=== PATIENT | male | born 1940 | race Caucasian/White ===

== ENCOUNTER 2021-03-12 11:06 | Outpatient (CLI) | payer BC, SELFPAY ==
[2021-03-12 11:55] LABS: Basophils Absolute Auto 0.1 K/mm3 (0.0-0.1); Basophils Percent Auto 0.8 % (0.2-1.2); Eosinophils Absolute Auto 0.2 K/mm3 (0-0.3); Eosinophils Percent Auto 3.1 % (0-4.4); Hematocrit 50.4 % (42.0-52.0); Hemoglobin 16.7 g/dL (14.0-18.0); Immature Granulocyte Absolute 0.03 K/mm3 (0.00-0.031); Immature Granulocyte Percent A 0.4 % (0-0.5); Immature Platelet Fraction Pct 4.7 % (0.9-11.2); Lymphocytes Absolute Auto 1.19 K/mm3 (0.9-3.2); Lymphocytes Percent Auto 16.8 % (18.3-44.2); Mean Corpuscular HGB Conc 33.1 g/dl (32-36); Mean Corpuscular Hemoglobin 32.7 pg (26-34); Mean Corpuscular Volume 98.6 fl (80-100); Mean Platelet Volume 10.6 fl (7.4-10.4); Monocytes Absolute Auto 0.8 K/mm3 (0.1-0.6); Monocytes Percent Auto 10.7 % (2.6-8.5); Neutrophils Absolute Auto 4.8 K/mm3 (1.3-6.7); Neutrophils Percent Auto 68.2 % (45.5-73.1); Platelet Count Result 138 k/mm3 (150-375); Red Blood Count 5.11 M/mm3 (4.6-6.20); Red Cell Distribution Width 12.5 % (11.5-14.5); White Blood Count 7.1 K/mm3 (4.5-10.0)
[2021-03-12 12:05] LABS: Alanine Aminotransferase 15 U/L (4-50); Albumin Level 4.2 g/dL (3.5-5.1); Alkaline Phosphatase 67 U/L (38-126); Anion Gap 7 mmol/L (8-16); Aspartate Amino Transferase 24 U/L (17-59); Bilirubin,Total 0.9 mg/dL (0.2-1.3); Blood Urea Nitrogen 22 mg/dL (9-20); Calcium 9.5 mg/dL (8.4-10.2); Carbon Dioxide 31 mmol/L (22-30); Chloride 97 mmol/L (98-107); Cholesterol 155 mg/dL (0-200); Estimated Glomerular Filt Rate > 60; Glucose 111 mg/dL (65-110); HDL Direct 44 mg/dL; Potassium 4.3 mmol/L (3.4-5.0); Sodium 135 mmol/L (137-145); Triglycerides 261 mg/dL (<150)
[2021-03-12 12:16] LABS: LDL Cholesterol Direct 81 mg/dL
[2021-03-12 12:35] LABS: Prostate Specific Antigen 4.6 ng/mL (< OR = 4.0)
== END 2021-03-12 11:07 | disposition home or self-care (01) ==
PROVIDERS: PCP Internal Medicine; Visit Provider Nurse Practitioner
DX: Z90.49 Acquired absence of other specified parts of digestive tract (principal); R35.0 Frequency of micturition
CPT/HCPCS: 36415; 80053; 80061; 84153; 85025; 85055

== ENCOUNTER 2021-03-28 12:22 | Outpatient (RCR) | payer BC, SELFPAY ==
--- NOTE | 2021-03-28 14:26 | STOPEVAL ---
Thank you for referring Bud James to [facility].? The patient is scheduled to be seen for therapy? ____x/week for ___ weeks. Please review, sign, date and return this plan of care FABIÁN. I agree with and certify that the following plan of care is medically necessary. Referring Physician Date Admitting Provider: Attending Provider: Giovanni Harrington MD Referring Provider: Giovanni Harrington MD *ST Outpatient Evaluation Start: 03/28/21 12:10 Freq: Status: Active Protocol: Document 03/28/21 12:31 [facility] (Rec: 03/28/21 13:02 BAS [id number]) Therapy Assessment Status Assessment Status Assessment Status Evaluation Outpatient Past Medical History Past Medical History Source of Past Medical History Patient Evaluation Information Problem Diagnosis Hoarse voice Onset 09/2018 Cause Intubated during CABG/ extubated after surgery Additional Evaluation Detail EGD performed after extubation which facilitated improved swallowing skills according to the . Subjective Information Patient reports he can barely Query Text:As Reported By Patient/ talk at times. reports Family he had a triple bipass in September of 2018; reports that he had his throat stretched at that time. A previous doctor reported that when his breathing tubes were removed, it injured the vocal cords. He was given a Modified Barium Swallow test after the surgery and they found that his epiglottis was not closing as it should and he was instructed to take small bites and sips, use head flexion, and to clear throat and swallow again as a way to prevent penetration. Additionally, the speech pathologist reported he had a bone spur at the cervical level and they spoke with a surgeon about this who advised against surgery to remove it. reports that patient has always had difficulty since the surgery but in the past three weeks he has returned to
--- NOTE | 2021-03-28 14:26 | STOPEVAL ---
Thank you for referring Bud James to [facility].? The patient is scheduled to be seen for therapy? 2x/week for 4 weeks. Please review, sign, date and return this plan of care FABIÁN. I agree with and certify that the following plan of care is medically necessary. Referring Physician Date Attending Provider: Giovanni Harrington MD Referring Provider: Giovanni Harrington MD * Outpatient Past Medical History Past Medical History Source of Past Medical History Patient and spouse Evaluation Information Problem Diagnosis Hoarse voice Onset 09/2018 Cause Intubated during CABG/ extubated after surgery Additional Evaluation Detail EGD performed after extubation which facilitated improved swallowing skills according to the . Subjective Information Patient reports he can barely Query Text:As Reported By Patient/ talk at times. reports Family he had a triple bipass in September of 2018; reports that he had his throat stretched at that time. A previous doctor reported that when his breathing tubes were removed, it injured the vocal cords. He was given a Modified Barium Swallow test after the surgery and they found that his epiglottis was not closing as it should and he was instructed to take small bites and sips, use head flexion, and to clear throat and swallow again as a way to prevent penetration. Additionally, the speech pathologist reported he had a bone spur at the cervical level and they spoke with a surgeon about this who advised against surgery to remove it. reports that patient has always had difficulty since the surgery but in the past three weeks he has returned to eating large bites and adding liquids to the food in his mouth, drinking nutrition drinks that increases the mucous in his throat, and having increased vocal
== END 2021-06-26 23:59 | disposition home or self-care (01) ==
LOC: ANHST 12:22
PROVIDERS: PCP Internal Medicine; Referring Provider Otolaryngology; Visit Provider Otolaryngology
DX: J38.3 Other diseases of vocal cords (principal); J38.2 Nodules of vocal cords; R49.0 Dysphonia; R13.10 Dysphagia, unspecified
CPT/HCPCS: 92524

== ENCOUNTER 2021-04-10 11:22 | Outpatient (CLI) | payer BC, SELFPAY ==
[2021-04-10 12:26] LABS: CRP < 0.5 mg/dL (<1.0)
[2021-04-10 12:46] LABS: Erythrocyte Sedimentation Rate 1 mm/hr (0-20)
[2021-04-10 13:52] LABS: Toxigenic C. Diff NEGATIVE (NEGATIVE)
== END 2021-04-10 11:23 | disposition home or self-care (01) ==
LOC: ANHLAB 11:24
PROVIDERS: PCP Internal Medicine; Visit Provider Nurse Practitioner Family
DX: R19.7 Diarrhea, unspecified (principal)
CPT/HCPCS: 36415; 85652; 86140; 87045; 87177; 87209; 87324; 87427; 87493

== ENCOUNTER 2022-01-01 00:16 | Day surgery (SDC) | payer BC, SELFPAY ==
[2021-12-31 16:45] VITALS: BMI 25.8
[2022-01-01 09:06] VITALS: BP 165/85; PULSE 63; RESP 22; TEMP 36.9; O2SAT 96; BMI 25.9
--- NOTE | 2022-01-01 09:42 | PM.IMHP ---
H&P: HPI History of Present Illness Date/Time: 01/01/22 09:42 Chief Complaint: Loop Recorder at end of life, here for explant Narrative: Bud James is an 81-year-old male who is here for a of loop recorder explant. He is followed by Dr. Kong.. He has history of CABG x3 in 2019, and [place] loop recorder in 2019. He has paroxysmal atrial fibrillation on apixaban, last dose was 12/28/2021 PMD. He has history of some dementia. He is feeling well today with no chest pain or shortness of breath. He has been NPO. The patient has a history of hallucinations when given morphine. When given ?a little too much? Versed he became agitated and confused. He has a penicillin allergy as well. Review of Systems Review of Systems: No chest pain, shortness a breath, stomach problems. He has been NPO. Some cognitive impairment. No symptoms of infection. [facility] Past Medical History Medical History (Updated 01/01/22 @ 09:47 by Karine Pacheco MD) Arthritis CAD (coronary artery disease) Cognitive impairment Colon cancer (~11/01/10) Dementia Elevated PSA GERD (gastroesophageal reflux disease) Heart disease Hypertension Overweight (BMI 25.0-29.9) Paroxysmal atrial fibrillation Pulmonary emboli (~2008) Thrombocytopenia Surgical History Surgical History History of left knee replacement (~2000) Hx of cholecystectomy 2000 S/P CABG x 3 (~10/06/18) Family History Family History Father Heart disease Mother Diabetes mellitus Hypertension Alzheimer disease Sibling Cancer of kidney Carcinoma of colon Daughter Cancer of kidney Social History Social History Social History: Caffeine-None Smoking status: Never smoker Second hand tobacco smoke exposure: No Alcohol intake: never Substance use: never Substance use type: does not use Living arrangements: with family Additional living arrangements comments: lives with in a house Gender identity (if verbalized by the patient): Male Sexual Orientation (if Verbalized by the Patient): Straight or Heterosexual Spiritual care concerns: No Agree to blood products: Yes Meds Home Medications and Allergies Home Medications Medication Instructions Recorded Confirmed Type apixaban 5 mg tablet (Eliquis) 5 mg PO BID 01/01/21 12/31/21 History ascorbic acid (vitamin C) 250 mg 282 mg PO DAILY 01/01/21 12/31/21 History tablet aspirin 81 mg chewable tablet 81 mg PO DAILY 01/01/21 12/31/21 History calcium carbonate 650 mg calcium 650 mg PO DAILY 01/01/21 01/01/22 History (1,625 mg) tablet cyanocobalamin (vitamin B-12) 2,500 mcg PO DAILY 01/01/21 12/31/21 History 2,500 mcg tablet famotidine 20 mg tablet 20 mg PO BID #180 tabs 03/12/21 12/31/21 Rx memantine 10 mg tablet 10 mg PO BID #180 tabs 08/19/21 01/01/22 Rx galantamine 4 mg tablet 8 mg PO BID #120 tabs 11/28/21 12/31/21 Rx Prevagen 1 tablet PO DAILY 12/31/21 12/31/21 History coenzyme Q10 100 mg capsule (Co 100 mg PO DAILY 12/31/21 12/31/21 History Q-10) magnesium 100 mg tablet 100 mg PO DAILY 12/31/21 12/31/21 History melatonin 5 mg chewable tablet 10 mg PO HS 12/31/21 12/31/21 History metoprolol succinate 25 mg 25 mg PO DAILY 12/31/21 12/31/21 History tablet,extended release 24 hr cleluloc-pxh-tjjci acid 300 1 tablet PO DAILY 12/31/21 12/31/21 History mcg-lycopene 600 mcg-lutein 300 mcg tablet (Centrum Silver Men) knlqszrkwoyj-lau-nusaijd-FA 200 1 tablet PO DAILY 12/31/21 12/31/21 History mg-0.4 mg chewable tablet vit C,Q-Vi-bqflbm-lutein-zeaxan 60 1 cap PO BID 12/31/21 12/31/21 History mg-13.5 mg-15 mg-2 mg-6 mg capsule (Ocuvite Lutein and Zeaxanthin) Bacillus coagulans 1 billion cell 1 cell PO DAILY 01/01/22 01/01/22 History capsule Zinc Gluconium 11 mg PO DAILY 01/01/22 01/01/22 History
--- NOTE | 2022-01-01 09:49 | WPDMODSED ---
Moderate Sedation Note-Pt Data Patient Data Diagnosis: Loop recorder at end of life, here for explant Present Complaint: Bud James is an 81-year-old male who is here for a of loop recorder explant. He is followed by Dr. Kong.. He has history of CABG x3 in 2019, and [place] loop recorder in 2019. He has paroxysmal atrial fibrillation on apixaban, last dose was 12/28/2021 PMD. He has history of some dementia. He is feeling well today with no chest pain or shortness of breath. He has been NPO. The patient has a history of hallucinations when given morphine. When given ?a little too much? Versed he became agitated and confused. He has a penicillin allergy as well. Procedure to be performed/Plan: Loop recorder explant under local anesthesia Possible conscious sedation Allergies Allergy/AdvReac Type Severity Reaction Status Date / Time Penicillins Allergy Severe Swelling Verified 01/01/22 09:02 RICARDO Inhibitors AdvReac Mild Cough Verified 01/01/22 09:02 midazolam [From Versed] AdvReac Mild Agitated Verified 01/01/22 09:02 morphine AdvReac Mild Hallucinati Verified 01/01/22 09:02 ng Home Medications Medication Instructions Recorded Confirmed Type apixaban 5 mg tablet (Eliquis) 5 mg PO BID 01/01/21 12/31/21 History ascorbic acid (vitamin C) 250 mg 282 mg PO DAILY 01/01/21 12/31/21 History tablet aspirin 81 mg chewable tablet 81 mg PO DAILY 01/01/21 12/31/21 History calcium carbonate 650 mg calcium 650 mg PO DAILY 01/01/21 01/01/22 History (1,625 mg) tablet cyanocobalamin (vitamin B-12) 2,500 mcg PO DAILY 01/01/21 12/31/21 History 2,500 mcg tablet famotidine 20 mg tablet 20 mg PO BID #180 tabs 03/12/21 12/31/21 Rx memantine 10 mg tablet 10 mg PO BID #180 tabs 08/19/21 01/01/22 Rx galantamine 4 mg tablet 8 mg PO BID #120 tabs 11/28/21 12/31/21 Rx Prevagen 1 tablet PO DAILY 12/31/21 12/31/21 History coenzyme Q10 100 mg capsule (Co 100 mg PO DAILY 12/31/21 12/31/21 History Q-10) magnesium 100 mg tablet 100 mg PO DAILY 12/31/21 12/31/21 History melatonin 5 mg chewable tablet 10 mg PO HS 12/31/21 12/31/21 History metoprolol succinate 25 mg 25 mg PO DAILY 12/31/21 12/31/21 History tablet,extended release 24 hr ghfnwtuv-ghq-sfnhw acid 300 1 tablet PO DAILY 12/31/21 12/31/21 History mcg-lycopene 600 mcg-lutein 300 mcg tablet (Centrum Silver Men) xmontildbidd-stc-grkbbzn-FA 200 1 tablet PO DAILY 12/31/21 12/31/21 History mg-0.4 mg chewable tablet vit C,I-Bw-movete-lutein-zeaxan 60 1 cap PO BID 12/31/21 12/31/21 History mg-13.5 mg-15 mg-2 mg-6 mg capsule (Ocuvite Lutein and Zeaxanthin) Bacillus coagulans 1 billion cell 1 cell PO DAILY 01/01/22 01/01/22 History capsule Zinc Gluconium 11 mg PO DAILY 01/01/22 01/01/22 History Sedation/Anesthesia: No previous sedation/anesthesia problems (including family history). [facility] Past Medical History Medical History (Updated 01/01/22 @ 09:47 by Karine Pacheco MD) Arthritis CAD (coronary artery disease) Cognitive impairment Colon cancer (~11/01/10) Dementia Elevated PSA GERD (gastroesophageal reflux disease) Heart disease Hypertension Overweight (BMI 25.0-29.9) Paroxysmal atrial fibrillation Pulmonary emboli (~2008) Thrombocytopenia Surgical History Surgical History History of left knee replacement (~2000) Hx of cholecystectomy 1999 S/P CABG x 3 (~10/06/18) Family History Family History Father Heart disease Mother Diabetes mellitus Hypertension Alzheimer disease Sibling Cancer of kidney Carcinoma of colon Daughter Cancer of kidney Social History Social History Social History: Caffeine-None Smoking status: Never smoker Second hand tobacco smoke exposure: No Alcohol intake: never Substance use: never Substance use type: does n
--- NOTE | 2022-01-01 10:30 | PM.OP ---
Procedure Note - Brief Procedure Note - Brief Date of procedure: 01/01/22 Pre-op diagnosis: irineo loop recorder at end of life Post-op diagnosis: Other (Status post loop recorder explant) Procedure performed: explant of loop recorder under local anesthesia Description of procedure: uneventful explant Surgeon: Karine Pacheco MD
--- NOTE | 2022-01-01 10:31 | P.OP_ITS ---
Procedure Note - Detailed Date of Procedure 01/01/22 Pre-op Diagnosis irineo Post-op Diagnosis Other ( status post recorder) Procedure Performed loop recorder explant local anesthesia Surgeon Karine Pacheco MD Indications Bud James is an 81-year-old male who is here for a of loop recorder explant.? He is followed by Dr. Kong..? He has history of CABG x3 in 2019, and [place] loop recorder in 2019.? He has paroxysmal atrial fibrillation on apixaban, last dose was 12/28/2021 PMD.? He has history of some dementia.? He is feeling well today with no chest pain or shortness of breath.? He has been NPO.? Description of Procedure After informed consent the patient was taken into the labeling associate. The left parasternal area was prepped and draped. Anesthesia was obtained using 1% lidocaine. A skin incision was made and carried down to the loop recorder with blunt and sharp dissection. The capsule was incised. The device was grasped with forceps and delivered from the pocket. The pocket was irrigated with sterile saline and vancomycin solution. a subcutaneous suture with 2-0 Vicryl was placed. Hemostasis was obtained with local compression. A skin adhesive and sterile dressing were applied. The patient tolerated the procedure well. There were no complications. Blood loss was negligible. Despite the patient's cognitive impairment, he remained calm and cooperative throughout the procedure. Will discharge the patient with a prescription for an antibiotic and wound care instructions. Follow-up in 1 week for incision check. Resume Eliquis tomorrow night. Estimated Blood Loss 2 Complications No immediate complications Condition Stable Disposition Observation
[2022-01-01 10:41] VITALS: BP 159/85; PULSE 60; RESP 17; O2SAT 98
== END 2022-01-01 11:11 | disposition home or self-care (01) ==
PROVIDERS: PCP Internal Medicine; Visit Provider Internal Medicine Cardiovascular Disease
PROC: (CPT 33286; principal; 2022-01-01 10:00)
DX: Z45.09 Encounter for adjustment and management of other cardiac device (principal); I48.0 Paroxysmal atrial fibrillation; I25.10 Atherosclerotic heart disease of native coronary artery without angina pectoris; I11.9 Hypertensive heart disease without heart failure; F03.90 Unspecified dementia, unspecified severity, without behavioral disturbance, psychotic disturbance, mood disturbance, and anxiety; K21.9 Gastro-esophageal reflux disease without esophagitis; Z86.711 Personal history of pulmonary embolism; Z95.1 Presence of aortocoronary bypass graft; Z85.038 Personal history of other malignant neoplasm of large intestine; Z79.01 Long term (current) use of anticoagulants; Z79.82 Long term (current) use of aspirin
CPT/HCPCS: 33286; J3370; J7040

== ENCOUNTER 2022-01-09 14:23 | Outpatient (CLI) | payer BC, SELFPAY ==
[2022-01-09 15:45] LABS: Basophils Absolute Auto 0.1 K/mm3 (0.0-0.1); Basophils Percent Auto 0.9 % (0.2-1.2); Eosinophils Absolute Auto 0.3 K/mm3 (0-0.3); Eosinophils Percent Auto 4.4 % (0-4.4); Hematocrit 48.3 % (42.0-52.0); Immature Granulocyte Absolute 0.02 K/mm3 (0.00-0.031); Immature Granulocyte Percent A 0.3 % (0-0.5); Immature Platelet Fraction Pct 4.9 % (0.9-11.2); Lymphocytes Absolute Auto 1.24 K/mm3 (0.9-3.2); Lymphocytes Percent Auto 19.5 % (18.3-44.2); Mean Corpuscular HGB Conc 33.1 g/dl (32-36); Mean Corpuscular Hemoglobin 32.8 pg (26-34); Mean Platelet Volume 10.9 fl (7.4-10.4); Monocytes Absolute Auto 0.8 K/mm3 (0.1-0.6); Monocytes Percent Auto 12.3 % (2.6-8.5); Neutrophils Percent Auto 62.6 % (45.5-73.1); Platelet Count Result 129 k/mm3 (150-375); Red Blood Count 4.88 M/mm3 (4.6-6.20); Red Cell Distribution Width 12.2 % (11.5-14.5); White Blood Count 6.4 K/mm3 (4.5-10.0)
[2022-01-09 17:17] LABS: Alanine Aminotransferase 15 U/L (6-50); Albumin Level 4.3 g/dL (3.5-5.1); Alkaline Phosphatase 77 U/L (38-126); Anion Gap 8 mmol/L (8-16); Aspartate Amino Transferase 23 U/L (17-59); Bilirubin,Total 0.8 mg/dL (0.2-1.3); Blood Urea Nitrogen 13 mg/dL (9-20); Calcium 9.1 mg/dL (8.4-10.2); Carbon Dioxide 30 mmol/L (22-30); Chloride 100 mmol/L (98-107); Cholesterol 136 mg/dL (0-200); Estimated Glomerular Filt Rate > 60; Glucose 91 mg/dL (65-110); HDL Direct 40 mg/dL; Potassium 4.4 mmol/L (3.4-5.0); Sodium 138 mmol/L (137-145); Triglycerides 307 mg/dL (<150)
[2022-01-09 17:28] LABS: LDL Cholesterol Direct 58 mg/dL
[2022-01-09 17:59] LABS: Prostate Specific Antigen 7.1 ng/mL (< OR = 4.0)
== END 2022-01-09 14:24 | disposition home or self-care (01) ==
PROVIDERS: PCP Internal Medicine; Visit Provider Nurse Practitioner
DX: I25.10 Atherosclerotic heart disease of native coronary artery without angina pectoris (principal); E78.5 Hyperlipidemia, unspecified; I10 Essential (primary) hypertension; R97.20 Elevated prostate specific antigen [PSA]
CPT/HCPCS: 36415; 80053; 80061; 84153; 85025; 85055

== ENCOUNTER 2022-02-17 14:01 | Outpatient (CLI) | payer BC, SELFPAY ==
[2022-02-17 15:14] LABS: SARS-CoV-2 RNA PCR Negative
== END 2022-02-17 14:02 | disposition home or self-care (01) ==
LOC: ANHLAB 14:02
PROVIDERS: PCP Internal Medicine; Visit Provider Nurse Practitioner
DX: R50.9 Fever, unspecified (principal); Z20.822 Contact with and (suspected) exposure to COVID-19
CPT/HCPCS: U0003; U0005

== ENCOUNTER → 2022-02-18 11:54 | Outpatient (CLI) | payer BC, SELFPAY ==
--- NOTE | ~2022-02-18 | XR_ITS ---
Clinical Indication: Cough PA and lateral views of the chest: Comparison: 11/17/2003 Findings: The lungs are clear, without evidence of focal consolidation or pleural effusion. Cardiome diastinal silhouette is stable, status post interval presumed CABG. Similar probable eventration of t he left hemidiaphragm. Bones and soft tissues are unremarkable. Impression: No acute abnormality. Chronic findings, as above. Reviewed, dictated and finalized at location M. RAL AISLE CASHIER Impression: No acute abnormality. Chronic findings, as above.
== END ==
PROVIDERS: PCP Clinical Nurse Specialist; Visit Provider Clinical Nurse Specialist
DX: R05.9 Cough, unspecified (principal)
CPT/HCPCS: 71046

== ENCOUNTER → 2022-03-28 10:21 | Outpatient (CLI) | payer BC, SELFPAY ==
--- NOTE | ~2022-03-28 | XR_ITS ---
Right Knee Technique: AP, lateral, and oblique views were obtained. Clinical History: Pain Findings: No fracture or dislocation is seen. Osseous alignment is anatomic. Moderate tricompartmenta l osteoarthrosis is present.. Small joint effusion is seen. Impression: Moderate tricompartmental osteoarthritis. Small joint effusion. Reviewed, dictated and finalized at location . NOLOGY SPECIALIST Impression: Moderate tricompartmental osteoarthritis. Small joint effusion.
== END ==
PROVIDERS: PCP Internal Medicine; Visit Provider Clinical Nurse Specialist
DX: M25.461 Effusion, right knee (principal); M17.11 Unilateral primary osteoarthritis, right knee
CPT/HCPCS: 73562

== ENCOUNTER 2022-06-02 15:30 | Outpatient (CLI) | payer BC, SELFPAY ==
[2022-06-02 15:49] LABS: Basophils Percent Auto 0.7 % (0.2-1.2); Eosinophils Absolute Auto 0.2 K/mm3 (0-0.3); Eosinophils Percent Auto 2.6 % (0-4.4); Hematocrit 45.1 % (42.0-52.0); Hemoglobin 15.4 g/dL (14.0-18.0); Immature Granulocyte Absolute 0.01 K/mm3 (0.00-0.031); Immature Granulocyte Percent A 0.2 % (0-0.5); Immature Platelet Fraction Pct 3.8 % (0.9-11.2); Lymphocytes Absolute Auto 1.14 K/mm3 (0.9-3.2); Lymphocytes Percent Auto 18.7 % (18.3-44.2); Mean Corpuscular HGB Conc 34.1 g/dl (32-36); Mean Corpuscular Volume 96.6 fl (80-100); Mean Platelet Volume 9.9 fl (7.4-10.4); Monocytes Absolute Auto 0.8 K/mm3 (0.1-0.6); Monocytes Percent Auto 13.3 % (2.6-8.5); Neutrophils Percent Auto 64.5 % (45.5-73.1); Platelet Count Result 120 k/mm3 (150-375); Red Blood Count 4.67 M/mm3 (4.6-6.20); Red Cell Distribution Width 12.7 % (11.5-14.5); White Blood Count 6.1 K/mm3 (4.5-10.0)
[2022-06-02 17:38] LABS: Iron 54 ug/dL (49-181)
[2022-06-02 17:41] LABS: Alanine Aminotransferase 17 U/L (6-50); Albumin Level 3.9 g/dL (3.5-5.1); Alkaline Phosphatase 75 U/L (38-126); Anion Gap 5 mmol/L (8-16); Aspartate Amino Transferase 22 U/L (17-59); Bilirubin,Total 0.8 mg/dL (0.2-1.3); Blood Urea Nitrogen 17 mg/dL (9-20); Carbon Dioxide 33 mmol/L (22-30); Chloride 99 mmol/L (98-107); Estimated Glomerular Filt Rate > 60; Glucose 109 mg/dL (65-110); Potassium 4.2 mmol/L (3.4-5.0); Sodium 137 mmol/L (137-145)
[2022-06-02 17:48] LABS: Percent Iron Saturation 22 % (20-50)
[2022-06-02 18:49] LABS: Folic Acid > 20.0 ng/mL (2.76->20)
[2022-06-05 15:52] LABS: Platelet Antibody, Direct IgG NEGATIVE (NEGATIVE)
== END 2022-06-02 15:31 | disposition home or self-care (01) ==
LOC: ANHLAB 15:32
PROVIDERS: PCP Internal Medicine; Visit Provider Internal Medicine Hematology & Oncology
DX: D69.59 Other secondary thrombocytopenia (principal)
CPT/HCPCS: 36415; 80053; 82607; 82728; 82746; 83540; 83550; 85025; 85055; 86023

== ENCOUNTER 2022-06-16 08:12 | Outpatient (CLI) | payer BC, SELFPAY ==
--- NOTE | ~2022-06-16 | US_ITS ---
US abdomen complete DATE: 06/16/2022 09:20 INDICATION: Secondary thrombocytopenia TECHNIQUE: Real-time imaging and Doppler analysis of the abdomen COMPARISON: None FINDINGS: The spleen measures 9.5 cm length, within normal range. Normal hepatopedal portal venous flow direction. No hepatic or pancreatic space-occupying mass lesion is evident. The gallbladder is surgically absent. The common bile duct measures 6 mm, within normal range. The right kidney measures approximately 11 cm length, left kidney 8.5 cm Bilateral renal cortical thinning, left greater than right. No renal space occupying mass lesion is e vident. Normal caliber of the proximal abdominal aorta; the distal abdominal aorta is obscured. The inferior vena cava is unremarkable. IMPRESSION: Status post cholecystectomy Normal splenic size Bilateral renal atrophy, left greater than right Reviewed, dictated and finalized at Location A. Reviewed, dictated and finalized at location B.
== END 2022-06-16 08:13 | disposition home or self-care (01) ==
LOC: ANHIMG 08:15
PROVIDERS: PCP Internal Medicine; Visit Provider Internal Medicine Hematology & Oncology
DX: D69.59 Other secondary thrombocytopenia (principal); N26.1 Atrophy of kidney (terminal)
CPT/HCPCS: 76700

== ENCOUNTER 2022-06-28 09:57 | Emergency (ER) | payer BC, SELFPAY ==
--- NOTE | ~2022-06-28 | XR_ITS ---
EXAMINATION: XR toe 1st RT min 2V INDICATION: Right first toe pain and swelling TECHNIQUE: Four views of the right first toe are obtained. COMPARISON: None available FINDINGS: There is advanced osteoarthritis of the first metatarsophalangeal joint. There is mild to m oderate osteoarthritis of the visualized interphalangeal joints. No definite fracture is identified. There is mild soft tissue swelling of the first toe. Calcified atherosclerosis is noted. IMPRESSION: 1. Osteoarthritis without definite fracture identified. Reviewed, dictated and finalized at location A.
[2022-06-28 10:15] VITALS: BP 127/60; PULSE 67; RESP 18; TEMP 36.6; O2SAT 97
--- NOTE | 2022-06-28 10:48 | ED.GENADULT ---
HPI - General Adult General Chief complaint: Extremity Injury, Lower Stated complaint: . Time Seen by Provider: 06/28/22 10:48 Source: patient Mode of arrival: ambulatory Limitations: no limitations History of Present Illness HPI narrative: 81-year-old male patient presents to the [facility] with complaints of right great toe pain that started in the middle of the night. Patient states that he was working outside yesterday and they were working with some heavy cement blocks and he went into the garage to get a Jacob but does not specifically remember dropping or injuring his toe on anything that he can remember however he states he was wearing house slippers at this time. Patient patient denies any history of gout in the past. Patient states he woke up in the middle night and noticed that his toe was painful and this morning noticed that he had redness and swelling and and bruising to the bottom of the foot and when to come and get it checked out. Denies fevers, body aches or chills. Related Data Home Medications Medication Instructions Recorded Confirmed apixaban 5 mg tablet (Eliquis) 5 mg PO BID 01/01/21 06/28/22 ascorbic acid (vitamin C) 250 mg 282 mg PO DAILY 01/01/21 06/28/22 tablet aspirin 81 mg chewable tablet 81 mg PO DAILY 01/01/21 06/28/22 calcium carbonate 650 mg calcium 650 mg PO DAILY 01/01/21 06/28/22 (1,625 mg) tablet cyanocobalamin (vitamin B-12) 2,500 mcg PO DAILY 01/01/21 06/28/22 2,500 mcg tablet Prevagen 1 tablet PO DAILY 12/31/21 06/28/22 coenzyme Q10 100 mg capsule (Co 100 mg PO DAILY 12/31/21 06/28/22 Q-10) magnesium 100 mg tablet 100 mg PO DAILY 12/31/21 06/28/22 melatonin 5 mg chewable tablet 10 mg PO HS 12/31/21 06/28/22 metoprolol succinate 25 mg 25 mg PO DAILY 12/31/21 06/28/22 tablet,extended release 24 hr wcrjgtrt-yty-fjxzq acid 300 1 tablet PO DAILY 12/31/21 06/28/22 mcg-lycopene 600 mcg-lutein 300 mcg tablet (Centrum Silver Men) vit C,Y-Rz-xuuelp-lutein-zeaxan 60 1 cap PO BID 12/31/21 06/28/22 mg-13.5 mg-15 mg-2 mg-6 mg capsule (Ocuvite Lutein and Zeaxanthin) Bacillus coagulans 1 billion cell 1 cell PO DAILY 01/01/22 06/28/22 capsule Zinc Gluconium 11 mg PO DAILY 01/01/22 06/28/22 Allergies Allergy/AdvReac Type Severity Reaction Status Date / Time Penicillins Allergy Severe Swelling Verified 06/28/22 10:15 RICARDO Inhibitors AdvReac Mild Cough Verified 06/28/22 10:15 midazolam [From Versed] AdvReac Mild Agitated Verified 06/28/22 10:15 morphine AdvReac Mild Hallucinati Verified 06/28/22 10:15 ng Review of Systems Review of Systems: CONSTITUTIONAL: Denies fever, chills, or sweats. EYES: Denies visual changes, redness, or discharge. ENT: Denies rhinorrhea, congestion, sore throat, or otalgia. CARDIOVASCULAR: Denies chest pain, palpitations, or edema. RESPIRATORY: Denies cough or dyspnea. GASTROINTESTINAL: Denies abdominal pain, nausea, vomiting, or diarrhea. GENITOURINARY: Denies dysuria or hematuria. SKIN: Denies rash or itching. MUSCULOSKELETAL: Denies back pain, joint pain, or myalgia. Positive right great toe pain NEUROLOGIC: Denies headache, numbness, or weakness. PSYCHIATRIC: Denies anxiety or depression. [facility] Past Medical History Medical History (Updated 06/28/22 @ 11:34 by JANIS Rdz) Arthritis CAD (coronary artery disease) Cognitive impairment Colon cancer (~11/01/10) Dementia Elevated PSA GERD (gastroesophageal reflux disease) Heart disease Hyperlipidemia Hypertension Osteoarthritis of right knee Overweight (BMI 25.0-29.9) Paroxysmal atrial fibrillation Pulmonary emboli (~2008) Thrombocytopenia Surgical History Surgical History History of colon surgery History of left knee replacement (~2000) Hx of cholecystectomy 2000 S/P CABG x 3 (~10/06/18) Family History Family History Father Heart disease Hypertens
== END 2022-06-28 11:46 | disposition home or self-care (01) ==
PROVIDERS: Emergency Provider Nurse Practitioner Family; PCP Internal Medicine
DX: S90.111A Contusion of right great toe without damage to nail, initial encounter (principal); X58.XXXA Exposure to other specified factors, initial encounter; I25.10 Atherosclerotic heart disease of native coronary artery without angina pectoris; F03.90 Unspecified dementia, unspecified severity, without behavioral disturbance, psychotic disturbance, mood disturbance, and anxiety; K21.9 Gastro-esophageal reflux disease without esophagitis; E78.5 Hyperlipidemia, unspecified; I10 Essential (primary) hypertension; M17.11 Unilateral primary osteoarthritis, right knee; I48.0 Paroxysmal atrial fibrillation; Z86.711 Personal history of pulmonary embolism; Z95.1 Presence of aortocoronary bypass graft; Z96.652 Presence of left artificial knee joint; Z85.038 Personal history of other malignant neoplasm of large intestine
CPT/HCPCS: 73660; 99213; G0463

== ENCOUNTER 2022-08-19 13:58 | Emergency (ER) | payer BC, SELFPAY ==
[2022-08-19 14:11] VITALS: BP 149/72; PULSE 82; RESP 14; TEMP 36.6; O2SAT 97
--- NOTE | 2022-08-19 14:19 | ED.URI ---
HPI - URI/Sore Throat General Chief Complaint: Upper Respiratory Infection Stated Complaint: sorethroat Time Seen by Provider: 08/19/22 14:19 Source: patient, RN notes reviewed and old records reviewed Mode of arrival: ambulatory Limitations: no limitations History of Present Illness HPI Narrative: 82 year old male accompanied by with complaints of right ear feeling clogged since yesterday with some discomfort. states that they put sweet oil in his ear and used a Q-Tip in his ear but she thinks he pushed the wax in deeper in his ear. Patient also reports that he has decreased hearing in his right ear. Patient and deny patient having any fevers, sinus congestion or drainage or any cough. MD elicited complaint: other (ear pain and decreased hearing right ear) Onset (ago): day(s) (day 2 of symptoms) Pain scale (0-10): 2 Able to tolerate fluids by mouth: Yes Treatments prior to arrival: other (sweet oil to right ear and use Q-Tip) Related Data Home Medications Medication Instructions Recorded Confirmed apixaban 5 mg tablet (Eliquis) 5 mg PO BID 01/01/21 08/19/22 ascorbic acid (vitamin C) 250 mg 282 mg PO DAILY 01/01/21 08/19/22 tablet aspirin 81 mg chewable tablet 81 mg PO DAILY 01/01/21 08/19/22 calcium carbonate 650 mg calcium 650 mg PO DAILY 01/01/21 08/19/22 (1,625 mg) tablet cyanocobalamin (vitamin B-12) 2,500 mcg PO DAILY 01/01/21 08/19/22 2,500 mcg tablet coenzyme Q10 100 mg capsule (Co 100 mg PO DAILY 12/31/21 08/19/22 Q-10) magnesium 100 mg tablet 100 mg PO DAILY 12/31/21 08/19/22 melatonin 5 mg chewable tablet 10 mg PO HS 12/31/21 08/19/22 metoprolol succinate 25 mg 25 mg PO DAILY 12/31/21 08/19/22 tablet,extended release 24 hr gohkqose-fak-vwvbt acid 300 1 tablet PO DAILY 12/31/21 08/19/22 mcg-lycopene 600 mcg-lutein 300 mcg tablet (Centrum Silver Men) vit C,H-Ka-wwdcgy-lutein-zeaxan 60 1 cap PO BID 12/31/21 08/19/22 mg-13.5 mg-15 mg-2 mg-6 mg capsule (Ocuvite Lutein and Zeaxanthin) Bacillus coagulans 1 billion cell 1 cell PO DAILY 01/01/22 08/19/22 capsule Allergies Allergy/AdvReac Type Severity Reaction Status Date / Time Penicillins Allergy Severe Swelling Verified 08/19/22 14:07 morphine AdvReac Intermediate Hallucinati Verified 08/19/22 14:07 ng RICARDO Inhibitors AdvReac Mild Cough Verified 08/19/22 14:07 midazolam [From Versed] AdvReac Mild Agitated Verified 08/19/22 14:07 Review of Systems Review of Systems: CONSTITUTIONAL: Denies malaise, chills, sweats, or fever. EYES: Denies visual changes, redness, or discharge. ENT: Reports no rhinorrhea, congestion, sinus pain, some right ear otalgia denies sore throat. CARDIOVASCULAR: Denies chest pain, palpitations, or edema. RESPIRATORY: Reports no cough.? Denies dyspnea. GASTROINTESTINAL: Denies abdominal pain, nausea, vomiting, diarrhea SKIN: Denies rash or itching. MUSCULOSKELETAL: Denies myalgia. NEUROLOGIC: Denies headache. All systems reviewed & are unremarkable except as noted in HPI and below PMFSH Past Medical History Medical History Arthritis CAD (coronary artery disease) Cognitive impairment Colon cancer (~11/01/10) Dementia Elevated PSA GERD (gastroesophageal reflux disease) Heart disease Hyperlipidemia Hypertension Osteoarthritis of right knee Overweight (BMI 25.0-29.9) Paroxysmal atrial fibrillation Pulmonary emboli (~2008) Thrombocytopenia Surgical History Surgical History History of colon surgery History of left knee replacement (~2000) Hx of cholecystectomy 1999 S/P CABG x 3 (~10/06/18) Family History Family History Father Heart disease Hypertension Mother Diabetes mellitus Hypertension Alzheimer disease Sibling Cancer of kidney Carcinoma of colon Cancer Daughter Cancer of kidney Ca
== END 2022-08-19 14:45 | disposition home or self-care (01) ==
PROVIDERS: Emergency Provider Registered Nurse; PCP Internal Medicine
DX: H60.311 Diffuse otitis externa, right ear (principal); H61.21 Impacted cerumen, right ear; M17.11 Unilateral primary osteoarthritis, right knee; I25.10 Atherosclerotic heart disease of native coronary artery without angina pectoris; F03.90 Unspecified dementia, unspecified severity, without behavioral disturbance, psychotic disturbance, mood disturbance, and anxiety; E78.5 Hyperlipidemia, unspecified; I10 Essential (primary) hypertension; I48.0 Paroxysmal atrial fibrillation; Z95.1 Presence of aortocoronary bypass graft; Z96.652 Presence of left artificial knee joint; Z85.038 Personal history of other malignant neoplasm of large intestine
CPT/HCPCS: 69209; 99213; A9270; G0463

== ENCOUNTER 2022-08-20 11:47 | Outpatient (CLI) | payer BC, SELFPAY ==
[2022-08-20 17:51] LABS: Prostate Specific Antigen 8.4 ng/mL (< OR = 4.0)
== END 2022-08-20 11:48 | disposition home or self-care (01) ==
LOC: ANHLAB 11:48
PROVIDERS: PCP Internal Medicine; Visit Provider Nurse Practitioner
DX: R97.20 Elevated prostate specific antigen [PSA] (principal)
CPT/HCPCS: 36415; 84153

== ENCOUNTER → 2022-08-25 09:45 | Outpatient (CLI) | payer BC, SELFPAY ==
--- NOTE | ~2022-08-25 | XR_ITS ---
Lumbosacral Spine: AP and lateral views Clinical History: Pain Findings: The normal lordotic curve is maintained. There is advanced facet arthropathy throughout the lumbar spine. There is mild degenerative disc change at the lumbar spine. Extensive anterior flowing osteophytes are present. No fracture or subluxation evident. The sacroiliac joints are normally outl ined. Impression: Moderate to advanced degenerative spondylosis. Extensive DISH. Reviewed, dictated and finalized at location . Impression: Moderate to advanced degenerative spondylosis. Extensive DISH.
== END ==
PROVIDERS: PCP Internal Medicine; Visit Provider Nurse Practitioner
DX: M47.816 Spondylosis without myelopathy or radiculopathy, lumbar region (principal); M48.16 Ankylosing hyperostosis [Forestier], lumbar region
CPT/HCPCS: 72100

== ENCOUNTER → 2022-09-03 08:20 | Outpatient (CLI) | payer BC, SELFPAY ==
--- NOTE | ~2022-09-03 | MR_ITS ---
EXAMINATION: MR lumbar spine wo con DATE: 09/03/2022 09:11 INDICATION: Spondylosis without myelopathy or radiculopathy TECHNIQUE: Magnetic resonance imaging (MRI) of the lumbar spine was performed without intravenous con trast. Sequences included sagittal T2-weighted FSE, sagittal T2-weighted FS FSE, sagittal T1-weighted FSE, axial T2-weighted PROPELLER and axial T2-weighted FSE. COMPARISON: Lumbar spine radiographs dated 08/25/2022 FINDINGS: 7 degrees lumbar levocurvature. L5 spondylolysis with bilateral pars interarticularis defects and 6 m m anterolisthesis of L5 on S1. There are bridging osteophytes at multiple levels in the lumbar and lo wer thoracic spine consistent with diffuse idiopathic skeletal hyperostosis (DISH). Solid osseous fus ion with T1 hyperintense and saturating marrow fat signal involving at least portions of the T10-T11 through L2-L3 and L4-L5. Disc desiccation and mild disc height loss at L3-L4 and L5-S1. Annular fissu re at L5-S1. The conus medullaris terminates at L1. There is normal signal in the caudal spinal cord. There is partial ankylosis posteriorly at the bilateral sacroiliac joints. Paravertebral soft tissue s are unremarkable. The following disc levels are specifically discussed: T12-L1: The disc does not extend beyond the endplate margin. There is mild bilateral facet joint oste oarthritis. There is mild bilateral neural foraminal stenosis. There is no central canal stenosis. L1-L2: The disc does not extend beyond the endplate margin. There is mild bilateral facet joint osteo arthritis. There is mild bilateral neural foraminal stenosis. There is no central canal stenosis. L2-L3: The disc does not extend beyond the endplate margin. There is mild bilateral facet joint osteo arthritis. There is mild left and mild to moderate right neural foraminal stenosis. There is no centr al canal stenosis. L3-L4: The disc does not extend beyond the endplate margin. There is mild left and moderate right fac et joint osteoarthritis. There is mild bilateral neural foraminal stenosis. There is no central canal stenosis. L4-L5: Posterior disc osteophyte complex. There is moderate bilateral facet joint osteoarthritis. The re is moderate bilateral neural foraminal stenosis. Mild narrowing of the left and right lateral rece sses with no central canal stenosis. L5-S1: Disc is bulging. There is mild bilateral facet joint osteoarthritis. There is moderate bilater al neural foraminal stenosis. There is no central canal stenosis. IMPRESSION: 1. Mild lumbar spondylosis with solid osseous fusion anteriorly at both levels in the lumbar and lowe r thoracic spine likely secondary to diffuse idiopathic skeletal hyperostosis (DISH). 2. L5 spondylolysis with bilateral pars intra-articular is defects and 6 mm anterolisthesis L5 on S1. Reviewed, dictated and finalized at location B. IMPRESSION: 1. Mild lumbar spondylosis with solid osseous fusion anteriorly at both levels in the lumbar and lower thoracic spine likely secondary to diffuse idiopathic s keletal hyperostosis (DISH). 2. L5 spondylolysis with bilateral pars intra-articular is defects and 6 mm ant erolisthesis L5 on S1.
== END ==
PROVIDERS: PCP Internal Medicine; Visit Provider Nurse Practitioner
DX: M47.816 Spondylosis without myelopathy or radiculopathy, lumbar region (principal); Z98.1 Arthrodesis status
CPT/HCPCS: 72148

== ENCOUNTER 2022-10-16 10:00 | Outpatient (RCR) | payer BC, SELFPAY ==
--- NOTE | 2022-09-17 16:18 | OPREHPOC ---
Outpatient Therapy Plan of Care This is a Multidisciplinary Plan of Care that may contain components documented by all disciplines (PT, OT, and ST.) PT Problem 1 PT Problem #1 Knowledge Deficit PT Goal 1 Goal Pt to be IND with issued HEP Target Visit 8 PT Problem 2 PT Problem #2 Pain PT Goal 1 Goal Pt to report low back pain no greater than 3/10 in the last week Target Visit 8 PT Goal 2 Goal Pt to report 50% improvement in overall symptoms Target Visit 8 PT Problem 3 PT Problem #3 Impaired Range of Motion PT Goal 1 Goal Pt to demonstrate lumbar ROM 75% of normal and that is pain free Target Visit 8 PT Goal 2 Goal Pt to improve to 10 deg of hip extension tahmina Target Visit 8 PT Problem 4 PT Problem #4 Impaired Functional Mobil PT Goal 1 Goal Pt to demonstrate good body mechanics throughout treatment session Target Visit 8 PT Goal 2 Goal pt to report no functional limitations d/t his back pain Target Visit 8
--- NOTE | 2022-09-17 16:31 | PTOPEVAL1 ---
Assessment and note entered by Donna Witt, PT, DPT Evaluation Information Assessment Status Evaluation Diagnosis lumbar spondylosis Onset 2 month Subjective Information Pt reports about 2 months ago he was bending over and went to stand up and he instantly felt a sharp pain and has had a pain in his back every since. He wears a pelvic belt, he uses topical pain relive and meds for pain management. He states he pain fluctuates throughout the day. He reports difficulty walking, bending, and pulling. He states he enjoys taking care of his house and landscaping. Reported Pain Level Pain Score 3: Self Report Assessment PT Clinical Summary Bud presents to therapy today for his initial evaluation with a diagnosis of lumbar spondylosis. Today he demonstrates decreased active trunk motions in all directions limited by pain, deviations during gait included a flexed trunk, decreased soft tissue pliability, and significant tenderness to palpation. He is limited in how long he can stand d/t pain. Skilled physical therapy services are indicated to address the deficts noted above, to manage pain, and to return to [facility] . Plan of Care Interventions Electrical Stimulation,Gait Training,Hot Pack/Cold Pack,Manual Therapy,Neuro Re-education,Patient/ Caregiver Educati,Therapeutic Activities, Therapeutic Exercise,Ultrasound PT Services Indicated Yes Treatment Frequency and 2x/wk for 4 wks Duration These treatments will address the objective and functional deficits as defined above. The patient will be advanced safely and appropriately in order for the patient to progress towards his/her prior level of function. Additional exercises will be introduced and as well as a comprehensive home exercise program upon discharge, if needed, ?to ensure carryover of functional gains achieved in the clinic. This treatment plan has been reviewed and agreement upon by the patient.
--- NOTE | 2022-10-01 10:27 | PCPTNOTE ---
Appointment on September 30 was canceled due to provider out sick.
--- NOTE | 2022-10-14 09:30 | PCPTNOTE ---
Patient called & cancelled scheduled appointment this date due to doing well and wanting to decrease his frequency.
--- NOTE | 2022-10-14 16:27 | PCPTNOTE ---
Patient reports he felt like he wanted to go down to once a week instead of twice a week and therefore canceled this appointment.
--- NOTE | 2022-10-16 11:32 | PTOPDC ---
Assessment and note entered by Donna Witt, PT, DPT Evaluation Information Assessment Status discharge Diagnosis lumbar spondylosis Onset 2 month Subjective Information Pt states overall he is doing well, he states his biggest complaint is his R knee. He declines wearing a back brace, having any sharp pain, or disrupted sleep d/t back pain. He has been able to complete yard work. Reported Pain Level Pain Score 7,0: Self Report Assessment PT Clinical Summary Bud presents to therapy today for his initial evaluation with a diagnosis of lumbar spondylosis. Today he demonstrates improve trunk ROM in all directions that is still mildly limited by does not increase pain. He demonstrates improved tahmina hip ROM and strength that does not increase pain. He reports no functional limitations from his back at this time. He will be discharged with instructions to continue his HEP. Plan of Care PT Services Indicated No
== END 2022-10-16 15:48 | disposition home or self-care (01) ==
LOC: ANHGOSHPT 10:00
PROVIDERS: PCP Internal Medicine; Visit Provider Nurse Practitioner
DX: M47.816 Spondylosis without myelopathy or radiculopathy, lumbar region (principal)
CPT/HCPCS: 97014; 97110; 97112; 97140; 97162; 97530; G0283

== ENCOUNTER 2022-10-20 14:15 | Outpatient (CLI) | payer BC, SELFPAY ==
[2022-10-20 17:47] LABS: Basophils Percent Auto 0.6 % (0.2-1.2); Eosinophils Absolute Auto 0.2 K/mm3 (0-0.3); Eosinophils Percent Auto 2.7 % (0-4.4); Hematocrit 47.2 % (42.0-52.0); Hemoglobin 15.8 g/dL (14.0-18.0); Immature Granulocyte Absolute 0.02 K/mm3 (0.00-0.031); Immature Granulocyte Percent A 0.3 % (0-0.5); Immature Platelet Fraction Pct 5.5 % (0.9-11.2); Lymphocytes Absolute Auto 1.33 K/mm3 (0.9-3.2); Lymphocytes Percent Auto 18.6 % (18.3-44.2); Mean Corpuscular HGB Conc 33.5 g/dl (32-36); Mean Corpuscular Hemoglobin 33.4 pg (26-34); Mean Corpuscular Volume 99.8 fl (80-100); Mean Platelet Volume 11.5 fl (7.4-10.4); Monocytes Absolute Auto 0.8 K/mm3 (0.1-0.6); Monocytes Percent Auto 11.3 % (2.6-8.5); Neutrophils Absolute Auto 4.8 K/mm3 (1.3-6.7); Neutrophils Percent Auto 66.5 % (45.5-73.1); Platelet Count Result 116 k/mm3 (150-375); Red Blood Count 4.73 M/mm3 (4.6-6.20); Red Cell Distribution Width 12.2 % (11.5-14.5); White Blood Count 7.2 K/mm3 (4.5-10.0)
[2022-10-20 18:31] LABS: Alanine Aminotransferase 19 U/L (6-50); Albumin Level 3.9 g/dL (3.5-5.1); Alkaline Phosphatase 70 U/L (38-126); Anion Gap 3 mmol/L (8-16); Aspartate Amino Transferase 36 U/L (17-59); Bilirubin,Total 1.1 mg/dL (0.2-1.3); Blood Urea Nitrogen 15 mg/dL (9-20); Calcium 9.1 mg/dL (8.4-10.2); Carbon Dioxide 32 mmol/L (22-30); Chloride 101 mmol/L (98-107); Estimated Glomerular Filt Rate > 60; Glucose 102 mg/dL (65-110); Potassium 4.5 mmol/L (3.4-5.0); Sodium 136 mmol/L (137-145)
[2022-10-20 18:57] LABS: Thyroid Stimulating Hormone 0.656 uIU/mL (0.465-4.680)
[2022-10-20 19:37] LABS: Folic Acid > 20.0 ng/mL (2.76->20)
== END 2022-10-20 14:16 | disposition home or self-care (01) ==
LOC: ANHGOSHLAB 14:16
PROVIDERS: PCP Internal Medicine; Visit Provider Nurse Practitioner
DX: D69.6 Thrombocytopenia, unspecified (principal); R53.83 Other fatigue; R41.89 Other symptoms and signs involving cognitive functions and awareness
CPT/HCPCS: 36415; 80053; 82607; 82746; 84443; 85025; 85055

== ENCOUNTER 2022-10-23 00:12 | Day surgery (SDC) | payer BC, SELFPAY ==
[2022-10-10 14:03] VITALS: BMI 26.6
--- NOTE | 2022-10-10 14:11 | PC.NURSE ---
Report to the Outpatient Waiting Room, entrance under the green pavilion located off [facility], at time ____614___ on date ___10/23/22____. Planned Procedure Time: ____814____. Time changes happen often and if your time is changed the preop area will call you the afternoon before. - You and your visitor will be asked to self-screen and do not enter if you have any COVID symptoms. - A mask is optional within the hospital at this time. Patients may have clear liquids (water, carbonated beverages, clear teas, apple juice) until 3 hours prior to surgery (0515 AM) with a maximum of 20 ounces. - No food from midnight until time of surgery - Infants may have breast milk until 4 hours before surgery, formula 6 hours prior to surgery. - Children will be allowed to drink immediately following surgery. If applicable, please bring a bottle or sippy cup to assist with drinking. Juice, water, soda, and popsicles are readily available. For infants on formula, please bring formula the day of surgery. Pacifiers are allowed. Take the following medications with a SIP of water the morning of surgery: MEMANTINE DO NOT STOP ANY OF YOUR OTHER PRESCRIPTION MEDICATIONS PRIOR TO SURGERY ?EXCEPT THE FOLLOWING Medications to discontinue per PARRES - _ASPIRIN 7 DAYS PRIOR TO SURGERY, Date to take last dose 10/15/22, ELIQUIS 2 DAYS PRIOR TO SURGERY, Date to take last dose 10/20/22_ Medications to discontinue per ANESTHESIA - MULTIVITAMIN/SUPPLEMENTS 3 DAYS PRIOR TO SURGERY, Date to take last dose 10/19/22_ Please no make-up, nail czech, hairspray, perfume, deodorant, or body powder the day of surgery. No jewelry (including any body piercings) or valuables the day of surgery, leave them at home. Please take a shower or bath the night before, or the morning of, surgery with an antibacterial soap. Wear comfortable, loose fitting clothing. Children are encouraged to wear pajamas. - Jewelry must be removed prior to entering the operating room. Rings and piercings that are not removed may be cut off. - The hospital will not accept responsibility for valuables. - Please leave all valuables, including medications, at home the day of surgery. If you are going home after surgery, a licensed auto parts delivery driver must drive you home. - NO public transportation without another adult if you receive anesthesia. - We recommend that an adult stay with you for 24 hours following discharge. - We also recommend that you do not drive, make important decision, drink alcoholic beverages, or take any drugs that were not prescribed by your health care provider for at least 24 hours after your discharge time. For Pediatric surgeries, we recommend two adults accompany the child home. Follow any additional instructions given to you from your surgeon. If you or anyone in your household have experienced Covid symptoms in the past week, please notify your surgeon or the nurse liaison at the phone number below for possible testing. Telephone instructions given to _PT'S SPOUSE_and asked if any additional questions and then verbalized understanding. Patient advised to call surgeon office or pre surgery nurse liaison [phone] if any additional questions.
--- NOTE | 2022-10-22 06:57 | PM.HPGS ---
History of Present Illness History of Present Illness Consent: Risks, benefits, and alternatives have been discussed and questions answered. Patient agrees to proceed with procedure. Chief complaint: Elev PSA Narrative: Bud James is a 82 year old male recently found to have a PSA of 8.4. Prostate MRI demonstrates 1 PI-RADS 5 lesion, 2 cm in size, in the right peripheral zone at the mid gland extending into the apex. After discussion of options he is elected for a UroNav prostate biopsy. He is aware the risks including, but not limited to, urinary tract infection with possible sepsis, hematuria and rectal bleeding. Review of Systems Cardiovascular: Cardiovascular: Denies chest pain, Denies lightheadedness, Denies palpitations and Denies dyspnea Respiratory: Respiratory: Denies dyspnea Gastrointestinal: Gastrointestinal: Denies diarrhea, Denies nausea and Denies vomiting Genitourinary: Genitourinary: Denies hematuria and Denies dysuria Endocrine: Endocrine: Denies palpitations PMFSH Past Medical History Medical History Arthritis CAD (coronary artery disease) Cognitive impairment Colon cancer (~11/01/10) Dementia Elevated PSA GERD (gastroesophageal reflux disease) Heart disease Hyperlipidemia Hypertension Osteoarthritis of right knee Overweight (BMI 25.0-29.9) Paroxysmal atrial fibrillation Pulmonary emboli (~2008) Thrombocytopenia Surgical History Surgical History History of colon surgery History of left knee replacement (~2000) Hx of cholecystectomy 2000 S/P CABG x 3 (~10/06/18) Family History Family History Father Heart disease Hypertension Mother Diabetes mellitus Hypertension Alzheimer disease Sibling Cancer of kidney Carcinoma of colon Cancer Daughter Cancer of kidney Cancer Grandparent Heart disease Cerebrovascular accident Social History Social History Social History: Caffeine-None Smoking status: Never smoker Second hand tobacco smoke exposure: No Alcohol intake: never Substance use: never Substance use type: does not use Lack of Transportation: No Lack of Food: Never True Current Housing: I Have Housing Concerned About Future Housing: No Difficulty Paying Gas/Electric Bills: No Difficulty Paying for Meds: No Currently Unemployed: YES Education: High School Diploma/GED Difficulty w/ Childcare or Family Care: No Living arrangements: with family Additional living arrangements comments: lives with in a house Occupation/Education: retired Gender identity (if verbalized by the patient): Male Sexual Orientation (if Verbalized by the Patient): Straight or Heterosexual Spiritual care concerns: No Agree to blood products: Yes Meds Home Medications and Allergies Home Medications Medication Instructions Recorded Confirmed Type apixaban 5 mg tablet (Eliquis) 5 mg PO BID 01/01/21 10/10/22 History ascorbic acid (vitamin C) 250 mg 282 mg PO DAILY 01/01/21 10/10/22 History tablet aspirin 81 mg chewable tablet 81 mg PO DAILY 01/01/21 10/10/22 History calcium carbonate 650 mg calcium 650 mg PO DAILY 01/01/21 10/10/22 History (1,625 mg) tablet cyanocobalamin (vitamin B-12) 2,500 mcg PO DAILY 01/01/21 10/10/22 History 2,500 mcg tablet coenzyme Q10 100 mg capsule (Co 100 mg PO DAILY 12/31/21 10/10/22 History Q-10) magnesium 100 mg tablet 100 mg PO DAILY 12/31/21 10/10/22 History melatonin 5 mg chewable tablet 10 mg PO HS 12/31/21 10/10/22 History metoprolol succinate 25 mg 25 mg PO QNOON 12/31/21 10/13/22 History tablet,extended release 24 hr mqxtqsgc-pd-jvlxn 300 mcg-K 60 1 tablet PO DAILY 12/31/21 10/10/22 History mcg-lycop 600 mcg-lutein 300 mcg tablet (Centrum Silver Men
--- NOTE | 2022-10-23 06:16 | WPDHPUPDATE1 ---
History and Physical Update Update Date/Time: 10/23/22 06:16 History and Physical has been reviewed, including an updated exam of the patient. There are NO changes in the patient's condition. Risks, benefits, and alternatives have been discussed and questions answered. Patient agrees to proceed with procedure.
[2022-10-23 06:28] VITALS: BP 135/71; PULSE 70; RESP 20; TEMP 36.4; O2SAT 96
[2022-10-23] MEDS: LACTATED RINGERS 1,000 ML 30 ML IV CONT (07:00)
--- NOTE | 2022-10-23 07:18 | WPDANESEPPF ---
Anes - Initial Pre Proc Eval Procedure: Operation Date: 10/23/22 08:15 Proposed Procedures p Trans Rectal Ultrasound Fusion Guided Prostate Biopsy - Roberto Snyder MD Date/Time: 10/23/22 07:18 Surgeon: Roberto Snyder MD Pre Op Diagnosis: Elev PSA Patient Data Age: 82 Gender: M Height: 1.75 m Weight: 81.81 kg Allergies Allergy/AdvReac Type Severity Reaction Status Date / Time Penicillins Allergy Severe Swelling Verified 10/23/22 06:33 morphine AdvReac Intermediate Hallucinati Verified 10/23/22 06:33 ng RICARDO Inhibitors AdvReac Mild Cough Verified 10/23/22 06:33 midazolam [From Versed] AdvReac Mild Agitated Verified 10/23/22 06:33 Home Medications Medication Instructions Recorded Confirmed Type apixaban 5 mg tablet (Eliquis) 5 mg PO BID 01/01/21 10/23/22 History ascorbic acid (vitamin C) 250 mg 282 mg PO DAILY 01/01/21 10/22/22 History tablet aspirin 81 mg chewable tablet 81 mg PO DAILY 01/01/21 10/23/22 History calcium carbonate 650 mg calcium 650 mg PO DAILY 01/01/21 10/22/22 History (1,625 mg) tablet cyanocobalamin (vitamin B-12) 2,500 mcg PO DAILY 01/01/21 10/22/22 History 2,500 mcg tablet coenzyme Q10 100 mg capsule (Co 100 mg PO DAILY 12/31/21 10/22/22 History Q-10) magnesium 100 mg tablet 100 mg PO DAILY 12/31/21 10/22/22 History melatonin 5 mg chewable tablet 10 mg PO HS 12/31/21 10/22/22 History metoprolol succinate 25 mg 25 mg PO QNOON 12/31/21 10/23/22 History tablet,extended release 24 hr levjhvoh-uw-blsdj 300 mcg-K 60 1 tablet PO DAILY 12/31/21 10/22/22 History mcg-lycop 600 mcg-lutein 300 mcg tablet (Centrum Silver Men) vit C,G-Vq-lbswqx-lutein-zeaxan 60 1 cap PO BID 12/31/21 10/22/22 History mg-13.5 mg-15 mg-2 mg-6 mg capsule (Ocuvite Lutein and Zeaxanthin) pravastatin 20 mg tablet 20 mg PO QHS #90 tabs 01/08/22 10/22/22 Rx red beet root 250 mg-sour crouch 1 tablet PO DAILY 08/25/22 10/22/22 History extract 0.5 mg chewable tablet Prevagen 1 cap DAILY 10/10/22 10/22/22 History cholecalciferol (vitamin D3) 125 125 mcg PO DAILY 10/10/22 10/22/22 History mcg (5,000 unit) tablet folic acid 800 mcg tablet 0.8 mg PO DAILY 10/10/22 10/22/22 History zinc 15 mg tablet 15 mg PO DAILY 10/10/22 10/22/22 History galantamine 4 mg tablet 12 mg PO BID #240 tabs 10/22/22 10/23/22 Rx memantine 10 mg tablet 10 mg PO BID #180 tabs 10/22/22 10/23/22 Rx Patient hx anesthesia problems: none Family hx anesthesia problems: none Results Review: All pre-operative results and documents have been reviewed as part of the pre-operative evaluation. [facility] Past Medical History Medical History Arthritis CAD (coronary artery disease) Cognitive impairment Colon cancer (~11/01/10) Dementia Elevated PSA GERD (gastroesophageal reflux disease) Heart disease Hyperlipidemia Hypertension Osteoarthritis of right knee Overweight (BMI 25.0-29.9) Paroxysmal atrial fibrillation Pulmonary emboli (~2008) Thrombocytopenia Surgical History Surgical History History of colon surgery History of left knee replacement (~2000) Hx of cholecystectomy 1999 S/P CABG x 3 (~10/06/18) Family History Family History Father Heart disease Hypertension Mother Diabetes mellitus Hypertension Alzheimer disease Sibling Cancer of kidney Carcinoma of colon Cancer Daughter Cancer of kidney Cancer Grandparent Heart disease Cerebrovascular accident Social History Social History Social History: Caffeine-None Smoking status: Never smoker Second hand tobacco smoke exposure: No Alcohol intake: never Substance use: never Substance use type: does not use Lack of Transportation: No Lack of Food: Never True Current Housing: I Have [facility]
[2022-10-23] MEDS: levoFLOXacin 500 MG/D5W 100 ML 500 MG/100 ML BAG 100 MG IVPB (08:10)
--- NOTE | 2022-10-23 08:33 | P.OP_ITS ---
Procedure Note - Detailed Date of Procedure 10/23/22 Pre-op Diagnosis Elevated PSA Post-op Diagnosis Same Procedure Performed UroNav prostate biopsy Surgeon Roberto Snyder MD Anesthesia MAC Description of Procedure Patient is brought to the operative suite where he is positioned in the left lateral position. Systemic sedation is administered per the anesthesia department. Surgical time-out is undertaken and it's verified the patient has received preoperative antibiotics. Transrectal ultrasonography is undertaken with a standard transrectal probe. The SpeechTransv system is used to superimpose his previously obtained mpMRI prostate images on the real-time transrectal ultrasond images. On the previous mpMRI there is one regions of interest. Using the transrectal needle design for prostate biopsies 3 cores from each region of interest her obtain. We then proceeded with a standard 12 core prostate biopsy. Transrectal probe was removed and patient taken to recovery room having tolerated the procedure well. Blood loss was less than 10 cc. Pathology Yes Complications No immediate complications Condition Stable Disposition PACU
[2022-10-23 08:34] VITALS: BP 112/60; PULSE 63; RESP 12; O2SAT 99
[2022-10-23 09:00] VITALS: BP 121/65; PULSE 52; RESP 20
[2022-10-23 09:30] VITALS: BP 142/71; PULSE 58; RESP 20
== END 2022-10-23 09:36 | disposition home or self-care (01) ==
PROVIDERS: PCP Internal Medicine; Visit Provider Urology
PROC: (CPT 55700; principal; 2022-10-23 08:15)
DX: C61 Malignant neoplasm of prostate (principal); K21.9 Gastro-esophageal reflux disease without esophagitis; I25.10 Atherosclerotic heart disease of native coronary artery without angina pectoris; F03.90 Unspecified dementia, unspecified severity, without behavioral disturbance, psychotic disturbance, mood disturbance, and anxiety; E78.5 Hyperlipidemia, unspecified; I10 Essential (primary) hypertension; I48.0 Paroxysmal atrial fibrillation; Z85.038 Personal history of other malignant neoplasm of large intestine; Z79.01 Long term (current) use of anticoagulants; Z79.82 Long term (current) use of aspirin; Z95.1 Presence of aortocoronary bypass graft
CPT/HCPCS: 76872; 55700; G0416; J1956; J2704; J7120

== ENCOUNTER 2022-11-06 08:08 | Outpatient (CLI) | payer BC, SELFPAY ==
--- NOTE | ~2022-11-06 | CT_ITS ---
CT of the Abdomen and Pelvis: Indication: Prostate cancer Technique: 2.5 mm axial scans were obtained through the abdomen and pelvis following intravenous adm inistration of 100 cc of Omnipaque 350. Dose reduction technique was used on this scan by utilizing a utomated exposure control and iterative reconstruction technique. The dose-length product (DLP) was 5 42.03 mGy-cm. Findings: Scans through the lung bases-a large calcified lingular granuloma. Large fat-containing le ft-sided Bochdalek hernia present. The liver, spleen, pancreas, adrenals and kidneys are within normal limits. Cholecystectomy clips are present. There is atherosclerotic calcifications aorta, with associated infrarenal aneurysm measurin g 4.4 cm in maximum diameter. No lymphadenopathy. No bowel obstruction or bowel wall thickening. There is no evidence to suggest acute appendicitis. Sm all fat-containing ventral hernias are noted in the periumbilical region. Images through the pelvis were performed. Urinary bladder unremarkable. Prostate is enlarged and some what irregular with probable fiducial markers present. No ascites. Impression: Enlarged, irregular prostate gland which abuts the urinary bladder. Underlying prostate carcinoma can not be excluded based on this exam. Correlate with treatment/clinical history. No evidence for metastatic disease. 4.4 cm infrarenal abdominal aortic aneurysm. Small fat-containing ventral hernias. Large fat-containing left-sided Bochdalek hernia. Reviewed, dictated and finalized at [facility]. Impression: Enlarged, irregular prostate gland which abuts the urinary bladder. Underlying prostate carcinoma cannot be excluded based on this exam. Correlate with treatm ent/clinical history. No evidence for metastatic disease. 4.4 cm infrarenal abdominal aortic aneurysm. Small fat-containing ventral hernias. Large fat-containing left-sided Bochdalek hernia.
--- NOTE | ~2022-11-06 | NM_ITS ---
EXAMINATION: NM bone scan whole body DATE: 11/06/2022 12:38 INDICATION: Prostate cancer TECHNIQUE: 24.2 mCi Tc-99m HDP was administered intravenously. Delayed whole-body scintigrams were o btained. COMPARISON: CT dated 11/16/2022 FINDINGS: Mild likely degenerative joint centered uptake at the bilateral acromioclavicular joints, medial and lateral compartments of the right knee, the left ankle and at the radial aspect of the bilateral carp i. Photopenic defect corresponding to a left total knee arthroplasty. Small focus of mild likely dege nerative disc centered uptake at the lower cervical spine. Mild uptake at the right side of L5 relate d to either severe facet osteoarthritis or right-sided of the bilateral pars intra-articular is defec ts. No other more atypical foci of increased bone uptake to suggest metastatic disease. IMPRESSION: 1. No lesion suspicious for metastatic disease. Reviewed, dictated and finalized at location A.
== END 2022-11-06 08:09 | disposition home or self-care (01) ==
PROVIDERS: PCP Internal Medicine; Visit Provider Nurse Practitioner Adult Health
DX: C61 Malignant neoplasm of prostate (principal); N40.0 Benign prostatic hyperplasia without lower urinary tract symptoms; I71.43 Infrarenal abdominal aortic aneurysm, without rupture; K43.9 Ventral hernia without obstruction or gangrene
CPT/HCPCS: 74177; 78306; A9503; Q9967

== ENCOUNTER 2022-12-18 07:48 | Inpatient (IN) | payer MEDICARE, BC, SELFPAY ==
[2022-12-18] VITALS (10 sets, daily range): BP systolic 133–170; BP diastolic 66–96; PULSE 74–92; RESP 13–33; TEMP 36.4–37.4; O2SAT 90–99; BMI 26.4
--- NOTE | ~2022-12-18 | XR_ITS ---
EXAMINATION: XR surgery orthopedic DATE: 12/19/2022 10:34 INDICATION: Right hip pinning TECHNIQUE: 2 fluoroscopic images of the right hip were obtained during procedure performed by Dr. Zaki quesada. Radiologist was not present for the imaging or procedure. The amount of fluoroscopy time used duri ng this procedure was 0.6 minutes. COMPARISON: 12/18/2022 FINDINGS: Interval fixation of the previous noted impacted subcapital fracture of the proximal right femur with 3 cannulated lag screws. Alignment remains near-anatomic. No new fractures identified. Moderate oste oarthritis at the right hip. IMPRESSION: 1. Near-anatomic alignment post fracture fixation of an impacted subcapital fracture of the proximal right femur. Reviewed, dictated and finalized at location A. IMPRESSION: 1. Near-anatomic alignment post fracture fixation of an impacted subcapital fra cture of the proximal right femur.
--- NOTE | ~2022-12-18 | XR_ITS ---
XR knee RT 3V 12/20/2022 12:16 Indication: Right knee pain Procedure: 3 views right knee Comparison: 03/28/2022 Findings: There is severe tricompartment osteoarthritis of the right knee. Small knee effusion. There is extensive atherosclerosis. No acute fracture is identified. No foreign bodies. Impression: 1: Severe tricompartment osteoarthritis of the right knee. Reviewed, dictated and finalized at location A. Impression: 1: Severe tricompartment osteoarthritis of the right knee.
--- NOTE | ~2022-12-18 | CT_ITS ---
Noncontrast CT scan of the thoracolumbar spine CLINICAL HISTORY: Back pain, trauma TECHNIQUE: Axial noncontrast imaging of the thoracolumbar spine was performed. Sagittal and coronal r eformatted images were constructed. Dose reduction technique was used on this scan by utilizing autom ated exposure control and iterative reconstruction technique. The dose-length product (DLP) was 2450. 49 mGy-cm. FINDINGS: No acute fracture or subluxation seen in the thoracolumbar spine. There are chronic bilater al L5 pars interarticularis defects. There are extensive flowing anterior osteophytes throughout the thoracolumbar spine, compatible with extensive DISH. There are minimal degenerative disc changes thro ughout the thoracolumbar spine. There is facet arthropathy and probably mild to possibly moderate canal stenosis at T10-T11. No other definite canal stenosis seen in the thoracolumbar spine. There is severe bilateral neural foraminal narrowing at L4-L5 and L5-S1. There is moderate to severe bilateral neural foraminal narrowing at L2- L3 and L3-L4. There is moderate bilateral neural foraminal narrowing at L1-L2. There is probable mult ilevel moderate to severe neural foraminal narrowing in the thoracic spine from the level of T8 exten ding inferiorly. 4.4 cm infrarenal abdominal aortic aneurysm seen. No other soft tissue/paravertebral soft tissue real ity seen. Impression: No acute fracture or subluxation of the thoracal lumbar spine. 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 Probable mild to moderate canal stenosis at T10-T11. 4.4 cm infrarenal abdominal aortic aneurysm. Reviewed, dictated and finalized at [facility]. Impression: No acute fracture or subluxation of the thoracal lumbar spine. 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 Probable mi ld to moderate canal stenosis at T10-T11. 4.4 cm infrarenal abdominal aortic aneurysm.
--- NOTE | ~2022-12-18 | CT_ITS ---
Non-contrast CT scan of the Pelvis Clinical indication: Pelvic pain, trauma Technique: 2.5 mm axial scans were obtained through the pelvis without intravenous or oral contrast. Dose reduction technique was used on this scan by utilizing automated exposure control and iterative reconstruction technique. The dose-length product (DLP) was 592.06 mGy-cm. Findings: There is a minimally displaced subcapital fracture of the proximal right femur/right femora l neck. No other fracture identified. There is mild degenerative change of both hip joints. No joint effusion evident. Infrarenal abdominal aortic aneurysm measures up to 4.4 cm in maximum diameter. Prostate gland mildly enlarged. No other significant soft tissue abnormality seen. Extensive DISH of the lower lumbar spine noted. Impression: Minimally displaced subcapital fracture of the right femoral neck. 4.4 cm infrarenal abdominal aortic aneurysm. Reviewed, dictated and finalized at [facility]. Impression: Minimally displaced subcapital fracture of the right femoral neck. 4.4 cm infrarenal abdominal aortic aneurysm.
--- NOTE | ~2022-12-18 | XR_ITS ---
EXAMINATION: XR hip RT 2V w AP pelvis DATE: 12/18/2022 10:24 INDICATION: Hip fracture with right hip pain and limited range of motion TECHNIQUE: Anteroposterior view of the pelvis and anteroposterior and cross-table lateral views of th e right hip were obtained. COMPARISON: CT dated 12/18/2022 FINDINGS: Again seen is an impacted subcapital fracture of the proximal right femur. The fracture is mildly com minuted with a few small bone fragments along the lateral fracture margin. There is minimal cephalad anterior displacement and mild posterior and medial angulation. Moderate osteoarthritis at the bilate ral hips and sacroiliac joints. There are bridging osteophytes at the lower lumbar spine along with e nthesophytes along the bilateral anterior iliac spines, ischial tuberosities, greater trochanters and along the linear aspera of the right femoral diaphysis consistent with diffuse idiopathic skeletal h yperostosis (DISH). Surgical clips in the region of the prostate. IMPRESSION: 1. Minimal displacement and mild angulation of an impacted and mildly comminuted subcapital fracture of the proximal right femur. Reviewed, dictated and finalized at location A. IMPRESSION: 1. Minimal displacement and mild angulation of an impacted and mildly comminute d subcapital fracture of the proximal right femur.
--- NOTE | ~2022-12-18 | CT_ITS ---
CT head without contrast Indication: Head injury Technique: Serial scans were obtained through the brain without the administration of contrast. Dose reduction technique was used on this scan by utilizing automated exposure control and iterative recon struction technique. The dose-length product (DLP) was 681.00 mGy-cm. Findings: There is no evidence of intracranial hemorrhage, mass lesion, or acute infarct. The ventri cles and subarachnoid spaces are dilated, consistent with mild atrophy. Low attenuation regions are seen within the periventricular white matter bilaterally, likely representing changes from chronic mi crovascular ischemic disease. There is no evidence of edema, mass effect or midline shift. The visu alized paranasal sinuses and mastoid air cells are clear. Impression: No intracranial hemorrhage, mass, or acute infarct. Atrophy and chronic white matter changes, as above. Reviewed, dictated and finalized at location . Impression: No intracranial hemorrhage, mass, or acute infarct. Atrophy and chronic white matter changes, as above.
--- NOTE | ~2022-12-18 | CT_ITS ---
Noncontrast CT scan of the cervical spine Technique: Multiple contiguous axial [address] images of the cervical spine were obtained and rec onstructed in 2D sagittal and coronal planes on the acquisition scanner. Dose reduction technique was used on this scan by utilizing automated exposure control, adjustment of the mA and/or kV according to patient size. The dose-length product (DLP) was 462.49 mGy-cm. Clinical History: Pain Findings: No fractures or dislocations. There are extensive flowing anterior osteophytes throughout the cervical spine and visualized upper thoracic spine, compatible with extensive DISH. There is mild to moderate degenerative disc change in the cervical spine, worst at C4-C5. There is mild left neural foraminal narrowing at C2-C3 with left facet arthropathy. There is mild tahmina ateral facet arthropathy at C3-C4, probable mild bilateral neural foraminal narrowing. There is proba ble mild bilateral neural foraminal narrowing at C4-C5, with bilateral facet arthropathy. No prevertebral soft tissue swelling. Impression: No fracture or subluxation of the cervical spine. Extensive DISH. Additional degenerative changes, as noted above. Reviewed, dictated and finalized at location . Impression: No fracture or subluxation of the cervical spine. Extensive DISH. Additional degenerative changes, as noted above.
--- NOTE | ~2022-12-18 | XR_ITS ---
EXAMINATION: XR elbow RT 2V INDICATION: Right elbow pain TECHNIQUE: Two views of the right elbow were obtained. COMPARISON: None available FINDINGS: There is significant soft tissue swelling surrounding the elbow. No definite fracture is id entified. There is mild osteoarthritis of the elbow. Calcified atherosclerosis is noted. IMPRESSION: 1. Significant soft tissue swelling of the elbow without acute osseous abnormality identified. Reviewed, dictated and finalized at location F. IMPRESSION: 1. Significant soft tissue swelling of the elbow without acute osseous abnormal ity identified.
--- NOTE | 2022-12-18 08:48 | ED.FALL ---
HPI - Fall General Chief Complaint: Fall Stated Complaint: fall, right knee and back pain Time Seen by Provider: 12/18/22 08:30 History of Present Illness HPI Narrative: 82-year-old male history of dementia presented to the emergency department for evaluation after having a ground-level fall. Patient was walking in his home when his right knee gave out causing him to fall. Patient did strike his head during the fall but denies any loss of consciousness. Patient does complain of right elbow and right hip pain. Patient also complains of of neck back pain. Patient denies any associated numbness or weakness. Patient is unable to move his right leg secondary to right hip pain. Related Data Home Medications Medication Instructions Recorded Confirmed apixaban 5 mg tablet (Eliquis) 5 mg PO BID 01/01/21 12/18/22 ascorbic acid (vitamin C) 250 mg 282 mg PO DAILY 01/01/21 12/18/22 tablet aspirin 81 mg chewable tablet 81 mg PO DAILY 01/01/21 12/18/22 calcium carbonate 650 mg calcium 650 mg PO DAILY 01/01/21 12/18/22 (1,625 mg) tablet cyanocobalamin (vitamin B-12) 2,500 mcg PO DAILY 01/01/21 12/18/22 2,500 mcg tablet coenzyme Q10 100 mg capsule (Co 100 mg PO DAILY 12/31/21 12/18/22 Q-10) magnesium 100 mg tablet 100 mg PO DAILY 12/31/21 12/18/22 melatonin 5 mg chewable tablet 10 mg PO HS 12/31/21 12/18/22 cbvqtxof-ca-jtdwc 300 mcg-K 60 1 tablet PO DAILY 12/31/21 12/18/22 mcg-lycop 600 mcg-lutein 300 mcg tablet (Centrum Silver Men) vit C,T-Ss-fxcutm-lutein-zeaxan 60 1 cap PO BID 12/31/21 12/18/22 mg-13.5 mg-15 mg-2 mg-6 mg capsule (Ocuvite Lutein and Zeaxanthin) red beet root 250 mg-sour crouch 1 tablet PO DAILY 08/25/22 12/18/22 extract 0.5 mg chewable tablet cholecalciferol (vitamin D3) 125 125 mcg PO DAILY 10/10/22 12/18/22 mcg (5,000 unit) tablet folic acid 800 mcg tablet 400 mg PO DAILY 10/10/22 12/18/22 zinc 15 mg tablet 15 mg PO DAILY 10/10/22 12/18/22 diltiazem HCl 120 mg 120 mg PO DAILY 12/18/22 12/18/22 capsule,extended release 24 hr Allergies Allergy/AdvReac Type Severity Reaction Status Date / Time Penicillins Allergy Severe Swelling Verified 12/18/22 07:57 morphine AdvReac Intermediate Hallucinati Verified 12/18/22 07:57 ng RICARDO Inhibitors AdvReac Mild Cough Verified 12/18/22 07:57 midazolam [From Versed] AdvReac Mild Agitated Verified 12/18/22 07:57 Review of Systems Review of Systems: All systems reviewed & are unremarkable except as noted in HPI and below PMFSH Past Medical History Medical History Arthritis CAD (coronary artery disease) Cognitive impairment Colon cancer (~11/01/10) Dementia Elevated PSA GERD (gastroesophageal reflux disease) Heart disease Hyperlipidemia Hypertension Osteoarthritis of right knee Overweight (BMI 25.0-29.9) Paroxysmal atrial fibrillation Pulmonary emboli (~2008) Thrombocytopenia Surgical History Surgical History History of colon surgery History of left knee replacement (~2000) Hx of cholecystectomy 2000 S/P CABG x 3 (~10/06/18) Family History Family History Father Heart disease Hypertension Mother Diabetes mellitus Hypertension Alzheimer disease Sibling Cancer of kidney Carcinoma of colon Cancer Daughter Cancer of kidney Cancer Grandparent Heart disease Cerebrovascular accident Social History Social History Social History: Caffeine-None Smoking status: Never smoker Second hand tobacco smoke exposure: No Alcohol intake: never Substance use: never Substance use type: does not use Lack of Transportation: No Lack of Food: Never True Current Housing: I Have Housing Concerned About Future Housing: No Difficulty Paying Gas/Electric Bills: No Difficulty Paying for Med
[2022-12-18] MEDS: fentaNYL CITRATE INJ (*CRX) 100 MCG/2 ML VIAL 50 MCG IV PUSH ×6 (09:38→23:45)
[2022-12-18 10:43] LABS: Basophils Percent Auto 0.4 % (0.2-1.2); Eosinophils Absolute Auto 0.1 K/mm3 (0-0.3); Eosinophils Percent Auto 0.8 % (0-4.4); Hematocrit 49.7 % (42.0-52.0); Hemoglobin 16.5 g/dL (14.0-18.0); Immature Granulocyte Absolute 0.07 K/mm3 (0.00-0.031); Immature Granulocyte Percent A 0.7 % (0-0.5); Lymphocytes Percent Auto 6.2 % (18.3-44.2); Mean Corpuscular HGB Conc 33.2 g/dl (32-36); Mean Corpuscular Hemoglobin 32.7 pg (26-34); Mean Corpuscular Volume 98.6 fl (80-100); Mean Platelet Volume 11.5 fl (7.4-10.4); Monocytes Absolute Auto 0.6 K/mm3 (0.1-0.6); Neutrophils Absolute Auto 8.3 K/mm3 (1.3-6.7); Neutrophils Percent Auto 85.9 % (45.5-73.1); Platelet Count Result 118 k/mm3 (150-375); Red Blood Count 5.04 M/mm3 (4.6-6.20); Red Cell Distribution Width 12.2 % (11.5-14.5); White Blood Count 9.6 K/mm3 (4.5-10.0)
[2022-12-18 10:53] LABS: INR 1.2; Prothrombin Time 15.6 Seconds (11.1-14.7)
[2022-12-18 10:55] LABS: Alanine Aminotransferase 22 U/L (6-50); Albumin Level 4.2 g/dL (3.5-5.1); Alkaline Phosphatase 70 U/L (38-126); Anion Gap 6 mmol/L (8-16); Aspartate Amino Transferase 32 U/L (17-59); Bilirubin,Total 1.8 mg/dL (0.2-1.3); Blood Urea Nitrogen 16 mg/dL (9-20); Calcium 9.2 mg/dL (8.4-10.2); Carbon Dioxide 27 mmol/L (22-30); Chloride 103 mmol/L (98-107); Estimated CRCL calculation 56 ml/min; Estimated Glomerular Filt Rate > 60; Glucose 92 mg/dL (65-110); Potassium 3.6 mmol/L (3.4-5.0); Sodium 136 mmol/L (137-145)
[2022-12-18] MEDS: SODIUM CHLORIDE 0.9% IV 1,000 ML 75 ML IV CONT ×2 (11:03→23:45)
--- NOTE | 2022-12-18 13:35 | PM.CNOR ---
Assessment and Plan Assessment and plan (1) Fracture of hip, right, closed: Code(s): S72.001A - Fracture of unspecified part of neck of right femur, initial encounter for closed fracture Status: Acute Assessment and Plan: 82 year old male with a subcapital fracture of the right femur after ground level fall. He is tentatively scheduled for right hipping with Dr. Montes tomorrow at 10 AM. This was discussed with him and his family. Plan to hold eliquis. He will be NPO after midnight. I did discuss the likelihood of rehab after surgery but family is concerned about his dementia declining while he would be there. He may be a candidate for home health if he progresses with therapy after surgery. He will need to be toe touch weight bearing with a walker for a minimum of 8 weeks following surgery as well. History of Present Illness HPI Consult date: 12/18/22 Chief complaint: Right Hip Fracture Narrative: 82 year old male admitted for a right hip fracture after a fall this morning. Family reports a PMHx of dementia and they feel like he is at his baseline status. He complains primarily of right sided SI joint pain but also has right hip pain with mobility. CT and Xray of the pelvis/hip demonstrated a subcapital femoral neck fracture. He is chronically on eliquis for atrial fibrillation. Review of Systems Constitutional: Constitutional: Reports as per HPI Cardiovascular: Cardiovascular: Reports as per HPI Respiratory: Respiratory: Reports as per HPI Gastrointestinal: Gastrointestinal: Reports as per HPI Musculoskeletal: Musculoskeletal: Reports as per HPI and Reports back pain (Right SI joint) Neurologic: Reports system reviewed and no additional complaints, except as documented and Reports as per HPI Psychiatric: Psychiatric: Reports as per HPI Hematologic/Lymphatic: Hematologic/Lymphatic: Reports as per HPI Allergic/Immunologic: Allergic/Immunologic: Reports as per HPI PMFSH Past Medical History Medical History Arthritis CAD (coronary artery disease) Cognitive impairment Colon cancer (~11/01/10) Dementia Elevated PSA GERD (gastroesophageal reflux disease) Heart disease Hyperlipidemia Hypertension Osteoarthritis of right knee Overweight (BMI 25.0-29.9) Paroxysmal atrial fibrillation Pulmonary emboli (~2008) Thrombocytopenia Surgical History Surgical History History of colon surgery History of left knee replacement (~2000) Hx of cholecystectomy 1999 S/P CABG x 3 (~10/06/18) Family History Family History Father Heart disease Hypertension Mother Diabetes mellitus Hypertension Alzheimer disease Sibling Cancer of kidney Carcinoma of colon Cancer Daughter Cancer of kidney Cancer Grandparent Heart disease Cerebrovascular accident Social History Social History Social History: Caffeine-None Smoking status: Never smoker Second hand tobacco smoke exposure: No Alcohol intake: never Substance use: never Substance use type: does not use Lack of Transportation: No Lack of Food: Never True Current Housing: I Have Housing Concerned About Future Housing: No Difficulty Paying Gas/Electric Bills: No Difficulty Paying for Meds: No Currently Unemployed: YES Education: High School Diploma/GED Difficulty w/ Childcare or Family Care: No Living arrangements: with family Additional living arrangements comments: lives with in a house Occupation/Education: retired Gender identity (if verbalized by the patient): Male Sexual Orientation (if Verbalized by the Patient): Straight or Heterosexual Spiritual care concerns: No Agree to blood products: Yes Meds Home Medications and Allergies Home Medications Medication Instruct
--- NOTE | 2022-12-18 15:05 | PM.IMHP ---
H&P: HPI History of Present Illness Date/Time: 12/18/22 15:05 Chief Complaint: Ground Level Fall Narrative: 82-year-old male presents here after ground level fall with past medical history of dementia, CAD, colon cancer, GERD, HLD, HTN, OA, pAFib, PE, prostate cancer (awaiting tx). Patient had ground level fall this morning. Patient reports that his right knee gave out and he fell onto his right side. +Head strike without loss of consciousness. Immediate pain to right elbow, right hip, neck, and back. then proceeded to have difficulty moving right leg due to pain. Imaging revealed a subcapital fracture of the right femur. Ortho was consulted for possible surgery. patient denies any numbness to his right lower extremity. currently on anticoagulation - Eliquis. Last dose of Eliquis was yesterday evening (12/17). Review of Systems Review of Systems: All systems reviewed & are unremarkable except as noted in HPI and below PMFSH Past Medical History Medical History Arthritis CAD (coronary artery disease) Cognitive impairment Colon cancer (~11/01/10) Dementia Elevated PSA GERD (gastroesophageal reflux disease) Heart disease Hyperlipidemia Hypertension Osteoarthritis of right knee Overweight (BMI 25.0-29.9) Paroxysmal atrial fibrillation Pulmonary emboli (~2008) Thrombocytopenia Surgical History Surgical History History of colon surgery History of left knee replacement (~2000) Hx of cholecystectomy 2000 S/P CABG x 3 (~10/06/18) Family History Family History Father Heart disease Hypertension Mother Diabetes mellitus Hypertension Alzheimer disease Sibling Cancer of kidney Carcinoma of colon Cancer Daughter Cancer of kidney Cancer Grandparent Heart disease Cerebrovascular accident Social History Social History (Updated 12/19/22 @ 00:06 by Madina Barrera APRN) Social History: Currently lives at home with his . Surrogate decision maker: Erica Ruth, daughter. Full Code. Caffeine-None Smoking status: Never smoker Second hand tobacco smoke exposure: No Alcohol intake: never Substance use: never Substance use type: does not use Lack of Transportation: No Lack of Food: Never True Current Housing: I Have Housing Concerned About Future Housing: No Difficulty Paying Gas/Electric Bills: No Difficulty Paying for Meds: No Currently Unemployed: YES Education: High School Diploma/GED Difficulty w/ Childcare or Family Care: No Living arrangements: with family Additional living arrangements comments: lives with in a house Occupation/Education: retired Gender identity (if verbalized by the patient): Male Sexual Orientation (if Verbalized by the Patient): Straight or Heterosexual Spiritual care concerns: No Agree to blood products: Yes Meds Home Medications and Allergies Home Medications Medication Instructions Recorded Confirmed Type apixaban 5 mg tablet (Eliquis) 5 mg PO BID 01/01/21 12/18/22 History ascorbic acid (vitamin C) 250 mg 282 mg PO DAILY 01/01/21 12/18/22 History tablet aspirin 81 mg chewable tablet 81 mg PO DAILY 01/01/21 12/18/22 History calcium carbonate 650 mg calcium 650 mg PO DAILY 01/01/21 12/18/22 History (1,625 mg) tablet cyanocobalamin (vitamin B-12) 2,500 mcg PO DAILY 01/01/21 12/18/22 History 2,500 mcg tablet coenzyme Q10 100 mg capsule (Co 100 mg PO DAILY 12/31/21 12/18/22 History Q-10) magnesium 100 mg tablet 100 mg PO DAILY 12/31/21 12/18/22 History melatonin 5 mg chewable tablet 10 mg PO HS 12/31/21 12/18/22 History rvoojjdj-uf-ynjjy 300 mcg-K 60 1 tablet PO DAILY 12/31/21 12/18/22 History mcg-lycop 600 mcg-lutein 300 mcg tablet (Centrum Silver Men) vit C,Y-Co-txmglf-lutein-zeaxan 60 1 cap PO BID 12/31/21
[2022-12-18] MEDS: GALANTAMINE HYDROBROMIDE 4 MG TABLET 12 MG PO (17:48)
[2022-12-18] MEDS: MEMANTINE 10 MG TABLET PO (17:49)
[2022-12-18] MEDS: PRAVASTATIN SODIUM 20 MG TABLET PO (20:36)
[2022-12-18] MEDS: MELATONIN 5 MG TABLET 10 MG PO (20:36)
[2022-12-19] VITALS (13 sets, daily range): BP systolic 129–156; BP diastolic 79–93; PULSE 75–105; RESP 12–20; TEMP 36.6–37.4; O2SAT 91–99
[2022-12-19] MEDS: LACTATED RINGERS 1,000 ML 30 ML IV CONT ×2 (09:08→10:53)
--- NOTE | 2022-12-19 09:15 | WPDANESEPPF ---
Anes - Initial Pre Proc Eval Procedure: Operation Date: 12/19/22 10:00 Proposed Procedures p Right Hip Pinning - Fuad Montes MD Date/Time: 12/19/22 09:15 Surgeon: Ana M Fine DO Pre Op Diagnosis: Right Hip Fracture Patient Data Age: 82 Gender: M Height: 1.75 m Weight: 81 kg Last Vital Signs Temp 37.4 C 12/19/22 08:59 Pulse 91 12/19/22 08:59 Resp 14 12/19/22 08:59 BP 129/88 12/19/22 08:59 Pulse Ox 95 12/19/22 08:59 O2 Del Method Room Air 12/19/22 08:59 Allergies Allergy/AdvReac Type Severity Reaction Status Date / Time Penicillins Allergy Severe Swelling Verified 12/19/22 09:09 morphine AdvReac Intermediate Hallucinati Verified 12/19/22 09:09 ng RICARDO Inhibitors AdvReac Mild Cough Verified 12/19/22 09:09 midazolam [From Versed] AdvReac Mild Agitated Verified 12/19/22 09:09 Home Medications Medication Instructions Recorded Confirmed Type apixaban 5 mg tablet (Eliquis) 5 mg PO BID 01/01/21 12/19/22 History ascorbic acid (vitamin C) 250 mg 282 mg PO DAILY 01/01/21 12/18/22 History tablet aspirin 81 mg chewable tablet 81 mg PO DAILY 01/01/21 12/19/22 History calcium carbonate 650 mg calcium 650 mg PO DAILY 01/01/21 12/18/22 History (1,625 mg) tablet cyanocobalamin (vitamin B-12) 2,500 mcg PO DAILY 01/01/21 12/18/22 History 2,500 mcg tablet coenzyme Q10 100 mg capsule (Co 100 mg PO DAILY 12/31/21 12/18/22 History Q-10) magnesium 100 mg tablet 100 mg PO DAILY 12/31/21 12/18/22 History melatonin 5 mg chewable tablet 10 mg PO HS 12/31/21 12/18/22 History arvlemnz-cw-yctrq 300 mcg-K 60 1 tablet PO DAILY 12/31/21 12/18/22 History mcg-lycop 600 mcg-lutein 300 mcg tablet (Centrum Silver Men) vit C,U-Ex-hkfinz-lutein-zeaxan 60 1 cap PO BID 12/31/21 12/18/22 History mg-13.5 mg-15 mg-2 mg-6 mg capsule (Ocuvite Lutein and Zeaxanthin) pravastatin 20 mg tablet 20 mg PO QHS #90 tabs 01/08/22 12/18/22 Rx red beet root 250 mg-sour crouch 1 tablet PO DAILY 08/25/22 12/18/22 History extract 0.5 mg chewable tablet cholecalciferol (vitamin D3) 125 125 mcg PO DAILY 10/10/22 12/18/22 History mcg (5,000 unit) tablet folic acid 800 mcg tablet 400 mg PO DAILY 10/10/22 12/18/22 History zinc 15 mg tablet 15 mg PO DAILY 10/10/22 12/18/22 History memantine 10 mg tablet 10 mg PO BID #180 tabs 10/22/22 12/18/22 Rx galantamine 4 mg tablet See Rx Instructions .Route 12/01/22 12/18/22 Rx .COMPLEX #240 tabs diltiazem HCl 120 mg 120 mg PO DAILY 12/18/22 12/18/22 History capsule,extended release 24 hr Laboratory Tests 12/18/22 12/18/22 12/18/22 10:31 10:32 11:39 WBC 9.6 K/mm3 (4.5-10.0) RBC 5.04 M/mm3 (4.6-6.20) Hgb 16.5 g/dL (14.0-18.0) Hct 49.7 % (42.0-52.0) MCV 98.6 fl (80-100) MCH 32.7 pg (26-34) MCHC 33.2 g/dl (32-36) RDW 12.2 % (11.5-14.5) Plt Count 118 L k/mm3 (150-375) MPV 11.5 H fl (7.4-10.4) Immature Gran % (Auto) 0.7 H % (0-0.5) Neut % (Auto) 85.9 H % (45.5-73.1) Lymph % (Auto) 6.2 L % (18.3-44.2) [place] % (Auto) 6.0 % (2.6-8.5) Eos % (Auto) 0.8 % (0-4.4) Baso % (Auto) 0.4 % (0.2-1.2) Lymph # (Auto) 0.60 L K/mm3 (0.9-3.2) [place] # (Auto) 0.6 K/mm3 (0.1-0.6) Eos # (Auto) 0.1 K/mm3 (0-0.3) Baso # (Auto) 0.0 K/mm3 (0.0-0.1) Abs Immat Gran (auto) 0.07 H K/mm3 (0.00-0.031) Absolute Neuts (auto) 8.3 H K/mm3 (1.3-6.7) Absolute Nucleated RBC 0.0 K/mm3 (0.0-0.012) Nucleated RBC % 0.0 % (0.0-0.2) PT 15.6 H Seconds (11.1-14.7) INR 1.2 APTT 27.0 SECONDS (22.3-36.8) Sodium 136 L mmol/L (137-145) Potassium 3.6 mmol/L (3.4-5.0) Chloride 103 mmol/L (98-107) Carbon Dioxide 27 mmol/L (22-30) Anio
--- NOTE | 2022-12-19 09:31 | WPDHPUPDATE1 ---
History and Physical Update Update Date/Time: 12/19/22 09:31 History and Physical has been reviewed, including an updated exam of the patient. There are NO changes in the patient's condition. Risks, benefits, and alternatives have been discussed and questions answered. Patient agrees to proceed with procedure.
[2022-12-19] MEDS: ceFAZolin 2 GM/D5W 50 ML 2 GM/50 ML BAG IVPB ×2 (09:40→18:30)
[2022-12-19] MEDS: BUPIVACAINE/EPINEPHRINE 0.5% 10 ML VIAL 20 ML INFILTRATE (10:18)
--- NOTE | 2022-12-19 10:59 | P.OP_ITS ---
Procedure Note - Detailed Date of Procedure 12/19/22 Pre-op Diagnosis Impacted subcapital right femoral neck fracture Post-op Diagnosis Same Procedure Performed pinning in-situ right femoral neck fracture Surgeon Fuad Montes MD Tool Polishing Machine Operator Edw[facility] Anesthesia General Description of Procedure The patient was identified and proper site identified. He was taken to the operating room. After general anesthetic induction and intubation, he was position on the fracture table in the usual manner for fixation of a right hip fracture. Care was taken to properly pad and position is torso and extremities. The fracture was assessed fluoroscopically unchanged and impacted position. T he right hip and thigh was prepped and draped in the usual sterile fashion. Several cc of 0.5% Marcaine and epinephrine solution one is infiltrated into the subcutaneous tissue near the incision. Longitudinal incision was made over the lateral aspect of the proximal femur. Sharp dissection carried down through the subcutaneous tissue to the ID band which was divided in line with the incision. Using fluoroscopic visualization three pins for the 7.3 screws were placed into the femoral neck and head over which three cannulated 7.3 screws were placed and the pins removed. Overall position was assessed fluoroscopically in AP and lateral views and noted to be satisfactory. The wound was irrigated with sterile saline. Deep fascia was reapproximated with 0 Vicryl as was the deeper layers in the subQ. Skin reapproximated with 3-0 Monocryl, 3-0 V lock and doe. Sterile dressing was applied. He tolerated the procedure well. Estimated blood loss was negligible. He received perioperative antibiotics. At the completion of the procedure he was awakened, extubated, returned to the bed and taken to recovery area in stable condition. There were no known intraoperative complications. Estimated Blood Loss 20 Drains No Packing No Pathology None sent Complications No immediate complications Condition Stable Disposition PACU [facility] Billing Surgery - Charge Forward: Surgery Billing ([id number]; [id number])
--- NOTE | 2022-12-19 11:09 | PM.IMPN ---
Progress Note: A&P Assessment and Plan (1) Ground-level fall: Code(s): W18.30XA - Fall on same level, unspecified, initial encounter Status: Acute Assessment and Plan: CT cervical spine: No fracture or subluxation of the cervical spine. Extensive DISH. CT thoracic and lumbar spine: No acute fracture or subluxation of the thoracic and lumbar spine. Chronic bilateral L5 pars interarticularis defects. DISH w/probable mild to moderate canal stenosis at T10-T11. 4.4 cm infrarenal abdominal aortic aneurysm. CT pelvis: Minimally displaced subcapital fracture of the right femoral neck. 4.4 cm infrarenal abdominal aortic aneurysm. CT head: No intracranial hemorrhage, mass, or acute infarct. Atrophy and chronic white matter changes. x-ray right elbow: Significant soft tissue swelling of the elbow without acute osseous abnormality identified. initial labs unremarkable. (2) Fracture of hip, right, closed: Code(s): S72.001A - Fracture of unspecified part of neck of right femur, initial encounter for closed fracture Status: Acute Assessment and Plan: x-ray hip right 2 vw: Minimal displacement and mild angulation of an impacted and mildly comminuted subcapital fracture of the proximal right femur. ortho consulted - [place] 12/19 hold ASA and Eliquis, last dose 12/17 vitals Q8H Plan Chronic Conditions - continue diltiazem, vitamin-C, calcium supplement, vitamin D3, coenzyme, vitamin B12 - continue to monitor HR Diet: low sodium, NPO at midnight GI Prophylaxis: Not currently DVT Prophylaxis: SCDs, hold pharmacological for possible OR Lines: pIV Code Status: Full Code Subjective Date/time seen: 12/19/22 11:09 Interval history: 82-year-old male with history of dementia, heart disease, colon cancer, GERD among other comorbidities is presenting after he had a ground level fall and currently being treated for a subcapital fracture of the right femur, OR 12/19. No overnight events noted. No chest pain or shortness of breath. No nausea, vomiting or diarrhea. No fevers or chills. OR went well, feeling great after surgery back in his room. Seen with family at bedside. Review of Systems Review of Systems: 12 point review of systems was assessed and was negative except as noted in the HPI Exam Narrative: General: No acute distress, alert and oriented per baseline HEENT: Atraumatic, normocephalic, mucous membranes moist CV: Regular rate and rhythm, S1, S2 Lungs: Clear to auscultation bilaterally, no rales or crackles noted, no wheezes, good air entry Abdomen: Soft, nontender, nondistended Extremities: Normal to inspection Skin: No rashes noted, no lesions or wounds seen Psych: Euthymic, normal affect Objective Data Vital Signs Vital Signs: Vital Signs - 24 hr 12/18/22 11:40 12/18/22 14:00 12/18/22 15:41 Temperature 97.8 F 98.0 F Pulse Rate 82 92 Respiratory Rate 16 16 Blood Pressure 136/84 149/87 H Pulse Oximetry 90 93 Oxygen Delivery Room Air Oxygen Flow Rate 12/18/22 21:21 12/19/22 05:13 12/19/22 08:59 Temperature 99.4 F 99.2 F 99.3 F Pulse Rate 91 90 91 Respiratory Rate 13 12 14 Blood Pressure 165/96 H 156/83 H 129/88 Pulse Oximetry 93 93 95 Oxygen Delivery Room Air Oxygen Flow Rate 12/19/22 10:53 12/19/22 11:00 Temperature 98.2 F Pulse Rate 75 75 Respiratory Rate 18 16 Blood Pressure 145/80 H 146/84 H Pulse Oximetry 98 99 Oxygen Delivery Simple Face Mask Simple Face Mask Oxygen Flow Rate 10 10 Intake/Output Intake/Output: Intake & Output 12/16/22 12/17/22 12/18/22 12/19/22 23:59 23:59 23:59 23:59 Intake Total 1240 290 Output Total 300 900 Balance 940 -610 Meds/Results Medications: Active Medications Generic Name Dose Route Start Last Admin Trade Name Freq PRN Reason Stop Dose Admin Acetaminophen 650 mg 12/18/22 15:14 Acetaminophen 325 Mg Tablet PO Q4H PRN Mild Pain (1-3)
--- NOTE | 2022-12-19 11:27 | SUR.PHASEI ---
1125: Simple mask removed.
[2022-12-19] MEDS: MEMANTINE 10 MG TABLET PO ×2 (12:19→18:01)
[2022-12-19] MEDS: CALCIUM CARBONATE (OSCAL) 500 MG TABLET PO (12:20)
[2022-12-19] MEDS: CYANOCOBALAMIN 1,000 MCG TABLET 2000 MCG PO (12:20)
[2022-12-19] MEDS: dilTIAZem HCL CD 120 MG CAP.24HR PO (12:20)
[2022-12-19] MEDS: CHOLECALCIFEROL 1,000 UNITS TABLET 5000 UNITS PO (12:20)
[2022-12-19] MEDS: CYANOCOBALAMIN 500 MCG TABLET PO (12:20)
[2022-12-19] MEDS: OPTI-GEN TAB 1 TABLET PO (12:21)
[2022-12-19] MEDS: MAGNESIUM OXIDE 200 MG TABLET PO (12:21)
[2022-12-19] MEDS: ASCORBIC ACID 250 MG TABLET PO (12:22)
[2022-12-19] MEDS: FOLIC ACID 0.4 MG TABLET PO (12:22)
[2022-12-19] MEDS: GALANTAMINE HYDROBROMIDE 4 MG TABLET 12 MG PO ×2 (12:22→18:00)
[2022-12-19] MEDS: SODIUM CHLORIDE 0.9% IV 1,000 ML 125 ML IV CONT ×2 (12:30→18:02)
--- NOTE | 2022-12-19 12:55 | PC.NURSE ---
report from Carina GARCÍA in recovery. Patient arrived onto floor at 1210
[2022-12-19] MEDS: SENNA/DOCUSATE SODIUM TABLET 2 TAB PO (18:00)
[2022-12-19] MEDS: PRAVASTATIN SODIUM 20 MG TABLET PO (20:55)
[2022-12-19] MEDS: MELATONIN 5 MG TABLET 10 MG PO (21:12)
[2022-12-20] MEDS: ceFAZolin 2 GM/D5W 50 ML 2 GM/50 ML BAG IVPB ×2 (02:23→10:42)
[2022-12-20] MEDS: SODIUM CHLORIDE 0.9% IV 1,000 ML 125 ML IV CONT ×3 (02:26→20:37)
[2022-12-20 06:00] VITALS: BP 152/83; PULSE 71; RESP 20; TEMP 36.4; O2SAT 96
[2022-12-20 07:25] LABS: Basophils Percent Auto 0.2 % (0.2-1.2); Eosinophils Percent Auto 0.1 % (0-4.4); Hematocrit 43.6 % (42.0-52.0); Hemoglobin 14.7 g/dL (14.0-18.0); Immature Granulocyte Absolute 0.05 K/mm3 (0.00-0.031); Immature Granulocyte Percent A 0.4 % (0-0.5); Immature Platelet Fraction Pct 5.4 % (0.9-11.2); Lymphocytes Absolute Auto 0.51 K/mm3 (0.9-3.2); Lymphocytes Percent Auto 4.5 % (18.3-44.2); Mean Corpuscular HGB Conc 33.7 g/dl (32-36); Mean Corpuscular Hemoglobin 33.1 pg (26-34); Mean Corpuscular Volume 98.2 fl (80-100); Mean Platelet Volume 10.3 fl (7.4-10.4); Monocytes Absolute Auto 0.8 K/mm3 (0.1-0.6); Monocytes Percent Auto 7.1 % (2.6-8.5); Neutrophils Percent Auto 87.7 % (45.5-73.1); Platelet Count Result 84 k/mm3 (150-375); Red Blood Count 4.44 M/mm3 (4.6-6.20); White Blood Count 11.4 K/mm3 (4.5-10.0)
[2022-12-20 07:38] LABS: Alanine Aminotransferase 21 U/L (6-50); Albumin Level 3.4 g/dL (3.5-5.1); Alkaline Phosphatase 59 U/L (38-126); Anion Gap 5 mmol/L (8-16); Aspartate Amino Transferase 31 U/L (17-59); Bilirubin,Total 1.6 mg/dL (0.2-1.3); Blood Urea Nitrogen 13 mg/dL (9-20); Calcium 8.5 mg/dL (8.4-10.2); Carbon Dioxide 24 mmol/L (22-30); Chloride 104 mmol/L (98-107); Estimated CRCL calculation 62 ml/min; Estimated Glomerular Filt Rate > 60; Glucose 118 mg/dL (65-110); Potassium 3.9 mmol/L (3.4-5.0); Sodium 133 mmol/L (137-145)
--- NOTE | 2022-12-20 09:29 | PM.IMPN ---
Progress Note: A&P Assessment and Plan (1) Fracture of hip, right, closed: Code(s): S72.001A - Fracture of unspecified part of neck of right femur, initial encounter for closed fracture Status: Acute Assessment and Plan: x-ray hip right 2 vw: Minimal displacement and mild angulation of an impacted and mildly comminuted subcapital fracture of the proximal right femur. ortho consulted - [place] 12/19 Eliquis restarted per Ortho 12/20 (2) Ground-level fall: Code(s): W18.30XA - Fall on same level, unspecified, initial encounter Status: Acute Assessment and Plan: Imaging reviewed, femur fracture noted on right, see above Plan Chronic Conditions - continue diltiazem, vitamin-C, calcium supplement, vitamin D3, coenzyme, vitamin B12 - continue to monitor HR GI Prophylaxis: Not currently DVT Prophylaxis: Eliquis Code Status: Full Code Subjective Date/time seen: 12/20/22 09:29 Interval history: 82-year-old male with history of dementia, heart disease, colon cancer, GERD among other comorbidities is presenting after he had a ground level fall and currently being treated for a subcapital fracture of the right femur, OR 12/19. No overnight events noted. No chest pain or shortness of breath. No nausea, vomiting or diarrhea. No fevers or chills. Patient states he feels much better today than yesterday. He has already had 2 BMs since the OR. Review of Systems Review of Systems: 12 point review of systems was assessed and was negative except as noted in the HPI Exam Narrative: General: No acute distress, alert and oriented per baseline HEENT: Atraumatic, normocephalic, mucous membranes moist CV: Regular rate and rhythm, S1, S2 Lungs: Clear to auscultation bilaterally, no rales or crackles noted, no wheezes, good air entry Abdomen: Soft, nontender, nondistended Extremities: Normal to inspection Skin: No rashes noted, no lesions or wounds seen Psych: Euthymic, normal affect Objective Data Vital Signs Vital Signs: Vital Signs - 24 hr 12/19/22 10:53 12/19/22 11:00 12/19/22 11:15 Temperature 98.2 F Pulse Rate 75 75 91 Respiratory Rate 18 16 14 Blood Pressure 145/80 H 146/84 H 150/83 H Pulse Oximetry 98 99 97 Oxygen Delivery Simple Face Mask Simple Face Mask Simple Face Mask Oxygen Flow Rate 10 10 10 12/19/22 11:30 12/19/22 11:45 12/19/22 12:15 Temperature 97.9 F Pulse Rate 105 H 94 95 Respiratory Rate 20 18 16 Blood Pressure 140/79 129/83 153/90 H Pulse Oximetry 93 93 93 Oxygen Delivery Room Air Room Air Oxygen Flow Rate 12/19/22 12:30 12/19/22 13:00 12/19/22 14:00 Temperature 97.8 F 98.3 F 97.9 F Pulse Rate 100 105 H 99 Respiratory Rate 14 16 14 Blood Pressure 129/93 H 150/88 H 150/86 H Pulse Oximetry 91 91 93 Oxygen Delivery Oxygen Flow Rate 12/19/22 18:00 12/19/22 21:38 12/20/22 06:00 Temperature 99.3 F 98.1 F 97.6 F Pulse Rate 96 92 71 Respiratory Rate 16 20 20 Blood Pressure 129/88 141/81 H 152/83 H Pulse Oximetry 96 94 96 Oxygen Delivery Oxygen Flow Rate Intake/Output Intake/Output: Intake & Output 12/17/22 12/18/22 12/19/22 12/20/22 23:59 23:59 23:59 23:59 Intake Total 1240 2080 1450 Output Total 300 2400 900 Balance 940 -320 550 Meds/Results Medications: Active Medications Generic Name Dose Route Start Last Admin Trade Name Freq PRN Reason Stop Dose Admin Acetaminophen 650 mg 12/19/22 11:59 Acetaminophen 325 Mg Tablet PO Q6H PRN Mild Pain (1-3) or Fever Hydrocodone Bitart/Acetaminophen 1 tab 12/19/22 11:59 Hydrocodone/Acetaminophen (*Crx) 5-325 Mg Tablet PO Q3H PRN Pain Rated 4-6 Al Hydrox/Mg Hydrox/Simethicone 30 ml 12/19/22 11:59 Mag Hydrox/Al Hydrox/Simeth 30 Ml Udc PO Q6H PRN Indigestion Apixaban 5 mg 12/20/22 09:00 Apixaban 5 Mg Tablet PO BID ARABELLA Ascorbic Acid 250 mg 12/19/22 09:00 12/19/22 12:22
[2022-12-20] MEDS: polyethylene glycoL 3350 17 GM POWD.PACK PO (09:31)
[2022-12-20] MEDS: OPTI-GEN TAB 1 TABLET PO ×3 (09:32→17:20)
[2022-12-20] MEDS: APIXABAN 5 MG TABLET PO ×2 (09:32→17:18)
[2022-12-20] MEDS: CYANOCOBALAMIN 500 MCG TABLET PO (09:32)
[2022-12-20] MEDS: MEMANTINE 10 MG TABLET PO ×2 (09:32→17:19)
[2022-12-20] MEDS: ASPIRIN 81 MG CHEWABLE TABLET PO (09:33)
[2022-12-20] MEDS: CHOLECALCIFEROL 1,000 UNITS TABLET 5000 UNITS PO (09:33)
[2022-12-20] MEDS: ASCORBIC ACID 250 MG TABLET PO (09:33)
[2022-12-20] MEDS: GALANTAMINE HYDROBROMIDE 4 MG TABLET 12 MG PO ×2 (09:33→17:18)
[2022-12-20] MEDS: FOLIC ACID 0.4 MG TABLET PO (09:34)
[2022-12-20] MEDS: CALCIUM CARBONATE (OSCAL) 500 MG TABLET PO (09:34)
[2022-12-20] MEDS: dilTIAZem HCL CD 120 MG CAP.24HR PO (09:34)
[2022-12-20] MEDS: CYANOCOBALAMIN 1,000 MCG TABLET 2000 MCG PO (09:34)
--- NOTE | 2022-12-20 10:48 | PM.PNORT ---
Progress Note: A&P Assessment and Plan (1) Fracture of hip, right, closed: Qualifiers: Encounter type: subsequent encounter Fracture healing: with routine healing Qualified Code(s): S72.001D - Fracture of unspecified part of neck of right femur, subsequent encounter for closed fracture with routine healing Code(s): S72.001A - Fracture of unspecified part of neck of right femur, initial encounter for closed fracture Status: Acute Plan 82-year-old male postop day one pinning right hip. Therapy has been initiated will check x-ray of the right knee. Did just have an injection two months ago so not really eligible for another one right now. Awaiting placement. Following. Surgery discussed. No change in weight-bearing status for a minimum of eight weeks. Subjective Subjective Date/Time Seen: 12/20/22 10:48 Post Op day: 1 Principal diagnosis: Right hip pinning for femoral neck fracture Interval history: 82-year-old male postop day one pinning right hip for femoral neck fracture. Sitting in the chair. Does have some soreness in the right lower extremity which is expected. Is complaining of pain in his right knee which is known to be arthritic. Had injection about two months ago. Review of Systems Review of Systems: 12 point review of systems was assessed and was negative except as noted in the HPI Exam Const: General: cooperative and no acute distress Resp: Effort & Inspection: normal respiratory effort GI: Inspection: non-distended Extrem: Other: Right hip exam shows dry incision. Minimal swelling and bruising right lower extremity. Crepitus in right knee with some swelling noted. Calves negative. Objective Data Vital Signs Vital Signs: Vital Signs - 24 hr 12/19/22 10:53 12/19/22 11:00 12/19/22 11:15 Temperature 98.2 F Pulse Rate 75 75 91 Respiratory Rate 18 16 14 Blood Pressure 145/80 H 146/84 H 150/83 H Pulse Oximetry 98 99 97 Oxygen Delivery Simple Face Mask Simple Face Mask Simple Face Mask Oxygen Flow Rate 10 10 10 12/19/22 11:30 12/19/22 11:45 12/19/22 12:15 Temperature 97.9 F Pulse Rate 105 H 94 95 Respiratory Rate 20 18 16 Blood Pressure 140/79 129/83 153/90 H Pulse Oximetry 93 93 93 Oxygen Delivery Room Air Room Air Oxygen Flow Rate 12/19/22 12:30 12/19/22 13:00 12/19/22 14:00 Temperature 97.8 F 98.3 F 97.9 F Pulse Rate 100 105 H 99 Respiratory Rate 14 16 14 Blood Pressure 129/93 H 150/88 H 150/86 H Pulse Oximetry 91 91 93 Oxygen Delivery Oxygen Flow Rate 12/19/22 18:00 12/19/22 21:38 12/20/22 06:00 Temperature 99.3 F 98.1 F 97.6 F Pulse Rate 96 92 71 Respiratory Rate 16 20 20 Blood Pressure 129/88 141/81 H 152/83 H Pulse Oximetry 96 94 96 Oxygen Delivery Oxygen Flow Rate 12/20/22 08:32 Temperature Pulse Rate Respiratory Rate Blood Pressure Pulse Oximetry Oxygen Delivery Room Air Oxygen Flow Rate Intake/Output Intake/Output: Intake & Output 12/17/22 12/18/22 12/19/22 12/20/22 23:59 23:59 23:59 23:59 Intake Total 1240 / 1240 2080 / 2080 2500 / 2500 Output Total 300 / 300 2400 / 2400 900 / 900 Balance 940 / 940 -320 / -320 1600 / 1600 Meds/Results Medications: Active Medications Generic Name Dose Route Start Last Admin Trade Name Freq PRN Reason Stop Dose Admin Acetaminophen 650 mg 12/19/22 11:59 Acetaminophen 325 Mg Tablet PO Q6H PRN Mild Pain (1-3) or Fever Hydrocodone Bitart/Acetaminophen 1 tab 12/19/22 11:59 Hydrocodone/Acetaminophen (*Crx) 5-325 Mg Tablet PO Q3H PRN Pain Rated 4-6 Al Hydrox/Mg Hydrox/Simethicone 30 ml 12/19/22 11:59 Mag Hydrox/Al Hydrox/Simeth 30 Ml Udc PO Q6H PRN Indigestion Apixaban 5 mg 12/20/22 09:00 12/20/22 09:32 Apixaban 5 Mg Tablet PO 5 mg BID ARABELLA Administration Ascorbic Acid 250 mg 12/19/22 09:00 12/20/22 09:33 Ascorbic Acid 250 Mg Tablet PO 250 mg DAILY ARABELLA Adm
[2022-12-20] MEDS: LIDOCAINE 5% PATCH 1 PATCH TRANSDERM (12:46)
[2022-12-20 14:00] VITALS: BP 161/84; PULSE 78; RESP 16; TEMP 36.6; O2SAT 97
[2022-12-20] MEDS: PRAVASTATIN SODIUM 20 MG TABLET PO (20:35)
[2022-12-20] MEDS: MELATONIN 5 MG TABLET 10 MG PO (20:36)
[2022-12-20 21:14] VITALS: BP 139/74; PULSE 91; RESP 20; TEMP 37.3; O2SAT 97
[2022-12-21] MEDS: SODIUM CHLORIDE 0.9% IV 1,000 ML 125 ML IV CONT (05:31)
[2022-12-21 06:00] VITALS: BP 148/72; PULSE 79; RESP 20; TEMP 37; O2SAT 96
[2022-12-21 06:31] LABS: Basophils Percent Auto 0.3 % (0.2-1.2); Eosinophils Absolute Auto 0.2 K/mm3 (0-0.3); Eosinophils Percent Auto 2.1 % (0-4.4); Hematocrit 40.5 % (42.0-52.0); Hemoglobin 13.8 g/dL (14.0-18.0); Immature Granulocyte Absolute 0.04 K/mm3 (0.00-0.031); Immature Granulocyte Percent A 0.4 % (0-0.5); Immature Platelet Fraction Pct 5.9 % (0.9-11.2); Lymphocytes Absolute Auto 0.84 K/mm3 (0.9-3.2); Lymphocytes Percent Auto 9.3 % (18.3-44.2); Mean Corpuscular HGB Conc 34.1 g/dl (32-36); Mean Corpuscular Hemoglobin 33.3 pg (26-34); Mean Corpuscular Volume 97.8 fl (80-100); Mean Platelet Volume 11.3 fl (7.4-10.4); Monocytes Absolute Auto 0.9 K/mm3 (0.1-0.6); Monocytes Percent Auto 9.5 % (2.6-8.5); Neutrophils Absolute Auto 7.1 K/mm3 (1.3-6.7); Neutrophils Percent Auto 78.4 % (45.5-73.1); Platelet Count Result 89 k/mm3 (150-375); Red Blood Count 4.14 M/mm3 (4.6-6.20)
[2022-12-21 06:45] LABS: Alanine Aminotransferase 17 U/L (6-50); Albumin Level 3.1 g/dL (3.5-5.1); Alkaline Phosphatase 55 U/L (38-126); Anion Gap 4 mmol/L (8-16); Aspartate Amino Transferase 30 U/L (17-59); Bilirubin,Total 1.2 mg/dL (0.2-1.3); Blood Urea Nitrogen 12 mg/dL (9-20); Calcium 8.3 mg/dL (8.4-10.2); Carbon Dioxide 27 mmol/L (22-30); Chloride 106 mmol/L (98-107); Estimated CRCL calculation 62 ml/min; Estimated Glomerular Filt Rate > 60; Glucose 97 mg/dL (65-110); Potassium 3.8 mmol/L (3.4-5.0); Sodium 137 mmol/L (137-145)
[2022-12-21] MEDS: ACETAMINOPHEN 325 MG TABLET 650 MG PO ×2 (08:36→15:38)
[2022-12-21] MEDS: APIXABAN 5 MG TABLET PO ×2 (09:19→16:39)
[2022-12-21] MEDS: GALANTAMINE HYDROBROMIDE 4 MG TABLET 12 MG PO ×2 (09:19→16:39)
[2022-12-21] MEDS: MEMANTINE 10 MG TABLET PO ×2 (09:20→16:39)
[2022-12-21] MEDS: polyethylene glycoL 3350 17 GM POWD.PACK PO (09:21)
--- NOTE | 2022-12-21 12:19 | PM.DS ---
DS: Admitting Diagnosis Discharge Date 12/21/22 Admitting Diagnosis femur fracture DS: Discharge Diagnosis Discharge Diagnosis (1) Fracture of hip, right, closed: Qualifiers: Encounter type: subsequent encounter Fracture healing: with routine healing Qualified Code(s): S72.001D - Fracture of unspecified part of neck of right femur, subsequent encounter for closed fracture with routine healing Code(s): S72.001A - Fracture of unspecified part of neck of right femur, initial encounter for closed fracture Status: Acute Assessment and Plan: x-ray hip right 2 vw: Minimal displacement and mild angulation of an impacted and mildly comminuted subcapital fracture of the proximal right femur. ortho consulted - [place] 12/19 Eliquis restarted per Ortho 12/20 (2) Ground-level fall: Code(s): W18.30XA - Fall on same level, unspecified, initial encounter Status: Acute Assessment and Plan: Imaging reviewed, femur fracture noted on right, see above Plan Chronic Conditions - continue diltiazem, vitamin-C, calcium supplement, vitamin D3, coenzyme, vitamin B12 - continue to monitor HR GI Prophylaxis: Not currently DVT Prophylaxis: Eliquis Code Status: Full Code DS: Summary Hospital Course Hospital Course: 82-year-old male with history of dementia, heart disease, colon cancer, GERD among other comorbidities is presenting after he had a ground level fall and currently being treated for a subcapital fracture of the right femur, OR 12/19. x-ray hip right 2 vw: Minimal displacement and mild angulation of an impacted and mildly comminuted subcapital fracture of the proximal right femur. ortho consulted - [place] 12/19 Eliquis restarted per Ortho 12/20 Please see above and med rec for details. Patient's symptoms improved significantly, pain was controlled and he was discharged to rehab facility in stable condition. Time Spent with Patient Time attestation: Total time spent providing and/or coordinating discharge services: Exam Narrative: General: No acute distress, alert and oriented per baseline HEENT: Atraumatic, normocephalic, mucous membranes moist CV: Regular rate and rhythm, S1, S2 Lungs: Clear to auscultation bilaterally, no rales or crackles noted, no wheezes, good air entry Abdomen: Soft, nontender, nondistended Extremities: Normal to inspection Skin: No rashes noted, no lesions or wounds seen Psych: Euthymic, normal affect DS: Data Data Completed and Pending Labs on day of discharge: Labs from last 24 hours 12/21/22 06:06 WBC 9.0 RBC 4.14 L Hgb 13.8 L Hct 40.5 L MCV 97.8 MCH 33.3 MCHC 34.1 RDW 12.0 Plt Count 89 L MPV 11.3 H Immature Gran % (Auto) 0.4 Neut % (Auto) 78.4 H Lymph % (Auto) 9.3 L [place] % (Auto) 9.5 H Eos % (Auto) 2.1 Baso % (Auto) 0.3 Lymph # (Auto) 0.84 L [place] # (Auto) 0.9 H Eos # (Auto) 0.2 Baso # (Auto) 0.0 Abs Immat Gran (auto) 0.04 H Absolute Neuts (auto) 7.1 H Absolute Nucleated RBC 0.0 Nucleated RBC % 0.0 % Immature Plt Fraction 5.9 Sodium 137 Potassium 3.8 Chloride 106 Carbon Dioxide 27 Anion Gap 4 L BUN 12 Creatinine 0.80 Estim Creat Clear Calc 62 Estimated GFR > 60 Glucose 97 Calcium 8.3 L Total Bilirubin 1.2 AST 30 ALT 17 Alkaline Phosphatase 55 Total Protein 5.0 L Albumin 3.1 L Discharge Plan Discharge Attending physician on discharge: Ana M Fine Consulting providers: Fuad Montes Discharging Clinician: Ana M Fine Patient Disposition: Inpatient Rehab Facility Activity: no shower, no driving, follow weight bearing status and other - see discharge instructions Diet: as tolerated Wound Care Instructions: follow printed instructions and keep dressing dry Discharge Instructions: For Dr. Montes: Please call [facility] at as soon as possible to Arrange for follow-up appointment to be seen in
[2022-12-21] MEDS: CHOLECALCIFEROL 1,000 UNITS TABLET 5000 UNITS PO (12:41)
[2022-12-21] MEDS: ASPIRIN 81 MG CHEWABLE TABLET PO (12:42)
[2022-12-21] MEDS: FOLIC ACID 0.4 MG TABLET PO (12:43)
[2022-12-21] MEDS: CYANOCOBALAMIN 1,000 MCG TABLET 2000 MCG PO (12:43)
[2022-12-21] MEDS: dilTIAZem HCL CD 120 MG CAP.24HR PO (12:43)
[2022-12-21] MEDS: CYANOCOBALAMIN 500 MCG TABLET PO (12:43)
[2022-12-21] MEDS: OPTI-GEN TAB 1 TABLET PO (12:44)
[2022-12-21 14:00] VITALS: BP 131/86; PULSE 81; RESP 18; TEMP 36.5; O2SAT 98
[2022-12-21] MEDS: ASCORBIC ACID 250 MG TABLET PO (16:39)
[2022-12-21] MEDS: CALCIUM CARBONATE (OSCAL) 500 MG TABLET PO (16:39)
[2022-12-21] MEDS: MAGNESIUM OXIDE 200 MG TABLET PO (16:41)
== END 2022-12-21 17:30 | DRG 482 ==
LOC: ANHED 10:12 → ANH3MEDSUR 11:08
PROVIDERS: Orthopaedic Surgery; Admitting Provider Student in an Organized Health Care Education/Training Program; Emergency Provider Emergency Medicine; PCP Internal Medicine; Visit Provider Student in an Organized Health Care Education/Training Program
PROC: 0QH604Z Insertion of Internal Fixation Device into Right Upper Femur, Open Approach (ICD-10-PCS; principal; 2022-12-19 10:00)
DX: S72.011A Unspecified intracapsular fracture of right femur, initial encounter for closed fracture (principal); I25.10 Atherosclerotic heart disease of native coronary artery without angina pectoris; I48.0 Paroxysmal atrial fibrillation; K21.9 Gastro-esophageal reflux disease without esophagitis; E78.5 Hyperlipidemia, unspecified; I10 Essential (primary) hypertension; M17.11 Unilateral primary osteoarthritis, right knee; F03.90 Unspecified dementia, unspecified severity, without behavioral disturbance, psychotic disturbance, mood disturbance, and anxiety; W19.XXXA Unspecified fall, initial encounter; Z96.652 Presence of left artificial knee joint; Z79.82 Long term (current) use of aspirin; Z79.01 Long term (current) use of anticoagulants; Z85.038 Personal history of other malignant neoplasm of large intestine; Z86.711 Personal history of pulmonary embolism; Z95.1 Presence of aortocoronary bypass graft
CPT/HCPCS: 36415; 70450; 72125; 72128; 72131; 72192; 73070; 73502; 73562; 80053; 85025; 85055; 85610; 85730; 86850; 86900; 86901; 96374; 96376; 97110; 97161; 97165; 97530; 97535; 99199; 99285; A9270; C1713; C1769; G0378; J0690; J1100; J2371; J2405; J2704; J3010; J7030; J7120

== ENCOUNTER 2023-01-08 12:16 | Outpatient (NON) | payer BC, SELFPAY ==
[2023-01-08 13:13] LABS: Albumin Level 3.6 g/dL (3.5-5.1); Anion Gap 5 mmol/L (8-16); Blood Urea Nitrogen 15 mg/dL (9-20); Calcium 9.3 mg/dL (8.4-10.2); Carbon Dioxide 29 mmol/L (22-30); Chloride 99 mmol/L (98-107); Estimated Glomerular Filt Rate > 60; Glucose 151 mg/dL (65-110); Phosphorus 2.6 mg/dL (2.5-4.5); Potassium 3.7 mmol/L (3.4-5.0); Sodium 133 mmol/L (137-145)
== END 2023-01-08 12:17 | disposition home or self-care (01) ==
LOC: HOME HLTH 12:19
PROVIDERS: PCP Internal Medicine; Visit Provider Nurse Practitioner Family
DX: E87.1 Hypo-osmolality and hyponatremia (principal); I10 Essential (primary) hypertension
CPT/HCPCS: 80069

== ENCOUNTER 2023-04-03 09:33 | Outpatient (CLI) | payer BC, SELFPAY ==
[2023-04-03 09:50] LABS: Basophils Percent Auto 0.6 % (0.2-1.2); Eosinophils Absolute Auto 0.1 K/mm3 (0-0.3); Hematocrit 46.4 % (42.0-52.0); Hemoglobin 15.8 g/dL (14.0-18.0); Immature Granulocyte Absolute 0.02 K/mm3 (0.00-0.031); Immature Granulocyte Percent A 0.3 % (0-0.5); Lymphocytes Absolute Auto 0.93 K/mm3 (0.9-3.2); Lymphocytes Percent Auto 14.6 % (18.3-44.2); Mean Corpuscular HGB Conc 34.1 g/dl (32-36); Mean Corpuscular Hemoglobin 32.9 pg (26-34); Mean Corpuscular Volume 96.7 fl (80-100); Mean Platelet Volume 9.8 fl (7.4-10.4); Monocytes Absolute Auto 0.6 K/mm3 (0.1-0.6); Monocytes Percent Auto 8.6 % (2.6-8.5); Neutrophils Absolute Auto 4.7 K/mm3 (1.3-6.7); Neutrophils Percent Auto 73.9 % (45.5-73.1); Platelet Count Result 131 k/mm3 (150-375); Red Cell Distribution Width 12.3 % (11.5-14.5); White Blood Count 6.4 K/mm3 (4.5-10.0)
[2023-04-03 09:52] LABS: Blood Urea Nitrogen 15 mg/dL (8-26); Carbon Dioxide 31 mmol/L (22-30); Chloride 97 mmol/L (98-109); Estimated Glomerular Filt Rate > 60; Glucose 159 mg/dL (70-105); Ionized Calcium (POC) 1.28 mmol/L (1.11-1.31); Potassium 4.2 mmol/L (3.5-4.9); Sodium 139 mmol/L (138-146)
[2023-04-03 10:55] LABS: Alanine Aminotransferase 14 U/L (6-50); Albumin Level 3.7 g/dL (3.5-5.1); Alkaline Phosphatase 85 U/L (38-126); Anion Gap 5 mmol/L (8-16); Aspartate Amino Transferase 21 U/L (17-59); Bilirubin,Total 1.2 mg/dL (0.2-1.3); Blood Urea Nitrogen 16 mg/dL (9-20); Calcium 9.6 mg/dL (8.4-10.2); Carbon Dioxide 29 mmol/L (22-30); Chloride 101 mmol/L (98-107); Estimated Glomerular Filt Rate > 60; Glucose 156 mg/dL (65-110); Potassium 4.3 mmol/L (3.4-5.0); Sodium 135 mmol/L (137-145)
[2023-04-03 11:22] LABS: Prostate Specific Antigen 10.8 ng/mL (< OR = 4.0)
== END 2023-04-03 09:34 | disposition home or self-care (01) ==
LOC: ANHLAB 09:35
PROVIDERS: PCP Internal Medicine; Visit Provider Internal Medicine Hematology & Oncology
DX: C61 Malignant neoplasm of prostate (principal)
CPT/HCPCS: 36415; 80047; 80053; 84153; 85025; 85055

== ENCOUNTER 2023-04-14 13:22 | Outpatient (CLI) | payer BC, SELFPAY ==
--- NOTE | ~2023-04-14 | PE_ITS ---
EXAMINATION: PET_PETPSMAST_PT DATE: 04/14/2023 15:42 INDICATION: Prostate cancer TECHNIQUE: 10.073 mCi of pipflufolastat F-18 (18-F-DCFPyL) was administered i.v. Low dose computed t omography (CT) images were acquired from the base of the brain to the base of the brain to the proxim al thighs for attenuation correction and anatomic localization. Positron emission tomography (PET) im ages were acquired in the same distribution beginning 97 minutes after injection. Images including fu sed PET/CT images were reconstructed in axial, coronal, and sagittal planes. Automated exposure contr ol technique was employed. The dose-length product was 647.81mGy-cm. COMPARISON: Pelvis CT dated 12/18/2022 FINDINGS: Head/neck: Typical pattern of symmetric physiologic increased activity in the lacrimal, parotid and submandibula r glands as well as along the mucosa of the nasal and oral cavities, the lakesha-, naso- and hypopharynx, the glottis and esophagus. There is also a typical pattern of symmetric tiny foci of mild likely phy siologic neural ganglia uptake at a few bilateral cervical neural foramina. No pathologically enlarge d cervical lymphadenopathy or suspicious foci of increased uptake in the visualized head or neck. Chest: Normal variant azygos lobe and fissure. Bilateral fat-containing Bochdalek hernias at the posterior l vahe bases. Calcified nodule at the lingula. No suspicious pulmonary nodules, pneumonia, pulmonary artie ma or pleural effusion. Heart size is normal. Atherosclerotic coronary artery calcification unchanged prior median sternotomy and coronary artery bypass grafting. Thoracic aorta is normal in caliber. No pathologically enlarged or PSMA avid thoracic lymphadenopathy. Small sliding-type hiatal hernia. Abdomen/pelvis/proximal thighs: Physiologic renal accumulation and excretion of activity in the kidneys, bladder and along portions o f ureters. There is an approximately 4 x 4 by 2 mm lesion with irregular margins at the posterior asp ect of the enlarged prostate which demonstrates prominent increased PSMA activity with maximal SUV of 75.3 consistent with primary prostate cancer. There are a few surgical clips at the inferior prostat e. Small focus of likely skin contamination at the glans of the penis. Cholecystectomy clips the gall bladder fossa. Normal degree and slightly heterogenous pattern of increased uptake throughout the stephanie er and spleen without radiologic correlate or dominant PSMA avid lesion. There are few small pancreat ic parenchymal calcifications consistent with sequela of chronic pancreatitis. The bilateral adrenal glands are normal. Moderate uptake scattered throughout the bowels with typical duodenal and proximal jejunal predominance and without radiologic correlate, also likely physiologic. Postoperative change of prior partial colectomy with anastomotic suture line along the transverse colon. There are scatte red colonic diverticula without adjacent from trace stranding to suggest diverticulitis. Fusiform inf rarenal abdominal aortic aneurysm measuring 4.1 x 3.8 cm in maximal diameter. No other abnormal foci of increased uptake or pathologically enlarged lymphadenopathy in the abdomen, pelvis or proximal thi ghs. Musculoskeletal: There are extensive bridging osteophytes throughout much of the spine consistent with diffuse idiopat hic skeletal hyperostosis (DISH). Chronic bilateral L5 pars interarticularis defects. There is sack lifter ior angulation of a subcapital fracture of the proximal right femur which is fixed with 3 cannulated lag screws. No suspicious lytic, blastic or PSMA avid bone lesions to suggest metastatic disease. IMPRESSION: 1. Large region of prominent increased uptake in the mid to posterior prostate consistent with primar y prostate cancer. No other PSMA avid lesions suspicious for metastatic disease. 2. 4.1 cm fusiform infrarenal abdominal aortic aneurysm.
== END 2023-04-14 13:23 | disposition home or self-care (01) ==
LOC: ANHIMG 13:23
PROVIDERS: PCP Internal Medicine; Visit Provider Radiology Radiation Oncology
DX: C61 Malignant neoplasm of prostate (principal); I71.43 Infrarenal abdominal aortic aneurysm, without rupture
CPT/HCPCS: 78815; A9595

== ENCOUNTER 2023-04-21 13:30 | Outpatient (RCR) | payer BC, SELFPAY ==
--- NOTE | 2023-03-20 16:26 | OPREHPOC ---
Outpatient Therapy Plan of Care This is a Multidisciplinary Plan of Care that may contain components documented by all disciplines (PT, OT, and ST.) PT Problem 1 PT Problem #1 Knowledge Deficit PT Goal 1 Goal 1* indep with HEP 2* perform sit to stand transfer with correct, safe technique PT Problem 2 PT Problem #2 Pain PT Goal 1 Goal 1* pt report pain in R LE/hip & knee of 7/10 at worst PT Problem 3 PT Problem #3 Impaired Strength PT Goal 1 Goal increase strength of R LE, to improve gait and mobility skills 1* pt perform R standing LE exercises x 20 reps 2* sit to supine without use of UE PT Problem 4 PT Problem #4 Impaired Functional Mobil PT Goal 1 Goal 1* TUG with wheeled walker 22 seconds 2* 2 minute walking test distance of 275'
--- NOTE | 2023-03-20 16:26 | PTOPEVAL1 ---
Assessment and note entered by Paige Henning, PT Evaluation Information Assessment Status Evaluation Diagnosis s/p fall with R hip ORIF Onset 12-19-22 Subjective Information had in pt rehab and C- complteted 03-13-23; recent x ray with good healing per Dr Montes progress note 50% WB for 8 weeks- dated 02-12-23 in home, using wheeled walker 50% WB R LE or wheelchair- using legs to propel it; doing exercises sitting: ankle pumps, marching, sit/stand, knee extension; supine SLR, hip abduciton, heel slides, SAQ, QS, hamstring stretch ; standing PF, SLR, gastroc stretch, hip ext, side steps, hip abduction; is performing 20 reps each; 2 entry steps into home with grab bar and in/out truck, tub bench transfer, with home health- comfortable with the transfers; Activity: prior to surgery, did not use assistive device; Reported Pain Level Pain Score Self Report Additional Pain Score Comments pain in R hip and R knee-- range in past week 3-12/09 knee more pain than hip; Assessment PT Clinical Summary Bud is s/p fall with R ORIF hip. He has completed in pt and [facility] therapy services. He is 50% WB on R LE until next dr ovalle for follow up xray. Elizabeth was present during eval and very supportive to pt. He came to dept in w/c. His medical history includes LBP, R knee OA with pain and had to postpone prostate cancer treatment due to hip surgery. With the evaluation, he has weakness of R LE, requires assist of UE for sit to supine transfer; TUG time of 32 seconds; 2 minute walking test distance of 150' with wheeled walker; unsafe with sit/stand transfer with turning with pivot on L foot and not backing up completely to chair. Skilled PT services are indicated for therapeutic exercises and activities to increase R LE strength gait, transfer and balance skills. Modalities for hip pain. With education for safety and progression of HEP. Plan of Care Interventions Margaret Pa
--- NOTE | 2023-04-21 14:30 | PTOPDC ---
Assessment and note entered by Paige Henning, PT Discharge Information Assessment Status Discharge Diagnosis s/p fall with R hip ORIF Onset 12-19-22 Subjective Information am better, less pain in back and R knee; saw and had knee injection R last week; said could put full weight on R leg; have been driving; going more, went to spiritism; have been doing the exercises at home; still use the w/c for sitting at the kitchen table, is more comfortable to sit, instead of chair there; have not had any falls; to start radiation for prostate in April; agree to d/c PT services. Discussed with pt and eliminating the w/c, using walker all time for mobility; also use of cane in home and wheeled walker in community, for distances and when having more pain; Reported Pain Level Pain Score Self Report Additional Pain Score Comments pointed to R sacrum; pain worst in past few days, 8/10 R hip, knee and back Assessment PT Clinical Summary Bud has received 9 PT sessions. His weight bearing on R LE has been increased to WBAT at last appt. Compared to the initial evaluation: pain rating at the worst from 10 to 8/10; continues to have back, R hip and R knee pain; TUG from 32 to 26 seconds; 2 minute walking test distance from 150' to 310'; safety improved with correct sit/stand transfer; increase strength of R LE; is able to ambulate with cane, but R knee and back pain increases. Education completed for HEP and gait training. The goals were partially met. Discharge PT services. He is to continue with the HEP. Plan of Care PT Services Indicated No
== END 2023-04-21 16:37 | disposition home or self-care (01) ==
LOC: ANHPT 13:30
PROVIDERS: PCP Internal Medicine; Visit Provider Nurse Practitioner
DX: S72.001D Fracture of unspecified part of neck of right femur, subsequent encounter for closed fracture with routine healing (principal); R26.9 Unspecified abnormalities of gait and mobility
CPT/HCPCS: 97110; 97116; 97140; 97161; 97530

== ENCOUNTER 2023-05-29 13:26 | Outpatient (CLI) | payer BC, SELFPAY ==
--- NOTE | ~2023-05-29 | DEXA_ITS ---
Bone Density Report Name: YA LUJAN Age: 82 Sex: Male Ethnicity: White Date of : 1940 Indication: screening for osteoporosis; history of glucocorticoids; cancer; Referring Provider: OCTAVIA PAGE Study: Bone densitometry was performed. Exam Date: May 29, 2023 Accession number: [id number] Bone Density: Region BMD T-score Z-score Classification AP Spine(L1-L4) 1.389 2.7 4.0 Normal Femoral Neck (Left) 0.720 -1.5 0.1 Osteopenia Total Hip (Left) 0.856 -1.2 0.0 Osteopenia World Health Organization criteria for BMD impression classify patients as: Normal (T-score at or above -1.0), Osteopenia (T-score between -1.0 and -2.5), or Osteoporosis (T-score at or below -2.5). 10-year Fracture Risk(1): Major Osteoporotic Fracture 11% Hip Fracture 4.5% Reported Risk Factors: [place] (), Neck BMD=0.720, BMI=28.4, glucocorticoids (1) FRAX(R) Version 3.08. Fracture probability calculated for an untreated patient. Fracture probability may be lower if the patient has received treatment. Clinical Information Provided by Patient: Has taken Glucocorticoids Has used the following medications: Vitamin D, Calcium, MULTI Has the following medical conditions: Cancer Patient maximum height was 68 No regular weight bearing exercise Impression: The patient has low bone mass, based on the Left Femoral Neck T-score. The patient has an estimated ten-year risk of hip fracture of 4.5% and an estimated ten-year risk of major fracture of 11%, based on the WHO FRAX algorithm. The patient has risk factors, including: history of glucocorticoid therapy. Discussion: BONE DENSITY IS LOW AT ONE OR MORE SKELETAL SITES. THE PATIENT'S BMD AND CLINICAL RISK FACTORS CONTRIBUTE TO THIS PATIENT'S INCREASED RISK OF FRACTURE. This patient's lowest T-score is low at one or more skeletal sites. It meets the World Health Organization's (WHO) criteria for ?low bone mass? (T-score between -1.0 and -2.5). The patient's 10-year risk of hip fracture as calculated by FRAX exceeds the threshold where pharmacological therapy is recommended by the National Osteoporosis Foundation (NOF). However, all treatment decisions require clinical judgment and consideration of individual patient factors, including patient preferences, comorbidities, previous drug use, risk factors not captured in the FRAX model (e.g., frailty, falls, vitamin D deficiency, increased bone turnover, interval significant decline in bone density) and possible under or overestimation of fracture risk by FRAX. The patient should follow a healthful lifestyle (good nutrition with adequate calcium and vitamin D, and appropriate weight-bearing exercise). Follow-Up: Consider repeating this study in 2 years to reassess this patient's status, or sooner if there is some new clinical indication. Report
== END 2023-05-29 13:27 | disposition home or self-care (01) ==
PROVIDERS: PCP Radiology Radiation Oncology
DX: M85.89 Other specified disorders of bone density and structure, multiple sites (principal); M81.0 Age-related osteoporosis without current pathological fracture; C61 Malignant neoplasm of prostate
CPT/HCPCS: 77080

== ENCOUNTER 2023-08-18 09:47 | Outpatient (CLI) | payer BC, SELFPAY ==
--- NOTE | ~2023-08-18 | DEXA_ITS ---
Bone Density Report Name: YA LUJAN Age: 83 Sex: Male Ethnicity: White Date of : 1940 Indication: osteopenia; parental hip fracture; height loss; history of glucocorticoids; prior fracture; cancer; Referring Provider: OCTAVIA PAGE Study: Bone densitometry was performed. Exam Date: August 18, 2023 Accession number: [id number] Bone Density: Region BMD T-score Z-score Classification AP Spine(L1-L4) 1.353 2.4 3.6 Normal Femoral Neck (Left) 0.670 -1.9 -0.3 Osteopenia Total Hip (Left) 0.911 -0.8 0.4 Normal World Health Organization criteria for BMD impression classify patients as: Normal (T-score at or above -1.0), Osteopenia (T-score between -1.0 and -2.5), or Osteoporosis (T-score at or below -2.5). 10-year Fracture Risk: FRAX not reported because: Prior hip or vertebral fracture Previous Exams: Region Exam Age BMD T-score BMD Change BMD Change Date g/cm2 vs Baseline vs Previous AP Spine (L1-L4) 08/18/2023 83 1.353 2.4 -0.036 (-2.6%) -0.036 (-2.6%) 05/29/2023 82 1.389 2.7 Total Hip(Left) 08/18/2023 83 0.911 -0.8 0.055 (6.4%)* 0.055 (6.4%)* 05/29/2023 82 0.856 -1.2 *Denotes significance at 95% confidence level, LSC for AP Spine = 0.022 g/cm2, LSC for Total Hip = 0.027 g/cm2 Clinical Information Provided by Patient: Have had a previous hip or vertebral fracture Has had a low trauma fracture Parent has had a hip fracture Has taken Glucocorticoids Has used the following medications: Vitamin D, Calcium, MULTI Has the following medical conditions: Cancer Patient maximum height was 70 No regular weight bearing exercise Drinks caffeinated beverages Impression: The patient has low bone mass, based on the Left Femoral Neck T-score. The patient has risk factors, including: parental hip fracture, previous fracture, history of glucocorticoid therapy. The BMD for the AP Spine (L1-L4) decreased, changing by -2.6% since the last DXA exam. Discussion: INCREASED RISK OF FRACTURE DUE TO HISTORY OF LOW TRAUMA FRACTURE. The patient's previous fracture puts the patient at high risk of a future fracture. In untreated patients, the risk of osteoporotic fracture increases approximately two-fold for each 1.0 SD decrease in T-score. Low bone density is not the only risk factor for fracture; also consider factors such as patient's age, frailty or poor health, risk of falling, risk of injury, previous osteoporotic fracture, family history of osteoporosis, cigarette smoking, low body weight, etc. Not everyone with a low trauma fracture has osteoporosis; osteomalacia and other metabolic bone disorders should also be
== END 2023-08-18 09:48 | disposition home or self-care (01) ==
LOC: ANHIMG 09:49
PROVIDERS: PCP Radiology Radiation Oncology
DX: C61 Malignant neoplasm of prostate (principal); M85.89 Other specified disorders of bone density and structure, multiple sites
CPT/HCPCS: 77080

== ENCOUNTER 2023-09-07 09:39 | Emergency (ER) | payer BC, SELFPAY ==
[2023-09-07] VITALS (7 sets, daily range): BP systolic 112–152; BP diastolic 68–82; PULSE 69–87; RESP 15–23; TEMP 37; O2SAT 97–99
--- NOTE | ~2023-09-07 | CT_ITS ---
CTA chest abdomen pelvis Ordering provider: Solange Whiteside PA-C History: . known AAA, R sided chest/shoulder pain, dizziness . Comparison: None. Technique: CT angiogram chest, abdomen and pelvis was performed following timed intravenous injection of contrast. Thin slice axial images and reformatted coronal images were obtained. Three dimensional reformatted images of the chest were also obtained using a [employer] workstation. The dose-length product was 992.98 mGy-cm. 100 mL Omnipaque 350 was given IV. FINDINGS: CHEST: --THORACIC AORTA: Mild atheromatous disease. No aneurysm, dissection or mediastinal hematoma. --GREAT VESSELS: Normal as visualized. --PULMONARY ARTERIES: No pulmonary embolus. --VISUALIZED THORACIC INLET: Normal. --MEDIASTINUM: Coronary arteries: Mild atheromatous disease. Heart/other: The heart is not enlarged. Lymph nodes: No mediastinal or hilar adenopathy. --LUNGS: 3 mm nodules in the right middle lobe. No pulmonary masses. No infiltrates or effusions. No pneumotho rax. Dependent atelectatic changes. --MUSCULOSKELETAL: Superficial soft tissues: The superficial soft tissues are normal. Bones: Age appropriate degenerative changes of the spine. ABDOMEN/PELVIS: --MUSCULOSKELETAL: Bones: Age appropriate degenerative changes of the spine. Bilateral sacroiliacs. Fixation of the righ t femoral neck. Postoperative changes in the sternum. Superficial soft tissues: Bilateral fat containing inguinal hernias. Multiple anterior abdominal wall defects with small nodule in the left side. Otherwise, The superficial soft tissues are normal. --UPPER ABDOMINAL ORGANS: Liver: Normal. Gallbladder: Status post cholecystectomy. Spleen: Normal. Stomach/duodenum: Small sliding hiatus hernia. Pancreas: Slightly dilated pancreatic duct. Calcified lesions seen in the area between the 2 lobes of the liver which may be postoperative residual stone in the area. Adrenals: Normal. Kidneys: Normal. --PELVIC ORGANS: The bladder is normal. No bladder stones. Brachytherapy is seen in the prostate. --BOWEL AND MESENTERY: Colon: No evidence of diverticulitis. Postoperative changes seen in the transverse colon. Normal appe ndix. Small Bowel: Normal. No obstruction. Peritoneum/mesentery: No free air or free fluid. No mesenteric lymphadenopathy. --RETROPERITONEUM: No retroperitoneal lymphadenopathy. --ARTERIES: ABDOMINAL AORTA: Moderate atheromatous disease. Aneurysmal dilatation is seen measuring 3.6 x 4.4 c m. No dissection.. RENAL ARTERIES: Atherosclerotic changes. CELIAC AXIS: Atherosclerotic changes. SMA: Atherosclerotic changes. FAVIOLA: Originating from the inferior part of the aneurysm. ILIAC AND VISUALIZED FEMORAL ARTERIES: Atherosclerotic changes. MESENTERIC ARTERIES: Normal. IMPRESSION: CHEST: 1. No pulmonary embolism or dissection. 2. Tiny nodules in the middle lobe. Follow-up in one year is advised. 3. No acute lung lesion seen. ABDOMEN/PELVIS: 1. Abdominal aortic aneurysm in the lower aorta measuring 4.4 x 3.6 cm.. 2. No evidence of appendicitis, diverticulitis or intestinal obstruction. 3. Small sliding hiatus hernia. Reviewed, dictated and finalized at location A.
--- NOTE | ~2023-09-07 | XR_ITS ---
XR shoulder RT min 2V Ordering provider: Solange Whiteside PA-C History: . pain, hx remote injury . Comparison: None. FINDINGS: BONES: No acute fracture or dislocation. JOINT SPACES: The acromioclavicular joint is normal. The glenohumeral joint shows osteoarthritic gary ges with osteophytes seen in the humeral head. SOFT TISSUES: Ossification at the insertion of the supraspinatus suggestive of ossific tendinitis. IMPRESSION: No acute osseous abnormality right shoulder. Osteoarthritic changes of the glenohumeral joint. Ossific tendinitis. Reviewed, dictated and finalized at location A.
--- NOTE | 2023-09-07 09:47 | ECG_ITS ---
Test Date: 2023-09-07 09:53:33 Measurements Intervals [place] Rate: 71 P: 0 CO: 0 QRS: -26 QRSD: 102 T: 11 QT: 394 QTc: 431 Interpretive Statements SINUS RHYTHM WITH MARKED FIRST DEGREE AV BLOCK BORDERLINE R WAVE PROGRESSION, ANTERIOR LEADS BASELINE ARTIFACT- I, II, III, AVR, AVL, AVF, V4-V6 BORDERLINE ECG No previous ECG available for comparison Electronically Signed On 09-07-2023 10:12:47 CDT by Reynaldo Brandt D.O.
--- NOTE | 2023-09-07 09:52 | ED.UPPEXIN ---
HPI - Extremity Injury (Upper) General Chief Complaint: Extremity Injury, Upper Stated Complaint: R shoulder pain Time Seen by Provider: 09/07/23 09:44 Source: patient Mode of arrival: ambulatory Limitations: no limitations History of Present Illness HPI narrative: patient is an 83-year-old male, with PMH of AAA, cholecystectomy, AFIB on Eliquis, who presents the ED with report of right shoulder pain. Patient reports a remote injury to his right shoulder after falling off a horse. Over the last several years, he has had intermittent pain throughout his right shoulder. He describes them as lightening strikes with sharp brief episodes of stabbing/burning pain. this morning well eating breakfast, patient had an episode of pain. States this was the most severe episode he has ever had. Pain radiated into his R upper chest. He also felt dizzy and shaky at that time. He denies having the sharp pain currently, but does complain of mild persistent pain throughout his right shoulder, right upper chest. Denies SOB. Denies abdominal pain. Denies numbness. Related Data Home Medications Medication Instructions Recorded Confirmed apixaban 5 mg tablet (Eliquis) 5 mg PO BID 01/01/21 07/15/23 ascorbic acid (vitamin C) 250 mg 282 mg PO 1700 01/01/21 07/15/23 tablet aspirin 81 mg chewable tablet 81 mg PO 1200 01/01/21 07/15/23 calcium carbonate 650 mg PO 1700 01/01/21 07/15/23 cyanocobalamin (vitamin B-12) 2,500 mcg PO 1200 01/01/21 07/15/23 2,500 mcg tablet coenzyme Q10 100 mg capsule (Co 100 mg PO DAILY 12/31/21 07/15/23 Q-10) magnesium 100 mg tablet 100 mg PO 1700 12/31/21 07/15/23 melatonin 5 mg chewable tablet 10 mg PO HS 12/31/21 07/15/23 [id number] 300 mcg-K 60 1 tablet PO DAILY 12/31/21 07/15/23 mcg-lycop 600 mcg-lutein 300 mcg tablet (Centrum Silver Men) red beet root 250 mg-sour crouch 1 tablet PO DAILY 08/25/22 07/15/23 extract 0.5 mg chewable tablet cholecalciferol (vitamin D3) 125 125 mcg PO 1200 10/10/22 07/15/23 mcg (5,000 unit) tablet folic acid 800 mcg tablet 400 mg PO 1200 10/10/22 07/15/23 zinc 15 mg tablet 15 mg PO DAILY 10/10/22 07/15/23 diltiazem HCl 120 mg 120 mg PO 1200 12/18/22 07/15/23 capsule,extended release 24 hr acetaminophen 500 mg tablet 500 mg PO Q6H PRN 01/06/23 07/15/23 (Tylenol Extra Strength) fluticasone propionate 50 1 spray intranasal BID 01/06/23 07/15/23 mcg/actuation nasal spray,suspension prevagen BYMOUTH 01/06/23 07/15/23 vit C 250 mg-vit E 90 mg-zinc 40 1 tablet PO ONCE 01/06/23 07/15/23 mg-copper 1 [id number] capsule (PreserVision AREDS-2) turmeric 400 mg capsule mg PO 04/09/23 07/15/23 tamsulosin 0.4 mg capsule (Flomax) 0.4 mg PO DAILY 07/15/23 07/15/23 Allergies Allergy/AdvReac Type Severity Reaction Status Date / Time Penicillins Allergy Severe Swelling Verified 07/15/23 14:58 morphine AdvReac Intermediate Hallucinati Verified 07/15/23 14:58 ng RICARDO Inhibitors AdvReac Mild Cough Verified 07/15/23 14:58 midazolam [From Versed] AdvReac Mild Agitated Verified 07/15/23 14:58 Review of Systems Review of Systems: CONSTITUTIONAL: Denies fever, chills, or sweats. CARDIOVASCULAR: See HPI. RESPIRATORY: Denies cough or dyspnea. GASTROINTESTINAL: Denies abdominal pain, nausea, vomiting MUSCULOSKELETAL: See HPI. NEUROLOGIC: See HPI. All systems reviewed & are unremarkable except as noted in HPI and below [facility] Past Medical History Medical History Arthritis CAD (coronary artery disease) Cognitive impairment Colon cancer (~11/01/10) Dementia Elevated PSA GERD (gastroesophageal reflux disease) Heart disease Hyperlipidemia Hypertension Osteoarthritis of right knee Overweight (BMI 25.0-29.9) Paroxysmal atrial fibrillation Pulmonary emboli (~2008) Thrombocytopenia Surgical History Surgical History Fracture
[2023-09-07 10:27] LABS: Basophils Percent Auto 0.4 % (0.2-1.2); Eosinophils Absolute Auto 0.1 K/mm3 (0-0.3); Eosinophils Percent Auto 1.9 % (0-4.4); Immature Granulocyte Absolute 0.02 K/mm3 (0.00-0.031); Immature Granulocyte Percent A 0.4 % (0-0.5); Lymphocytes Absolute Auto 0.31 K/mm3 (0.9-3.2); Mean Corpuscular Hemoglobin 34.7 pg (26-34); Mean Platelet Volume 9.9 fl (7.4-10.4); Monocytes Absolute Auto 0.4 K/mm3 (0.1-0.6); Monocytes Percent Auto 7.5 % (2.6-8.5); Neutrophils Absolute Auto 4.4 K/mm3 (1.3-6.7); Neutrophils Percent Auto 83.8 % (45.5-73.1); Platelet Count Result 104 k/mm3 (150-375); Red Blood Count 4.04 M/mm3 (4.6-6.20); Red Cell Distribution Width 11.8 % (11.5-14.5); White Blood Count 5.2 K/mm3 (4.5-10.0)
[2023-09-07 10:33] LABS: INR 1.1; Prothrombin Time 14.8 Seconds (11.1-14.7)
[2023-09-07 10:34] LABS: Partial Thromboplastin Time 27.9 Seconds (22.3-36.8)
[2023-09-07 10:35] LABS: Alanine Aminotransferase 15 U/L (6-50); Albumin Level 3.8 g/dL (3.5-5.1); Alkaline Phosphatase 72 U/L (38-126); Anion Gap 12 mmol/L (4-12); Aspartate Amino Transferase 23 U/L (17-59); Bilirubin,Total 1.1 mg/dL (0.2-1.3); Blood Urea Nitrogen 19 mg/dL (9-20); Calcium 9.2 mg/dL (8.4-10.2); Carbon Dioxide 24 mmol/L (22-30); Chloride 100 mmol/L (98-107); Estimated CRCL calculation 56 ml/min; Estimated Glomerular Filt Rate > 60; Glucose 170 mg/dL (65-110); Potassium 3.8 mmol/L (3.4-5.0); Sodium 136 mmol/L (137-145)
[2023-09-07 10:47] LABS: NT Pro B Type Natriuretic Pept 670 pg/mL (19.9-100); Troponin I < 0.012 ng/mL (0.000-0.034)
[2023-09-07 14:09] LABS: Troponin I < 0.012 ng/mL (0.000-0.034)
== END 2023-09-07 14:44 | disposition home or self-care (01) ==
PROVIDERS: Emergency Provider Physician Assistant; PCP Internal Medicine
DX: M75.31 Calcific tendinitis of right shoulder (principal); F03.90 Unspecified dementia, unspecified severity, without behavioral disturbance, psychotic disturbance, mood disturbance, and anxiety; I48.0 Paroxysmal atrial fibrillation; I25.10 Atherosclerotic heart disease of native coronary artery without angina pectoris; I11.9 Hypertensive heart disease without heart failure; E78.5 Hyperlipidemia, unspecified; E66.3 Overweight; Z68.26 Body mass index [BMI] 26.0-26.9, adult; K21.9 Gastro-esophageal reflux disease without esophagitis; M17.11 Unilateral primary osteoarthritis, right knee; Z95.1 Presence of aortocoronary bypass graft; Z96.652 Presence of left artificial knee joint; Z85.038 Personal history of other malignant neoplasm of large intestine; Z86.711 Personal history of pulmonary embolism; Z90.49 Acquired absence of other specified parts of digestive tract; Z79.01 Long term (current) use of anticoagulants; R94.31 Abnormal electrocardiogram [ECG] [EKG]
CPT/HCPCS: 36415; 71275; 73030; 74174; 80053; 83880; 84484; 85025; 85610; 85730; 93005; 99284; Q9967

== ENCOUNTER 2023-10-05 10:55 | Outpatient (CLI) | payer BC, SELFPAY ==
[2023-10-05 11:10] LABS: Basophils Percent Auto 0.5 % (0.2-1.2); Eosinophils Percent Auto 0.6 % (0-4.4); Hematocrit 40.6 % (42.0-52.0); Hemoglobin 13.9 g/dL (14.0-18.0); Immature Granulocyte Absolute 0.02 K/mm3 (0.00-0.031); Immature Granulocyte Percent A 0.3 % (0-0.5); Lymphocytes Absolute Auto 0.58 K/mm3 (0.9-3.2); Lymphocytes Percent Auto 9.1 % (18.3-44.2); Mean Corpuscular HGB Conc 34.2 g/dl (32-36); Mean Corpuscular Hemoglobin 34.1 pg (26-34); Mean Corpuscular Volume 99.5 fl (80-100); Mean Platelet Volume 9.5 fl (7.4-10.4); Monocytes Absolute Auto 0.7 K/mm3 (0.1-0.6); Monocytes Percent Auto 10.2 % (2.6-8.5); Neutrophils Absolute Auto 5.1 K/mm3 (1.3-6.7); Neutrophils Percent Auto 79.3 % (45.5-73.1); Platelet Count Result 115 k/mm3 (150-375); Red Blood Count 4.08 M/mm3 (4.6-6.20); Red Cell Distribution Width 12.2 % (11.5-14.5); White Blood Count 6.4 K/mm3 (4.5-10.0)
[2023-10-05 11:14] LABS: Blood Urea Nitrogen 21 mg/dL (8-26); Carbon Dioxide 28 mmol/L (22-30); Chloride 100 mmol/L (98-109); Estimated Glomerular Filt Rate > 60; Glucose 133 mg/dL (70-105); Ionized Calcium (POC) 1.24 mmol/L (1.11-1.31); Potassium 3.9 mmol/L (3.5-4.9); Sodium 138 mmol/L (138-146)
[2023-10-05 12:52] LABS: Alanine Aminotransferase 14 U/L (6-50); Alkaline Phosphatase 76 U/L (38-126); Anion Gap 8 mmol/L (4-12); Aspartate Amino Transferase 22 U/L (17-59); Bilirubin,Total 0.9 mg/dL (0.2-1.3); Blood Urea Nitrogen 22 mg/dL (9-20); Calcium 9.4 mg/dL (8.4-10.2); Carbon Dioxide 27 mmol/L (22-30); Chloride 100 mmol/L (98-107); Estimated Glomerular Filt Rate > 60; Glucose 129 mg/dL (65-110); Potassium 3.9 mmol/L (3.4-5.0); Sodium 135 mmol/L (137-145)
== END 2023-10-05 10:56 | disposition home or self-care (01) ==
LOC: ANHLAB 10:58
PROVIDERS: PCP Internal Medicine; Visit Provider Internal Medicine Hematology & Oncology
DX: C61 Malignant neoplasm of prostate (principal)
CPT/HCPCS: 36415; 80047; 80053; 85025

== ENCOUNTER 2023-12-07 13:26 | Outpatient (CLI) | payer BC, SELFPAY ==
--- NOTE | ~2023-12-07 | MR_ITS ---
EXAMINATION: MR brain/brain stem wo/w con DATE: 12/07/2023 14:19 INDICATION: Dementia. TECHNIQUE: Magnetic resonance imaging (MRI) of the brain and brainstem was performed without and with 18 mL MultiHance intravenous contrast. COMPARISON: None. FINDINGS: There are scattered areas of nonspecific increased T2-weighted signal intensity in the cere bral white matter. There is no intracranial hemorrhage, acute infarction, or abnormal intracranial ma ss lesion. The ventricles are normal in size. The paranasal sinuses are clear. There are likely ho es of ocular lens replacement surgeries. There is a small left mastoid effusion. IMPRESSION: 1. Moderate nonspecific cerebral white matter disease, which likely represents chronic small vessel i schemic disease. Reviewed, dictated and finalized at location A. IMPRESSION: 1. Moderate nonspecific cerebral white matter disease, which likely represents chronic small vessel ischemic disease.
== END 2023-12-07 13:27 | disposition home or self-care (01) ==
PROVIDERS: PCP Internal Medicine; Visit Provider Psychiatry & Neurology Neurology
DX: R90.82 White matter disease, unspecified (principal); F03.90 Unspecified dementia, unspecified severity, without behavioral disturbance, psychotic disturbance, mood disturbance, and anxiety; R41.89 Other symptoms and signs involving cognitive functions and awareness
CPT/HCPCS: 70553; A9577

== ENCOUNTER 2024-05-23 09:56 | Outpatient (CLI) | payer BC, SELFPAY ==
--- OUTSIDE RECORDS SUMMARY | 2024-05-23 11:16 | XMS_ITS | Referral Summary ---
Author Organization [facility] Address [address] [place] [address] Care Team Providers Care Yard Assistant Name Role Phone Dave Ayala DO Primary Care Provider [phone] Allergies Active Allergy Reactions Criticality Noted Date Comments Shaun Inhibitors Cough Low 12/14/2020 Morphine Hallucinations Medium 12/14/2020 Penicillins Hives,Swelling Medium 12/14/2020 Midazolam Agitation Low 12/14/2020 Medications aspirin 81 mg enteric coated tablet 1 tablet (81 mg total) 09/12/2019 Active cholecalciferol (VITAMIN D-3) 2000 unit capsule 2000 IU, By mouth, Daily, to stop 07/05/11, Refill(s) 0 08/31/2019 Active cyanocobalamin (Vitamin B-12) 250 mcg tablet 10 tablets (2,500 mcg total) 12/04/2015 Active famotidine (PEPCID) 20 mg tablet 1 tablet (20 mg total) 08/03/2020 Active galantamine (RAZADYNE) 4 mg tablet Take 2 tablets (8 mg total) by mouth 2 (two) times a day 02/18/2021 Active pravastatin (PRAVACHOL) 20 mg tablet Take 1 tablet (20 mg total) by mouth daily Active memantine (NAMENDA) 10 mg tablet 1 tablet (10 mg total) 08/03/2020 Active magnesium oxide (MAG-OX) 250 mg (150.8 mg elemental) tablet 1 tablet (250 mg total) 09/30/2019 Active multivitamin-mi nerals-lutein (Multivitamin 50 Plus) tablet 2 gummies, By mouth, Daily, to stop 07/04/20, Refill(s) 0 06/11/2015 Active potassium chloride ER (KLOR-CON) 10 mEq CR tablet Take 10 mEq by mouth daily Active tamsulosin (FLOMAX) 0.4 mg extended release capsule Take 1 capsule (0.4 mg total) by mouth nightly Active coenzyme Q10 (Co Q-10) 10 mg capsule 20 capsules (200 mg total) 12/04/2015 Active zinc-colostrum- [id number] 15 mg-50 mg- 1 mg-1 mg capsule Take by mouth Active acetaminophen (TYLENOL) 500 mg tablet Take 1 tablet (500 mg total) by mouth every 6 (six) hours as needed for pain Active vit C/E/cuperic/zin c/lutein (PRESERVISION LUTEIN ORAL) Take by mouth Act candido TURMERIC ORAL Take by mouth Ac tive apixaban (Eliquis) 5 mg tablet Take 1 tablet by mouth twice daily 180 tablet 3 12/08/2023 Active diltiazem (TIAZAC) 120 mg 24 hr capsule Take 1 capsule (120 mg total) by mouth daily 30 capsule 2 03/08/2024 Active Active Problems Problem Noted Date Diagnosed Date Visit for wound check 01/09/2022 Status post placement of implantable loop record er 03/14/2021 Overview (03/14/2021): [facility] Confirm Loop Recorder. Dx; PAF/Aflutter. [facility] Social History Tobacco Use Types Packs/Day Years Used Date Smoking Tobacco: Never Tobacco Cessation:Counseling Given: Not Answered Personal Safety Answer Date Recorded Getting School Help Needed Not on file 02/11 Sex and Gender Information Value Date Recorded Sex Assigned at Not on file Legal Sex Male 12:29 PM CDT Gender Identity Not on file Sexual Orientation Not on file Last Filed Vital Signs Vital Sign Reading Time Taken Comments Blood Pressure 124/76 11/25/2023 12:53 PM CDT Pulse 99 11/25/2023 12:53 PM CDT Temperature 36.8 C (98.3 F) 12/14/2020 1:19 PM CDT Respiratory Rate 20 12/14/2020 5:37 PM CDT Oxygen Saturation 98% 11/25/2023 12:53 PM CDT Inhaled Oxygen Concentration - - Weight 87.2 kg (192 lb 3.2 oz) 11/25/2023 12:53 PM CDT Height 175.3 cm (5' 9 ) 11/25/2023 12:53 PM CDT Body Mass Index 28.38 11/25/2023 12:53 PM CDT Plan of Treatment Not on file Insurance FEDERAL MEDICARE [facility] FEDERAL Care Teams Yard Assistant Relationship Specialty Start Date End Date Dave Ayala DO PCP - General Internal Medicine 03/06/21
--- OUTSIDE RECORDS SUMMARY | 2024-05-23 11:16 | XMS_ITS | Clinical Summary ---
Author Organization [facility] Address [address] [facility] Attn: Epic Prelude ADT [place] [address] Care Team Providers Care Appliance Servicer Name Role Phone Dave Ayala DO Primary Care Provider Allergies Active Allergy Reactions Criticality Noted Date Comments Shaun Inhibitors Cough Low 05/29/2008 Midazolam Other (See Comments) Low 06/02/2022 says he was combative when coming out of it. Morphine Hallucination Low 06/02/2022 Penicillins Shortness of Breath/Wheezing,Swelling High 11/10/2007 Medications apixaban (ELIQUIS) 5 mg tablet = 1 tab, By mouth, BID, # 60 tab, Refill(s) 11, Pharmacy: [facility], [id number], 1 tab By mouth BID, 82.91, 11/28/20 14:57:00 CDT, kg, Weight 11/28/2020 Active aspirin (ECOTRIN EC) 81 mg Tablet, Delayed Release (E.C.) 81 mg. 09/12/2019 Active Cholecalciferol , Vitamin D3, 50 mcg (2,000 unit) Capsule 50 mcg. 09/05/2020 Activ e memantine (NAMENDA) 10 mg Tablet = 1 tab, By mouth, BID, # 180 tab, Refill(s) 1, Pharmacy: [facility], [id number], 1 tab By mouth BID, 69, 08/03/20 14:43:00 CDT, in, 88.09, 08/03/20 14:43:00 CDT, kg, Weight 08/03/2020 Active magnesium oxide (MAG-OX) 200 mg Tablet 250 mg. 09/30/2019 Active galantamine (RAZADYNE) 4 mg tablet Take 4 mg by mouth 2 times daily. Active coenzyme Q10 Capsule Take 10 mg by mouth daily. Active multivitamins-m inerals-lutein (CENTRUM SILVER) Tablet Take 1 Tablet by mouth daily. Active melatonin 1 mg Tablet Take by mouth nightly as needed. Active wukbzwj-vywv-tq ntr-xcpt-jfdhlp 100 mg-150 mg- 50 mg-150 mg Capsule Take by mouth. 500 mg gummy Active tamsulosin (FLOMAX) 0.4 mg capsule Take 0.4 mg by mouth daily. 07/15/2023 Active alendronate sodium (ALENDRONATE ORAL) Take by mouth every 7 days. 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 GERD (gastroesophageal reflux disease) Hyperlipidemia Erectile dysfunction Diverticulosis HTN (hypertension) Encounters Date Type Department Care Team Description 05/04/2024 External Device Data STL ABSTRACTION Provider, Abstract 04/20/2024 External Device Data STL ABSTRACTION Provider, Abstract 04/20/2024 External Device Data ST[facility] ABSTRACTION Provider, Abstract 03/30/2024 External Device Data ST[facility] ABSTRACTION Provider, Abstract 03/24/2024 External Device Data ST[facility] ABSTRACTION Provider, Abstract from Last 3 Months Immunizations Immunization Administration Dates Next Due (PNEUMOVAX 23)(50 YRS UP) PN EUMOCOCCAL POLYSACCHARIDE (PPV23) 0.5 ML, IM 01/29/2011,12/08/2005 Influenza Seasonal Unspecifi ed Formulation IM 01/14/2006 Influenza Vaccine Split 3+ Yrs IM 11/16/2009,01/2009,02/16/2008 Family History Medical History Relation Name Comments Cancer Brother Heart Disease Brother Kidney Cancer Daughter Heart Disease Father No Known Problems Mother Cancer Sister No Known Problems Son Relation Name Status Comments Brother Alive Daughter Alive Father Mother Sister Son Alive Social History Tobacco Use Types Packs/Day Years Used Date Smoking Tobacco: Never Smokeless Tobacco: Never Tobacco Cessation:Counseling Given: Not Answered Alcohol Use Standard Drinks/Week Comments No 0 (1 standard drink = 0.6 oz pur e alcohol) Sex and Gender Information Value Date Recorded Sex Assigned at Not on file Legal Sex Male 1:39 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 Gender Identity Not on file Sexual Orientation Not on file Last Filed Vital Signs Vital Sign Reading Time Taken Comments Blood Pressure 139/71 10/05/2023 11:19 AM CDT Pulse 96 10/05/2023 11:15 AM CDT Temperature 36.7 C (98 F) 10/05/2023 11:15 AM CDT Respiratory Rate 16 10/05/2023 11:15 AM CDT Oxygen Saturation 97% 10/05/2023 11:15 AM CDT Inhaled Oxygen Concentration - - Weight 87.5 kg (193 lb) 10/05/2023 11:15 AM CDT Height 177.8 cm (5' 10 ) 06/02/2022 2:39 PM CDT Body Mass Index 27.69 06/02/2022 2:39 PM CDT Plan of Treatment Upcoming Encounters Date Type Department Care Team (Late st Contact Info) Description 07/04/2024 11:30 AM CDT Office Visit [facility] Oncology and Hematology - [place] [address] [facility] [address] [place] [address] Carlos Castelan MD [address] [facility] [address] [place] [address] Health Maintenance Due Date Last Done Comments COLORECTAL SCREENING 1958 ZOSTER VACCINE (2 of 3) 10/06/2012 08/11/2012 RSV VACCINE (60+ or ) (1 - 1-dose 75+ series) 07/31/2015 DTAP/TDAP/TD VACCINES (1 - Tdap) 09/06/2016 09/06/19 17, 07/27/2007 INFLUENZA VACCINE (#1) 2023 9, 12/17/2017, 12/19/2016, Additional history exists COVID-19 Vaccine (3 - 2024-2 5 season) 2023 05/22/2020, 04/23/2020 PNEUMOCOCCAL VACCINE 50+ YEARS Completed 0 04/17/2015, 08/11/2012, 01/29/2011, Additional history exists Insurance FEDERAL FEDERAL Care Teams Appliance Servicer Relationship Specialty Start Date End Date Dave Ayala DO [address] [address] PCP - General Internal Medicine 06/02/22
--- OUTSIDE RECORDS SUMMARY | 2024-05-23 11:16 | XMS_ITS | Clinical Summary ---
Author Organization [facility] Address [address] [place] [address] Care Team Providers Care Assistant Property Manager Name Role Phone Dave Ayala DO Primary Care Provider +1- [phone] Allergies Active Allergy Reactions Criticality Noted Date [...] capsules (200 mg total) 12/04/2015 Active zinc-colostrum- cce-wkz178-gxqj 15 mg-50 mg- 1 mg-1 mg capsule [...] Nash Confirm Loop Recorder. Dx; PAF/Aflutter. [facility]. Surgical History Surgery Date Site/Laterality Comments CORONARY ARTERY BYPASS GRAFT LAPAROSCOPIC COLON RESECTION Medical History Medical History Date Comments Arthritis Enlarged prostate Family History Medical History Relation Name Comments Stroke Father Alzheimer's disease Mother Heart disease Sister Relation Name Status Comments Father Mother Sister Social History Tobacco Use Types Packs/Day Years Used Date Smoking Tobacco: Never Tobacco Cessation:Counseling Given: Not Answered Personal Safety Answer Date Recorded Getting School Help Needed Not on file 02/11 Sex and Gender Information Value Date Recorded Sex Assigned at Not on file Legal Sex Male 12:29 PM CDT Gender Identity Not on file Sexual Orientation Not on file Obstetrics History Last Filed Vital Signs Vital Sign Reading [...] 11/25/2023 12:53 PM CDT Plan of Treatment Health Maintenance Due Date Last Done Comments Depression Screening 1940 Fall Risk Assessment 1940 Hepatitis B Screening 1958 Well Visit 65+ 2005 Zoster Vaccine (2 of 3) 10/06/2012 08/11/2012 DTaP/Tdap/Td Vaccine (1 - Tdap) 09/06/2016 7, 07/27/2007 Covid-19 Vaccine (4 - 2023-2 5 season) 2023 01/22/2021, 05/22/2020, 04/23/2020 Influenza Vaccine (#1) 2023 , 12/27/2019, 12/29/2018, Additional history exists Pneumococcal vaccine 65+ Completed 016, 08/11/2012, 01/29/2011, Additional history exists Insurance FEDERAL MEDICARE [facility] FEDERAL Care Teams Assistant Property Manager Relationship Specialty Start Date End Date Dave Ayala DO PCP - General Internal Medicine 03/06/21
[2024-05-23 16:04] LABS: Thyroid Stimulating Hormone 0.758 uIU/mL (0.465-4.680)
[2024-05-24 17:28] LABS: Red Blood Cell Folate 767 ng/mL RBC (>280)
== END 2024-05-23 09:57 | disposition home or self-care (01) ==
LOC: ANHGOSHLAB 09:58
PROVIDERS: PCP Internal Medicine; Visit Provider Psychiatry & Neurology Neurology
DX: G30.9 Alzheimer's disease, unspecified (principal); F02.80 Dementia in other diseases classified elsewhere, unspecified severity, without behavioral disturbance, psychotic disturbance, mood disturbance, and anxiety; E55.9 Vitamin D deficiency, unspecified
CPT/HCPCS: 36415; 82607; 82652; 82747; 83921; 84443

== ENCOUNTER 2024-07-04 11:15 | Outpatient (CLI) | payer BC, SELFPAY ==
[2024-07-04 11:30] LABS: Basophils Percent Auto 0.5 % (0.2-1.2); Eosinophils Absolute Auto 0.1 K/mm3 (0-0.3); Eosinophils Percent Auto 1.6 % (0-4.4); Hematocrit 40.8 % (42.0-52.0); Hemoglobin 13.8 g/dL (14.0-18.0); Immature Granulocyte Absolute 0.02 K/mm3 (0.00-0.031); Immature Granulocyte Percent A 0.4 % (0-0.5); Lymphocytes Absolute Auto 0.83 K/mm3 (0.9-3.2); Lymphocytes Percent Auto 14.6 % (18.3-44.2); Mean Corpuscular HGB Conc 33.8 g/dl (32-36); Mean Corpuscular Hemoglobin 33.7 pg (26-34); Mean Corpuscular Volume 99.5 fl (80-100); Mean Platelet Volume 9.8 fl (7.4-10.4); Monocytes Absolute Auto 0.7 K/mm3 (0.1-0.6); Monocytes Percent Auto 12.8 % (2.6-8.5); Neutrophils Percent Auto 70.1 % (45.5-73.1); Platelet Count Result 115 k/mm3 (150-375); Red Cell Distribution Width 12.4 % (11.5-14.5); White Blood Count 5.7 K/mm3 (4.5-10.0)
[2024-07-04 11:37] LABS: Blood Urea Nitrogen 14 mg/dL (8-26); Carbon Dioxide 28 mmol/L (22-30); Chloride 98 mmol/L (98-109); Estimated Glomerular Filt Rate > 60; Glucose 95 mg/dL (70-105); Ionized Calcium (POC) 1.22 mmol/L (1.11-1.31); Potassium 3.8 mmol/L (3.5-4.9); Sodium 135 mmol/L (138-146)
--- OUTSIDE RECORDS SUMMARY | 2024-07-04 12:06 | XMS_ITS | Clinical Summary ---
Author Organization [facility] Address [address] [place] [address] Care Team Providers Care Fibre Optic Cable Splicer Name Role Phone Dave Ayala DO Primary Care Provider +1- [phone] Allergies Active Allergy Reactions Criticality Noted Date [...] capsules (200 mg total) 12/04/2015 Active zinc-colostrum- ytu-eob726-ykqj 15 mg-50 mg- 1 mg-1 mg capsule [...] Confirm Loop Recorder. Dx; PAF/Aflutter. [facility]. Surgical History Surgery Date Site/Laterality Comments CORONARY [...] 01/29/2011, Additional history exists Insurance FEDERAL MEDICARE [facility] FEDERAL Care Teams Fibre Optic Cable Splicer Relationship Specialty Start Date End Date Dave Ayala DO PCP - General Internal Medicine 03/06/21
--- OUTSIDE RECORDS SUMMARY | 2024-07-04 12:06 | XMS_ITS | Encounter Summary ---
Author Organization [email or web address] Address [address] [place] [address] Care Team Providers Care Director Of Reimbursement Name Role Phone Dave Ayala DO Primary Care Provider Encounter Details Date Type Department Care Team (Late st Contact Info) Description 07/04/2024 11:30 AM CDT Office Visit [facility] Oncology and Hematology - [place] [address] [facility] [address] [place] [address] Carlos Castelan MD [address] 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 Gender Identity Not on file Sexual Orientation Not on file documented as of this encounter Last Filed Vital Signs Vital Sign Reading Time Taken Comments Blood Pressure 150/77 07/04/2024 11:39 AM CDT Pulse 64 07/04/2024 11:34 AM CDT Temperature 36.5 C (97.7 F) 07/04/2024 11:34 AM CDT Respiratory Rate 15 07/04/2024 11:34 AM CDT Oxygen Saturation 97% 07/04/2024 11:34 AM CDT Inhaled Oxygen Concentration - - Weight 86.9 kg (191 lb 9.6 oz) 07/04/2024 11:34 AM CDT Height - - Body Mass Index 27.49 06/02/2022 2:39 PM CDT documented in this encounter Plan of Treatment Upcoming Encounters Date Type Department Care Team (Late st Contact Info) Description 07/05/2025 10:15 AM CDT Office Visit [facility] Oncology and Hematology - [place] [address] [facility] [address] [place] [address] Carlos Castelan MD [address] [facility] [address] [place] [address] Scheduled Orders Name Type Priority Associated Diagnoses Orde r Schedule CBC WITH DIFFERENTIAL Lab Stat Other secondary thrombocytopenia Expected: 07/04/2025, Expires: 07/04/2025 COMPREHENSIVE METABOLIC PANEL Lab Stat Other secondary thrombocytopenia Expected: 07/04/2025, Expires: 07/04/2025 documented as of this encounter Visit Diagnoses Diagnosis Other secondary thrombocytopenia- Primary documented in this encounter Care Teams Director Of Reimbursement Relationship Specialty Start Date End Date Dave Ayala DO [address] [facility] [address] [place] [address] PCP - General Internal Medicine 06/02/22 documented as of this encounter
--- OUTSIDE RECORDS SUMMARY | 2024-07-04 12:06 | XMS_ITS | Referral Summary ---
Author Organization [facility] Address [address] [place] [address] Care Team Providers Care Satellite Dish Installer Name Role Phone Dave Ayala DO Primary Care Provider +1- [phone] Allergies Active Allergy Reactions Criticality Noted Date [...] capsules (200 mg total) 12/04/2015 Active zinc-colostrum- uha-ysi427-sjgm 15 mg-50 mg- 1 mg-1 mg capsule [...] Nash Confirm Loop Recorder. Dx; PAF/Aflutter. DOI [facility]23/[facility]. Social History Tobacco Use Types Packs/Day Years [...] Treatment Not on file Insurance FEDERAL MEDICARE [facility] FEDERAL Care Teams Satellite Dish Installer Relationship Specialty Start Date End Date Dave Ayala DO PCP - General Internal Medicine 03/06/21
--- OUTSIDE RECORDS SUMMARY | 2024-07-04 12:06 | XMS_ITS | Clinical Summary ---
Author Organization [facility] Address [address] [facility] Attn: Epic Prelude ADT [place] [address] Care Team Providers Care Driver Manager Name Role Phone Dave Ayala DO [...] BID, # 60 tab, Refill(s) 11, Pharmacy: [facility], [id number], 1 tab By mouth BID, 82.91, 11/28/20 14:57:00 CDT, kg, Weight 11/28/2020 Active aspirin (ECOTRIN EC) 81 mg Tablet, Delayed Release (E.C.) 81 mg. 09/12/2019 Active Cholecalciferol , Vitamin D3, 50 mcg (2,000 unit) Capsule 50 mcg. 09/05/2020 Activ e memantine (NAMENDA) 10 mg Tablet = 1 tab, By mouth, BID, # 180 tab, Refill(s) 1, Pharmacy: [facility], [id number], 1 tab By mouth BID, 69, 08/03/20 [...] Take by mouth nightly as needed. Active kytretk-juof-uc trs-ryhe-hyafix 100 mg-150 mg- 50 mg-150 mg Capsule Take by mouth. 500 mg gummy Active tamsulosin (FLOMAX) 0.4 mg capsule Take 0.4 mg by mouth daily. 07/15/2023 Active alendronate sodium (ALENDRONATE ORAL) Take by mouth every 7 days. Active omega-3/dha/epa /algal oil (JIZUO-5B-HAX-E PA-ALGAL OIL ORAL) Take 250 mg by mouth daily. Active collagen/biotin /ascorbic acid (COLLAGEN 1500 PLUS C ORAL) Take by mouth daily. 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 GERD (gastroesophageal reflux disease) Hyperlipidemia Erectile dysfunction Diverticulosis HTN (hypertension) Encounters Date Type Department Care Team Description 07/04/2024 11:30 AM CDT Office Visit [facility] Oncology and Hematology - [place] [address] [place] [address] Carlos Castelan MD Other secondary thrombocytopenia (Primary Dx) 05/04/2024 External Device Data STL ABSTRACTION Provider, [...] on file Legal Sex Male 1:39 AM PUMP HOUSE 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 Gender Identity Not on file Sexual Orientation [...] 9.6 oz) 07/04/2024 11:34 AM CDT Height 177.8 cm (5' 10 ) 06/02/2022 2:39 PM CDT Body Mass Index 27.49 06/02/2022 2:39 PM CDT Plan of Treatment Upcoming Encounters Date Type Department Care Team (Late st Contact Info) Description 07/05/2025 10:15 AM CDT Office Visit [facility] Oncology and Hematology - [place] [address] [facility] [address] [place] [address] Carlos Castelan MD [address] [facility] [address] [place] [address] Health Maintenance Due Date Last Done Comments COLORECTAL SCREENING 1958 ZOSTER VACCINE (2 of 3) 10/06/2012 08/11/2012 RSV VACCINE (60+ or ) (1 - 1-dose 75+ series) 07/31/2015 DTAP/TDAP/TD VACCINES (1 - Tdap) 09/06/2016 09/06/19 17, 07/27/2007 INFLUENZA VACCINE (#1) 2023 0, 12/29/2018, 12/17/2017, Additional history exists COVID-19 Vaccine (3 - 2023-2 5 season) 2023 05/22/2020, 04/23/2020 Preventative Visit- Commercial 03/02/2024 PNEUMOCOCCAL VACCINE 50+ YEARS Completed 0 04/17/2015, 08/11/2012, 01/29/2011, Additional history exists Insurance FEDERAL FEDERAL Care Teams Driver Manager Relationship Specialty Start Date End Date Dave Ayala DO [address] [address] PCP - General Internal Medicine 06/02/22
== END 2024-07-04 11:16 | disposition home or self-care (01) ==
LOC: ANHLAB 11:16
PROVIDERS: PCP Internal Medicine; Visit Provider Internal Medicine Hematology & Oncology
DX: D69.59 Other secondary thrombocytopenia (principal)
CPT/HCPCS: 36415; 80047; 85025

== ENCOUNTER 2024-08-07 08:30 | Emergency (ER) | payer BC, SELFPAY ==
--- NOTE | ~2024-08-07 | XR_ITS ---
Right elbow Technique: AP, oblique, and lateral views were obtained. Clinical History: Pain Findings: The there is displacement of the fat pads, compatible elbow joint effusion. No definite fra cture seen on this exam. There is minimal degenerative change.. Impression: Joint effusion could reflect occult radial head fracture. Reactive joint effusion due to minimal dege nerative change is a potential alternative consideration. Correlate clinically. Consider follow-up ex am or more advanced imaging as indicated. Reviewed, dictated and finalized at location M. Impression: Joint effusion could reflect occult radial head fracture. Reactive joint effusi on due to minimal degenerative change is a potential alternative consideration. Correlate clinically. Consider follow-up exam or more advanced imaging as linden cated.
--- OUTSIDE RECORDS SUMMARY | 2024-08-07 08:32 | XMS_ITS | Clinical Summary ---
Author Organization [facility] Address [address] [place] [address] Care Team Providers Care Armature Winder Repair Helper Name Role Phone Dave Ayala DO Primary Care Provider +1- [phone] Allergies Active Allergy Reactions Criticality Noted Date [...] capsules (200 mg total) 12/04/2015 Active zinc-colostrum- ogw-gmi540-wwws 15 mg-50 mg- 1 mg-1 mg capsule [...] Nash Confirm Loop Recorder. Dx; PAF/Aflutter. [facility]. Surgical History Surgery Date Site/Laterality Comments CORONARY [...] 12:53 PM CDT Height 175.3 cm (5' 9) 11/25/2023 12:53 PM CDT Body Mass Index [...] season) 2023 01/22/2021, 05/22/2020, 04/23/2020 Influenza Vaccine (Season Ended) 2024 01/01/2021, 12/27/2019, 12/29/2018, Additional history exists Pneumococcal vaccine 65+ Completed 016, 08/11/2012, 01/29/2011, Additional history exists Insurance FEDERAL MEDICARE [facility] FEDERAL Care Teams Armature Winder Repair Helper Relationship Specialty Start Date End Date Dave Ayala DO PCP - General Internal Medicine 03/06/21
--- OUTSIDE RECORDS SUMMARY | 2024-08-07 08:32 | XMS_ITS | Clinical Summary ---
Author Organization [facility] Address [address] [facility] Attn: Epic Prelude ADT [place] [address] Care Team Providers Care Gaming Director Name Role Phone Dave Ayala DO Primary [...] BID, # 60 tab, Refill(s) 11, Pharmacy: [facility], [id number], 1 tab By mouth BID, 82.91, 11/28/20 14:57:00 CDT, kg, Weight 11/28/2020 Active aspirin (ECOTRIN EC) 81 mg Tablet, Delayed Release (E.C.) 81 mg. 09/12/2019 Active Cholecalciferol , Vitamin D3, 50 mcg (2,000 unit) Capsule 50 mcg. 09/05/2020 Activ e memantine (NAMENDA) 10 mg Tablet = 1 tab, By mouth, BID, # 180 tab, Refill(s) 1, Pharmacy: [facility], [id number], 1 tab By mouth BID, 69, 08/03/20 [...] Take by mouth nightly as needed. Active qiwzhfz-oqfw-xs khc-hhsg-zxhaug 100 mg-150 mg- 50 mg-150 mg Capsule Take by mouth. 500 mg gummy Active tamsulosin (FLOMAX) 0.4 mg capsule Take 0.4 mg by mouth daily. 07/15/2023 Active alendronate sodium (ALENDRONATE ORAL) Take by mouth every 7 days. Active omega-3/dha/epa /algal oil (YSBTC-9M-IIC-E PA-ALGAL OIL ORAL) Take 250 mg by [...] Encounters Date Type Department Care Team Description 07/21/2024 External Device Data STL ABSTRACTION Provider, Abstract 07/20/2024 External Device Data STL ABSTRACTION Provider, Abstract 07/19/2024 External Device Data STL ABSTRACTION Provider, Abstract 07/12/2024 Orders Only [facility] Oncology and Hematology - [place] [address] [place] [address] Carlos Castelan MD 07/11/2024 Orders Only [facility] Oncology and Hematology - [place] [address] [place] [address] Carlos Castelan MD 07/04/2024 11:30 AM CDT Office Visit [facility] Oncology and Hematology - [place] [address] [place] [address] Carlos Castelan MD Other secondary thrombocytopenia (Primary Dx) from Last 3 Months Immunizations Immunization Administration [...] on file Legal Sex Male 1:39 AM MONOTYPE CASTER Gender Identity Not on file Sexual Orientation [...] 11:34 AM CDT Height 177.8 cm (5' 10) 06/02/2022 2:39 PM CDT Body Mass Index 27.49 06/02/2022 2:39 PM CDT Plan of Treatment Upcoming Encounters Date Type Department Care Team (Late st Contact Info) Description 07/05/2025 10:15 AM CDT Office Visit [facility] Oncology and Hematology - [place] [address] [place] [address] Carlos Castelan MD [address] [facility] [address] [place] [address] Health Maintenance Due Date Last Done Comments COLORECTAL SCREENING 1958 ZOSTER VACCINE (2 of 3) 10/06/2012 08/11/2012 RSV VACCINE (60+ or ) (1 - 1-dose 75+ series) 07/31/2015 DTAP/TDAP/TD VACCINES (1 - Tdap) 09/06/2016 09/06/19 17, 07/27/2007 INFLUENZA VACCINE (#1) 2023 0, 12/29/2018, 12/17/2017, Additional history exists COVID-19 Vaccine (3 - 2023-2 5 season) 2023 05/22/2020, 04/23/2020 PNEUMOCOCCAL VACCINE 50+ YEARS Completed 0 04/17/2015, 08/11/2012, 01/29/2011, Additional history exists Procedures Procedure Name Priority Date/Time Associated Diagnosis Comments BASIC METABOLIC PANEL Routine 07/04/2024 4:11 PM CDT CBC WITH AUTODIFFERENTIAL Routine 2024 2:55 PM CDT from Last 3 Months Results * BASIC METABOLIC PANEL (07/04/2024 4:11 PM CDT) Blood Carlos Castelan MD CHEMISTRY ORDERABLES Final Resu lt * CBC WITH AUTODIFFERENTIAL (07/04/2024 2:55 PM CDT) Blood Carlos Castelan MD HEMATOLOGY ORDERABLES Final Res ult from Last 3 Months Insurance [facility] FEDERAL [facility] FEDERAL Care Teams Gaming Director Relationship Specialty Start Date End Date Dave Ayala DO [address] [address] PCP - General Internal Medicine 06/02/22
--- OUTSIDE RECORDS SUMMARY | 2024-08-07 08:33 | XMS_ITS | Referral Summary ---
Author Organization [facility] Address [address] [place] [address] Care Team Providers Care Chief Revenue Officer Name Role Phone Dave Ayala DO Primary Care Provider +1- [phone] Allergies Active Allergy Reactions Criticality Noted Date [...] capsules (200 mg total) 12/04/2015 Active zinc-colostrum- loj-dct833-umcf 15 mg-50 mg- 1 mg-1 mg capsule [...] Nash Confirm Loop Recorder. Dx; PAF/Aflutter. DOI [facility]. Social History Tobacco Use Types Packs/Day Years [...] Treatment Not on file Insurance FEDERAL MEDICARE [facility] FEDERAL Care Teams Chief Revenue Officer Relationship Specialty Start Date End Date Dave Ayala DO PCP - General Internal Medicine 03/06/21
[2024-08-07 08:40] VITALS: BP 136/75; PULSE 96; RESP 18; TEMP 36.6; O2SAT 96
[2024-08-07] MEDS: HYDROcodone/acetaminophen (*CRX) 5-325 MG TABLET 1 TAB PO (08:51)
--- NOTE | 2024-08-07 09:38 | ED.EXTPRO ---
HPI - Extremity Problem General Chief complaint: Extremity Problem,Nontraumatic Stated complaint: R. elbow pain Time Seen by Provider: 08/07/24 08:32 History of Present Illness HPI Narrative: Patient is an 84-year-old male who presents ER with right elbow pain. He was sitting in the car yesterday also was driving and developed sudden onset pain. Is located on medial and lateral aspect of his elbow. It is worse with bending and extending. Swelling noted. No erythema. No abscess. Neurovascular intact distal to the area of pain Related Data Home Medications ?Medication ?Instructions ?Recorded ?Confirmed ?Last Taken ?Type apixaban 5 mg tablet (Eliquis) 5 mg PO BID 01/01/21 08/07/24 12/21/22 17:00 History ascorbic acid (vitamin C) 250 mg 282 mg PO 1700 01/01/21 08/07/24 12/21/22 17:00 History tablet aspirin 81 mg chewable tablet 81 mg PO 1200 01/01/21 08/07/24 12/17/22 History calcium carbonate 650 mg PO 1700 01/01/21 08/07/24 12/21/22 17:00 History cyanocobalamin (vitamin B-12) 2,500 mcg PO 1200 01/01/21 08/07/24 Unknown History 2,500 mcg tablet coenzyme Q10 100 mg capsule (Co 100 mg PO DAILY 12/31/21 08/07/24 Unknown History Q-10) melatonin 5 mg chewable tablet 10 mg PO HS 12/31/21 08/07/24 Unknown History zefipiim-lg-entiy 300 mcg-K 60 1 tablet PO DAILY 12/31/21 08/07/24 Unknown History mcg-lycop 600 mcg-lutein 300 mcg tablet (Centrum Silver Men) red beet 250 mg-sour crouch 1 tablet PO DAILY 08/25/22 08/07/24 Unknown History extract 0.5 mg chewable tablet cholecalciferol (vitamin D3) 125 125 mcg PO 1200 10/10/22 08/07/24 Unknown History mcg (5,000 unit) tablet folic acid 800 mcg tablet 400 mg PO 1200 10/10/22 08/07/24 Unknown History zinc 15 mg tablet 15 mg PO DAILY 10/10/22 08/07/24 Unknown History diltiazem HCl 120 mg 120 mg PO 1200 12/18/22 08/07/24 12/21/22 12:00 History capsule,extended release 24 hr acetaminophen 500 mg tablet 500 mg PO Q6H PRN pain 01/06/23 08/07/24 Unknown History (Tylenol Extra Strength) fluticasone propionate 50 1 spray intranasal BID 01/06/23 08/07/24 Unknown History mcg/actuation nasal spray,suspension prevagen See Rx Instructions BYMOUTH 01/06/23 08/07/24 08/06/24 History .COMPLEX vit C 250 mg-vit E 90 mg-zinc 40 1 tablet PO ONCE 01/06/23 08/07/24 Unknown History mg-copper 1 tz-vpqmjh-qosygv capsule (PreserVision AREDS-2) turmeric 400 mg capsule 400 mg PO DAILY 04/09/23 08/07/24 08/06/24 History diltiazem HCl 120 mg capsule,24 120 mg PO Q24H 08/07/24 08/07/24 Unknown History hr,extended release Allergies Allergy/AdvReac Type Severity Reaction Status Date / Time Penicillins Allergy Severe Swelling Verified 08/07/24 08:50 morphine AdvReac Intermediate Hallucinati Verified 08/07/24 08:50 ng RICARDO Inhibitors AdvReac Mild Cough Verified 08/07/24 08:50 midazolam (From Versed) AdvReac Mild Agitated Verified 08/07/24 08:50 Review of Systems Review of Systems: ROS unobtainable: Yes unobtainable due to mental status (Mild dementia, providing history) Constitutional: Constitutional: Reports no additional constitutional complaints Musculoskeletal: Musculoskeletal: Reports no additional musculoskeletal complaints Integumentary/Breasts: Skin/Breast: Reports system reviewed and no additional complaints, except [facility] Past Medical History Medical History Dementia of the Alzheimer's type Osteoarthritis of right knee Hyperlipidemia CAD (coronary artery disease) Cognitive impairment Paroxysmal atrial fibrillation Overweight (BMI 25.0-29.9) Elevated PSA Thrombocytopenia Dementia Pulmonary emboli (~2008) Colon cancer (~11/01/10) Heart disease Hypertension GERD (gastroesophageal reflux disease) Arthritis Surgical History Surgical History Fracture of hip, right, closed Right hip pinning December 19, 2022 History of colon surgery Hx of cholecystectomy 1999 S/P CABG x 3 (~10/06/18) History of left knee replacement (~2000) Family History Family History Father Heart disease Hypertension Mother Diabetes mellitus Hypertension Alzheimer disease Sibling Cancer of kidney Carcinoma of colon Cancer Daughter Cancer of kidney Cancer Grandparent Heart disease Cerebrovascular accident Social History Social History Social History: Currently lives at home with his . Surrogate decision maker: Erica Ruth, daughter. Full Code. Caffeine-None Smoking status: Never smoker Second hand tobacco smoke exposure: No Alcohol intake: never Substance use: never Substance use type: does not use Do You Feel Safe in your Home?: Yes Lack of Transportation: No Lack of Food: Never True Current Housing: I Have Housing Concerned About Future Housing: No Difficulty Paying Gas/Electric Bills: No Difficulty Paying for Meds: No Currently Unemployed: YES Education: Bachelor's Degree Difficulty w/ Childcare or Family Care: No Living arrangements: with family Additional living arrangements comments: lives with in a house Occupation/Education: retired Gender identity (if verbalized by the patient): Male Sexual Orientation (if Verbalized by the Patient): Straight or Heterosexual Spiritual care concerns: No Agree to blood products: Yes Exam Narrative: GENERAL: Well-appearing, well-nourished, and in no acute distress. HEAD: Normocephalic, atraumatic. ENT: Mucous membranes moist. HEART: Regular rate and rhythm. Normal peripheral pulses. EXTREMITIES: Swelling of the right elbow with tenderness over the radial head and the medial for musculature. Cannot reach full extension. Has pain with extension and flexion. SKIN: Warm, dry, no rash. NEURO: Awake alert, at neurologic baseline. PSYCH: Normal mood and affect. Course Course Emergency Course: Joint effusion on imaging. May have a nondisplaced radial head fracture. May have arthritic effusion due to overuse yesterday as he was at a family member's birthday was using a walker walking up and down stairs as well as bronchi train. Will give a sling and recommend follow-up with ortho. Vital Signs Vital signs: Vital Signs Temperature 97.9 F 08/07/24 08:40 Pulse Rate 96 08/07/24 08:40 Respiratory Rate 18 08/07/24 08:40 Blood Pressure 136/75 08/07/24 08:40 Pulse Oximetry 96 08/07/24 08:40 Oxygen Delivery Room Air 08/07/24 08:40 Temperature 97.9 F 08/07/24 08:40 Pulse Rate 96 08/07/24 08:40 Respiratory Rate 18 08/07/24 08:40 Blood Pressure 136/75 08/07/24 08:40 Pulse Oximetry 96 08/07/24 08:40 Oxygen Delivery Room Air 08/07/24 08:40 MDM - Extremity (Nontraumatic) Imaging Data Radiologist's impression: ITS Impressions Elbow X-Ray 08/07/24 09:14 Impression: Joint effusion could reflect occult radial head fracture. Reactive joint effusion due to minimal degenerative change is a potential alternative consideration. Correlate clinically. Consider follow-up exam or more advanced imaging as indicated. Discharge Plan Discharge Clinical Impression: Effusion of elbow Patient Disposition: Home Condition: Stable Instructions: Antibiotic Form, Osteoarthritis (ED), P.R.I.C.E. Treatment (ED) Additional Instructions: You have swelling in right elbow. It may be from arthritis and overuse, it may also be from a nondisplaced radial head fracture. Rest the area, take pain medication. And follow-up with your primary care doctor or orthopedic surgery. Patient Language: Paraguayan Prescriptions: New hydrocodone-acetaminophen 5-325 mg tablet 1 tablet PO Q6H PRN (Reason: pain) Qty: 12 0RF No Action red beet-sour crouch extract 250-0.5 mg tablet,chewable 1 tablet PO DAILY galantamine 4 mg tablet See Rx Instructions .ROUTE .COMPLEX Qty: 240 6RF Dose Instruction: TAKE 3 TABLETS BY MOUTH TWICE DAILY Rx Instructions: TAKE 3 TABLETS BY MOUTH TWICE DAILY memantine 10 mg tablet 10 mg PO BID Qty: 180 6RF Eliquis 5 mg tablet 5 mg PO BID aspirin 81 mg tablet,chewable 81 mg PO 1200 calcium carbonate 650 mg calcium (1,625 mg) tablet 650 mg PO 1700 Patient Comments: as viactive gummy ascorbic acid (vitamin C) 250 mg tablet 282 mg PO 1700 cyanocobalamin (vitamin B-12) 2,500 mcg tablet 2,500 mcg PO 1200 turmeric 400 mg capsule 400 mg PO DAILY coenzyme Q10 [Co Q-10] 100 mg Capsule 100 mg PO DAILY Centrum Silver Men 300-600-300 mcg Tablet 1 tablet PO DAILY melatonin 5 mg Tablet,Chewable 10 mg PO HS Rx Instructions: takes 2 gummies nightly for a total of 10 mg. zinc 15 mg Tablet 15 mg PO DAILY folic acid 800 mcg Tablet 400 mg PO 1200 cholecalciferol (vitamin D3) 125 mcg (5,000 unit) Tablet 125 mcg PO 1200 diltiazem HCl 120 mg capsule,extended release 24hr 120 mg PO 1200 diltiazem HCl 120 mg capsule,extended release 24hr 120 mg PO Q24H PreserVision AREDS-2 250-90-40-1 mg capsule 1 tablet PO ONCE prevagen See Rx Instructions BYMOUTH .COMPLEX Rx Instructions: 1 orally; fluticasone propionate 50 mcg/actuation spray,suspension 1 spray intranasal BID Rx Instructions: administer into each nostril acetaminophen [Tylenol Extra Strength] 500 mg tablet 500 mg PO Q6H PRN (Reason: pain) pravastatin 20 mg tablet 20 mg PO QHS Qty: 90 3RF lidocaine [Lidocaine Pain Relief] 4 % Adhesive Patch,Medicated 1 patch transdermal DAILY Qty: 15 0RF Follow-up/Referrals: Omari Lloyd MD [Physician] - 1 Week Dave Ayala DO [Primary Care Provider] - 1 Week
== END 2024-08-07 10:04 | disposition home or self-care (01) ==
PROVIDERS: Emergency Provider Emergency Medicine; PCP Internal Medicine
DX: M25.421 Effusion, right elbow (principal); G30.9 Alzheimer's disease, unspecified; F02.80 Dementia in other diseases classified elsewhere, unspecified severity, without behavioral disturbance, psychotic disturbance, mood disturbance, and anxiety; I48.0 Paroxysmal atrial fibrillation; I25.10 Atherosclerotic heart disease of native coronary artery without angina pectoris; E78.5 Hyperlipidemia, unspecified; Z86.711 Personal history of pulmonary embolism; Z85.038 Personal history of other malignant neoplasm of large intestine; I10 Essential (primary) hypertension; K21.9 Gastro-esophageal reflux disease without esophagitis
CPT/HCPCS: 73080; 99283; A4565; A9270

== ENCOUNTER 2024-08-11 15:47 | Outpatient (CLI) | payer BC, SELFPAY ==
--- NOTE | ~2024-08-11 | CT_ITS ---
Noncontrast CT scan of the right elbow Clinical history elbow joint effusion TECHNIQUE: Axial noncontrast imaging of the right elbow was performed. Sagittal and coronal reformatt ed images were constructed. Dose reduction technique was used on this scan by utilizing automated exp osure control and iterative reconstruction technique. The dose-length product (DLP) was 490.73 mGy-cm . Findings: No acute fracture or dislocation seen. Osseous alignment is essentially anatomic. There is moderate degenerative change about the elbow joint, with mild joint space narrowing and minimal osteo phyte formation. Probable small joint effusion, presumably reactive. Visualized musculature is grossly unremarkable for noncontrast CT scan. There is probable subacute so ft tissue edema and/or bursitis over the olecranon. No soft tissue mass evident otherwise. IMPRESSION: No acute fracture or dislocation. Small elbow joint is probably reactive due to underlying moderate elbow joint degenerative change. Mild olecranon bursitis or other subcutaneous soft tissue edema at the left. Reviewed, dictated and finalized at [facility]. IMPRESSION: No acute fracture or dislocation. Small elbow joint is probably reactive due to underlying moderate elbow joint d egenerative change. Mild olecranon bursitis or other subcutaneous soft tissue edema at the left.
--- OUTSIDE RECORDS SUMMARY | 2024-08-11 16:06 | XMS_ITS | Clinical Summary ---
Author Organization [facility] Address [address] [place] [address] Care Team Providers Care Scarf Gluer Name Role Phone Dave Ayala DO Primary Care Provider +1- [phone] Allergies Active Allergy Reactions Criticality Noted Date [...] capsules (200 mg total) 12/04/2015 Active zinc-colostrum- [id number] 15 mg-50 mg- 1 mg-1 mg capsule [...] Nash Confirm Loop Recorder. Dx; PAF/Aflutter. [facility]. Surgical History Surgery Date Site/Laterality Comments CORONARY [...] 01/29/2011, Additional history exists Insurance FEDERAL MEDICARE [facility] FEDERAL Care Teams Scarf Gluer Relationship Specialty Start Date End Date Dave Ayala DO PCP - General Internal Medicine 03/06/21
--- OUTSIDE RECORDS SUMMARY | 2024-08-11 16:06 | XMS_ITS | Referral Summary ---
Author Organization [facility] Address [address] [place] [address] Care Team Providers Care Color Repairer Name Role Phone Dave Ayala DO Primary Care Provider +1- [phone] Allergies Active Allergy Reactions Criticality Noted Date [...] capsules (200 mg total) 12/04/2015 Active zinc-colostrum- [id number] 15 mg-50 mg- 1 mg-1 mg capsule [...] Nash Confirm Loop Recorder. Dx; PAF/Aflutter. DOI [facility]. Social History Tobacco Use Types Packs/Day Years [...] Treatment Not on file Insurance FEDERAL MEDICARE [facility] FEDERAL Care Teams Color Repairer Relationship Specialty Start Date End Date Dave Ayala DO PCP - General Internal Medicine 03/06/21
--- OUTSIDE RECORDS SUMMARY | 2024-08-11 16:06 | XMS_ITS | Clinical Summary ---
Author Organization [facility] Address [address] [facility] Attn: Epic Prelude ADT [place] [address] Care Team Providers Care Block Breaker Operator Name Role Phone Dave Ayala DO Primary Care Provider Allergies Active Allergy Reactions Criticality Noted Date Comments Hsaun Inhibitors Cough Low 05/29/2008 Midazolam Other (See Comments) Low 06/02/2022 says he was combative when coming out of it. Morphine Hallucination Low 06/02/2022 Penicillins Shortness of Breath/Wheezing,Swelling High 11/10/2007 Medications apixaban (ELIQUIS) 5 mg tablet = 1 tab, By mouth, BID, # 60 tab, Refill(s) 11, Pharmacy: [facility], [id number], 1 tab By mouth BID, 82.91, 11/28/20 14:57:00 CDT, kg, Weight 11/28/2020 Active aspirin (ECOTRIN EC) 81 mg Tablet, Delayed Release (E.C.) 81 mg. 09/12/2019 Active Cholecalciferol , Vitamin D3, 50 mcg (2,000 unit) Capsule 50 mcg. 09/05/2020 Activ e memantine (NAMENDA) 10 mg Tablet = 1 tab, By mouth, BID, # 180 tab, Refill(s) 1, Pharmacy: [facility], [id number], 1 tab By mouth BID, 69, 08/03/20 [...] Take by mouth nightly as needed. Active damifmg-zvzd-vo uji-oiaz-nxkcgf 100 mg-150 mg- 50 mg-150 mg Capsule Take by mouth. 500 mg gummy Active tamsulosin (FLOMAX) 0.4 mg capsule Take 0.4 mg by mouth daily. 07/15/2023 Active alendronate sodium (ALENDRONATE ORAL) Take by mouth every 7 days. Active omega-3/dha/epa /algal oil (KKPQS-5W-[id number]-E PA-ALGAL OIL ORAL) Take 250 mg by [...] STL ABSTRACTION Provider, Abstract 07/12/2024 Orders Only [facility] Oncology and Hematology - [address] [place] [address] Carlos Castelan MD 07/11/2024 Orders Only [facility] Oncology and Hematology - [address] [place] [address] Carlos Castelan MD 07/04/2024 11:30 AM CDT Office Visit [facility] Oncology and Hematology - [address] [place] [address] Carlos Castelan MD Other secondary [...] on file 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 Gender Identity Not on file Sexual Orientation [...] Description 07/05/2025 10:15 AM CDT Office Visit [facility] Oncology and Hematology - [address] [place] [address] Carlos Castelan MD [address] [facility] [address] [place] [address] Health Maintenance Due Date Last [...] Res ult from Last 3 Months Insurance [facility] FEDERAL [facility] FEDERAL Care Teams Block Breaker Operator Relationship Specialty Start Date End Date Dave Ayala DO [address] [address] PCP - General Internal Medicine 06/02/22
== END 2024-08-11 15:48 | disposition home or self-care (01) ==
PROVIDERS: PCP Internal Medicine; Visit Provider Orthopaedic Surgery
DX: M25.421 Effusion, right elbow (principal); S52.121A Displaced fracture of head of right radius, initial encounter for closed fracture; M70.21 Olecranon bursitis, right elbow
CPT/HCPCS: 73200

== ENCOUNTER 2024-09-04 09:46 | Inpatient (IN) | payer MEDICARE, BC, SELFPAY ==
[2024-09-04] VITALS (42 sets, daily range): BP systolic 135–174; BP diastolic 62–95; PULSE 55–94; RESP 12–44; TEMP 36.6; O2SAT 91–100; BMI 27.2
--- NOTE | ~2024-09-04 | XR_ITS ---
CHEST RADIOGRAPH, PA AND LATERAL CLINICAL HISTORY: chest pain . COMPARISON: None available TECHNIQUE: PA and lateral views of the chest. FINDINGS Sternal wires and mediastinal clips are identified, the wires are midline and intact. The remainder of the cardiomediastinal silhouette is otherwise unremarkable. Moderate left-sided pleural effusion with adjacent compressive atelectasis. Small right-sided pleural effusion. The remainder of the lungs are clear. IMPRESSION: Bilateral pleural effusions, moderate on the left and small on the right. Reviewed, dictated and finalized at location A.
--- NOTE | ~2024-09-04 | XR_ITS ---
MODIFIED ESOPHAGRAM HISTORY: Coughing up food and liquids TECHNIQUE: Modified barium esophagram was performed on 09/06/2024. I administered fluoroscopy and perfo rmed the exam with speech pathologist. Patient was seated for lateral fluoroscopic imaging for inges tion of thin liquids, pudding, solids and quantified amounts, followed by thin liquids in uncontrolle d amounts. This was recorded on tape. A single fluoroscopic spot image was also recorded. The DAP for this procedure was 2.194 Gycm2. The amount of fluoroscopy time used during this procedure was 3.4 mi nutes. FINDINGS: Oral stage: Adequate function. Pharyngeal stage: Reduced laryngeal elevation and adduction. Reduced tongue base retraction and phary ngeal squeeze. There is vallecular, piriform sinus and pharyngeal wall residue. Laryngeal penetration and aspiration. There are bridging osteophytes at C3-C7 consistent with diffuse idiopathic skeletal hyperostosis (DISH). Cervical/esophageal stage: Adequate function. IMPRESSION: Pharyngeal dysphagia with laryngeal penetration and aspiration. Please correlate with sp eech pathologist findings and specific feeding recommendations. Reviewed, dictated and finalized at location A. IMPRESSION: Pharyngeal dysphagia with laryngeal penetration and aspiration. Pl ease correlate with speech pathologist findings and specific feeding recommenda tions.
--- NOTE | ~2024-09-04 | XR_ITS ---
EXAMINATION: XR fl Dobhoff insert/rad w img DATE: 09/07/2024 17:37 INDICATION: Coughing with food and liquids. Feeding tube insertion requested. TECHNIQUE: Initial attempt was made at placement of a nasogastric tube which was unsuccessful due to difficulty traversing the nasal cavity. Subsequently a Dobbhoff type feeding tube was advanced into the duodenum utilizing intermittent fluoroscopy. Final image demonstrates the feeding tube in position with the w eighted tip at the expected location of the ligament of Treitz. The tube was flushed with 10 mL steri le saline and fixed to the nares with adhesive tape. 2 fluoroscopic images were recorded. The amount of fluoroscopy time used during this procedure was 2.5 minutes. Total DAP was 22.436 Gycm^2. There w ere no immediate complications. FINDINGS/IMPRESSION: Successful fluoroscopy-guided Dobbhoff feeding tube placement with distal tip in the fourth portion o f the duodenum. Reviewed, dictated and finalized at location A.
--- NOTE | 2024-09-04 09:47 | ECG_ITS ---
Test Date: 2024-09-04 09:53:46 Measurements Intervals [place] Rate: 66 P: 0 FL: 0 QRS: -25 QRSD: 97 T: 26 QT: 404 QTc: 424 Interpretive Statements ATRIAL FIBRILLATION BORDERLINE LEFT AXIS DEVIATION [QRS AXIS < -20] MODERATE ST DEPRESSION [0.05+ mV ST DEPRESSION] Compared to ECG 09/07/2023 09:53:33 atrial fibrillation has replaced sinus rhythm Electronically Signed On 09-04-2024 13:51:24 CDT by Gaston Ragland M.D.
--- OUTSIDE RECORDS SUMMARY | 2024-09-04 09:48 | XMS_ITS | Referral Summary ---
Author Organization [facility] Address [address] [place] [address] Care Team Providers Care Bolt Header Name Role Phone Dave Ayala DO Primary Care Provider +1- [phone] Allergies Active Allergy Reactions Criticality Noted Date [...] capsules (200 mg total) 12/04/2015 Active zinc-colostrum- [id number] 15 mg-50 mg- 1 mg-1 mg capsule [...] Nash Confirm Loop Recorder. Dx; PAF/Aflutter. [facility]. Social History Tobacco Use Types Packs/Day Years [...] Treatment Not on file Insurance FEDERAL MEDICARE [facility] FEDERAL Care Teams Bolt Header Relationship Specialty Start Date End Date Dave Ayala DO PCP - General Internal Medicine 03/06/21
--- OUTSIDE RECORDS SUMMARY | 2024-09-04 09:48 | XMS_ITS | Clinical Summary ---
Author Organization [facility] Address [address] [facility] Attn: Epic Prelude ADT [place] [address] Care Team Providers Care Sports Marketing Internship Name Role Phone Dave Ayala DO Primary [...] BID, # 60 tab, Refill(s) 11, Pharmacy: [facility], [id number], 1 tab By mouth BID, 82.91, 11/28/20 14:57:00 CDT, kg, Weight 11/28/2020 Active aspirin (ECOTRIN EC) 81 mg Tablet, Delayed Release (E.C.) 81 mg. 09/12/2019 Active Cholecalciferol , Vitamin D3, 50 mcg (2,000 unit) Capsule 50 mcg. 09/05/2020 Activ e memantine (NAMENDA) 10 mg Tablet = 1 tab, By mouth, BID, # 180 tab, Refill(s) 1, Pharmacy: [facility], [id number], 1 tab By mouth BID, 69, 08/03/20 [...] Take by mouth nightly as needed. Active vgsffxy-dinf-pt nmb-kfcu-kleino 100 mg-150 mg- 50 mg-150 mg Capsule Take by mouth. 500 mg gummy Active tamsulosin (FLOMAX) 0.4 mg capsule Take 0.4 mg by mouth daily. 07/15/2023 Active alendronate sodium (ALENDRONATE ORAL) Take by mouth every 7 days. Active omega-3/dha/epa /algal oil (EFPBT-1V-GPC-E PA-ALGAL OIL ORAL) Take 250 mg by [...] STL ABSTRACTION Provider, Abstract 07/12/2024 Orders Only [facility] Oncology and Hematology - [address] [place] [address] Carlos Castelan MD 07/11/2024 Orders Only [facility] Oncology and Hematology - [address] [place] [address] Carlos Castelan MD 07/04/2024 11:30 AM CDT Office Visit [facility] Oncology and Hematology - [address] [place] [address] Carlos Castelan MD Other secondary [...] on file 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 Gender Identity Not on file Sexual Orientation [...] Description 07/05/2025 10:15 AM CDT Office Visit [facility] Oncology and Hematology - [address] [place] [address] Carlos Castelan MD [address] [facility] [address] [place] [address] Health Maintenance Due Date Last Done Comments COLORECTAL SCREENING 1958 ZOSTER VACCINE (2 of 3) 10/06/2012 08/11/2012 RSV VACCINE (60+ or ) (1 - 1-dose 75+ series) 07/31/2015 DTAP/TDAP/TD VACCINES (1 - Tdap) 09/06/2016 09/06/19 17, 07/27/2007 COVID-19 Vaccine (3 - 2023-2 5 season) 2023 05/22/2020, 04/23/2020 INFLUENZA VACCINE (#1) 2024 0, 12/29/2018, 12/17/2017, Additional history exists PNEUMOCOCCAL VACCINE 50+ YEARS Completed 0 04/17/2015, [...] Res ult from Last 3 Months Insurance [facility] FEDERAL [facility] FEDERAL Care Teams Sports Marketing Internship Relationship Specialty Start Date End Date Dave Ayala DO [address] [address] PCP - General Internal Medicine 06/02/22
--- OUTSIDE RECORDS SUMMARY | 2024-09-04 09:48 | XMS_ITS | Clinical Summary ---
Author Organization [facility] Address [address] [place] [address] Care Team Providers Care Pool Servicer Name Role Phone Dave Ayala DO Primary Care Provider +1- [phone] Allergies Active Allergy Reactions Criticality Noted Date [...] capsules (200 mg total) 12/04/2015 Active zinc-colostrum- [id number] 15 mg-50 mg- 1 mg-1 mg capsule [...] Confirm Loop Recorder. Dx; PAF/Aflutter. [facility]. Surgical History Surgery Date Site/Laterality Comments [...] 01/29/2011, Additional history exists Insurance FEDERAL MEDICARE [facility] FEDERAL Care Teams Pool Servicer Relationship Specialty Start Date End Date Dave Ayala DO PCP - General Internal Medicine 03/06/21
[2024-09-04 10:04] LABS: Hematocrit 44.5 % (42.0-52.0); Hemoglobin 15.0 g/dL (14.0-18.0); Immature Granulocyte Percent A 0.2 % (0-0.5); Immature Platelet Fraction Pct 4.1 % (0.9-11.2); Lymphocytes Absolute Auto 0.85 K/mm3 (0.9-3.2); Mean Corpuscular HGB Conc 33.7 g/dl (32-36); Mean Corpuscular Hemoglobin 32.9 pg (26-34); Mean Corpuscular Volume 97.6 fl (80-100); Nucleated Red Blood Cells Absolute Auto 0.000 K/mm3 (0.0-0.012); Nucleated Red Blood Cells Perc 0.0 % (0.0-0.2); Platelet Count Result 114 k/mm3 (150-375); Red Blood Count 4.56 M/mm3 (4.6-6.20); White Blood Count 6.1 K/mm3 (4.5-10.0)
[2024-09-04 10:14] LABS: Alanine Aminotransferase 19 U/L (6-50); Albumin Level 4.0 g/dL (3.5-5.1); Alkaline Phosphatase 71 U/L (38-126); Anion Gap 10 mmol/L (4-12); Aspartate Amino Transferase 28 U/L (17-59); Bilirubin,Total 1.3 mg/dL (0.2-1.3); Blood Urea Nitrogen 13 mg/dL (9-20); Calcium 9.6 mg/dL (8.4-10.2); Carbon Dioxide 23 mmol/L (22-30); Chloride 103 mmol/L (98-107); Estimated CRCL calculation 62 ml/min; Estimated Glomerular Filt Rate > 60; Glucose 157 mg/dL (65-110); Lipase 176 U/L (23-300); Potassium 3.9 mmol/L (3.4-5.0); Sodium 136 mmol/L (137-145); Total Protein 6.8 g/dL (6.3-8.2)
[2024-09-04 10:15] LABS: INR 1.2; Prothrombin Time 14.9 Seconds (11.1-14.7)
[2024-09-04] MEDS: ASPIRIN 81 MG CHEWABLE TABLET 324 MG PO (10:15)
[2024-09-04 10:17] LABS: Partial Thromboplastin Time 28.9 Seconds (22.3-36.8)
[2024-09-04 10:26] LABS: Troponin I < 0.012 ng/mL (0.000-0.034)
--- OUTSIDE RECORDS SUMMARY | 2024-09-04 10:31 | XMS_ITS | Referral Summary ---
Author Organization [facility] Address [address] [place] [address] Care Team Providers Care Dye Padder Operator Name Role Phone Dave Ayala DO Primary Care Provider +1- [phone] Allergies Active Allergy Reactions Criticality Noted Date [...] capsules (200 mg total) 12/04/2015 Active zinc-colostrum- [id number]-[id number] 15 mg-50 mg- 1 mg-1 mg capsule [...] Nash Confirm Loop Recorder. Dx; PAF/Aflutter. DOI [facility]23/2019[facility]. Social History Tobacco Use Types Packs/Day Years [...] Treatment Not on file Insurance FEDERAL MEDICARE [facility] FEDERAL Care Teams Dye Padder Operator Relationship Specialty Start Date End Date Dave Ayala DO PCP - General Internal Medicine 03/06/21
--- OUTSIDE RECORDS SUMMARY | 2024-09-04 10:31 | XMS_ITS | Clinical Summary ---
Author Organization [facility] Address [address] [place] [address] Care Team Providers Care Capacity Planning Engineer Name Role Phone Dave Ayala DO Primary Care Provider +1- [phone] Allergies Active Allergy Reactions Criticality Noted Date [...] capsules (200 mg total) 12/04/2015 Active zinc-colostrum- [id number] 15 mg-50 mg- 1 mg-1 mg capsule [...] Confirm Loop Recorder. Dx; PAF/Aflutter. DOI [facility]. Surgical History Surgery Date Site/Laterality Comments [...] 2023 01/22/2021, 05/22/2020, 04/23/2020 Influenza Vaccine (#1) 2024 , 12/27/2019, 12/29/2018, Additional history exists Pneumococcal vaccine 65+ Completed 016, 08/11/2012, 01/29/2011, Additional history exists Insurance [facility] Address: [facility] [id number] [place] [address] MEDICARE [facility] FED[facility]AL [facility] Address: [address] [place] [address] Care Teams Capacity Planning Engineer Relationship Specialty Start Date End Date Dave Ayala DO PCP - General Internal Medicine 03/06/21
--- OUTSIDE RECORDS SUMMARY | 2024-09-04 10:31 | XMS_ITS | Clinical Summary ---
Author Organization [facility] Address [address] [facility] [address] Attn: Epic Prelude ADT CAM[place] WOOTEN [address] Care Team Providers Care Enterprise Integration Developer Name Role Phone Dave Ayala DO Primary [...] BID, # 60 tab, Refill(s) 11, Pharmacy: [facility], [id number], 1 tab By mouth BID, 82.91, 11/28/20 14:57:00 CDT, kg, Weight 11/28/2020 Active aspirin (ECOTRIN EC) 81 mg Tablet, Delayed Release (E.C.) 81 mg. 09/12/2019 Active Cholecalciferol , Vitamin D3, 50 mcg (2,000 unit) Capsule 50 mcg. 09/05/2020 Activ e memantine (NAMENDA) 10 mg Tablet = 1 tab, By mouth, BID, # 180 tab, Refill(s) 1, Pharmacy: [facility], [id number], 1 tab By mouth BID, 69, 08/03/20 [...] Take by mouth nightly as needed. Active eacrdrx-kbnn-oo gyk-esik-gjvqny 100 mg-150 mg- 50 mg-150 mg Capsule Take by mouth. 500 mg gummy Active tamsulosin (FLOMAX) 0.4 mg capsule Take 0.4 mg by mouth daily. 07/15/2023 Active alendronate sodium (ALENDRONATE ORAL) Take by mouth every 7 days. Active omega-3/dha/epa /algal oil ([id number]-[id number] PA-ALGAL OIL ORAL) Take 250 mg by [...] STL ABSTRACTION Provider, Abstract 07/12/2024 Orders Only [facility]ology - [address] [place] [id number] Carlos Castelan MD 07/11/2024 Orders Only [facility] On[facility] and [facility]ematology - Ang [address] [place] [id number] Carlos Castelan MD 07/04/2024 11:30 AM CDT Office Visit [facility]ology - Ang [address] [place] [address] Calros Castelan MD Other secondary thrombocytopenia (Primary Dx) [...] on file 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 Gender Identity Not on file Sexual Orientation [...] Description 07/05/2025 10:15 AM CDT Office Visit [facility] On[facility] and Hematology - Ang [address] [place] [address] Carlos Castelan MD [address] [facility] [address] [place] [address] Health Maintenance Due Date Last [...] Res ult from Last 3 Months Insurance [facility] [employer] Care Teams Enterprise Integration Developer Relationship Specialty Start Date End Date Dave Ayala DO [address] [address] PCP - General Internal Medicine 06/02/22
[2024-09-04 11:04] LABS: NT Pro B Type Natriuretic Pept 2700 pg/mL (19.9-100)
[2024-09-04 11:23] LABS: Influenza A QL RT-PCR Negative (Negative); Influenza B QL RT-PCR Negative (Negative); RSV RNA, RT-PCR Negative (Negative); SARS-CoV-2 RNA PCR Negative (Negative)
--- NOTE | 2024-09-04 12:51 | ECG_ITS ---
Test Date: 2024-09-04 12:37:07 Measurements Intervals [place] Rate: 63 P: 0 FL: 0 QRS: -26 QRSD: 98 T: 9 QT: 414 QTc: 427 Interpretive Statements ATRIAL FIBRILLATION BORDERLINE LEFT AXIS DEVIATION [QRS AXIS < -20] ABNORMAL RHYTHM ECG Compared to ECG 09/04/2024 09:53:46 ST (T wave) deviation no longer present Electronically Signed On 09-04-2024 13:53:39 CDT by Gaston Ragland M.D.
[2024-09-04 13:07] LABS: Troponin I < 0.012 ng/mL (0.000-0.034)
--- NOTE | 2024-09-04 13:09 | ED_ITS ---
HPI - General Adult General Chief complaint: Chest Pain Stated complaint: Chest tightness HX bypass Time Seen by Provider: 09/04/24 10:06 History of Present Illness HPI narrative: Patient 84 old gentleman presents emergency department chief complaint of shortness of breath patient reports the last 3-4 days had slow but tightness in his chest has history of a triple bypass in 2019 also has history dementia patient has had increasing shortness of breath and reports that had some tightness in his chest as well Related Data Home Medications ?Medication ?Instructions ?Recorded ?Confirmed ?Last Taken ?Type apixaban 5 mg tablet (Eliquis) 5 mg PO BID 01/01/21 08/13/24 12/21/22 17:00 History ascorbic acid (vitamin C) 250 mg 282 mg PO 1700 01/01/21 08/13/24 12/21/22 17:00 History tablet aspirin 81 mg chewable tablet 81 mg PO 1200 01/01/21 08/13/24 12/17/22 History calcium carbonate 650 mg PO 1700 01/01/21 08/13/24 12/21/22 17:00 History cyanocobalamin (vitamin B-12) 2,500 mcg PO 1200 01/01/21 08/13/24 Unknown History 2,500 mcg tablet coenzyme Q10 100 mg capsule (Co 100 mg PO DAILY 12/31/21 08/13/24 Unknown History Q-10) melatonin 5 mg chewable tablet 10 mg PO HS 12/31/21 08/13/24 Unknown History pponshpc-px-dmsjd 300 mcg-K 60 1 tablet PO DAILY 12/31/21 08/13/24 Unknown History mcg-lycop 600 mcg-lutein 300 mcg tablet (Centrum Silver Men) red beet 250 mg-sour crouch 1 tablet PO DAILY 08/25/22 08/13/24 Unknown History extract 0.5 mg chewable tablet cholecalciferol (vitamin D3) 125 125 mcg PO 1200 10/10/22 08/13/24 Unknown History mcg (5,000 unit) tablet folic acid 800 mcg tablet 400 mg PO 1200 10/10/22 08/13/24 Unknown History zinc 15 mg tablet 15 mg PO DAILY 10/10/22 08/13/24 Unknown History diltiazem HCl 120 mg 120 mg PO 1200 12/18/22 08/13/24 12/21/22 12:00 History capsule,extended release 24 hr acetaminophen 500 mg tablet 500 mg PO Q6H PRN pain 01/06/23 08/13/24 Unknown History (Tylenol Extra Strength) fluticasone propionate 50 1 spray intranasal BID 01/06/23 08/13/24 Unknown History mcg/actuation nasal spray,suspension prevagen See Rx Instructions BYMOUTH 01/06/23 08/13/24 08/06/24 History .COMPLEX vit C 250 mg-vit E 90 mg-zinc 40 1 tablet PO ONCE 01/06/23 08/13/24 Unknown History mg-copper 1 yw-atlcmx-jpslrr capsule (PreserVision AREDS-2) turmeric 400 mg capsule 400 mg PO DAILY 04/09/23 08/13/24 08/06/24 History diltiazem HCl 120 mg capsule,24 120 mg PO Q24H 08/07/24 08/13/24 Unknown History hr,extended release Allergies Allergy/AdvReac Type Severity Reaction Status Date / Time Penicillins Allergy Severe Swelling Verified 08/12/24 14:03 morphine AdvReac Intermediate Hallucinati Verified 08/12/24 14:03 ng RICARDO Inhibitors AdvReac Mild Cough Verified 08/12/24 14:03 midazolam (From Versed) AdvReac Mild Agitated Verified 08/12/24 14:03 Review of Systems 2 Review of Systems: A 10 system review of systems was completed on the patient and is negative except for what is stated in the HPI. Nursing and ancillary documentation was reviewed. [facility] Past Medical History Medical History Prostate cancer Colon cancer (~11/01/10) BPH (benign prostatic hyperplasia) CAD (coronary artery disease) GERD (gastroesophageal reflux disease) Osteoarthritis of right knee Arthritis Dementia of the Alzheimer's type Hyperlipidemia Cognitive impairment Paroxysmal atrial fibrillation Overweight (BMI 25.0-29.9) Elevated PSA Thrombocytopenia Pulmonary emboli (~2008) Hypertension Surgical History Surgical History History of cataract extraction Fracture of hip, right, closed Right hip pinning December 19, 2022 History of colon surgery Hx of cholecystectomy 1999 S/P CABG x 3 (~10/06/18) History of left knee replacement (~2000) Family History Family History Father Heart disease Hypertension Mother Diabetes mellitus Hypertension Alzheimer disease Sibling Cancer of kidney Carcinoma of colon Cancer Daughter Cancer of kidney Cancer Grandparent Heart disease Cerebrovascular accident Social History Social History Social History: Currently lives at home with his . Surrogate decision maker: Erica Ruth, daughter. Full Code. Caffeine-None Smoking status: Never smoker Second hand tobacco smoke exposure: No Alcohol intake: never Substance use: never Substance use type: does not use Do You Feel Safe in your Home?: Yes Lack of Transportation: No Lack of Food: Never True Current Housing: I Have Housing Concerned About Future Housing: No Difficulty Paying Gas/Electric Bills: No Difficulty Paying for Meds: No Currently Unemployed: YES Education: Bachelor's Degree Difficulty w/ Childcare or Family Care: No Living arrangements: with family Additional living arrangements comments: lives with in a house Occupation/Education: retired Gender identity (if verbalized by the patient): Male Sexual Orientation (if Verbalized by the Patient): Straight or Heterosexual Spiritual care concerns: No Agree to blood products: Yes Exam 2 Narrative: GENERAL: Well-appearing, well-nourished, and in no acute distress. HEAD: Normocephalic, atraumatic. EYES: PERRLA and EOMI. ENT: Nares clear, no rhinorrhea or epistaxis. Mucous membranes moist. NECK: Supple. CHEST: Clear to auscultation. No respiratory distress. HEART: Regular rate and rhythm. No murmur heard. Normal peripheral pulses. ABDOMEN: Soft, nontender, nondistended, normal active bowel sounds. EXTREMITIES: Normal range of motion. No edema. SKIN: Warm, dry, no rash. NEURO: No focal deficits. Alert and oriented x3. PSYCH: Normal mood and affect. Course Vital Signs Vital signs: Vital Signs Temperature 36.6 C 09/04/24 09:49 Pulse Rate 71 09/04/24 09:49 Respiratory Rate 24 H 09/04/24 09:49 Blood Pressure 146/70 H 09/04/24 09:49 Pulse Oximetry 97 09/04/24 09:49 Oxygen Delivery Room Air 09/04/24 09:49 Temperature 36.6 C 09/04/24 09:49 Pulse Rate 69 09/04/24 11:47 Respiratory Rate 21 H 09/04/24 11:47 Blood Pressure 142/80 H 09/04/24 11:47 Pulse Oximetry 99 09/04/24 11:47 Oxygen Delivery Room Air 09/04/24 10:05 Medical Decision Making MDM Narrative Medical decision making narrative: Differential diagnosis includes pneumonia, CHF, ACS EKG showed rate controlled atrial fibrillation Initial troponin was-3 hour troponin was negative Chest x-ray showed small to moderate pleural effusion BNP was 2700 BNP 1 year ago was 670 Vital Signs Vital Signs: Vital Signs Temperature 36.6 C 09/04/24 09:49 Pulse Rate 71 09/04/24 09:49 Respiratory Rate 24 H 09/04/24 09:49 Blood Pressure 146/70 H 09/04/24 09:49 Pulse Oximetry 97 09/04/24 09:49 Oxygen Delivery Room Air 09/04/24 09:49 Temperature 36.6 C 09/04/24 09:49 Pulse Rate 69 09/04/24 11:47 Respiratory Rate 21 H 09/04/24 11:47 Blood Pressure 142/80 H 09/04/24 11:47 Pulse Oximetry 99 09/04/24 11:47 Oxygen Delivery Room Air 09/04/24 10:05 Lab Data 09/04/24 09:56 09/04/24 09:56 Labs: Lab Results 09/04/24 09/04/24 09/04/24 Range/Units 09:56 10:42 12:38 WBC 6.1 (4.5-10.0) K/mm3 RBC 4.56 L (4.6-6.20) M/mm3 Hgb 15.0 (14.0-18.0) g/dL Hct 44.5 (42.0-52.0) % MCV 97.6 (80-100) fl MCH 32.9 (26-34) pg MCHC 33.7 (32-36) g/dl RDW 12.6 (11.5-14.5) % Plt Count 114 L (150-375) k/mm3 MPV 10.2 (7.4-10.4) fl Immature Gran % (Auto) 0.2 (0-0.5) % Neut % (Auto) 73.9 H (45.5-73.1) % Lymph % (Auto) 14.0 L (18.3-44.2) % [place] % (Auto) 9.6 H (2.6-8.5) % Eos % (Auto) 1.8 (0-4.4) % Baso % (Auto) 0.5 (0.2-1.2) % Lymph # (Auto) 0.85 L (0.9-3.2) K/mm3 [place] # (Auto) 0.6 (0.1-0.6) K/mm3 Eos # (Auto) 0.1 (0-0.3) K/mm3 Baso # (Auto) 0.0 (0.0-0.1) K/mm3 Abs Immat Gran (auto) 0.01 (0.00-0.031) K/mm3 Absolute Neuts (auto) 4.5 (1.3-6.7) K/mm3 Absolute Nucleated RBC 0.000 (0.0-0.012) K/mm3 Nucleated RBC % 0.0 (0.0-0.2) % % Immature Plt Fraction 4.1 (0.9-11.2) % PT 14.9 H (11.1-14.7) Seconds INR 1.2 APTT 28.9 (22.3-36.8) Seconds Sodium 136 L (137-145) mmol/L Potassium 3.9 (3.4-5.0) mmol/L Chloride 103 (98-107) mmol/L Carbon Dioxide 23 (22-30) mmol/L Anion Gap 10 (4-12) mmol/L BUN 13 D (9-20) mg/dL Creatinine 0.85 (0.7-1.3) mg/dL Estim Creat Clear Calc 62 ml/min Estimated GFR > 60 (59 - ) Glucose 157 H (65-110) mg/dL Calcium 9.6 (8.4-10.2) mg/dL Total Bilirubin 1.3 (0.2-1.3) mg/dL AST 28 (17-59) U/L ALT 19 (6-50) U/L Alkaline Phosphatase 71 (38-126) U/L Troponin I < 0.012 < 0.012 (0.000-0.034) ng/mL NT-Pro-B Natriuret Pep 2700 H (19.9-100) pg/mL Total Protein 6.8 (6.3-8.2) g/dL Albumin 4.0 (3.5-5.1) g/dL Lipase 176 (23-300) U/L Influenza A (RT-PCR) Negative (Negative) Influenza B (RT-PCR) Negative (Negative) RSV (RT-PCR) Negative (Negative) SARS-CoV-2 RNA (RT-PCR) Negative (Negative) Discharge Plan Discharge Clinical Impression: CHF (congestive heart failure), Dyspnea Patient Disposition: Still a Patient Condition: Stable Patient Language: Slovak Prescriptions: No Action red beet-sour crouch extract 250-0.5 mg tablet,chewable 1 tablet PO DAILY galantamine 4 mg tablet See Rx Instructions .ROUTE .COMPLEX Qty: 240 6RF Dose Instruction: TAKE 3 TABLETS BY MOUTH TWICE DAILY Rx Instructions: TAKE 3 TABLETS BY MOUTH TWICE DAILY memantine 10 mg tablet 10 mg PO BID Qty: 180 6RF Eliquis 5 mg tablet 5 mg PO BID aspirin 81 mg tablet,chewable 81 mg PO 1200 calcium carbonate 650 mg calcium (1,625 mg) tablet 650 mg PO 1700 Patient Comments: as viactive gummy ascorbic acid (vitamin C) 250 mg tablet 282 mg PO 1700 cyanocobalamin (vitamin B-12) 2,500 mcg tablet 2,500 mcg PO 1200 turmeric 400 mg capsule 400 mg PO DAILY coenzyme Q10 [Co Q-10] 100 mg Capsule 100 mg PO DAILY Centrum Silver Men 300-600-300 mcg Tablet 1 tablet PO DAILY melatonin 5 mg Tablet,Chewable 10 mg PO HS Rx Instructions: takes 2 gummies nightly for a total of 10 mg. zinc 15 mg Tablet 15 mg PO DAILY folic acid 800 mcg Tablet 400 mg PO 1200 cholecalciferol (vitamin D3) 125 mcg (5,000 unit) Tablet 125 mcg PO 1200 diltiazem HCl 120 mg capsule,extended release 24hr 120 mg PO 1200 diltiazem HCl 120 mg capsule,extended release 24hr 120 mg PO Q24H hydrocodone-acetaminophen 5-325 mg tablet 1 tablet PO Q6H PRN (Reason: pain) Qty: 12 0RF PreserVision AREDS-2 250-90-40-1 mg capsule 1 tablet PO ONCE prevagen See Rx Instructions BYMOUTH .COMPLEX Rx Instructions: 1 orally; fluticasone propionate 50 mcg/actuation spray,suspension 1 spray intranasal BID Rx Instructions: administer into each nostril acetaminophen [Tylenol Extra Strength] 500 mg tablet 500 mg PO Q6H PRN (Reason: pain) pravastatin 20 mg tablet 20 mg PO QHS Qty: 90 3RF lidocaine [Lidocaine Pain Relief] 4 % Adhesive Patch,Medicated 1 patch transdermal DAILY Qty: 15 0RF Follow-up/Referrals: Dave Ayala DO [Primary Care Provider] - Time of Disposition: 13:57
--- NOTE | 2024-09-04 13:30 | PM.IMHP ---
H&P: HPI History of Present Illness Date/Time: 09/04/24 13:30 Chief Complaint: Shortness of Breath, Chest Tightness Narrative: 84 y/o M with PMH of dementia, CAD s/p CABG x3 (2018), paroxysmal AFib, PE (2008), prostate cancer s/p radiation, hypertension and GERD presents here with shortness of breath and chest tightness. The patient presents here from home on 09/04 for further evaluation of shortness of breath and chest tightness. presents majority of history as the patient has a history of dementia and has difficulty describing symptoms. She reports he has been complaining of chest tightness and neck tightness as well as shortness of breath for the past 3-4 days. Shortness of breath/chest tightness are accompanied by intermittent poor appetite, tachypnea, and fatigue. He denies lower extremity swelling, weight gain, abdominal distention. He has a cardiac history significant for CAD s/p CABG, paroxysmal AFib, and hypertension. (and patient) denies any previously known history of CHF. Initial VS at presentation: 97.9? F, HR 71, RR 24, 146/70, and 97% on RA. ED workup showed: No leukocytosis, no anemia, INR 1.2, no significant electrolyte derangements, creatinine 0.85 and GFR >60, glucose 157, initial troponin negative x2, and BNP 2700, viral PCR negative. CXR showed bilateral pleural effusions, moderate on the left and small the right. EKG showed AFib, rate 66, borderline left axis deviation, moderate ST depression. Review of Systems Review of Systems: All systems reviewed & are unremarkable except as noted in HPI and below [facility] Past Medical History Medical History Prostate cancer Colon cancer (~11/01/10) BPH (benign prostatic hyperplasia) CAD (coronary artery disease) GERD (gastroesophageal reflux disease) Osteoarthritis of right knee Arthritis Dementia of the Alzheimer's type Hyperlipidemia Cognitive impairment Paroxysmal atrial fibrillation Overweight (BMI 25.0-29.9) Elevated PSA Thrombocytopenia Pulmonary emboli (~2008) Hypertension Surgical History Surgical History History of cataract extraction Fracture of hip, right, closed Right hip pinning December 19, 2022 History of colon surgery Hx of cholecystectomy 1999 S/P CABG x 3 (~10/06/18) History of left knee replacement (~2000) Family History Family History Father Heart disease Hypertension Mother Diabetes mellitus Hypertension Alzheimer disease Sibling Cancer of kidney Carcinoma of colon Cancer Daughter Cancer of kidney Cancer Grandparent Heart disease Cerebrovascular accident Social History Social History Social History: Currently lives at home with his . Surrogate decision maker: Erica Ruth, daughter. Full Code. Caffeine-None Smoking status: Never smoker Second hand tobacco smoke exposure: No Alcohol intake: never Substance use: never Substance use type: does not use Do You Feel Safe in your Home?: Yes Lack of Transportation: No Lack of Food: Never True Current Housing: I Have Housing Concerned About Future Housing: No Difficulty Paying Gas/Electric Bills: No Difficulty Paying for Meds: No Currently Unemployed: YES Education: Bachelor's Degree Difficulty w/ Childcare or Family Care: No Living arrangements: with family Additional living arrangements comments: lives with in a house Occupation/Education: retired Gender identity (if verbalized by the patient): Male Sexual Orientation (if Verbalized by the Patient): Straight or Heterosexual Spiritual care concerns: No Agree to blood products: Yes Meds Home Medications and Allergies Home Medications ?Medication ?Instructions ?Recorded ?Confirmed ?Type apixaban 5 mg tablet (Eliquis) 5 mg PO BID 01/01/21 09/04/24 History ascorbic acid (vitamin C) 250 mg 282 mg PO 1700 01/01/21 09/04/24 History tablet aspirin 81 mg chewable tablet 81 mg PO 1200 01/01/21 09/04/24 History calcium carbonate 650 mg PO 1700 01/01/21 09/04/24 History cyanocobalamin (vitamin B-12) 2,500 mcg PO 1200 01/01/21 09/04/24 History 2,500 mcg tablet coenzyme Q10 100 mg capsule (Co 100 mg PO DAILY 12/31/21 09/04/24 History Q-10) melatonin 5 mg chewable tablet 10 mg PO HS 12/31/21 09/04/24 History [id number] 300 mcg-K 60 1 tablet PO DAILY 12/31/21 09/04/24 History mcg-lycop 600 mcg-lutein 300 mcg tablet (Centrum Silver Men) red beet 250 mg-sour crouch 1 tablet PO DAILY 08/25/22 09/04/24 History extract 0.5 mg chewable tablet cholecalciferol (vitamin D3) 125 125 mcg PO 1200 10/10/22 09/04/24 History mcg (5,000 unit) tablet folic acid 800 mcg tablet 400 mg PO 1200 10/10/22 09/04/24 History zinc 15 mg tablet 15 mg PO DAILY 10/10/22 09/04/24 History diltiazem HCl 120 mg 120 mg PO 1200 12/18/22 09/04/24 History capsule,extended release 24 hr lidocaine 4 % topical patch 1 patch transdermal DAILY #15 ea 01/01/23 09/04/24 Rx (Lidocaine Pain Relief) acetaminophen 500 mg tablet 500 mg PO Q6H PRN pain 01/06/23 09/04/24 History (Tylenol Extra Strength) fluticasone propionate 50 1 spray intranasal BID 01/06/23 09/04/24 History mcg/actuation nasal spray,suspension prevagen See Rx Instructions BYMOUTH 01/06/23 09/04/24 History .COMPLEX vit C 250 mg-vit E 90 mg-zinc 40 1 tablet PO ONCE 01/06/23 09/04/24 History mg-copper 1 [id number] capsule (PreserVision AREDS-2) turmeric 400 mg capsule 400 mg PO DAILY 04/09/23 09/04/24 History pravastatin 20 mg tablet 20 mg PO QHS #90 tabs 12/29/23 09/04/24 Rx galantamine 4 mg tablet See Rx Instructions .Route 05/31/24 09/04/24 Rx .COMPLEX #240 tabs memantine 10 mg tablet 10 mg PO BID #180 tabs 05/31/24 09/04/24 Rx diltiazem HCl 120 mg capsule,24 120 mg PO Q24H 08/07/24 09/04/24 History hr,extended release clindamycin HCl 300 mg capsule 300 mg PO Q6H Dental infection 09/04/24 09/04/24 History Allergies Allergy/AdvReac Type Severity Reaction Status Date / Time Penicillins Allergy Severe Swelling Verified 08/12/24 14:03 morphine AdvReac Intermediate Hallucinati Verified 08/12/24 14:03 ng RICARDO Inhibitors AdvReac Mild Cough Verified 08/12/24 14:03 midazolam (From Versed) AdvReac Mild Agitated Verified 08/12/24 14:03 Vital Signs Vital Signs - 24 hr 09/04/24 09:49 09/04/24 09:51 09/04/24 09:55 Temperature 97.9 F Pulse Rate 71 76 69 Respiratory Rate 24 H 34 H 27 H Blood Pressure 146/70 H 146/70 H Pulse Oximetry 97 95 Oxygen Delivery Room Air 09/04/24 10:00 09/04/24 10:05 09/04/24 10:15 Temperature Pulse Rate 70 67 Respiratory Rate 39 H 15 Blood Pressure Pulse Oximetry 98 95 97 Oxygen Delivery Room Air 09/04/24 10:17 09/04/24 10:30 09/04/24 10:32 Temperature Pulse Rate 73 70 65 Respiratory Rate 18 44 H 24 H Blood Pressure 157/63 H 145/72 H Pulse Oximetry 97 97 Oxygen Delivery 09/04/24 10:33 09/04/24 10:45 09/04/24 10:47 Temperature Pulse Rate 73 72 65 Respiratory Rate 44 H 23 H 30 H Blood Pressure 135/67 Pulse Oximetry 96 96 97 Oxygen Delivery 09/04/24 11:00 09/04/24 11:02 09/04/24 11:15 Temperature Pulse Rate 61 64 Respiratory Rate 28 H 19 32 H Blood Pressure 140/62 Pulse Oximetry Oxygen Delivery 09/04/24 11:17 09/04/24 11:30 09/04/24 11:32 Temperature Pulse Rate 55 L 68 66 Respiratory Rate 20 27 H 23 H Blood Pressure 140/68 160/76 H Pulse Oximetry 98 98 Oxygen Delivery 09/04/24 11:45 09/04/24 11:47 Temperature Pulse Rate 63 69 Respiratory Rate 27 H 21 H Blood Pressure 142/80 H Pulse Oximetry 99 99 Oxygen Delivery Exam Const: General: comfortable and no acute distress HENMT: Face/Nose/Sinus: Normal nares present Mouth: Yes moist mucous membranes Eyes: General: appearance normal, both eyes and all related structures Sclera: sclerae normal Pupils: Equal, round and reactive pupils present EOM: EOMs intact bilaterally Resp: Effort & Inspection: normal respiratory effort Other: absent breath sounds in the lower lung figueroa, L worse than R. no wheezing or crackles appreciated. Cardio: Rate: regular rate Rhythm: regular rhythm Other: S1-S2 present without murmur, rub, ectopy GI: Other: Abdomen soft, nondistended, nontender. Normoactive bowel sounds in all quadrants. Skin: General skin exam: normal color and no rashes or lesions noted Wounds: no wounds Neuro: Speech: normal speech Motor exam (neuro): 5/5 motor strength present throughout Sensory Exam: normal sensation Other: A&O x3 Extrem: General: normal to inspection Psych: Mental Status: mental status grossly normal Affect: normal affect Other: fair to poor insight and judgment, very pleasant H&P: Results Labs Labs: Short CBC 09/04/24 Range/Units 09:56 WBC 6.1 (4.5-10.0) K/mm3 Hgb 15.0 (14.0-18.0) g/dL Hct 44.5 (42.0-52.0) % Plt Count 114 L (150-375) k/mm3 BMP 09/04/24 09:56 Sodium 136 L Potassium 3.9 Chloride 103 Carbon Dioxide 23 BUN 13 D Creatinine 0.85 Glucose 157 H Calcium 9.6 Cardiac Enzymes 09/04/24 09/04/24 Range/Units 09:56 12:38 Troponin I < 0.012 < 0.012 (0.000-0.034) ng/mL Liver Function 09/04/24 Range/Units 09:56 Total Bilirubin 1.3 (0.2-1.3) mg/dL AST 28 (17-59) U/L ALT 19 (6-50) U/L Alkaline Phosphatase 71 (38-126) U/L Albumin 4.0 (3.5-5.1) g/dL Assessment and Plan Assessment and plan (1) CHF (congestive heart failure): Qualifiers: Heart failure chronicity: acute Heart failure type: unspecified Qualified Code(s): I50.9 - Heart failure, unspecified Code(s): I50.9 - Heart failure, unspecified Status: Acute Assessment and Plan: - BNP 2700 - check echo, none on file - start Lasix 40 mg IV daily, monitor response and BP - monitor I&Os and daily weights - trend renal function Suspect shortness of breath and chest tightness secondary to new effusions. BNP elevated. Coupled with effusions, suspect CHF. Troponin thus far negative x2 (awaiting 6 hr), reducing suspicion for ACS as source of chest tightness. Will start diuresis, check echo, and monitor patient's response. (2) Paroxysmal atrial fibrillation: Code(s): I48.0 - Paroxysmal atrial fibrillation Status: Acute Assessment and Plan: - initial EKG showed rate controlled AFib - continue home medication(s): Eliquis, diltiazem (3) Hypertension: Qualifiers: Hypertension type: primary hypertension Qualified Code(s): I10 - Essential (primary) hypertension Code(s): I10 - Essential (primary) hypertension Status: Chronic Assessment and Plan: - chronic, currently 142/80 - continue home medications: diltiazem - monitor Plan Diet: heart healthy GI Prophylaxis: not currently indicated DVT Prophylaxis: Eliquis IV fluids: none, concern for volume overload as evidence by pleural effusions Lines/Tubes: peripheral IV Code Status: full code Quality VTE Prophylaxis VTE prophylaxis: pharmacologic ordered Hospitalist MIPS Advance Care Plan I have confirmed that the patient's Advanced Care Plan is present, code status is documented, or surrogate decision maker is listed in patient medical record.: Yes Medication Reconciliation I have utilized all available resources to obtain, update and review the patients current medications (includes all prescriptions, OTC, herbals, cannabis, and nutritional supplements).: Yes
[2024-09-04] MEDS: FUROSEMIDE INJ 40 MG/4 ML VIAL IV PUSH ×2 (13:56→20:37)
--- NOTE | 2024-09-04 18:04 | ADMGEN ---
This patient, Bud James, was admitted to Medical Room 254-01. Patient/family oriented to hospital policies and general routines including ID bracelet, bed and alarms, visiting hours, pain management, procedures, bathroom and other care routines, personal items, smoking policy, room service/diet, and visiting hours. Information on how to activate the Rapid Response Team has been discussed. Patient/Family are encouraged to report perceived risks to care and to ask questions if they do not understand what they are told or what they should do.
[2024-09-04] MEDS: ASCORBIC ACID 250 MG TABLET PO (18:30)
[2024-09-04] MEDS: CALCIUM CARBONATE (OSCAL) 500 MG TABLET PO (18:30)
[2024-09-04] MEDS: GALANTAMINE HYDROBROMIDE 4 MG TABLET 12 MG PO (18:30)
[2024-09-04] MEDS: MEMANTINE 10 MG TABLET PO (18:30)
[2024-09-04] MEDS: CLINDAMYCIN HCL 150 MG CAP 300 MG PO ×2 (18:44→23:56)
[2024-09-04 20:21] LABS: Troponin I < 0.012 ng/mL (0.000-0.034)
[2024-09-04] MEDS: APIXABAN 5 MG TABLET PO (20:36)
[2024-09-04] MEDS: PRAVASTATIN SODIUM 20 MG TABLET PO (20:36)
[2024-09-04] MEDS: MELATONIN 5 MG TABLET 10 MG PO (20:38)
[2024-09-05] VITALS (9 sets, daily range): BP systolic 118–138; BP diastolic 68–82; PULSE 66–113; RESP 16–26; TEMP 36.7–36.8; O2SAT 94–97
--- NOTE | 2024-09-05 | ECHO_ITS ---
Patient Info Name: Bud James Age: 84 years : 1940 Gender: Male Ht: 72 in Wt: 186 lbs BSA: 2.08 m2 HR: 100 bpm BP: 138 / 82 mmHg Technical Quality: Fair Exam Date: 09/05/2024 11:24 AM Patient Status: I Admit Date: 09/04/2024 Exam Type: CA echo dop color flow w con Complete two-dimensional, color flow and Doppler transthoracic echocardiogram is performed with contrast to opacify the left ventricle and to improve the deliniation of the left ventricle endocardial borders. Staff Referring Physician: Miquel Su Welfare Administrator: Olivia Rolle Attending Provider: Alexander Denny MD Contrast/Agitated Saline Contrast/Ag. Saline: Definity Amount: 2.00 ml Administered By: Olivia Rolle Existing IV Access: Yes IV Access Condition: patent with no signs of infiltration Summary 1. Left ventricular systolic function is mildly reduced, estimated at 40-45. 2. The left ventricular diastolic function is abnormal. 3. Left atrial chamber dimension is mildly enlarged. 4. There is mild aortic valve stenosis. BHAVNA 1.6cm2, mean gradient 5mmHg. 5. There is mild aortic valve calcification. 6. There is mild tricuspid valve regurgitation. 7. No pulmonary hypertension, estimated pulmonary arterial systolic pressure is 22 mmHg. Left Ventricle Left ventricular chamber dimension is normal. Left ventricular systolic function is mildly reduced, estimated at 40-45. There is mildly increased left ventricular wall thickness. Left ventricular septal wall motion is normal. The left ventricular diastolic function is abnormal. Right Ventricle Right ventricular chamber dimension is normal. Right ventricular systolic function is normal. Left Atria Left atrial chamber dimension is mildly enlarged. Right Atria Right atrial chamber dimension is normal. Aortic Valve The aortic valve is trileaflet. There is no aortic valve sclerosis. There is mild aortic valve stenosis. BHAVNA 1.6cm2, mean gradient 5mmHg. There is no aortic valve regurgitation. There is mild aortic valve calcification. Pulmonic Valve The pulmonic valve is normal. There is no pulmonic valve stenosis. There is no pulmonic regurgitation. Mitral Valve The mitral valve has normal leaflets. There is no mitral valve stenosis. There is no mitral valve regurgitation. There is mild mitral valve calcification. Tricuspid Valve The tricuspid valve leaflets are normal. There is no significant tricuspid valve stenosis. There is mild tricuspid valve regurgitation. No pulmonary hypertension, estimated pulmonary arterial systolic pressure is 22 mmHg. Pericardium/Pleural The pericardium appears normal. There is no pericardial effusion. Inferior Vena Cava Normal inferior vena cava with >50% collapse upon inspiration consistent with normal right atrial pressure, 5 mmHg. Aorta The aortic root size at the sinus of Valsalva is normal. The prox ascending aorta size is normal. Left Ventricular Outflow Tract Name Value Normal LVOT 2D LVOT Diameter 2.0 cm LVOT Doppler LVOT Peak Velocity 75 cm/s LVOT Peak Gradient 2 mmHg LVOT Mean Gradient 1 mmHg LVOT VTI 12 cm LVOT VTI/AV VTI Ratio 0.5 LVOT Stroke Volume 36 ml LVOT CO 2.8 l/min LVOT CI 1.3 l/min/m2 Pulmonic Valve Name Value Normal RVOT Doppler RVOT Peak Velocity 69 cm/s RVOT Peak Gradient 2 mmHg PV Doppler PV Peak Velocity 125 cm/s PV Peak Gradient 6 mmHg Mitral Valve Name Value Normal MV Diastolic Function MV E Peak Velocity 79 cm/s MV A Peak Velocity 0 cm/s MV E/A 283.8 MV Decel Time (PW) 194 ms MV Annular TDI MV E/e' (Septal) 14.0 MV E/e' (Lateral) 6.2 MV E/e' (Average) 10.1 Tricuspid Valve Name Value Normal TV Regurgitation Doppler TR Peak Velocity 205 cm/s TR Peak Gradient 17 mmHg Estimated PAP/RSVP RA Pressure 5 mmHg <=5 PA Systolic Pressure 22 mmHg <36 RV Systolic Pressure 22 mmHg <36 TV Annular TDI TV Lateral Leyda s' Velocity 4.9 cm/s >=9.5 Aortic Valve Name Value Normal AV Doppler AV Peak Velocity 142 cm/s AV Peak Gradient 8 mmHg AV Mean Gradient 5 mmHg AV VTI 22 cm AV Area (Cont Eq VTI) 1.7 cm2 >=3.0 AV Area (Cont Eq Toby) 1.6 cm2 AV DI (Toby) 0.53 AV Regurgitation 2D LVOT Area 3.1 cm2 Ventricles Name Value Normal LV Dimensions 2D/MM IVS Diastolic Thickness (2D) 1.1 cm 0.6-1.0 LVID Diastole (2D) 4.5 cm 4.2-5.8 LVIW Diastolic Thickness (2D) 0.9 cm 0.6-1.0 LVID Systole (2D) 2.7 cm 2.5-4.0 LVOT Diameter 2.0 cm LV Mass (2D Cubed) 153.16 g 88.00-224.00 LV Mass Index (2D Cubed) 74 g/m2 49-115 Relative Wall Thickness (2D) 0.41 <=0.42 LV Fractional Shortening/Ejection Fraction 2D/MM LV Fractional Shortening (2D) 40 % 25-43 LV EF (2D Teichholz) 70 % LV Diastolic Volume (4C MOD) 53 ml LV EF (4C MOD) 52 % LV Diastolic Volume (2C MOD) 45 ml LV EF (2C MOD) 64 % LV Diastolic Volume (BP MOD) 49 ml 62-150 LV Diastolic Volume Index (BP MOD) 23 ml/m2 34-74 LV Systolic Volume (BP MOD) 22 ml 21-61 LV Systolic Volume Index (BP MOD) 10 ml/m2 11-31 LV EF (BP MOD) 55 % 52-72 LV Diastolic Length (4C) 7.6 cm LV Systolic Length (4C) 6.5 cm LV Stroke Volume (4C MOD) 27 ml Atria Name Value Normal LA Dimensions LA Volume (4C A-L) 77 ml LA Volume (BP A-L) 65 ml RA Dimensions RA Area (4C) 16.8 cm2 <=18.0 Report Signatures Amended by Elina Mariee MD on 09/05/2024 06:41 PM
[2024-09-05 04:55] LABS: Hematocrit 42.4 % (42.0-52.0); Hemoglobin 14.4 g/dL (14.0-18.0); Immature Granulocyte Percent A 0.3 % (0-0.5); Immature Platelet Fraction Pct 4.9 % (0.9-11.2); Lymphocytes Absolute Auto 0.78 K/mm3 (0.9-3.2); Mean Corpuscular HGB Conc 34.0 g/dl (32-36); Mean Corpuscular Hemoglobin 33.2 pg (26-34); Mean Corpuscular Volume 97.7 fl (80-100); Nucleated Red Blood Cells Absolute Auto 0.000 K/mm3 (0.0-0.012); Nucleated Red Blood Cells Perc 0.0 % (0.0-0.2); Platelet Count Result 108 k/mm3 (150-375); Red Blood Count 4.34 M/mm3 (4.6-6.20); White Blood Count 6.5 K/mm3 (4.5-10.0)
[2024-09-05 05:05] LABS: Anion Gap 5 mmol/L (4-12); Blood Urea Nitrogen 13 mg/dL (9-20); Calcium 9.8 mg/dL (8.4-10.2); Carbon Dioxide 31 mmol/L (22-30); Chloride 99 mmol/L (98-107); Estimated CRCL calculation 51 ml/min; Estimated Glomerular Filt Rate > 60; Glucose 110 mg/dL (65-110); Potassium 4.2 mmol/L (3.4-5.0); Sodium 135 mmol/L (137-145)
[2024-09-05] MEDS: CLINDAMYCIN HCL 150 MG CAP 300 MG PO ×3 (05:53→17:32)
--- NOTE | 2024-09-05 09:05 | P.PNIM_ITS ---
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 Kong * IV Lasix b.i.d. * monitor renal function during diuresis * echocardiogram pending * daily weights (2) Pleural effusion: Code(s): J90 - Pleural effusion, not elsewhere classified Status: Acute Assessment and Plan: SEE ABOVE * continue with IV Lasix * add incentive spirometer * oxygen as needed currently on room air (3) Paroxysmal atrial fibrillation: Code(s): I48.0 - Paroxysmal atrial fibrillation Status: Acute Assessment and Plan: patient with history proximal atrial fibrillation had previous cardiac monitoring device which has been removed * continued patient's diltiazem for rate control and Eliquis * patient on continuous cardiac monitoring (4) Hyperlipidemia: Qualifiers: Hyperlipidemia type: mixed hyperlipidemia Qualified Code(s): E78.2 - Mixed hyperlipidemia Code(s): E78.5 - Hyperlipidemia, unspecified Status: Acute Assessment and Plan: * Continue statin Plan Code status: Full code per patient DVT prophylaxis: eliquis Stress ulcer prophylaxis: NA PT/OT notes: NA Disposition: patient admitted to the medical unit for further evaluation and treatment of new onset shortness a breath with bilateral pleural effusions and evaluation for new onset congestive heart failure echocardiogram pending and Cardiology consulted. Time Spent With Patient Time with patient: 15 - 25 minutes Subjective Date/time seen: 09/05/24 09:05 Interval history: Patient is an 84-year-old male who was admitted for further evaluation and treatment of shortness of breaths likely secondary to bilateral pleural effusions and CHF exacerbation. 09/05/2024 Patient with mild SOB, reports post nasal drip and having difficulty clearing his secretions. denied any chest pain CXR showing bilateral pleural effusions Review of Systems Review of Systems: All systems reviewed & are unremarkable except as noted in HPI and below Exam Const: General: comfortable and no acute distress Other: On RA HENMT: Mouth: Yes moist mucous membranes Eyes: General: appearance normal, both eyes and all related structures Neck: Neck: supple and no JVD Resp: Effort & Inspection: normal respiratory effort Other: absent breath sounds in the lower lung figueroa, L worse than R. no wheezing or crackles appreciated. Cardio: Other: regular, irregular AFIB on monitor and EKG GI: Other: Abdomen soft, nondistended, nontender. Normoactive bowel sounds in all quadrants. Skin: General skin exam: normal color and no rashes or lesions noted Wounds: no wounds Neuro: Speech: normal speech Motor exam (neuro): 5/5 motor strength present throughout Sensory Exam: normal sensation Other: A&O x3 Extrem: General: normal to inspection Psych: Mental Status: mental status grossly normal Affect: normal affect Other: very pleasant Objective Data Vital Signs Vital Signs: Vital Signs - 24 hr 09/04/24 09:49 09/04/24 09:51 09/04/24 09:55 Temperature 97.9 F Pulse Rate 71 76 69 Respiratory Rate 24 H 34 H 27 H Blood Pressure 146/70 H 146/70 H Pulse Oximetry 97 95 Oxygen Delivery Room Air Fraction of Inspired Oxygen 09/04/24 10:00 09/04/24 10:05 09/04/24 10:15 Temperature Pulse Rate 70 67 Respiratory Rate 39 H 15 Blood Pressure Pulse Oximetry 98 95 97 Oxygen Delivery Room Air Fraction of Inspired Oxygen 09/04/24 10:17 09/04/24 10:30 09/04/24 10:32 Temperature Pulse Rate 73 70 65 Respiratory Rate 18 44 H 24 H Blood Pressure 157/63 H 145/72 H Pulse Oximetry 97 97 Oxygen Delivery Fraction of Inspired Oxygen 09/04/24 10:33 09/04/24 10:45 09/04/24 10:47 Temperature Pulse Rate 73 72 65 Respiratory Rate 44 H 23 H 30 H Blood Pressure 135/67 Pulse Oximetry 96 96 97 Oxygen Delivery Fraction of Inspired Oxygen 09/04/24 11:00 09/04/24 11:02 09/04/24 11:15 Temperature Pulse Rate 61 64 Respiratory Rate 28 H 19 32 H Blood Pressure 140/62 Pulse Oximetry Oxygen Delivery Fraction of Inspired Oxygen 09/04/24 11:17 09/04/24 11:30 09/04/24 11:32 Temperature Pulse Rate 55 L 68 66 Respiratory Rate 20 27 H 23 H Blood Pressure 140/68 160/76 H Pulse Oximetry 98 98 Oxygen Delivery Fraction of Inspired Oxygen 09/04/24 11:45 09/04/24 11:47 09/04/24 11:48 Temperature Pulse Rate 63 69 67 Respiratory Rate 27 H 21 H 27 H Blood Pressure 142/80 H Pulse Oximetry 99 99 96 Oxygen Delivery Fraction of Inspired Oxygen 09/04/24 12:08 09/04/24 12:09 09/04/24 12:15 Temperature Pulse Rate 72 59 L 55 L Respiratory Rate 19 17 25 H Blood Pressure 167/94 H Pulse Oximetry 97 98 98 Oxygen Delivery Fraction of Inspired Oxygen 09/04/24 12:33 09/04/24 12:45 09/04/24 12:47 Temperature Pulse Rate 75 64 76 Respiratory Rate 20 21 H 20 Blood Pressure 155/94 H Pulse Oximetry Oxygen Delivery Fraction of Inspired Oxygen 09/04/24 13:04 09/04/24 13:06 09/04/24 13:15 Temperature Pulse Rate 76 79 64 Respiratory Rate 20 23 H 12 Blood Pressure 174/91 H Pulse Oximetry 98 98 96 Oxygen Delivery Fraction of Inspired Oxygen 09/04/24 13:17 09/04/24 13:30 09/04/24 13:32 Temperature Pulse Rate 73 70 72 Respiratory Rate 36 H 18 23 H Blood Pressure 147/95 H 142/83 H Pulse Oximetry 99 100 100 Oxygen Delivery Fraction of Inspired Oxygen 09/04/24 13:45 09/04/24 13:47 09/04/24 14:00 Temperature Pulse Rate 73 81 94 Respiratory Rate 17 21 H 29 H Blood Pressure 136/71 Pulse Oximetry 98 97 98 Oxygen Delivery Fraction of Inspired Oxygen 09/04/24 14:02 09/04/24 14:04 09/04/24 16:55 Temperature Pulse Rate 73 83 74 Respiratory Rate 25 H 16 Blood Pressure 142/92 H Pulse Oximetry 91 100 Oxygen Delivery Fraction of Inspired Oxygen 09/04/24 20:00 09/04/24 20:00 09/04/24 20:47 Temperature 97.8 F Pulse Rate 78 72 Respiratory Rate 16 Blood Pressure 162/74 H Pulse Oximetry 98 Oxygen Delivery Room Air Fraction of Inspired Oxygen 09/04/24 21:37 09/05/24 00:00 09/05/24 04:00 Temperature Pulse Rate 71 66 Respiratory Rate Blood Pressure Pulse Oximetry 96 Oxygen Delivery Room Air Fraction of Inspired Oxygen 09/05/24 05:53 Temperature 98.0 F Pulse Rate 100 Respiratory Rate 16 Blood Pressure 138/82 Pulse Oximetry 94 Oxygen Delivery Fraction of Inspired Oxygen Intake/Output Intake/Output: Intake & Output 09/02/24 09/03/24 09/04/24 09/05/24 23:59 23:59 23:59 23:59 Intake Total 120 740 Output Total 1665 400 Balance -1545 340 Meds/Results Medications: Active Medications Generic Name Dose Route Start Last Admin Trade Name Freq PRN Reason Stop Dose Admin Acetaminophen 650 mg 09/04/24 13:46 Acetaminophen 325 Mg Tablet PO Q6H PRN Mild Pain (1-3) or Fever Apixaban 5 mg 09/04/24 21:00 09/04/24 20:36 Apixaban 5 Mg Tablet PO 5 mg Q12HR ARABELLA Administration Ascorbic Acid 250 mg 09/04/24 17:00 09/04/24 18:30 Ascorbic Acid 250 Mg Tablet PO 250 mg 1700 ARABELLA Administration Aspirin 81 mg 09/05/24 12:00 Aspirin 81 Mg Chewable Tablet PO 1200 [facility] Benzocaine 1 lozenge 09/04/24 16:44 Benzocaine/Menthol (*Bkc) 18 Ea Lozenge PO PRN PRN Sore Throat Calcium Carbonate 200 mg 09/04/24 13:47 Calcium Carbonate (Tums) 500 Mg (200 Mg Elemental) PO Q6H PRN Indigestion Calcium Carbonate 500 mg 09/04/24 17:00 09/04/24 18:30 Calcium Carbonate (Oscal) 500 Mg Tablet PO 500 mg 1700 [facility] Administration Clindamycin HCl 300 mg 09/04/24 18:00 09/05/24 05:53 Clindamycin Hcl 150 Mg Cap PO 300 mg Q6H ARABELLA Administration Cyanocobalamin 2,000 mcg 09/05/24 12:00 Cyanocobalamin 1,000 Mcg Tablet PO 1200 [facility] Cyanocobalamin 500 mcg 09/05/24 12:00 Cyanocobalamin 500 Mcg Tablet PO 1200 [facility] Diltiazem HCl 120 mg 09/05/24 09:00 Diltiazem Hcl Cd 120 Mg Cap.24hr PO DAILY [facility] Docusate Sodium 100 mg 09/04/24 13:47 Docusate Sodium 100 Mg Capsule PO Q12H PRN Constipation Fluticasone Propionate 1 spray 09/05/24 09:00 Fluticasone Propionate 0.05% Na Spr 16 Gm Btl (*Bkc) NASAL BID ARABELLA Folic Acid 400 mg 09/05/24 12:00 Folic Acid 0.4 Mg Tablet PO 1200 [facility] Furosemide 40 mg 09/05/24 09:00 Furosemide Inj 40 Mg/4 Ml Vial IV PUSH BID ARABELLA Galantamine Hydrobromide 12 mg 09/04/24 17:55 09/04/24 18:30 Galantamine Hydrobromide 4 Mg Tablet PO 12 mg BID ARABELLA Administration Melatonin 10 mg 09/04/24 21:00 09/04/24 20:38 Melatonin 5 Mg Tablet PO 10 mg HS ARABELLA Administration Memantine 10 mg 09/04/24 17:55 09/04/24 18:30 Memantine 10 Mg Tablet PO 10 mg BID ARABELLA Administration Multivitamins/Minerals 1 tablet 09/05/24 09:00 Opti-Gen Tab PO DAILY ARABELLA Ondansetron HCl 4 mg 09/04/24 13:47 Ondansetron Inj 4 Mg/2 Ml Vial IV PUSH Q6H PRN Nausea And Vomiting Perflutren Lipid Microsphere 0 ml 09/04/24 13:44 Perflutren Lipid Microspheres 1.5 Ml Vial Diluted To 10 Ml Total Volume IV PUSH 09/07/24 13:44 ONCE PRN adequate visualization Protocol Pravastatin Sodium 20 mg 09/04/24 21:00 09/04/24 20:36 Pravastatin Sodium 20 Mg Tablet PO 20 mg QHS ARABELLA Administration Vitamin D 125 mcg 09/05/24 12:00 Cholecalciferol (Vitamin D3) 125 Mcg (5,000 Units) Tablet PO 1200 ARABELLA Radiology Results: ITS Impressions Chest X-Ray 09/04/24 10:42 IMPRESSION: Bilateral pleural effusions, moderate on the left and small on the right. Labs Labs: Laboratory Results - last 24 hr 09/04/24 09/04/24 09/04/24 09:56 10:42 12:38 WBC 6.1 RBC 4.56 L Hgb 15.0 Hct 44.5 MCV 97.6 MCH 32.9 MCHC 33.7 RDW 12.6 Plt Count 114 L MPV 10.2 Immature Gran % (Auto) 0.2 Neut % (Auto) 73.9 H Lymph % (Auto) 14.0 L Trigg % (Auto) 9.6 H Eos % (Auto) 1.8 Baso % (Auto) 0.5 Lymph # (Auto) 0.85 L [place] # (Auto) 0.6 Eos # (Auto) 0.1 Baso # (Auto) 0.0 Abs Immat Gran (auto) 0.01 Absolute Neuts (auto) 4.5 Absolute Nucleated RBC 0.000 Nucleated RBC % 0.0 % Immature Plt Fraction 4.1 PT 14.9 H INR 1.2 APTT 28.9 Sodium 136 L Potassium 3.9 Chloride 103 Carbon Dioxide 23 Anion Gap 10 BUN 13 D Creatinine 0.85 Estim Creat Clear Calc 62 Estimated GFR > 60 Glucose 157 H Calcium 9.6 Total Bilirubin 1.3 AST 28 ALT 19 Alkaline Phosphatase 71 Troponin I < 0.012 < 0.012 NT-Pro-B Natriuret Pep 2700 H Total Protein 6.8 Albumin 4.0 Lipase 176 Influenza A (RT-PCR) Negative Influenza B (RT-PCR) Negative RSV (RT-PCR) Negative SARS-CoV-2 RNA (RT-PCR) Negative 09/04/24 09/05/24 19:46 04:36 WBC 6.5 RBC 4.34 L Hgb 14.4 Hct 42.4 MCV 97.7 MCH 33.2 MCHC 34.0 RDW 12.7 Plt Count 108 L MPV 10.4 Immature Gran % (Auto) 0.3 Neut % (Auto) 72.1 Lymph % (Auto) 12.0 L [place] % (Auto) 13.1 H Eos % (Auto) 2.0 Baso % (Auto) 0.5 Lymph # (Auto) 0.78 L [place] # (Auto) 0.9 H Eos # (Auto) 0.1 Baso # (Auto) 0.0 Abs Immat Gran (auto) 0.02 Absolute Neuts (auto) 4.7 Absolute Nucleated RBC 0.000 Nucleated RBC % 0.0 % Immature Plt Fraction 4.9 PT INR APTT Sodium 135 L Potassium 4.2 Chloride 99 Carbon Dioxide 31 H Anion Gap 5 BUN 13 Creatinine 0.92 Estim Creat Clear Calc 51 Estimated GFR > 60 Glucose 110 Calcium 9.8 Total Bilirubin AST ALT Alkaline Phosphatase Troponin I < 0.012 NT-Pro-B Natriuret Pep Total Protein Albumin Lipase Influenza A (RT-PCR) Influenza B (RT-PCR) RSV (RT-PCR) SARS-CoV-2 RNA (RT-PCR) Quality VTE Prophylaxis VTE prophylaxis: pharmacologic ordered -Patient's previous records reviewed on admission -ER notes reviewed in detail on admission -discussed all findings and current treatment plan with patient/Family/POA -Consultations reviewed for recommendations -Patient's disposition for safe discharge discussed with watch case polisher Dictation performed by [employer] direct speech recognition software, therefore x ray consultant variants and typographical errors may occur. Hospitalist MIPS Advance Care Plan I have confirmed that the patient's Advanced Care Plan is present, code status is documented, or surrogate decision maker is listed in patient medical record.: Yes Medication Reconciliation I have utilized all available resources to obtain, update and review the patients current medications (includes all prescriptions, OTC, herbals, cannabis, and nutritional supplements).: Yes The patient is not eligible for med reconciliation; the patient is in a emergent medical situation where delaying treatment would jeopardize the patients health.: No
[2024-09-05] MEDS: GALANTAMINE HYDROBROMIDE 4 MG TABLET 12 MG PO ×2 (09:38→17:32)
[2024-09-05] MEDS: dilTIAZem HCL CD 120 MG CAP.24HR PO (09:38)
[2024-09-05] MEDS: OPTI-GEN TAB 1 TABLET PO (09:38)
[2024-09-05] MEDS: MEMANTINE 10 MG TABLET PO ×2 (09:38→17:32)
[2024-09-05] MEDS: APIXABAN 5 MG TABLET PO ×2 (09:39→21:51)
[2024-09-05] MEDS: FLUTICASONE PROPIONATE 0.05% NA SPR 16 GM BTL (*BKC) 1 SPRAY NASAL ×2 (09:39→17:32)
[2024-09-05] MEDS: FUROSEMIDE INJ 40 MG/4 ML VIAL IV PUSH ×2 (09:39→17:37)
[2024-09-05 09:42] LABS: Magnesium 1.9 mg/dL (1.6-2.3)
[2024-09-05] MEDS: PERFLUTREN LIPID MICROSPHERES 1.5 ML VIAL DILUTED TO 10 ML TOTAL VOLUME IV PUSH (11:54)
[2024-09-05] MEDS: CYANOCOBALAMIN 1,000 MCG TABLET 2000 MCG PO (12:14)
[2024-09-05] MEDS: CYANOCOBALAMIN 500 MCG TABLET PO (12:15)
[2024-09-05] MEDS: CHOLECALCIFEROL (VITAMIN D3) 125 MCG (5,000 UNITS) TABLET PO (12:15)
[2024-09-05] MEDS: ASPIRIN 81 MG CHEWABLE TABLET PO (12:15)
--- NOTE | 2024-09-05 13:28 | IVDEFINITY ---
Prior to administration of IV Definity the patient was educated on the risks and benefits of the imaging enhancing agent including potential adverse side effects. The patient verbalized understanding. Allergies were verified. No exclusion criteria were identified and at least one of the following inclusion criteria were met: 1) physician request, 2) patient technically difficult to image (per the [place] [employer] guidelines of two or more segments not discernable within the apical view), or 3) questionable left ventricular function. ?
--- NOTE | 2024-09-05 15:01 | P.CONCA_ITS ---
Assessment and Plan Assessment and plan (1) Paroxysmal atrial fibrillation: Code(s): I48.0 - Paroxysmal atrial fibrillation Status: Acute (2) Hyperlipidemia: Qualifiers: Hyperlipidemia type: mixed hyperlipidemia Qualified Code(s): E78.2 - Mixed hyperlipidemia Code(s): E78.5 - Hyperlipidemia, unspecified Status: Acute (3) Hypertension: Qualifiers: Hypertension type: primary hypertension Qualified Code(s): I10 - Essential (primary) hypertension Code(s): I10 - Essential (primary) hypertension Status: Chronic (4) CHF (congestive heart failure): Qualifiers: Heart failure chronicity: acute Heart failure type: unspecified Q ualified Code(s): I50.9 - Heart failure, unspecified Code(s): I50.9 - Heart failure, unspecified Status: Acute (5) AAA (abdominal aortic aneurysm): Code(s): I71.40 - Abdominal aortic aneurysm, without rupture, unspecified Status: Acute Plan -Cough with clear stringy mucus, shortness of breath, chest tightness with cough-suspect viral respiratory infection, he also has moderate right and small left pleural effusions. Heart failure less likely given he is euvolemic on exam, ACS less likely as troponin x2 negative, EKG AFib with rates of 66, nonspecific ST change -Bilateral pleural effusion-moderate on the right and small on left -Paroxysmal AFib-rate controlled in the 70s -CAD status post CABG X 3 in 2019-chest pain appears noncardiac as it occurs when patient has coughing bout -Chronic diastolic heart failure-euvolemic on exam -Hypertension Plan: Continue diltiazem 120 mg q.day. He is in AFib with rates in the 70s Continue anticoagulation with Eliquis Continue aspirin Continue pravastatin EKG p.r.n. for chest pain And empagliflozin 10 mg daily TTE today Management of pleural effusion and other medical problems per primary team History of Present Illness History of Present Illness Consult date/time: 09/05/24 15:01 Reason For Visit: Shortness of Breath/CHF Narrative: 84-year-old male with history of CAD status post CABG X 3 in 2019, hyperlipidemia, hypertension, pulmonary emboli in 2009 on Eliquis, obesity, thrombocytopenia, Alzheimer's dementia, arthritis, GERD, BPH, colon cancer, prostate cancer status post radiation presents with chief complaints of shortness of breath, cough, and chest tightness. Due to dementia patient is not able to provide much history. Patient's provides most of the history. She reports that patient has been complaining of shortness of breath, cough, neck and chest tightness for about 4 days. He complains of chest tightness whenever he coughs. He has thick stringy mucus which is cleared. No recent sick contacts. He has intermittent poor appetite and fatigue for the past few weeks. No dizziness, lightheadedness, presyncope, syncope, palpitations, recent weight gain, lower extremity swelling, PND, orthopnea, abdominal distention, fever, chills, headache. Workup: Troponin: Negative x2 BNP: 2700 EKG: AFib, rate of 66, borderline left axis deviation, nonspecific ST depression Chest x-ray: Bilateral pleural effusions, moderate on the left and small the right Review of Systems 2 Review of Systems: A complete review of systems was performed and negative other than those mentioned HPI [facility] Past Medical History Medical History Prostate cancer Colon cancer (~11/01/10) BPH (benign prostatic hyperplasia) CAD (coronary artery disease) GERD (gastroesophageal reflux disease) Osteoarthritis of right knee Arthritis Dementia of the Alzheimer's type Hyperlipidemia Cognitive impairment Paroxysmal atrial fibrillation Overweight (BMI 25.0-29.9) Elevated PSA Thrombocytopenia Pulmonary emboli (~2008) Hypertension Surgical History Surgical History History of cataract extraction Fracture of hip, right, closed Right hip pinning December 19, 2022 History of colon surgery Hx of cholecystectomy 1999 S/P CABG x 3 (~10/06/18) History of left knee replacement (~2000) Family History Family History Father Heart disease Hypertension Mother Diabetes mellitus Hypertension Alzheimer disease Sibling Cancer of kidney Carcinoma of colon Cancer Daughter Cancer of kidney Cancer Grandparent Heart disease Cerebrovascular accident Social History Social History Social History: Currently lives at home with his . Surrogate decision maker: Erica Valenteew, daughter. Full Code. Caffeine-None Smoking status: Never smoker Second hand tobacco smoke exposure: No Alcohol intake: never Substance use: never Substance use type: does not use Do You Feel Safe in your Home?: Yes Lack of Transportation: No Lack of Food: Never True Current Housing: I Have Housing Concerned About Future Housing: No Difficulty Paying Gas/Electric Bills: No Difficulty Paying for Meds: No Currently Unemployed: YES Education: Bachelor's Degree Difficulty w/ Childcare or Family Care: No Living arrangements: with family Additional living arrangements comments: lives with in a house Occupation/Education: retired Gender identity (if verbalized by the patient): Male Sexual Orientation (if Verbalized by the Patient): Straight or Heterosexual Spiritual care concerns: No Agree to blood products: Yes Meds Home Medications and Allergies Home Medications ?Medication ?Instructions ?Recorded ?Confirmed ?Type apixaban 5 mg tablet (Eliquis) 5 mg PO BID 01/01/21 09/04/24 History ascorbic acid (vitamin C) 250 mg 282 mg PO 1700 01/01/21 09/04/24 History tablet aspirin 81 mg chewable tablet 81 mg PO 1200 01/01/21 09/04/24 History calcium carbonate 650 mg PO 1700 01/01/21 09/04/24 History cyanocobalamin (vitamin B-12) 2,500 mcg PO 1200 01/01/21 09/04/24 History 2,500 mcg tablet coenzyme Q10 100 mg capsule (Co 100 mg PO DAILY 12/31/21 09/04/24 History Q-10) melatonin 5 mg chewable tablet 10 mg PO HS 12/31/21 09/04/24 History [id number]-ot-[id number] 300 mcg-K 60 1 tablet PO DAILY 12/31/21 09/04/24 History mcg-lycop 600 mcg-lutein 300 mcg tablet (Centrum Silver Men) red beet 250 mg-sour crouch 1 tablet PO DAILY 08/25/22 09/04/24 History extract 0.5 mg chewable tablet cholecalciferol (vitamin D3) 125 125 mcg PO 1200 10/10/22 09/04/24 History mcg (5,000 unit) tablet folic acid 800 mcg tablet 400 mg PO 1200 10/10/22 09/04/24 History zinc 15 mg tablet 15 mg PO DAILY 10/10/22 09/04/24 History diltiazem HCl 120 mg 120 mg PO 1200 12/18/22 09/04/24 History capsule,extended release 24 hr lidocaine 4 % topical patch 1 patch transdermal DAILY #15 ea 01/01/23 09/04/24 Rx (Lidocaine Pain Relief) acetaminophen 500 mg tablet 500 mg PO Q6H PRN pain 01/06/23 09/04/24 History (Tylenol Extra Strength) fluticasone propionate 50 1 spray intranasal BID 01/06/23 09/04/24 History mcg/actuation nasal spray,suspension prevagen See Rx Instructions BYMOUTH 01/06/23 09/04/24 History .COMPLEX vit C 250 mg-vit E 90 mg-zinc 40 1 tablet PO ONCE 01/06/23 09/04/24 History mg-copper 1 [id number]-cukpod capsule (PreserVision AREDS-2) turmeric 400 mg capsule 400 mg PO DAILY 04/09/23 09/04/24 History pravastatin 20 mg tablet 20 mg PO QHS #90 tabs 12/29/23 09/04/24 Rx galantamine 4 mg tablet See Rx Instructions .Route 05/31/24 09/04/24 Rx .COMPLEX #240 tabs memantine 10 mg tablet 10 mg PO BID #180 tabs 05/31/24 09/04/24 Rx diltiazem HCl 120 mg capsule,24 120 mg PO Q24H 08/07/24 09/04/24 History hr,extended release clindamycin HCl 300 mg capsule 300 mg PO Q6H Dental infection 09/04/24 09/04/24 History Allergies Allergy/AdvReac Type Severity Reaction Status Date / Time Penicillins Allergy Severe Swelling Verified 08/12/24 14:03 morphine AdvReac Intermediate Hallucinati Verified 08/12/24 14:03 ng RICARDO Inhibitors AdvReac Mild Cough Verified 08/12/24 14:03 midazolam (From Versed) AdvReac Mild Agitated Verified 08/12/24 14:03 Vital Signs Vital Signs - 24 hr 09/04/24 16:55 09/04/24 20:00 09/04/24 20:00 Temperature Pulse Rate 74 78 Respiratory Rate Blood Pressure Pulse Oximetry Oxygen Delivery Room Air Fraction of Inspired Oxygen 21 09/04/24 20:47 09/04/24 21:37 09/05/24 00:00 Temperature 36.6 C Pulse Rate 72 71 Respiratory Rate 16 Blood Pressure 162/74 H Pulse Oximetry 98 96 Oxygen Delivery Room Air Fraction of Inspired Oxygen 21 09/05/24 04:00 09/05/24 05:53 09/05/24 08:00 Temperature 36.7 C Pulse Rate 66 100 113 H Respiratory Rate 16 Blood Pressure 138/82 Pulse Oximetry 94 Oxygen Delivery Fraction of Inspired Oxygen 09/05/24 09:40 09/05/24 12:00 09/05/24 14:00 Temperature 36.8 C Pulse Rate 69 81 Respiratory Rate 18 Blood Pressure 118/73 Pulse Oximetry 97 Oxygen Delivery Room Air Fraction of Inspired Oxygen 21 Exam 2 Narrative: General: Alert oriented x3, no acute distress Neck: Supple, no JVD Chest: Decreased breath sounds at both bases right more than left, no rales or rhonchi Cardiac: S1, S2 +, regular rate, regular rhythm, no murmurs or rubs Extremities: No pedal edema, no skin rash Neurologic: Alert and oriented x3, no focal neurological deficits Results Labs and Meds 09/05/24 04:36 09/05/24 04:36 Lab results: Cardiac Enzymes 09/04/24 Range/Units 19:46 Troponin I < 0.012 (0.000-0.034) ng/mL CBC 09/05/24 Range/Units 04:36 WBC 6.5 (4.5-10.0) K/mm3 RBC 4.34 L (4.6-6.20) M/mm3 Hgb 14.4 (14.0-18.0) g/dL Hct 42.4 (42.0-52.0) % Plt Count 108 L (150-375) k/mm3 Lymph # (Auto) 0.78 L (0.9-3.2) K/mm3 [place] # (Auto) 0.9 H (0.1-0.6) K/mm3 Eos # (Auto) 0.1 (0-0.3) K/mm3 Baso # (Auto) 0.0 (0.0-0.1) K/mm3 Comprehensive Metabolic Panel 09/05/24 Range/Units 04:36 Sodium 135 L (137-145) mmol/L Potassium 4.2 (3.4-5.0) mmol/L Chloride 99 (98-107) mmol/L Carbon Dioxide 31 H (22-30) mmol/L BUN 13 (9-20) mg/dL Creatinine 0.92 (0.7-1.3) mg/dL Glucose 110 (65-110) mg/dL Calcium 9.8 (8.4-10.2) mg/dL Intake and Output 09/04/24 09/05/24 09/05/24 23:59 07:59 15:59 Intake Total 120 500 480 Output Total 1665 400 Balance -1545 100 480 Intake: Oral 120 500 480 Output: Urine 765 Catheter Urine 900 400 External/Condom 900 400 Other: # Unmeasured Voids 1 1 Number of Bowel Movements Today 1 Patient Weight 09/05/24 23:59 Weight 82.4 kg
[2024-09-05] MEDS: ASCORBIC ACID 250 MG TABLET PO (17:37)
[2024-09-05] MEDS: CALCIUM CARBONATE (OSCAL) 500 MG TABLET PO (17:37)
[2024-09-05] MEDS: LORATADINE 10 MG TABLET PO (21:51)
[2024-09-05] MEDS: guaiFENesin 12 HR 600 MG TABCR PO (21:51)
[2024-09-05] MEDS: MELATONIN 5 MG TABLET 10 MG PO (21:51)
[2024-09-05] MEDS: PRAVASTATIN SODIUM 20 MG TABLET PO (21:51)
[2024-09-06] VITALS (11 sets, daily range): BP systolic 112–142; BP diastolic 68–82; PULSE 60–93; RESP 18–24; TEMP 36.4–36.7; O2SAT 95–97
[2024-09-06] MEDS: CLINDAMYCIN HCL 150 MG CAP 300 MG PO ×3 (00:47→12:26)
[2024-09-06 05:27] LABS: Hematocrit 41.7 % (42.0-52.0); Hemoglobin 14.1 g/dL (14.0-18.0); Mean Corpuscular HGB Conc 33.8 g/dl (32-36); Mean Corpuscular Hemoglobin 32.9 pg (26-34); Mean Corpuscular Volume 97.4 fl (80-100); Platelet Count Result 106 k/mm3 (150-375); Red Blood Count 4.28 M/mm3 (4.6-6.20); White Blood Count 7.7 K/mm3 (4.5-10.0)
[2024-09-06 05:44] LABS: Alanine Aminotransferase 13 U/L (6-50); Albumin Level 3.8 g/dL (3.5-5.1); Alkaline Phosphatase 72 U/L (38-126); Anion Gap 7 mmol/L (4-12); Aspartate Amino Transferase 21 U/L (17-59); Bilirubin,Total 1.6 mg/dL (0.2-1.3); Blood Urea Nitrogen 15 mg/dL (9-20); Calcium 9.5 mg/dL (8.4-10.2); Carbon Dioxide 29 mmol/L (22-30); Chloride 97 mmol/L (98-107); Estimated CRCL calculation 50 ml/min; Estimated Glomerular Filt Rate > 60; Glucose 114 mg/dL (65-110); Magnesium 1.8 mg/dL (1.6-2.3); Potassium 3.4 mmol/L (3.4-5.0); Sodium 133 mmol/L (137-145); Total Protein 6.6 g/dL (6.3-8.2)
--- NOTE | 2024-09-06 08:33 | PCSTNOTE ---
Please refer to the Bedside Swallow Evaluation in the EMR. Please note, silent aspiration cannot be ruled out at bedside. The patient is a 84 year old male admitted with SOB for several days and chest pain. Orders received for a bedside swallow evaluation. Per patient's spouse the patient has a history of dysphagia concerns. Vocal cord paresis present following surgery in 2019. A prior MBS was completed per her reports that showed limited epiglottic inversion. She reports he has been having increased throat clearing over the past few weeks and an increased 'wet vocal quality requiring him to expectorate phlegm. The patient was seated upright in a chair and presented tsp/5cc trials thin liquid and 1/2 tsp /3cc trials of applesauce. Oral Stage; Delayed oral transit noted across consistencies with tongue pumping and some difficulty forming the bolus. Pharyngeal Stage: Delayed swallow initiation noted for all consistencies, multiple swallows completed to clear the bolus, and a wet' vocal quality noted after swallows as well as intermittent throat clearing. Recommend NPO till MBS can be completed and MBS be done to better evaluate swallow function.
[2024-09-06] MEDS: dilTIAZem HCL CD 120 MG CAP.24HR PO (08:53)
[2024-09-06] MEDS: FLUTICASONE PROPIONATE 0.05% NA SPR 16 GM BTL (*BKC) 1 SPRAY NASAL ×2 (08:54→16:47)
[2024-09-06] MEDS: APIXABAN 5 MG TABLET PO (08:54)
[2024-09-06] MEDS: guaiFENesin 12 HR 600 MG TABCR PO (08:54)
[2024-09-06] MEDS: FUROSEMIDE INJ 40 MG/4 ML VIAL IV PUSH ×2 (08:54→16:47)
[2024-09-06] MEDS: GALANTAMINE HYDROBROMIDE 4 MG TABLET 12 MG PO (08:55)
[2024-09-06] MEDS: MEMANTINE 10 MG TABLET PO (08:55)
--- NOTE | 2024-09-06 11:54 | P.PNIM_ITS ---
Progress Note: A&P Assessment and Plan (1) CHF (congestive heart failure): Qualifiers: Heart failure chronicity: acute Heart failure type: unspecified Qualified Code(s): I50.9 - Heart failure, unspecified Code(s): I50.9 - Heart failure, unspecified Status: Acute Assessment and Plan: patient admitted with new bilateral pleural effusions no previous history of congestive heart failure last echo 03/2023 showed normal diastolic function with an LVEF of 60 65%, patient does have history of CABG and atrial fibrillation, elevated BNP, Patient on RA * IV Lasix b.i.d. * monitor renal function during diuresis * echocardiogram showed 40-45% * on jardiance, Cardizem 120mg daily * daily weights Cardiology following (2) Pleural effusion: Code(s): J90 - Pleural effusion, not elsewhere classified Status: Acute Assessment and Plan: SEE ABOVE * continue with IV Lasix * add incentive spirometer * oxygen as needed currently on room air (3) Paroxysmal atrial fibrillation: Code(s): I48.0 - Paroxysmal atrial fibrillation Status: Acute Assessment and Plan: patient with history proximal atrial fibrillation had previous cardiac monitoring device which has been removed * on Cardizem and Eliquis contin telemetry cardiology following (4) Hyperlipidemia: Qualifiers: Hyperlipidemia type: mixed hyperlipidemia Qualified Code(s): E78.2 - Mixed hyperlipidemia Code(s): E78.5 - Hyperlipidemia, unspecified Status: Acute Assessment and Plan: * Continue statin Plan Difficulty swallowing From nerve damage from intubation from CABG in 2019 MBS today monitor Code status: Full code per patient DVT prophylaxis: eliquis Subjective Date/time seen: 09/06/24 11:54 Interval history: Patient comfortable at bedside Will undergo MBS today cardiology recommening one more day of diuresis Review of Systems Review of Systems: All systems reviewed & are unremarkable except as noted in HPI and below Exam Narrative: absent breath sounds in the lower lung figueroa, L worse than R Const: General: comfortable and no acute distress Other: On RA HENMT: Face/Nose/Sinus: Normal nares present Mouth: Yes moist mucous membranes Eyes: General: appearance normal, both eyes and all related structures Sclera: sclerae normal Pupils: Equal, round and reactive pupils present EOM: EOMs intact bilaterally Neck: Neck: supple and no JVD Resp: Effort & Inspection: normal respiratory effort Other: absent breath sounds in the lower lung figueroa, L worse than R. no wheezing or crackles appreciated. Cardio: Rate: regular rate Rhythm: regular rhythm Other: regular, irregular AFIB on monitor and EKG GI: Other: Abdomen soft, nondistended, nontender. Normoactive bowel sounds in all quadrants. Skin: General skin exam: normal color and no rashes or lesions noted Wounds: no wounds Neuro: Cranial nerves: Yes Equal, round and reactive pupils present Speech: normal speech Motor exam (neuro): 5/5 motor strength present throughout Sensory Exam: normal sensation Other: A&O x3 Extrem: General: normal to inspection Psych: Mental Status: mental status grossly normal Affect: normal affect Other: very pleasant Objective Data Vital Signs Vital Signs: Vital Signs - 24 hr 09/05/24 12:00 09/05/24 14:00 09/05/24 16:00 Temperature 98.3 F Pulse Rate 69 81 89 Respiratory Rate 18 Blood Pressure 118/73 Pulse Oximetry 97 Oxygen Delivery Fraction of Inspired Oxygen 09/05/24 20:00 09/05/24 20:00 09/05/24 20:24 Temperature 98.2 F Pulse Rate 73 72 Respiratory Rate 26 H Blood Pressure 133/68 Pulse Oximetry 96 Oxygen Delivery Room Air Fraction of Inspired Oxygen 09/06/24 00:00 09/06/24 04:00 09/06/24 04:35 Temperature 97.5 F L Pulse Rate 69 63 80 Respiratory Rate 24 H Blood Pressure 142/82 H Pulse Oximetry 97 Oxygen Delivery Fraction of Inspired Oxygen 09/06/24 08:02 09/06/24 08:55 Temperature Pulse Rate 93 Respiratory Rate 20 Blood Pressure Pulse Oximetry 97 Oxygen Delivery Room Air Fraction of Inspired Oxygen Intake/Output Intake/Output: Intake & Output 09/03/24 09/04/24 09/05/24 09/06/24 23:59 23:59 23:59 23:59 Intake Total 120 1460 550 Output Total 1665 1000 300 Balance -1545 460 250 Meds/Results Medications: Active Medications Generic Name Dose Route Start Last Admin Trade Name Freq PRN Reason Stop Dose Admin Acetaminophen 650 mg 09/04/24 13:46 Acetaminophen 325 Mg Tablet PO Q6H PRN Mild Pain (1-3) or Fever Apixaban 5 mg 09/04/24 21:00 09/06/24 08:54 Apixaban 5 Mg Tablet PO 5 mg Q12HR ARABELLA Administration Ascorbic Acid 250 mg 09/04/24 17:00 09/05/24 17:37 Ascorbic Acid 250 Mg Tablet PO 250 mg 1700 ARABELLA Administration Aspirin 81 mg 09/05/24 12:00 09/05/24 12:15 Aspirin 81 Mg Chewable Tablet PO 81 mg 1200 ARABELLA Administration Benzocaine 1 lozenge 09/04/24 16:44 Benzocaine/Menthol (*Bkc) 18 Ea Lozenge PO PRN PRN Sore Throat Calcium Carbonate 200 mg 09/04/24 13:47 Calcium Carbonate (Tums) 500 Mg (200 Mg Elemental) PO Q6H PRN Indigestion Calcium Carbonate 500 mg 09/04/24 17:00 09/05/24 17:37 Calcium Carbonate (Oscal) 500 Mg Tablet PO 500 mg 1700 ARABELLA Administration Clindamycin HCl 300 mg 09/04/24 18:00 09/06/24 06:30 Clindamycin Hcl 150 Mg Cap PO 300 mg Q6H ARABELLA Administration Cyanocobalamin 2,000 mcg 09/05/24 12:00 09/05/24 12:14 Cyanocobalamin 1,000 Mcg Tablet PO 2,000 mcg 1200 ARABELLA Administration Cyanocobalamin 500 mcg 09/05/24 12:00 09/05/24 12:15 Cyanocobalamin 500 Mcg Tablet PO 500 mcg 1200 ARABELLA Administration Diltiazem HCl 120 mg 09/05/24 09:00 09/06/24 08:53 Diltiazem Hcl Cd 120 Mg Cap.24hr PO 120 mg DAILY ARABELLA Administration Docusate Sodium 100 mg 09/04/24 13:47 Docusate Sodium 100 Mg Capsule PO Q12H PRN Constipation Fluticasone Propionate 1 spray 09/05/24 09:00 09/06/24 08:54 Fluticasone Propionate 0.05% Na Spr 16 Gm Btl (*Bkc) NASAL 1 spray BID ARABELLA Administration Folic Acid 400 mg 09/05/24 12:00 09/05/24 17:19 Folic Acid 0.4 Mg Tablet PO Not Given 1200 ARABELLA Furosemide 40 mg 09/05/24 09:00 09/06/24 08:54 Furosemide Inj 40 Mg/4 Ml Vial IV PUSH 40 mg BID ARABELLA Administration Galantamine Hydrobromide 12 mg 09/04/24 17:55 09/06/24 08:55 Galantamine Hydrobromide 4 Mg Tablet PO 12 mg BID ARABELLA Administration Guaifenesin 600 mg 09/05/24 21:00 09/06/24 08:54 Guaifenesin 12 Hr 600 Mg Tabcr PO 600 mg Q12HR ARABELLA Administration Loratadine 10 mg 09/05/24 21:00 09/05/24 21:51 Loratadine 10 Mg Tablet PO 10 mg QHS ARABELLA Administration Melatonin 10 mg 09/04/24 21:00 09/05/24 21:51 Melatonin 5 Mg Tablet PO 10 mg HS ARABELLA Administration Memantine 10 mg 09/04/24 17:55 09/06/24 08:55 Memantine 10 Mg Tablet PO 10 mg BID ARABELLA Administration Multivitamins/Minerals 1 tablet 09/05/24 09:00 09/06/24 08:55 Opti-Gen Tab PO Not Given DAILY [facility] Ondansetron HCl 4 mg 09/04/24 13:47 Ondansetron Inj 4 Mg/2 Ml Vial IV PUSH Q6H PRN Nausea And Vomiting Pravastatin Sodium 20 mg 09/04/24 21:00 09/05/24 21:51 Pravastatin Sodium 20 Mg Tablet PO 20 mg QHS [facility] Administration Vitamin D 125 mcg 09/05/24 12:00 09/05/24 12:15 Cholecalciferol (Vitamin D3) 125 Mcg (5,000 Units) Tablet PO 125 mcg 1200 ARABELLA Administration Radiology Results: ITS Impressions Chest X-Ray 09/04/24 10:42 IMPRESSION: Bilateral pleural effusions, moderate on the left and small on the right. Labs Labs: Laboratory Results - last 24 hr 09/06/24 04:56 WBC 7.7 RBC 4.28 L Hgb 14.1 Hct 41.7 L MCV 97.4 MCH 32.9 MCHC 33.8 RDW 12.9 Plt Count 106 L MPV 10.3 Sodium 133 L Potassium 3.4 Chloride 97 L Carbon Dioxide 29 Anion Gap 7 BUN 15 Creatinine 0.93 Estim Creat Clear Calc 50 Estimated GFR > 60 Glucose 114 H Calcium 9.5 Magnesium 1.8 Total Bilirubin 1.6 H AST 21 ALT 13 Alkaline Phosphatase 72 Total Protein 6.6 Albumin 3.8 Quality VTE Prophylaxis VTE prophylaxis: pharmacologic ordered
[2024-09-06] MEDS: ASPIRIN 81 MG CHEWABLE TABLET PO (12:28)
[2024-09-06] MEDS: CYANOCOBALAMIN 500 MCG TABLET PO (12:29)
--- NOTE | 2024-09-06 13:11 | PM.PNCARD ---
Progress Note: A&P Assessment and Plan (1) Systolic heart failure: Code(s): I50.20 - Unspecified systolic (congestive) heart failure Status: Acute (2) Paroxysmal atrial fibrillation: Code(s): I48.0 - Paroxysmal atrial fibrillation Status: Acute (3) Hypertension: Qualifiers: Hypertension type: primary hypertension Qualified Code(s): I10 - Essential (primary) hypertension Code(s): I10 - Essential (primary) hypertension Status: Chronic (4) Hyperlipidemia: Qualifiers: Hyperlipidemia type: mixed hyperlipidemia Qualified Code(s): E78.2 - Mixed hyperlipidemia Code(s): E78.5 - Hyperlipidemia, unspecified Status: Acute Plan -Bilateral pleural effusion-moderate on the right and small on left -Paroxysmal AFib-rate controlled in the 70s -CAD status post CABG X 3 in 2019-chest pain appears noncardiac as it occurs when patient has coughing bout -Chronic diastolic heart failure and new systolic heart failure-LVEF is decreased to 40-45% from 66% in 03/2024 -Hypertension Plan: Etiology for new drop in LVEF could be paroxysmal AFib. Ischemia is a possibility though patient does not have any chest pain. Discussed risks and benefits of cardiac catheterization to further evaluate versus continued medical management and outpatient stress test. Patient's would like to continue with medical management and get an outpatient stress test Given depressed LVEF recommend stopping Cardizem. Start metoprolol succinate 50 mg daily and up titrate as blood pressure tolerates Guideline directed medical therapy for cardiomyopathy. Start beta-mani as above. Add empagliflozin 10 mg daily. Add RICARDO-inhibitor/Arb/ARNI if blood pressure tolerates Diuresis with IV Lasix 40 mg BID. Check daily weights, ins and outs, and renal function Check and replace electrolytes to keep potassium greater than 4 and magnesium greater than 2 Continue anticoagulation with Eliquis for AFib Continue aspirin Continue pravastatin Management of pleural effusion and other medical problems per primary team Subjective Date/time seen: 09/06/24 13:11 Interval history: Reason for encounter: Acute on chronic heart failure Interval history: No chest pain. Shortness of breath is improving with IV diuresis. Review of Systems Cardiovascular: Comments: As per HPI Respiratory: Comments: As per HPI Exam Narrative: General: Alert oriented x3, no acute distress Neck: Supple, no JVD Chest: Decreased breath sounds at both bases right more than left, no rales or rhonchi Cardiac: S1, S2 +, regular rate, regular rhythm, no murmurs or rubs Extremities: No pedal edema, no skin rash Neurologic: Alert and oriented x3, no focal neurological deficits Objective Data Vital Signs Vital Signs: Vital Signs - 24 hr 09/05/24 14:00 09/05/24 16:00 09/05/24 20:00 Temperature 36.8 C Pulse Rate 81 89 Respiratory Rate 18 Blood Pressure 118/73 Pulse Oximetry 97 Oxygen Delivery Room Air Fraction of Inspired Oxygen 21 09/05/24 20:00 09/05/24 20:24 09/06/24 00:00 Temperature 36.8 C Pulse Rate 73 72 69 Respiratory Rate 26 H Blood Pressure 133/68 Pulse Oximetry 96 Oxygen Delivery Fraction of Inspired Oxygen 09/06/24 04:00 09/06/24 04:35 09/06/24 08:02 Temperature 36.4 C L Pulse Rate 63 80 93 Respiratory Rate 24 H Blood Pressure 142/82 H Pulse Oximetry 97 Oxygen Delivery Fraction of Inspired Oxygen 09/06/24 08:55 Temperature Pulse Rate Respiratory Rate 20 Blood Pressure Pulse Oximetry 97 Oxygen Delivery Room Air Fraction of Inspired Oxygen Intake/Output Intake/Output: Intake & Output 09/03/24 09/04/24 09/05/24 09/06/24 23:59 23:59 23:59 23:59 Intake Total 120 1460 550 Output Total 1665 1000 300 Balance -1545 460 250 Meds/Results Medications: Active Medications Generic Name Dose Route Start Last Admin Trade Name Freq PRN Reason Stop Dose Admin Acetaminophen 650 mg 09/04/24 13:46 Acetaminophen 325 Mg Tablet PO Q6H PRN Mild Pain (1-3) or Fever Apixaban 5 mg 09/04/24 21:00 09/06/24 08:54 Apixaban 5 Mg Tablet PO 5 mg Q12HR ARABELLA Administration Ascorbic Acid 250 mg 09/04/24 17:00 09/05/24 17:37 Ascorbic Acid 250 Mg Tablet PO 250 mg 1700 ARABELLA Administration Aspirin 81 mg 09/05/24 12:00 09/06/24 12:28 Aspirin 81 Mg Chewable Tablet PO 81 mg 1200 ARABELLA Administration Benzocaine 1 lozenge 09/04/24 16:44 Benzocaine/Menthol (*Bkc) 18 Ea Lozenge PO PRN PRN Sore Throat Calcium Carbonate 200 mg 09/04/24 13:47 Calcium Carbonate (Tums) 500 Mg (200 Mg Elemental) PO Q6H PRN Indigestion Calcium Carbonate 500 mg 09/04/24 17:00 09/05/24 17:37 Calcium Carbonate (Oscal) 500 Mg Tablet PO 500 mg 1700 ARABELLA Administration Clindamycin HCl 300 mg 09/04/24 18:00 09/06/24 12:26 Clindamycin Hcl 150 Mg Cap PO 300 mg Q6H ARABELLA Administration Cyanocobalamin 2,000 mcg 09/05/24 12:00 09/06/24 12:27 Cyanocobalamin 1,000 Mcg Tablet PO Not Given 1200 ARABELLA Cyanocobalamin 500 mcg 09/05/24 12:00 09/06/24 12:29 Cyanocobalamin 500 Mcg Tablet PO 500 mcg 1200 ARABELLA Administration Diltiazem HCl 120 mg 09/05/24 09:00 09/06/24 08:53 Diltiazem Hcl Cd 120 Mg Cap.24hr PO 120 mg DAILY ARABELLA Administration Docusate Sodium 100 mg 09/04/24 13:47 Docusate Sodium 100 Mg Capsule PO Q12H PRN Constipation Fluticasone Propionate 1 spray 09/05/24 09:00 09/06/24 08:54 Fluticasone Propionate 0.05% Na Spr 16 Gm Btl (*Bkc) NASAL 1 spray BID ARABELLA Administration Folic Acid 400 mg 09/05/24 12:00 09/06/24 12:30 Folic Acid 0.4 Mg Tablet PO Not Given 1200 [facility] Furosemide 40 mg 09/05/24 09:00 09/06/24 08:54 Furosemide Inj 40 Mg/4 Ml Vial IV PUSH 40 mg BID ARABELLA Administration Galantamine Hydrobromide 12 mg 09/04/24 17:55 09/06/24 08:55 Galantamine Hydrobromide 4 Mg Tablet PO 12 mg BID ARABELLA Administration Guaifenesin 600 mg 09/05/24 21:00 09/06/24 08:54 Guaifenesin 12 Hr 600 Mg Tabcr PO 600 mg Q12HR ARABELLA Administration Loratadine 10 mg 09/05/24 21:00 09/05/24 21:51 Loratadine 10 Mg Tablet PO 10 mg QHS ARABELLA Administration Melatonin 10 mg 09/04/24 21:00 09/05/24 21:51 Melatonin 5 Mg Tablet PO 10 mg HS ARABELLA Administration Memantine 10 mg 09/04/24 17:55 09/06/24 08:55 Memantine 10 Mg Tablet PO 10 mg BID ARABELLA Administration Multivitamins/Minerals 1 tablet 09/05/24 09:00 09/06/24 08:55 Opti-Gen Tab PO Not Given DAILY ARABELLA Ondansetron HCl 4 mg 09/04/24 13:47 Ondansetron Inj 4 Mg/2 Ml Vial IV PUSH Q6H PRN Nausea And Vomiting Pravastatin Sodium 20 mg 09/04/24 21:00 09/05/24 21:51 Pravastatin Sodium 20 Mg Tablet PO 20 mg QHS [facility] Administration Vitamin D 125 mcg 09/05/24 12:00 09/06/24 12:27 Cholecalciferol (Vitamin D3) 125 Mcg (5,000 Units) Tablet PO Not Given 1200 ARABELLA Radiology Results: ITS Impressions Chest X-Ray 09/04/24 10:42 IMPRESSION: Bilateral pleural effusions, moderate on the left and small on the right. Labs Labs: Laboratory Results - last 24 hr 09/06/24 04:56 WBC 7.7 RBC 4.28 L Hgb 14.1 Hct 41.7 L MCV 97.4 MCH 32.9 MCHC 33.8 RDW 12.9 Plt Count 106 L MPV 10.3 Sodium 133 L Potassium 3.4 Chloride 97 L Carbon Dioxide 29 Anion Gap 7 BUN 15 Creatinine 0.93 Estim Creat Clear Calc 50 Estimated GFR > 60 Glucose 114 H Calcium 9.5 Magnesium 1.8 Total Bilirubin 1.6 H AST 21 ALT 13 Alkaline Phosphatase 72 Total Protein 6.6 Albumin 3.8
--- NOTE | 2024-09-06 15:33 | PCSTNOTE ---
Please refer to the Modified Barium Swallow Evaluation in the EMR. PER BEDSIDE SWALLOW EVALUATION: The patient is a 84 year old male admitted with SOB for several days and chest pain. Per patient's spouse the patient has a history of dysphagia concerns. Vocal cord paresis present following surgery in 2019. A prior MBS was completed per her reports that showed limited epiglottic inversion. She reports he has been having increased throat clearing over the past few weeks and an increased 'wet vocal quality requiring him to expectorate phlegm. Overt s/s were exhibited and an MBS was recommended. MBS results: Pt was alert but confused. Pt was presented with 5 ml trials of thin liquid via a spoon and 1/2 tsp and 3/4 tsp amounts of pudding consistency barium via a spoon. 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 Due to the size and location of the osteophytes, it appeared that full epiglottic inversion and cricopharyngeal relaxation are limited as evidenced by vallecular residue and pyriform sinus residue, respectively. Also noted was reduced laryngeal elevation as evidenced by laryngeal penetration during the swallow. Pt appeared to sense the laryngeal penetration as he would throat clear but it would only temporarily clear then spill back into the laryngeal vestibule and was eventually aspirated after the swallow (both thin liquids and pudding consistencies). Impression/recommendations: severe pharyngeal stage dysphagia as described above related to large bulging and fused osteophytes; NPO recommended; alternative means of nutrition should be considered; A trial of ST for dysphagia treatment can be initiated but due to anatomical issues, returning to oral intake without aspiration may be doubtful. In review of ST records from 2021, pt/family were aware of osteophytes and the limited epiglottic inversion. Pt had throat stretched as well. They apparently were advised by a Dr at that time to not seek surgical intervention for the osteophytes which could have been due to a recent CABG.
[2024-09-07] VITALS (12 sets, daily range): BP systolic 118–126; BP diastolic 71–81; PULSE 65–111; RESP 18–20; TEMP 36.5–36.8; O2SAT 94–96; BMI 26.6
[2024-09-07 05:17] LABS: Hematocrit 42.6 % (42.0-52.0); Hemoglobin 14.3 g/dL (14.0-18.0); Immature Granulocyte Percent A 0.5 % (0-0.5); Immature Platelet Fraction Pct 5.3 % (0.9-11.2); Lymphocytes Absolute Auto 0.52 K/mm3 (0.9-3.2); Mean Corpuscular HGB Conc 33.6 g/dl (32-36); Mean Corpuscular Hemoglobin 32.8 pg (26-34); Mean Corpuscular Volume 97.7 fl (80-100); Nucleated Red Blood Cells Absolute Auto 0.000 K/mm3 (0.0-0.012); Nucleated Red Blood Cells Perc 0.0 % (0.0-0.2); Platelet Count Result 117 k/mm3 (150-375); Red Blood Count 4.36 M/mm3 (4.6-6.20); White Blood Count 5.7 K/mm3 (4.5-10.0)
[2024-09-07 05:35] LABS: Alanine Aminotransferase 14 U/L (6-50); Albumin Level 3.8 g/dL (3.5-5.1); Alkaline Phosphatase 69 U/L (38-126); Anion Gap 6 mmol/L (4-12); Aspartate Amino Transferase 22 U/L (17-59); Bilirubin,Total 1.2 mg/dL (0.2-1.3); Blood Urea Nitrogen 17 mg/dL (9-20); Calcium 9.3 mg/dL (8.4-10.2); Carbon Dioxide 29 mmol/L (22-30); Chloride 97 mmol/L (98-107); Estimated CRCL calculation 52 ml/min; Estimated Glomerular Filt Rate > 60; Glucose 120 mg/dL (65-110); Magnesium 1.8 mg/dL (1.6-2.3); Potassium 3.6 mmol/L (3.4-5.0); Sodium 132 mmol/L (137-145); Total Protein 6.5 g/dL (6.3-8.2)
--- NOTE | 2024-09-07 08:27 | P.CDI_ITS ---
CDI Query Clarification Request Please clarify type and acuity of heart failure if known. * Acute * Chronic * Acute on Chronic * Unknown * Systolic * Diastolic * Combined Systolic and Diastolic * Unknown The medical chart reflects the following: Patient 84 old gentleman presents emergency department chief complaint of shortness of breath patient reports the last 3-4 days had slow but tightness in his chest has history of a triple bypass in 2019 also has history dementia patient has had increasing shortness of breath and reports that had some tightness in his chest as well Hospitalist 09/04: (1) CHF (congestive heart failure): Qualifiers: Heart failure chronicity: acute Heart failure type: unspecified Qualified Code(s): I50.9 - Heart failure, unspecified Code(s): I50.9 - Heart failure, unspecified Status: Acute Assessment and Plan: - BNP 2700 - check echo, none on file - start Lasix 40 mg IV daily, monitor response and BP - monitor I&Os and daily weights - trend renal function Suspect shortness of breath and chest tightness secondary to new effusions. BNP elevated. Coupled with effusions, suspect CHF. Troponin thus far negative x2 (awaiting 6 hr), reducing suspicion for ACS as source of chest tightness. Will start diuresis, check echo, and monitor patient's response Cardiology 09/05: Plan -Cough with clear stringy mucus, shortness of breath, chest tightness with cough-suspect viral respiratory infection, he also has moderate right and small left pleural effusions. Heart failure less likely given he is euvolemic on exam, ACS less likely as troponin x2 negative, EKG AFib with rates of 66, nonspecific ST change -Bilateral pleural effusion-moderate on the right and small on left -Paroxysmal AFib-rate controlled in the 70s -CAD status post CABG X 3 in 2019-chest pain appears noncardiac as it occurs when patient has coughing bout -Chronic diastolic heart failure-euvolemic on exam -Hypertension Hospitalist 09/06: (1) CHF (congestive heart failure): Qualifiers: Heart failure chronicity: acute Heart failure type: unspecified Qualified Code(s): I50.9 - Heart failure, unspecified Code(s): I50.9 - Heart failure, unspecified Status: Acute Assessment and Plan: patient admitted with new bilateral pleural effusions no previous history of congestive heart failure last echo 03/2023 showed normal diastolic function with an LVEF of 60 65%, patient does have history of CABG and atrial fibrillation, elevated BNP, Patient on RA * IV Lasix b.i.d. * monitor renal function dur Cardiology 09/06: Plan -Bilateral pleural effusion-moderate on the right and small on left -Paroxysmal AFib-rate controlled in the 70s -CAD status post CABG X 3 in 2019-chest pain appears noncardiac as it occurs when patient has coughing bout -Chronic diastolic heart failure and new systolic heart failure-LVEF is decreased to 40-45% from 66% in 03/2024 -Hypertension ECHO: Summary 1. Left ventricular systolic function is mildly reduced, estimated at 40-45. 2. The left ventricular diastolic function is abnormal. 3. Left atrial chamber dimension is mildly enlarged. 4. There is mild aortic valve stenosis. BHAVNA 1.6cm2, mean gradient 5mmHg. 5. There is mild aortic valve calcification. 6. There is mild tricuspid valve regurgitation. 7. No pulmonary hypertension, estimated pulmonary arterial systolic pressure is 22 mmHg. BNP 09/04: 2700 09/06: 670 Lasix 40 mg IV BID <Alessandra Pacheco RN - Last Filed: 09/07/24 08:38> Clarified Diagnosis Clarified Diagnosis: Acute systolic and diastolic congestive heart failure <Naima Nino MD - Last Filed: 09/07/24 09:21>
[2024-09-07] MEDS: FUROSEMIDE INJ 40 MG/4 ML VIAL IV PUSH ×2 (08:52→18:33)
[2024-09-07] MEDS: FLUTICASONE PROPIONATE 0.05% NA SPR 16 GM BTL (*BKC) 1 SPRAY NASAL ×2 (08:52→18:31)
[2024-09-07] MEDS: CLINDAMYCIN 600 MG/D5W 50 ML 600 MG/50 ML PIGGYBACK 100 MG IVPB ×2 (09:39→18:32)
--- NOTE | 2024-09-07 10:40 | PM.PNCARD ---
Progress Note: A&P Assessment and Plan (1) Systolic heart failure: Code(s): I50.20 - Unspecified systolic (congestive) heart failure Status: Acute (2) Paroxysmal atrial fibrillation: Code(s): I48.0 - Paroxysmal atrial fibrillation Status: Acute (3) Hypertension: Qualifiers: Hypertension type: primary hypertension Qualified Code(s): I10 - Essential (primary) hypertension Code(s): I10 - Essential (primary) hypertension Status: Chronic (4) Hyperlipidemia: Qualifiers: Hyperlipidemia type: mixed hyperlipidemia Qualified Code(s): E78.2 - Mixed hyperlipidemia Code(s): E78.5 - Hyperlipidemia, unspecified Status: Acute Plan -Bilateral pleural effusion-moderate on the right and small on left -Paroxysmal AFib-rate controlled in the 70s -CAD status post CABG X 3 in 2019-chest pain appears noncardiac as it occurs when patient has coughing bout; troponin x3 negative -Chronic diastolic heart failure and new systolic heart failure-LVEF is decreased to 40-45% from 66% in 03/2024 -Hypertension Plan: Continue medical management CAD 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 No invasive catheterization for now given patient is chest pain free and troponin x 3 negative Stopped Cardizem given depressed LVEF Start metoprolol succinate 50 mg daily and up titrate as blood pressure tolerates Guideline directed medical therapy for cardiomyopathy. Continue metoprolol and empagliflozin. Add RICARDO-inhibitor/Arb/ARNI if blood pressure tolerates Diuresis with IV Lasix 40 mg BID. Check daily weights, ins and outs, and renal function Check and replace electrolytes to keep potassium greater than 4 and magnesium greater than 2 Continue anticoagulation with Eliquis for AFib Continue aspirin Continue pravastatin Management of pleural effusion and other medical problems per primary team Subjective Date/time seen: 09/07/24 10:40 Interval history: Reason for encounter: Acute on chronic heart failure Interval history: No chest pain. Shortness of breath is improving with IV diuresis. He is sleeping a lot as per . Review of Systems Cardiovascular: Comments: As per HPI Respiratory: Comments: As per HPI Exam Narrative: General: Dementia history Neck: Supple, no JVD Chest: Decreased breath sounds at both bases right more than left, no rales or rhonchi Cardiac: S1, S2 +, regular rate, regular rhythm, no murmurs or rubs Extremities: No pedal edema, no skin rash Neurologic: Patient has dementia, no focal neurological deficits Objective Data Vital Signs Vital Signs: Vital Signs - 24 hr 09/06/24 12:01 09/06/24 14:00 09/06/24 16:03 Temperature 36.6 C Pulse Rate 75 75 75 Respiratory Rate 18 Blood Pressure 135/68 Pulse Oximetry 97 Oxygen Delivery Fraction of Inspired Oxygen 09/06/24 20:00 09/06/24 20:00 09/06/24 20:31 Temperature 36.7 C Pulse Rate 89 75 Respiratory Rate 20 Blood Pressure 112/82 Pulse Oximetry 95 Oxygen Delivery Room Air Fraction of Inspired Oxygen 21 09/06/24 20:37 09/07/24 00:00 09/07/24 04:00 Temperature Pulse Rate 60 76 75 Respiratory Rate 20 Blood Pressure Pulse Oximetry 95 Oxygen Delivery Room Air Fraction of Inspired Oxygen 21 09/07/24 05:31 09/07/24 09:32 Temperature 36.5 C Pulse Rate 79 Respiratory Rate 20 Blood Pressure 126/74 Pulse Oximetry 96 95 Oxygen Delivery Room Air Fraction of Inspired Oxygen 21 Intake/Output Intake/Output: Intake & Output 09/04/24 09/05/24 09/06/24 09/07/24 23:59 23:59 23:59 23:59 Intake Total 120 1460 790 50 Output Total 1665 1000 550 400 Balance -1545 460 240 -350 Meds/Results Medications: Active Medications Generic Name Dose Route Start Last Admin Trade Name Freq PRN Reason Stop Dose Admin Acetaminophen 650 mg 09/04/24 13:46 Acetaminophen 325 Mg Tablet PO Q6H PRN Mild Pain (1-3) or Fever Apixaban 5 mg 09/04/24 21:00 09/07/24 08:53 Apixaban 5 Mg Tablet PO Not Given Q12HR [facility] Ascorbic Acid 250 mg 09/04/24 17:00 09/06/24 16:47 Ascorbic Acid 250 Mg Tablet PO Not Given 1700 [facility] Aspirin 81 mg 09/05/24 12:00 09/06/24 12:28 Aspirin 81 Mg Chewable Tablet PO 81 mg 1200 [facility] Administration Benzocaine 1 lozenge 09/04/24 16:44 Benzocaine/Menthol (*Bkc) 18 Ea Lozenge PO PRN PRN Sore Throat Calcium Carbonate 200 mg 09/04/24 13:47 Calcium Carbonate (Tums) 500 Mg (200 Mg Elemental) PO Q6H PRN Indigestion Calcium Carbonate 500 mg 09/04/24 17:00 09/06/24 16:47 Calcium Carbonate (Oscal) 500 Mg Tablet PO Not Given 1700 [facility] Cyanocobalamin 2,000 mcg 09/05/24 12:00 09/06/24 12:27 Cyanocobalamin 1,000 Mcg Tablet PO Not Given 1200 [facility] Cyanocobalamin 500 mcg 09/05/24 12:00 09/06/24 12:29 Cyanocobalamin 500 Mcg Tablet PO 500 mcg 1200 [facility] Administration Diltiazem HCl 120 mg 09/05/24 09:00 09/07/24 08:53 Diltiazem Hcl Cd 120 Mg Cap.24hr PO Not Given DAILY [facility] Docusate Sodium 100 mg 09/04/24 13:47 Docusate Sodium 100 Mg Capsule PO Q12H PRN Constipation Empagliflozin 10 mg 09/07/24 09:00 09/07/24 08:53 Empagliflozin 10 Mg Tablet PO Not Given DAILY [facility] Fluticasone Propionate 1 spray 09/05/24 09:00 09/07/24 08:52 Fluticasone Propionate 0.05% Na Spr 16 Gm Btl (*Bk) NASAL 1 spray BID [facility]A Administration Folic Acid 400 mg 09/05/24 12:00 09/06/24 12:30 Folic Acid 0.4 Mg Tablet PO Not Given 1200 [facility] Furosemide 40 mg 09/05/24 09:00 09/07/24 08:52 Furosemide Inj 40 Mg/4 Ml Vial IV PUSH 40 mg BID [facility] Administration Galantamine Hydrobromide 12 mg 09/04/24 17:55 09/07/24 08:53 Galantamine Hydrobromide 4 Mg Tablet PO Not Given BID [facility] Guaifenesin 600 mg 09/05/24 21:00 09/07/24 08:53 Guaifenesin 12 Hr 600 Mg Tabcr PO Not Given Q12HR [facility] Clindamycin Phosphate 600 mg in 50 mls @ 100 mls/hr 09/07/24 09:00 09/07/24 10:10 Clindamycin 600 Mg/D5w 50 Ml IVPB Infused Q8H [facility] Infusion Loratadine 10 mg 09/05/24 21:00 09/06/24 23:16 Loratadine 10 Mg Tablet PO Not Given QHS [facility] Melatonin 10 mg 09/04/24 21:00 09/06/24 23:16 Melatonin 5 Mg Tablet PO Not Given HS [facility] Memantine 10 mg 09/04/24 17:55 09/07/24 08:53 Memantine 10 Mg Tablet PO Not Given BID [facility] Multivitamins/Minerals 1 tablet 09/05/24 09:00 09/07/24 08:53 Opti-Gen Tab PO Not Given DAILY [facility] Ondansetron HCl 4 mg 09/04/24 13:47 Ondansetron Inj 4 Mg/2 Ml Vial IV PUSH Q6H PRN Nausea And Vomiting Pravastatin Sodium 20 mg 09/04/24 21:00 09/06/24 23:16 Pravastatin Sodium 20 Mg Tablet PO Not Given QHS [facility] Vitamin D 125 mcg 09/05/24 12:00 09/06/24 12:27 Cholecalciferol (Vitamin D3) 125 Mcg (5,000 Units) Tablet PO Not Given 1200 [facility] Radiology Results: ITS Impressions Chest X-Ray 09/04/24 10:42 IMPRESSION: Bilateral pleural effusions, moderate on the left and small on the right. Modified Barium Swallow 09/06/24 14:26 IMPRESSION: Pharyngeal dysphagia with laryngeal penetration and aspiration. Please correlate with speech pathologist findings and specific feeding recommendations. Labs Labs: Laboratory Results - last 24 hr 09/07/24 05:02 WBC 5.7 RBC 4.36 L Hgb 14.3 Hct 42.6 MCV 97.7 MCH 32.8 MCHC 33.6 RDW 12.6 Plt Count 117 L MPV 10.2 Immature Gran % (Auto) 0.5 Neut % (Auto) 79.2 H Lymph % (Auto) 9.1 L [place] % (Auto) 9.5 H Eos % (Auto) 1.2 Baso % (Auto) 0.5 Lymph # (Auto) 0.52 L [place] # (Auto) 0.5 Eos # (Auto) 0.1 Baso # (Auto) 0.0 Abs Immat Gran (auto) 0.03 Absolute Neuts (auto) 4.5 Absolute Nucleated RBC 0.000 Nucleated RBC % 0.0 % Immature Plt Fraction 5.3 Sodium 132 L Potassium 3.6 Chloride 97 L Carbon Dioxide 29 Anion Gap 6 BUN 17 Creatinine 0.90 Estim Creat Clear Calc 52 Estimated GFR > 60 Glucose 120 H Calcium 9.3 Magnesium 1.8 Total Bilirubin 1.2 AST 22 ALT 14 Alkaline Phosphatase 69 Total Protein 6.5 Albumin 3.8
--- NOTE | 2024-09-07 12:59 | P.PNIM_ITS ---
Progress Note: A&P Assessment and Plan (1) CHF (congestive heart failure): Qualifiers: Heart failure chronicity: acute Heart failure type: unspecified Qualified Code(s): I50.9 - Heart failure, unspecified Code(s): I50.9 - Heart failure, unspecified Status: Acute Assessment and Plan: patient admitted with new bilateral pleural effusions no previous history of congestive heart failure last echo 03/2023 showed normal diastolic function with an LVEF of 60 65%, patient does have history of CABG and atrial fibrillation, elevated BNP, Patient on RA * IV Lasix b.i.d. * monitor renal function during diuresis * echocardiogram showed 40-45% * on jardiance, Metoprolol 50mg, Cardizem discontinued due to Depressed ejection fraction * daily weights Cardiology following (2) Pleural effusion: Code(s): J90 - Pleural effusion, not elsewhere classified Status: Acute Assessment and Plan: SEE ABOVE * continue with IV Lasix * add incentive spirometer * oxygen as needed currently on room air (3) Paroxysmal atrial fibrillation: Code(s): I48.0 - Paroxysmal atrial fibrillation Status: Acute Assessment and Plan: patient with history proximal atrial fibrillation had previous cardiac monitoring device which has been removed * on Metoprolol and Eliquis continue telemetry cardiology following (4) Hyperlipidemia: Qualifiers: Hyperlipidemia type: mixed hyperlipidemia Qualified Code(s): E78.2 - Mixed hyperlipidemia Code(s): E78.5 - Hyperlipidemia, unspecified Status: Acute Assessment and Plan: * Continue statin Plan Difficulty swallowing MBS showed pharyngeal dysphagia with laryngeal penetration and aspiration Also showed Bridging osteophytes at C3-C7 consistent with diffuse idiopathic skeletal hyperostosis GI consulted for G tube placement ENT consulted to evaluate for the bridging osteophytes at C3-7, if amenable to intervention in the meantime NG tube for feeding and dietitian consulted monitor Code status: Full code per patient DVT prophylaxis: Eliquis on hold until 11th after procedure Subjective Date/time seen: 09/07/24 12:59 Interval history: Comfortable at bedside Failed MBS eval yesterday Review of Systems Review of Systems: All systems reviewed & are unremarkable except as noted in HPI and below Exam Narrative: absent breath sounds in the lower lung figueroa, L worse than R Const: General: comfortable and no acute distress Other: On RA HENMT: Face/Nose/Sinus: Normal nares present Mouth: Yes moist mucous membranes Eyes: General: appearance normal, both eyes and all related structures Sclera: sclerae normal Pupils: Equal, round and reactive pupils present EOM: EOMs intact bilaterally Neck: Neck: supple and no JVD Resp: Effort & Inspection: normal respiratory effort Other: absent breath sounds in the lower lung figueroa, L worse than R. no wheezing or crackles appreciated. Cardio: Rate: regular rate Rhythm: regular rhythm Other: regular, irregular AFIB on monitor and EKG GI: Other: Abdomen soft, nondistended, nontender. Normoactive bowel sounds in all quadrants. Skin: General skin exam: normal color and no rashes or lesions noted Wounds: no wounds Neuro: Cranial nerves: Yes Equal, round and reactive pupils present Speech: normal speech Motor exam (neuro): 5/5 motor strength present throughout Sensory Exam: normal sensation Other: A&O x3 Extrem: General: normal to inspection Psych: Mental Status: mental status grossly normal Affect: normal affect Other: very pleasant Objective Data Vital Signs Vital Signs: Vital Signs - 24 hr 09/06/24 14:00 09/06/24 16:03 09/06/24 20:00 Temperature 97.8 F Pulse Rate 75 75 Respiratory Rate 18 Blood Pressure 135/68 Pulse Oximetry 97 Oxygen Delivery Room Air Fraction of Inspired Oxygen 09/06/24 20:00 09/06/24 20:31 09/06/24 20:37 Temperature 98.0 F Pulse Rate 89 75 60 Respiratory Rate 20 20 Blood Pressure 112/82 Pulse Oximetry 95 95 Oxygen Delivery Room Air Fraction of Inspired Oxygen 09/07/24 00:00 09/07/24 04:00 09/07/24 05:31 Temperature 97.7 F Pulse Rate 76 75 79 Respiratory Rate 20 Blood Pressure 126/74 Pulse Oximetry 96 Oxygen Delivery Fraction of Inspired Oxygen 09/07/24 08:03 09/07/24 08:52 09/07/24 09:32 Temperature Pulse Rate 65 Respiratory Rate 20 Blood Pressure Pulse Oximetry 95 95 Oxygen Delivery Room Air Room Air Fraction of Inspired Oxygen 21 Intake/Output Intake/Output: Intake & Output 09/04/24 09/05/24 09/06/24 09/07/24 23:59 23:59 23:59 23:59 Intake Total 120 1460 790 50 Output Total 1665 1000 550 400 Balance -1545 460 240 -350 Meds/Results Medications: Active Medications Generic Name Dose Route Start Last Admin Trade Name Freq PRN Reason Stop Dose Admin Acetaminophen 650 mg 09/04/24 13:46 Acetaminophen 325 Mg Tablet PO Q6H PRN Mild Pain (1-3) or Fever Apixaban 5 mg 09/04/24 21:00 09/07/24 08:53 Apixaban 5 Mg Tablet PO Not Given Q12HR [facility] Ascorbic Acid 250 mg 09/04/24 17:00 09/06/24 16:47 Ascorbic Acid 250 Mg Tablet PO Not Given 1700 [facility] Aspirin 81 mg 09/05/24 12:00 09/06/24 12:28 Aspirin 81 Mg Chewable Tablet PO 81 mg 1200 [facility] Administration Benzocaine 1 lozenge 09/04/24 16:44 Benzocaine/Menthol (*Bkc) 18 Ea Lozenge PO PRN PRN Sore Throat Calcium Carbonate 200 mg 09/04/24 13:47 Calcium Carbonate (Tums) 500 Mg (200 Mg Elemental) PO Q6H PRN Indigestion Calcium Carbonate 500 mg 09/04/24 17:00 09/06/24 16:47 Calcium Carbonate (Oscal) 500 Mg Tablet PO Not Given 1700 [facility] Cyanocobalamin 2,000 mcg 09/05/24 12:00 09/07/24 12:05 Cyanocobalamin 1,000 Mcg Tablet PO Not Given 1200 [facility] Cyanocobalamin 500 mcg 09/05/24 12:00 09/07/24 12:06 Cyanocobalamin 500 Mcg Tablet PO Not Given 1200 [facility] Docusate Sodium 100 mg 09/04/24 13:47 Docusate Sodium 100 Mg Capsule PO Q12H PRN Constipation Empagliflozin 10 mg 09/07/24 09:00 09/07/24 08:53 Empagliflozin 10 Mg Tablet PO Not Given DAILY [facility] Fluticasone Propionate 1 spray 09/05/24 09:00 09/07/24 08:52 Fluticasone Propionate 0.05% Na Spr 16 Gm Btl (*Bkc) NASAL 1 spray BID [facility] Administration Folic Acid 400 mg 09/05/24 12:00 09/07/24 12:06 Folic Acid 0.4 Mg Tablet PO Not Given 1200 [facility] Furosemide 40 mg 09/05/24 09:00 09/07/24 08:52 Furosemide Inj 40 Mg/4 Ml Vial IV PUSH 40 mg BID [facility] Administration Galantamine Hydrobromide 12 mg 09/04/24 17:55 09/07/24 08:53 Galantamine Hydrobromide 4 Mg Tablet PO Not Given BID [facility] Guaifenesin 600 mg 09/05/24 21:00 09/07/24 08:53 Guaifenesin 12 Hr 600 Mg Tabcr PO Not Given Q12HR [facility] Clindamycin Phosphate 600 mg in 50 mls @ 100 mls/hr 09/07/24 09:00 09/07/24 10:10 Clindamycin 600 Mg/D5w 50 Ml IVPB Infused Q8H [facility] Infusion Loratadine 10 mg 09/05/24 21:00 09/06/24 23:16 Loratadine 10 Mg Tablet PO Not Given QHS [facility] Melatonin 10 mg 09/04/24 21:00 09/06/24 23:16 Melatonin 5 Mg Tablet PO Not Given HS [facility] Memantine 10 mg 09/04/24 17:55 09/07/24 08:53 Memantine 10 Mg Tablet PO Not Given BID [facility] Metoprolol Succinate 50 mg 09/08/24 09:00 Metoprolol Succinate Ext Rel 50 Mg Tabcr PO QAM [facility] Multivitamins/Minerals 1 tablet 09/05/24 09:00 09/07/24 08:53 Opti-Gen Tab PO Not Given DAILY [facility] Ondansetron HCl 4 mg 09/04/24 13:47 Ondansetron Inj 4 Mg/2 Ml Vial IV PUSH Q6H PRN Nausea And Vomiting Pravastatin Sodium 20 mg 09/04/24 21:00 09/06/24 23:16 Pravastatin Sodium 20 Mg Tablet PO Not Given QHS [facility] Vitamin D 125 mcg 09/05/24 12:00 09/07/24 12:05 Cholecalciferol (Vitamin D3) 125 Mcg (5,000 Units) Tablet PO Not Given 1200 [facility] Radiology Results: ITS Impressions Chest X-Ray 09/04/24 10:42 IMPRESSION: Bilateral pleural effusions, moderate on the left and small on the right. Modified Barium Swallow 09/06/24 14:26 IMPRESSION: Pharyngeal dysphagia with laryngeal penetration and aspiration. Please correlate with speech pathologist findings and specific feeding recommendations. Labs Labs: Laboratory Results - last 24 hr 09/07/24 05:02 WBC 5.7 RBC 4.36 L Hgb 14.3 Hct 42.6 MCV 97.7 MCH 32.8 MCHC 33.6 RDW 12.6 Plt Count 117 L MPV 10.2 Immature Gran % (Auto) 0.5 Neut % (Auto) 79.2 H Lymph % (Auto) 9.1 L [place] % (Auto) 9.5 H Eos % (Auto) 1.2 Baso % (Auto) 0.5 Lymph # (Auto) 0.52 L [place] # (Auto) 0.5 Eos # (Auto) 0.1 Baso # (Auto) 0.0 Abs Immat Gran (auto) 0.03 Absolute Neuts (auto) 4.5 Absolute Nucleated RBC 0.000 Nucleated RBC % 0.0 % Immature Plt Fraction 5.3 Sodium 132 L Potassium 3.6 Chloride 97 L Carbon Dioxide 29 Anion Gap 6 BUN 17 Creatinine 0.90 Estim Creat Clear Calc 52 Estimated GFR > 60 Glucose 120 H Calcium 9.3 Magnesium 1.8 Total Bilirubin 1.2 AST 22 ALT 14 Alkaline Phosphatase 69 Total Protein 6.5 Albumin 3.8 Quality VTE Prophylaxis VTE prophylaxis: pharmacologic ordered
[2024-09-07] MEDS: SODIUM CHLORIDE 0.9% IV 1,000 ML 75 ML IV CONT (13:41)
--- NOTE | 2024-09-07 15:01 | P.CONGI_ITS ---
Assessment and Plan Assessment and plan (1) Dysphagia: Code(s): R13.10 - Dysphagia, unspecified Status: Acute Assessment and Plan: The patient has a clear indication for PEG placement. However, since the last dose of Eliquis taken was yesterday, will wait until this coming Thursday to perform the procedure, putting Eliquis on hold. GI Consult Note Consult date/time: 09/07/24 15:01 Reason for consult: PEG placement HPI: 84-year-old Bud James , admitted on September 04, 2024, for chest pain and shortness of breath. He has a history of CABG (2018), dementia, and atrial fibrillation (on Eliquis). Of note, his systolic function has significantly declined, from 66% to 40-45% on recent evaluation. He also has abnormal findings from a modified barium swallow for dysphagia. The reason for this consultation is to explore the possibility of PEG placement. Review of Systems 2 Review of Systems: All systems reviewed & are unremarkable except as noted in HPI and below PMFSH Past Medical History Medical History Prostate cancer Colon cancer (~11/01/10) BPH (benign prostatic hyperplasia) CAD (coronary artery disease) GERD (gastroesophageal reflux disease) Osteoarthritis of right knee Arthritis Dementia of the Alzheimer's type Hyperlipidemia Cognitive impairment Paroxysmal atrial fibrillation Overweight (BMI 25.0-29.9) Elevated PSA Thrombocytopenia Pulmonary emboli (~2008) Hypertension Surgical History Surgical History History of cataract extraction Fracture of hip, right, closed Right hip pinning December 19, 2022 History of colon surgery Hx of cholecystectomy 1999 S/P CABG x 3 (~10/06/18) History of left knee replacement (~2000) Family History Family History Father Heart disease Hypertension Mother Diabetes mellitus Hypertension Alzheimer disease Sibling Cancer of kidney Carcinoma of colon Cancer Daughter Cancer of kidney Cancer Grandparent Heart disease Cerebrovascular accident Social History Social History Social History: Currently lives at home with his . Surrogate decision maker: Erica Askew, daughter. Full Code. Caffeine-None Smoking status: Never smoker Second hand tobacco smoke exposure: No Alcohol intake: never Substance use: never Substance use type: does not use Do You Feel Safe in your Home?: Yes Lack of Transportation: No Lack of Food: Never True Current Housing: I Have Housing Concerned About Future Housing: No Difficulty Paying Gas/Electric Bills: No Difficulty Paying for Meds: No Currently Unemployed: YES Education: Bachelor's Degree Difficulty w/ Childcare or Family Care: No Living arrangements: with family Additional living arrangements comments: lives with in a house Occupation/Education: retired Gender identity (if verbalized by the patient): Male Sexual Orientation (if Verbalized by the Patient): Straight or Heterosexual Spiritual care concerns: No Agree to blood products: Yes Meds Home Medications and Allergies Home Medications ?Medication ?Instructions ?Recorded ?Confirmed ?Type apixaban 5 mg tablet (Eliquis) 5 mg PO BID 01/01/21 09/04/24 History ascorbic acid (vitamin C) 250 mg 282 mg PO 1700 01/01/21 09/04/24 History tablet aspirin 81 mg chewable tablet 81 mg PO 1200 01/01/21 09/04/24 History calcium carbonate 650 mg PO 1700 01/01/21 09/04/24 History cyanocobalamin (vitamin B-12) 2,500 mcg PO 1200 01/01/21 09/04/24 History 2,500 mcg tablet coenzyme Q10 100 mg capsule (Co 100 mg PO DAILY 12/31/21 09/04/24 History Q-10) melatonin 5 mg chewable tablet 10 mg PO HS 12/31/21 09/04/24 History [id number]-[id number]-vkvpi 300 mcg-K 60 1 tablet PO DAILY 12/31/21 09/04/24 History mcg-lycop 600 mcg-lutein 300 mcg tablet (Centrum Silver Men) red beet 250 mg-sour crouch 1 tablet PO DAILY 08/25/22 09/04/24 History extract 0.5 mg chewable tablet cholecalciferol (vitamin D3) 125 125 mcg PO 1200 10/10/22 09/04/24 History mcg (5,000 unit) tablet folic acid 800 mcg tablet 400 mg PO 1200 10/10/22 09/04/24 History zinc 15 mg tablet 15 mg PO DAILY 10/10/22 09/04/24 History diltiazem HCl 120 mg 120 mg PO 1200 12/18/22 09/04/24 History capsule,extended release 24 hr lidocaine 4 % topical patch 1 patch transdermal DAILY #15 ea 01/01/23 09/04/24 Rx (Lidocaine Pain Relief) acetaminophen 500 mg tablet 500 mg PO Q6H PRN pain 01/06/23 09/04/24 History (Tylenol Extra Strength) fluticasone propionate 50 1 spray intranasal BID 01/06/23 09/04/24 History mcg/actuation nasal spray,suspension prevagen See Rx Instructions BYMOUTH 01/06/23 09/04/24 History .COMPLEX vit C 250 mg-vit E 90 mg-zinc 40 1 tablet PO ONCE 01/06/23 09/04/24 History mg-copper 1 [id number] capsule (PreserVision AREDS-2) turmeric 400 mg capsule 400 mg PO DAILY 04/09/23 09/04/24 History pravastatin 20 mg tablet 20 mg PO QHS #90 tabs 12/29/23 09/04/24 Rx galantamine 4 mg tablet See Rx Instructions .Route 05/31/24 09/04/24 Rx .COMPLEX #240 tabs memantine 10 mg tablet 10 mg PO BID #180 tabs 05/31/24 09/04/24 Rx diltiazem HCl 120 mg capsule,24 120 mg PO Q24H 08/07/24 09/04/24 History hr,extended release clindamycin HCl 300 mg capsule 300 mg PO Q6H Dental infection 09/04/24 09/04/24 History Allergies Allergy/AdvReac Type Severity Reaction Status Date / Time Penicillins Allergy Severe Swelling Verified 08/12/24 14:03 morphine AdvReac Intermediate Hallucinati Verified 08/12/24 14:03 ng RICARDO Inhibitors AdvReac Mild Cough Verified 08/12/24 14:03 midazolam (From Versed) AdvReac Mild Agitated Verified 08/12/24 14:03 Vital Signs Vital Signs - 24 hr 09/06/24 16:03 09/06/24 20:00 09/06/24 20:00 Temperature Pulse Rate 75 89 Respiratory Rate Blood Pressure Pulse Oximetry Oxygen Delivery Room Air Fraction of Inspired Oxygen 21 09/06/24 20:31 09/06/24 20:37 09/07/24 00:00 Temperature 98.0 F Pulse Rate 75 60 76 Respiratory Rate 20 20 Blood Pressure 112/82 Pulse Oximetry 95 95 Oxygen Delivery Room Air Fraction of Inspired Oxygen 21 09/07/24 04:00 09/07/24 05:31 09/07/24 08:03 Temperature 97.7 F Pulse Rate 75 79 65 Respiratory Rate 20 Blood Pressure 126/74 Pulse Oximetry 96 Oxygen Delivery Fraction of Inspired Oxygen 09/07/24 08:52 09/07/24 09:32 09/07/24 12:00 Temperature Pulse Rate 73 Respiratory Rate 20 Blood Pressure Pulse Oximetry 95 95 Oxygen Delivery Room Air Room Air Fraction of Inspired Oxygen 21 Exam 2 Narrative: absent breath sounds in the lower lung figueroa, L worse than R Const: General: comfortable and no acute distress Other: On RA HENMT: Face/Nose/Sinus: Normal nares present Mouth: Yes moist mucous membranes Eyes: General: appearance normal, both eyes and all related structures S clera: sclerae normal Pupils: Equal, round and reactive pupils present E OM: EOMs intact bilaterally Neck: Neck: supple and no JVD Resp: Effort & Inspection: normal respiratory effort Other: absent breath sounds in the lower lung [place], L worse than R. no wheezing or crackles appreciated. Cardio: Rate: regular rate Rhythm: regular rhythm Other: regular, irregular AFIB on monitor and EKG GI: Other: Abdomen soft, nondistended, nontender. Normoactive bowel sounds in all quadrants. Skin: General skin exam: normal color and no rashes or lesions noted W ounds: no wounds Neuro: Cranial nerves: Yes Equal, round and reactive pupils present Speech: normal speech Motor exam (neuro): 5/5 motor strength present throughout S ensory Exam: normal sensation Other: A&O x3 Extrem: General: normal to inspection Psych: Mental Status: mental status grossly normal Affect: normal affect Other: very pleasant Results Labs 09/07/24 05:02 09/07/24 05:02 Labs: Short CBC 09/07/24 Range/Units 05:02 WBC 5.7 (4.5-10.0) K/mm3 Hgb 14.3 (14.0-18.0) g/dL Hct 42.6 (42.0-52.0) % Plt Count 117 L (150-375) k/mm3 BMP 09/07/24 05:02 Sodium 132 L Potassium 3.6 Chloride 97 L Carbon Dioxide 29 BUN 17 Creatinine 0.90 Glucose 120 H Calcium 9.3 Liver Function 09/07/24 Range/Units 05:02 Total Bilirubin 1.2 (0.2-1.3) mg/dL AST 22 (17-59) U/L ALT 14 (6-50) U/L Alkaline Phosphatase 69 (38-126) U/L Albumin 3.8 (3.5-5.1) g/dL
[2024-09-07] MEDS: GALANTAMINE HYDROBROMIDE 4 MG TABLET 12 MG PO (18:38)
[2024-09-07] MEDS: MEMANTINE 10 MG TABLET PO (18:38)
[2024-09-07] MEDS: LORATADINE 10 MG TABLET PO (21:58)
[2024-09-07] MEDS: MELATONIN 5 MG TABLET 10 MG PO (21:58)
[2024-09-07] MEDS: PRAVASTATIN SODIUM 20 MG TABLET PO (21:58)
--- NOTE | 2024-09-07 23:16 | PC.NURSE ---
RN was notified by patient's spouse that patient had pulled out his Dobhoff. RN assessed patient and no s/s of irritation present to nasal passage at this time. Provider on staff, Dr. Dixon, notified. RN will continue to follow and report to dayshift that Dobhoff will need to be replaced via Radiology.
[2024-09-08] VITALS (11 sets, daily range): BP systolic 128–143; BP diastolic 71–88; PULSE 71–101; RESP 14–20; TEMP 36.3–36.6; O2SAT 95–97
[2024-09-08] MEDS: CLINDAMYCIN 600 MG/D5W 50 ML 600 MG/50 ML PIGGYBACK 100 MG IVPB ×3 (01:38→16:44)
[2024-09-08 05:46] LABS: Hematocrit 43.2 % (42.0-52.0); Hemoglobin 14.6 g/dL (14.0-18.0); Immature Granulocyte Percent A 0.4 % (0-0.5); Immature Platelet Fraction Pct 4.1 % (0.9-11.2); Lymphocytes Absolute Auto 0.71 K/mm3 (0.9-3.2); Mean Corpuscular HGB Conc 33.8 g/dl (32-36); Mean Corpuscular Hemoglobin 33.0 pg (26-34); Mean Corpuscular Volume 97.7 fl (80-100); Nucleated Red Blood Cells Absolute Auto 0.000 K/mm3 (0.0-0.012); Nucleated Red Blood Cells Perc 0.0 % (0.0-0.2); Platelet Count Result 130 k/mm3 (150-375); Red Blood Count 4.42 M/mm3 (4.6-6.20); White Blood Count 5.1 K/mm3 (4.5-10.0)
[2024-09-08 05:55] LABS: Alanine Aminotransferase 15 U/L (6-50); Albumin Level 3.8 g/dL (3.5-5.1); Alkaline Phosphatase 72 U/L (38-126); Anion Gap 7 mmol/L (4-12); Aspartate Amino Transferase 29 U/L (17-59); Bilirubin,Total 1.1 mg/dL (0.2-1.3); Blood Urea Nitrogen 22 mg/dL (9-20); Calcium 9.2 mg/dL (8.4-10.2); Carbon Dioxide 27 mmol/L (22-30); Chloride 99 mmol/L (98-107); Estimated CRCL calculation 48 ml/min; Estimated Glomerular Filt Rate > 60; Glucose 110 mg/dL (65-110); Magnesium 1.9 mg/dL (1.6-2.3); Potassium 3.4 mmol/L (3.4-5.0); Sodium 133 mmol/L (137-145); Total Protein 6.5 g/dL (6.3-8.2)
[2024-09-08] MEDS: SODIUM CHLORIDE 0.9% IV 1,000 ML 75 ML IV CONT ×2 (06:47→20:57)
--- NOTE | 2024-09-08 07:22 | P.PNCA_ITS ---
Progress Note: A&P Assessment and Plan (1) Systolic heart failure: Code(s): I50.20 - Unspecified systolic (congestive) heart failure Status: Acute (2) Paroxysmal atrial fibrillation: Code(s): I48.0 - Paroxysmal atrial fibrillation Status: Acute (3) Hypertension: Qualifiers: Hypertension type: primary hypertension Qualified Code(s): I10 - Essential (primary) hypertension Code(s): I10 - Essential (primary) hypertension Status: Chronic (4) Hyperlipidemia: Qualifiers: Hyperlipidemia type: mixed hyperlipidemia Qualified Code(s): E78.2 - Mixed hyperlipidemia Code(s): E78.5 - Hyperlipidemia, unspecified Status: Acute Plan -Bilateral pleural effusion-moderate on the right and small on left; decreased -Paroxysmal AFib-rate controlled in the 70s -CAD status post CABG X 3 in 2019-chest pain appears noncardiac as it occurs when patient has coughing bout; troponin x3 negative -Chronic diastolic heart failure and new systolic heart failure-LVEF is decreased to 40-45% from 66% in 03/2024 -Hypertension Plan: Continue medical management for CAD 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 No invasive catheterization for now given patient is chest pain free and troponin x 3 negative Stopped Cardizem due to depressed LV. Started metoprolol succinate 50 mg daily. Continue this at discharge Guideline directed medical therapy for cardiomyopathy. Continue metoprolol and empagliflozin. Add RICARDO-inhibitor/Arb/ARNI if blood pressure tolerates Continue diuresis with IV Lasix 40 mg BID for one more day. Check daily weights, ins and outs, and renal function Check and replace electrolytes to keep potassium greater than 4 and magnesium greater than 2 Anticoagulation with Eliquis for AFib Continue aspirin Continue pravastatin Management of pleural effusion and other medical problems per primary team Subjective Date/time seen: 09/08/24 07:22 Interval history: Reason for encounter: Acute on chronic heart failure Interval history: No chest pain. Shortness of breath is improving with IV diuresis. He is undergoing GI workup for PEG tube placement as he was noted to have pharyngeal dysphagia with laryngeal penetration and aspiration. Review of Systems Cardiovascular: Comments: As per HPI Respiratory: Comments: As per HPI Exam Narrative: General: Dementia Neck: Supple, no JVD Chest: Decreased breath sounds at both bases right more than left, no rales or rhonchi Cardiac: S1, S2 +, regular rate, regular rhythm, no murmurs or rubs Extremities: No pedal edema, no skin rash Neurologic: Patient has dementia, no focal neurological deficits Objective Data Vital Signs Vital Signs: Vital Signs - 24 hr 09/07/24 08:03 09/07/24 08:52 09/07/24 09:32 Temperature Pulse Rate 65 Respiratory Rate 20 Blood Pressure Pulse Oximetry 95 95 Oxygen Delivery Room Air Room Air Fraction of Inspired Oxygen 21 09/07/24 12:00 09/07/24 14:52 09/07/24 16:00 Temperature 36.7 C Pulse Rate 73 68 72 Respiratory Rate 18 Blood Pressure 118/71 Pulse Oximetry 96 Oxygen Delivery Fraction of Inspired Oxygen 09/07/24 20:00 09/07/24 20:00 09/07/24 22:00 Temperature 36.8 C Pulse Rate 103 H 93 Respiratory Rate 18 Blood Pressure 121/81 Pulse Oximetry 96 Oxygen Delivery Room Air Fraction of Inspired Oxygen 21 09/07/24 22:26 09/08/24 00:00 09/08/24 04:00 Temperature Pulse Rate 111 H 101 H 83 Respiratory Rate 20 Blood Pressure Pulse Oximetry 94 Oxygen Delivery Room Air Fraction of Inspired Oxygen 21 09/08/24 06:00 Temperature 36.3 C L Pulse Rate 77 Respiratory Rate 18 Blood Pressure 128/79 Pulse Oximetry 97 Oxygen Delivery Fraction of Inspired Oxygen Intake/Output Intake/Output: Intake & Output 09/05/24 09/06/24 09/07/24 09/08/24 23:59 23:59 23:59 23:59 Intake Total 1460 790 268.8 881.2 Output Total 9223 004 8992 700 Balance 460 240 -981.2 181.2 Meds/Results Medications: Active Medications Generic Name Dose Route Start Last Admin Trade Name Freq PRN Reason Stop Dose Admin Acetaminophen 650 mg 09/04/24 13:46 Acetaminophen 325 Mg Tablet PO Q6H PRN Mild Pain (1-3) or Fever Apixaban 5 mg 09/04/24 21:00 09/07/24 20:03 Apixaban 5 Mg Tablet PO Not Given Q12HR COUNTS INCLUDE 234 BEDS AT [facility] Ascorbic Acid 250 mg 09/04/24 17:00 09/07/24 18:31 Ascorbic Acid 250 Mg Tablet PO Not Given 1700 ARABELLA Aspirin 81 mg 09/05/24 12:00 09/07/24 13:13 Aspirin 81 Mg Chewable Tablet PO Not Given 1200 ARABELLA Benzocaine 1 lozenge 09/04/24 16:44 Benzocaine/Menthol (*Bkc) 18 Ea Lozenge PO PRN PRN Sore Throat Calcium Carbonate 200 mg 09/04/24 13:47 Calcium Carbonate (Tums) 500 Mg (200 Mg Elemental) PO Q6H PRN Indigestion Calcium Carbonate 500 mg 09/04/24 17:00 09/07/24 18:31 Calcium Carbonate (Oscal) 500 Mg Tablet PO Not Given 1700 ARABELLA Cyanocobalamin 2,000 mcg 09/05/24 12:00 09/07/24 12:05 Cyanocobalamin 1,000 Mcg Tablet PO Not Given 1200 COUNTS INCLUDE 234 BEDS AT [facility] Cyanocobalamin 500 mcg 09/05/24 12:00 09/07/24 12:06 Cyanocobalamin 500 Mcg Tablet PO Not Given 1200 COUNTS INCLUDE 234 BEDS AT [facility] Docusate Sodium 100 mg 09/04/24 13:47 Docusate Sodium 100 Mg Capsule PO Q12H PRN Constipation Empagliflozin 10 mg 09/07/24 09:00 09/07/24 08:53 Empagliflozin 10 Mg Tablet PO Not Given DAILY COUNTS INCLUDE 234 BEDS AT [facility] Fluticasone Propionate 1 spray 09/05/24 09:00 09/07/24 18:31 Fluticasone Propionate 0.05% Na Spr 16 Gm Btl (*Bkc) NASAL 1 spray BID ARABELLA Administration Folic Acid 400 mg 09/05/24 12:00 09/07/24 12:06 Folic Acid 0.4 Mg Tablet PO Not Given 1200 COUNTS INCLUDE 234 BEDS AT [facility] Furosemide 40 mg 09/05/24 09:00 09/07/24 18:33 Furosemide Inj 40 Mg/4 Ml Vial IV PUSH 40 mg BID ARABELLA Administration Galantamine Hydrobromide 12 mg 09/04/24 17:55 09/07/24 18:38 Galantamine Hydrobromide 4 Mg Tablet PO 12 mg BID ARABELLA Administration Guaifenesin 600 mg 09/05/24 21:00 09/07/24 20:03 Guaifenesin 12 Hr 600 Mg Tabcr PO Not Given Q12HR ARABELLA Clindamycin Phosphate 600 mg in 50 mls @ 100 mls/hr 09/07/24 09:00 09/08/24 02:08 Clindamycin 600 Mg/D5w 50 Ml IVPB Infused Q8H COUNTS INCLUDE 234 BEDS AT [facility] Infusion Sodium Chloride 1,000 mls @ 75 mls/hr 09/07/24 13:15 09/08/24 06:47 Normal Saline Iv IV CONT 75 mls/hr .[id number] ARABELLA Administration Loratadine 10 mg 09/05/24 21:00 09/07/24 21:58 Loratadine 10 Mg Tablet PO 10 mg QHS ARABELLA Administration Melatonin 10 mg 09/04/24 21:00 09/07/24 21:58 Melatonin 5 Mg Tablet PO 10 mg HS ARABELLA Administration Memantine 10 mg 09/04/24 17:55 09/07/24 18:38 Memantine 10 Mg Tablet PO 10 mg BID ARABELLA Administration Metoprolol Succinate 50 mg 09/08/24 09:00 Metoprolol Succinate Ext Rel 50 Mg Tabcr PO QAM COUNTS INCLUDE 234 BEDS AT [facility] Multivitamins/Minerals 1 tablet 09/05/24 09:00 09/07/24 08:53 Opti-Gen Tab PO Not Given DAILY COUNTS INCLUDE 234 BEDS AT [facility] Ondansetron HCl 4 mg 09/04/24 13:47 Ondansetron Inj 4 Mg/2 Ml Vial IV PUSH Q6H PRN Nausea And Vomiting Pravastatin Sodium 20 mg 09/04/24 21:00 09/07/24 21:58 Pravastatin Sodium 20 Mg Tablet PO 20 mg QHS COUNTS INCLUDE 234 BEDS AT [facility] Administration Vitamin D 125 mcg 09/05/24 12:00 09/07/24 12:05 Cholecalciferol (Vitamin D3) 125 Mcg (5,000 Units) Tablet PO Not Given 1200 ARABELLA Radiology Results: ITS Impressions Chest X-Ray 09/04/24 10:42 IMPRESSION: Bilateral pleural effusions, moderate on the left and small on the right. Modified Barium Swallow 09/06/24 14:26 IMPRESSION: Pharyngeal dysphagia with laryngeal penetration and aspiration. Please correlate with speech pathologist findings and specific feeding recommendations. Labs Labs: Laboratory Results - last 24 hr 09/08/24 05:38 WBC 5.1 RBC 4.42 L Hgb 14.6 Hct 43.2 MCV 97.7 MCH 33.0 MCHC 33.8 RDW 12.6 Plt Count 130 L MPV 10.3 Immature Gran % (Auto) 0.4 Neut % (Auto) 69.4 Lymph % (Auto) 14.0 L [place] % (Auto) 14.2 H Eos % (Auto) 1.4 Baso % (Auto) 0.6 Lymph # (Auto) 0.71 L [place] # (Auto) 0.7 H Eos # (Auto) 0.1 Baso # (Auto) 0.0 Abs Immat Gran (auto) 0.02 Absolute Neuts (auto) 3.5 Absolute Nucleated RBC 0.000 Nucleated RBC % 0.0 % Immature Plt Fraction 4.1 Sodium 133 L Potassium 3.4 Chloride 99 Carbon Dioxide 27 Anion Gap 7 BUN 22 H Creatinine 0.97 Estim Creat Clear Calc 48 Estimated GFR > 60 Glucose 110 Calcium 9.2 Magnesium 1.9 Total Bilirubin 1.1 AST 29 ALT 15 Alkaline Phosphatase 72 Total Protein 6.5 Albumin 3.8
[2024-09-08] MEDS: FUROSEMIDE INJ 40 MG/4 ML VIAL IV PUSH ×2 (08:52→16:45)
--- NOTE | 2024-09-08 10:51 | P.PNGI_ITS ---
Progress Note: A&P Assessment and Plan (1) Dysphagia: Code(s): R13.10 - Dysphagia, unspecified Status: Acute Assessment and Plan: as previously discussed, the patient is good candidate for PEG. However, he pu lled his Dobbhoff tube last night, and he has risk for pulling his PEG which might be a significant problem. I discussed this risk free of at the bedside, and they will need a 24 hour sitter to avoid PEG removal. Saige is on hold, the patient will be scheduled for tomorrow. Subjective Date/time seen: 09/08/24 10:51 Objective Data Vital Signs Vital Signs: Vital Signs - 24 hr 09/07/24 12:00 09/07/24 14:52 09/07/24 16:00 Temperature 98.0 F Pulse Rate 73 68 72 Respiratory Rate 18 Blood Pressure 118/71 Pulse Oximetry 96 Oxygen Delivery Fraction of Inspired Oxygen 09/07/24 20:00 09/07/24 20:00 09/07/24 22:00 Temperature 98.3 F Pulse Rate 103 H 93 Respiratory Rate 18 Blood Pressure 121/81 Pulse Oximetry 96 Oxygen Delivery Room Air Fraction of Inspired Oxygen 09/07/24 22:26 09/08/24 00:00 09/08/24 04:00 Temperature Pulse Rate 111 H 101 H 83 Respiratory Rate 20 Blood Pressure Pulse Oximetry 94 Oxygen Delivery Room Air Fraction of Inspired Oxygen 09/08/24 06:00 Temperature 97.4 F L Pulse Rate 77 Respiratory Rate 18 Blood Pressure 128/79 Pulse Oximetry 97 Oxygen Delivery Fraction of Inspired Oxygen Intake/Output Intake/Output: Intake & Output 09/05/24 09/06/24 09/07/24 09/08/24 23:59 23:59 23:59 23:59 Intake Total 1460 790 268.8 1036.2 Output Total 6509 843 4454 700 Balance 460 240 -981.2 336.2 Meds/Results Medications: Active Medications Generic Name Dose Route Start Last Admin Trade Name Freq PRN Reason Stop Dose Admin Acetaminophen 650 mg 09/04/24 13:46 Acetaminophen 325 Mg Tablet PO Q6H PRN Mild Pain (1-3) or Fever Apixaban 5 mg 09/04/24 21:00 09/07/24 20:03 Apixaban 5 Mg Tablet PO Not Given Q12HR [facility] Ascorbic Acid 250 mg 09/04/24 17:00 09/07/24 18:31 Ascorbic Acid 250 Mg Tablet PO Not Given 1700 ARABELLA Aspirin 81 mg 09/05/24 12:00 09/07/24 13:13 Aspirin 81 Mg Chewable Tablet PO Not Given 1200 [facility] Benzocaine 1 lozenge 09/04/24 16:44 Benzocaine/Menthol (*Bkc) 18 Ea Lozenge PO PRN PRN Sore Throat Calcium Carbonate 200 mg 09/04/24 13:47 Calcium Carbonate (Tums) 500 Mg (200 Mg Elemental) PO Q6H PRN Indigestion Calcium Carbonate 500 mg 09/04/24 17:00 09/07/24 18:31 Calcium Carbonate (Oscal) 500 Mg Tablet PO Not Given 1700 [facility] Cyanocobalamin 2,000 mcg 09/05/24 12:00 09/07/24 12:05 Cyanocobalamin 1,000 Mcg Tablet PO Not Given 1200 [facility] Cyanocobalamin 500 mcg 09/05/24 12:00 09/07/24 12:06 Cyanocobalamin 500 Mcg Tablet PO Not Given 1200 [facility] Docusate Sodium 100 mg 09/04/24 13:47 Docusate Sodium 100 Mg Capsule PO Q12H PRN Constipation Empagliflozin 10 mg 09/07/24 09:00 09/08/24 08:57 Empagliflozin 10 Mg Tablet PO Not Given DAILY [facility] Fluticasone Propionate 1 spray 09/05/24 09:00 09/08/24 08:57 Fluticasone Propionate 0.05% Na Spr 16 Gm Btl (*Bkc) NASAL Not Given BID [facility] Folic Acid 400 mg 09/05/24 12:00 09/07/24 12:06 Folic Acid 0.4 Mg Tablet PO Not Given 1200 [facility] Furosemide 40 mg 09/05/24 09:00 09/08/24 08:52 Furosemide Inj 40 Mg/4 Ml Vial IV PUSH 40 mg BID ARABELLA Administration Galantamine Hydrobromide 12 mg 09/04/24 17:55 09/08/24 08:57 Galantamine Hydrobromide 4 Mg Tablet PO Not Given BID [facility] Guaifenesin 600 mg 09/05/24 21:00 09/08/24 08:57 Guaifenesin 12 Hr 600 Mg Tabcr PO Not Given Q12HR [facility] Clindamycin Phosphate 600 mg in 50 mls @ 100 mls/hr 09/07/24 09:00 09/08/24 08:51 Clindamycin 600 Mg/D5w 50 Ml IVPB 100 mls/hr Q8H ARABELLA Administration Sodium Chloride 1,000 mls @ 75 mls/hr 09/07/24 13:15 09/08/24 08:51 Normal Saline Iv IV CONT 0 mls/hr .[id number] ARABELLA Infusion Loratadine 10 mg 09/05/24 21:00 09/07/24 21:58 Loratadine 10 Mg Tablet PO 10 mg QHS ARABELLA Administration Melatonin 10 mg 09/04/24 21:00 09/07/24 21:58 Melatonin 5 Mg Tablet PO 10 mg HS ARABELLA Administration Memantine 10 mg 09/04/24 17:55 09/08/24 08:57 Memantine 10 Mg Tablet PO Not Given BID ARABELLA Metoprolol Succinate 50 mg 09/08/24 09:00 09/08/24 08:57 Metoprolol Succinate Ext Rel 50 Mg Tabcr PO Not Given QAM [facility] Multivitamins/Minerals 1 tablet 09/05/24 09:00 09/08/24 08:58 Opti-Gen Tab PO Not Given DAILY [facility] Ondansetron HCl 4 mg 09/04/24 13:47 Ondansetron Inj 4 Mg/2 Ml Vial IV PUSH Q6H PRN Nausea And Vomiting Pravastatin Sodium 20 mg 09/04/24 21:00 09/07/24 21:58 Pravastatin Sodium 20 Mg Tablet PO 20 mg QHS [facility] Administration Vitamin D 125 mcg 09/05/24 12:00 09/07/24 12:05 Cholecalciferol (Vitamin D3) 125 Mcg (5,000 Units) Tablet PO Not Given 1200 [facility] Radiology Results: ITS Impressions Chest X-Ray 09/04/24 10:42 IMPRESSION: Bilateral pleural effusions, moderate on the left and small on the right. Modified Barium Swallow 09/06/24 14:26 IMPRESSION: Pharyngeal dysphagia with laryngeal penetration and aspiration. Please correlate with speech pathologist findings and specific feeding recommendations. Labs Labs: Laboratory Results - last 24 hr 09/08/24 05:38 WBC 5.1 RBC 4.42 L Hgb 14.6 Hct 43.2 MCV 97.7 MCH 33.0 MCHC 33.8 RDW 12.6 Plt Count 130 L MPV 10.3 Immature Gran % (Auto) 0.4 Neut % (Auto) 69.4 Lymph % (Auto) 14.0 L [place] % (Auto) 14.2 H Eos % (Auto) 1.4 Baso % (Auto) 0.6 Lymph # (Auto) 0.71 L [place] # (Auto) 0.7 H Eos # (Auto) 0.1 Baso # (Auto) 0.0 Abs Immat Gran (auto) 0.02 Absolute Neuts (auto) 3.5 Absolute Nucleated RBC 0.000 Nucleated RBC % 0.0 % Immature Plt Fraction 4.1 Sodium 133 L Potassium 3.4 Chloride 99 Carbon Dioxide 27 Anion Gap 7 BUN 22 H Creatinine 0.97 Estim Creat Clear Calc 48 Estimated GFR > 60 Glucose 110 Calcium 9.2 Magnesium 1.9 Total Bilirubin 1.1 AST 29 ALT 15 Alkaline Phosphatase 72 Total Protein 6.5 Albumin 3.8
--- NOTE | 2024-09-08 12:41 | PM.IMPN ---
Progress Note: A&P Assessment and Plan (1) CHF (congestive heart failure): Qualifiers: Heart failure chronicity: acute Heart failure type: unspecified Qualified Code(s): I50.9 - Heart failure, unspecified Code(s): I50.9 - Heart failure, unspecified Status: Acute Assessment and Plan: patient admitted with new bilateral pleural effusions no previous history of congestive heart failure last echo 03/2023 showed normal diastolic function with an LVEF of 60 65%, patient does have history of CABG and atrial fibrillation, elevated BNP, Patient on RA IV Lasix b.i.d. monitor renal function during diuresis echocardiogram showed 40-45% on jardiance, Metoprolol 50mg, Cardizem discontinued due to Depressed ejection fraction daily weights Cardiology following (2) Pleural effusion: Code(s): J90 - Pleural effusion, not elsewhere classified Status: Acute Assessment and Plan: SEE ABOVE continue with IV Lasix add incentive spirometer oxygen as needed currently on room air (3) Paroxysmal atrial fibrillation: Code(s): I48.0 - Paroxysmal atrial fibrillation Status: Acute Assessment and Plan: patient with history proximal atrial fibrillation had previous cardiac monitoring device which has been removed on Metoprolol and Eliquis continue telemetry cardiology following (4) Hyperlipidemia: Qualifiers: Hyperlipidemia type: mixed hyperlipidemia Qualified Code(s): E78.2 - Mixed hyperlipidemia Code(s): E78.5 - Hyperlipidemia, unspecified Status: Acute Assessment and Plan: Continue statin Plan Difficulty swallowing MBS showed pharyngeal dysphagia with laryngeal penetration and aspiration Also showed Bridging osteophytes at C3-C7 consistent with diffuse idiopathic skeletal hyperostosis GI consulted for G tube placement ENT consulted to evaluate for the bridging osteophytes at C3-7, if amenable to intervention Removed NG tube placed by IR, for PEG tube tomorrow monitor Code status: Full code per patient DVT prophylaxis: Eliquis on hold until 12th after procedure Subjective Date/time seen: 09/08/24 12:41 Interval history: Comfortable at bedside Patient pulled out Dobbhoff placed yesterday by IR overnight Review of Systems Review of Systems: All systems reviewed & are unremarkable except as noted in HPI and below Exam Narrative: absent breath sounds in the lower lung figueroa, L worse than R Const: General: comfortable and no acute distress Other: On RA HENMT: Face/Nose/Sinus: Normal nares present Mouth: Yes moist mucous membranes Eyes: General: appearance normal, both eyes and all related structures Sclera: sclerae normal Pupils: Equal, round and reactive pupils present EOM: EOMs intact bilaterally Neck: Neck: supple and no JVD Resp: Effort & Inspection: normal respiratory effort Other: absent breath sounds in the lower lung figueroa, L worse than R. no wheezing or crackles appreciated. Cardio: Rate: regular rate Rhythm: regular rhythm Other: regular, irregular AFIB on monitor and EKG GI: Other: Abdomen soft, nondistended, nontender. Normoactive bowel sounds in all quadrants. Skin: General skin exam: normal color and no rashes or lesions noted Wounds: no wounds Neuro: Cranial nerves: Yes Equal, round and reactive pupils present Speech: normal speech Motor exam (neuro): 5/5 motor strength present throughout Sensory Exam: normal sensation Other: A&O x3 Extrem: General: normal to inspection Psych: Mental Status: mental status grossly normal Affect: normal affect Other: very pleasant Objective Data Vital Signs Vital Signs: Vital Signs - 24 hr 09/07/24 14:52 09/07/24 16:00 09/07/24 20:00 Temperature 98.0 F Pulse Rate 68 72 Respiratory Rate 18 Blood Pressure 118/71 Pulse Oximetry 96 Oxygen Delivery Room Air Fraction of Inspired Oxygen 21 09/07/24 20:00 09/07/24 22:00 09/07/24 22:26 Temperature 98.3 F Pulse Rate 103 H 93 111 H Respiratory Rate 18 20 Blood Pressure 121/81 Pulse Oximetry 96 94 Oxygen Delivery Room Air Fraction of Inspired Oxygen 21 09/08/24 00:00 09/08/24 04:00 09/08/24 06:00 Temperature 97.4 F L Pulse Rate 101 H 83 77 Respiratory Rate 18 Blood Pressure 128/79 Pulse Oximetry 97 Oxygen Delivery Fraction of Inspired Oxygen 09/08/24 08:02 09/08/24 08:51 09/08/24 08:51 Temperature Pulse Rate 71 72 Respiratory Rate 18 Blood Pressure Pulse Oximetry 97 Oxygen Delivery Room Air Fraction of Inspired Oxygen 09/08/24 12:02 Temperature Pulse Rate 81 Respiratory Rate Blood Pressure Pulse Oximetry Oxygen Delivery Fraction of Inspired Oxygen Intake/Output Intake/Output: Intake & Output 09/05/24 09/06/24 09/07/24 09/08/24 23:59 23:59 23:59 23:59 Intake Total 1460 790 268.8 1086.2 Output Total 1841 973 3672 1300 Balance 460 240 -981.2 -213.8 Meds/Results Medications: Active Medications Generic Name Dose Route Start Last Admin Trade Name Freq PRN Reason Stop Dose Admin Acetaminophen 650 mg 09/04/24 13:46 Acetaminophen 325 Mg Tablet PO Q6H PRN Mild Pain (1-3) or Fever Apixaban 5 mg 09/04/24 21:00 09/07/24 20:03 Apixaban 5 Mg Tablet PO Not Given Q12HR ARABELLA Ascorbic Acid 250 mg 09/04/24 17:00 09/07/24 18:31 Ascorbic Acid 250 Mg Tablet PO Not Given 1700 ARABELLA Aspirin 81 mg 09/05/24 12:00 09/08/24 11:37 Aspirin 81 Mg Chewable Tablet PO Not Given 1200 [facility] Benzocaine 1 lozenge 09/04/24 16:44 Benzocaine/Menthol (*Bkc) 18 Ea Lozenge PO PRN PRN Sore Throat Calcium Carbonate 200 mg 09/04/24 13:47 Calcium Carbonate (Tums) 500 Mg (200 Mg Elemental) PO Q6H PRN Indigestion Calcium Carbonate 500 mg 09/04/24 17:00 09/07/24 18:31 Calcium Carbonate (Oscal) 500 Mg Tablet PO Not Given 1700 [facility] Cyanocobalamin 2,000 mcg 09/05/24 12:00 09/08/24 11:37 Cyanocobalamin 1,000 Mcg Tablet PO Not Given 1200 [facility] Cyanocobalamin 500 mcg 09/05/24 12:00 09/08/24 11:37 Cyanocobalamin 500 Mcg Tablet PO Not Given 1200 [facility] Docusate Sodium 100 mg 09/04/24 13:47 Docusate Sodium 100 Mg Capsule PO Q12H PRN Constipation Empagliflozin 10 mg 09/07/24 09:00 09/08/24 08:57 Empagliflozin 10 Mg Tablet PO Not Given DAILY [facility] Fluticasone Propionate 1 spray 09/05/24 09:00 09/08/24 08:57 Fluticasone Propionate 0.05% Na Spr 16 Gm Btl (*Bkc) NASAL Not Given BID ARABELLA Folic Acid 400 mg 09/05/24 12:00 09/08/24 11:37 Folic Acid 0.4 Mg Tablet PO Not Given 1200 [facility] Furosemide 40 mg 09/05/24 09:00 09/08/24 08:52 Furosemide Inj 40 Mg/4 Ml Vial IV PUSH 40 mg BID ARABELLA Administration Galantamine Hydrobromide 12 mg 09/04/24 17:55 09/08/24 08:57 Galantamine Hydrobromide 4 Mg Tablet PO Not Given BID ARABELLA Guaifenesin 600 mg 09/05/24 21:00 09/08/24 08:57 Guaifenesin 12 Hr 600 Mg Tabcr PO Not Given Q12HR ARABELLA Clindamycin Phosphate 600 mg in 50 mls @ 100 mls/hr 09/07/24 09:00 09/08/24 09:20 Clindamycin 600 Mg/D5w 50 Ml IVPB Infused Q8H ARABELLA Infusion Sodium Chloride 1,000 mls @ 75 mls/hr 09/07/24 13:15 09/08/24 09:20 Normal Saline Iv IV CONT 75 mls/hr .[id number] ARABELLA Infusion Loratadine 10 mg 09/05/24 21:00 09/07/24 21:58 Loratadine 10 Mg Tablet PO 10 mg QHS [facility] Administration Melatonin 10 mg 09/04/24 21:00 09/07/24 21:58 Melatonin 5 Mg Tablet PO 10 mg [facility] Administration Memantine 10 mg 09/04/24 17:55 09/08/24 08:57 Memantine 10 Mg Tablet PO Not Given BID [facility] Metoprolol Succinate 50 mg 09/08/24 09:00 09/08/24 08:57 Metoprolol Succinate Ext Rel 50 Mg Tabcr PO Not Given QAM [facility] Multivitamins/Minerals 1 tablet 09/05/24 09:00 09/08/24 08:58 Opti-Gen Tab PO Not Given DAILY [facility] Ondansetron HCl 4 mg 09/04/24 13:47 Ondansetron Inj 4 Mg/2 Ml Vial IV PUSH Q6H PRN Nausea And Vomiting Pravastatin Sodium 20 mg 09/04/24 21:00 09/07/24 21:58 Pravastatin Sodium 20 Mg Tablet PO 20 mg QHS ARABELLA Administration Vitamin D 125 mcg 09/05/24 12:00 09/08/24 11:37 Cholecalciferol (Vitamin D3) 125 Mcg (5,000 Units) Tablet PO Not Given 1200 [facility] Radiology Results: ITS Impressions Chest X-Ray 09/04/24 10:42 IMPRESSION: Bilateral pleural effusions, moderate on the left and small on the right. Modified Barium Swallow 09/06/24 14:26 IMPRESSION: Pharyngeal dysphagia with laryngeal penetration and aspiration. Please correlate with speech pathologist findings and specific feeding recommendations. Labs Labs: Laboratory Results - last 24 hr 09/08/24 05:38 WBC 5.1 RBC 4.42 L Hgb 14.6 Hct 43.2 MCV 97.7 MCH 33.0 MCHC 33.8 RDW 12.6 Plt Count 130 L MPV 10.3 Immature Gran % (Auto) 0.4 Neut % (Auto) 69.4 Lymph % (Auto) 14.0 L Stokes % (Auto) 14.2 H Eos % (Auto) 1.4 Baso % (Auto) 0.6 Lymph # (Auto) 0.71 L Stokes # (Auto) 0.7 H Eos # (Auto) 0.1 Baso # (Auto) 0.0 Abs Immat Gran (auto) 0.02 Absolute Neuts (auto) 3.5 Absolute Nucleated RBC 0.000 Nucleated RBC % 0.0 % Immature Plt Fraction 4.1 Sodium 133 L Potassium 3.4 Chloride 99 Carbon Dioxide 27 Anion Gap 7 BUN 22 H Creatinine 0.97 Estim Creat Clear Calc 48 Estimated GFR > 60 Glucose 110 Calcium 9.2 Magnesium 1.9 Total Bilirubin 1.1 AST 29 ALT 15 Alkaline Phosphatase 72 Total Protein 6.5 Albumin 3.8 Quality VTE Prophylaxis VTE prophylaxis: pharmacologic ordered
[2024-09-08] MEDS: FLUTICASONE PROPIONATE 0.05% NA SPR 16 GM BTL (*BKC) 1 SPRAY NASAL (16:45)
[2024-09-09] VITALS (15 sets, daily range): BP systolic 139–185; BP diastolic 84–95; PULSE 69–101; RESP 16–18; TEMP 36.4–36.7; O2SAT 95–99
[2024-09-09] MEDS: CLINDAMYCIN 600 MG/D5W 50 ML 600 MG/50 ML PIGGYBACK 100 MG IVPB (01:37)
[2024-09-09 05:03] LABS: Hematocrit 42.2 % (42.0-52.0); Hemoglobin 14.0 g/dL (14.0-18.0); Immature Granulocyte Percent A 0.4 % (0-0.5); Immature Platelet Fraction Pct 3.5 % (0.9-11.2); Lymphocytes Absolute Auto 0.45 K/mm3 (0.9-3.2); Mean Corpuscular HGB Conc 33.2 g/dl (32-36); Mean Corpuscular Hemoglobin 32.8 pg (26-34); Mean Corpuscular Volume 98.8 fl (80-100); Nucleated Red Blood Cells Absolute Auto 0.000 K/mm3 (0.0-0.012); Nucleated Red Blood Cells Perc 0.0 % (0.0-0.2); Platelet Count Result 125 k/mm3 (150-375); Red Blood Count 4.27 M/mm3 (4.6-6.20); White Blood Count 5.5 K/mm3 (4.5-10.0)
[2024-09-09 05:16] LABS: Alanine Aminotransferase 15 U/L (6-50); Albumin Level 3.7 g/dL (3.5-5.1); Alkaline Phosphatase 67 U/L (38-126); Anion Gap 8 mmol/L (4-12); Aspartate Amino Transferase 29 U/L (17-59); Bilirubin,Total 1.1 mg/dL (0.2-1.3); Blood Urea Nitrogen 21 mg/dL (9-20); Calcium 9.1 mg/dL (8.4-10.2); Carbon Dioxide 25 mmol/L (22-30); Chloride 104 mmol/L (98-107); Estimated CRCL calculation 50 ml/min; Estimated Glomerular Filt Rate > 60; Glucose 108 mg/dL (65-110); Magnesium 1.9 mg/dL (1.6-2.3); Potassium 3.2 mmol/L (3.4-5.0); Sodium 137 mmol/L (137-145); Total Protein 6.2 g/dL (6.3-8.2)
--- NOTE | 2024-09-09 06:13 | PM.PNCARD ---
Progress Note: A&P Assessment and Plan (1) Systolic heart failure: Code(s): I50.20 - Unspecified systolic (congestive) heart failure Status: Acute (2) Paroxysmal atrial fibrillation: Code(s): I48.0 - Paroxysmal atrial fibrillation Status: Acute (3) Hypertension: Qualifiers: Hypertension type: primary hypertension Qualified Code(s): I10 - Essential (primary) hypertension Code(s): I10 - Essential (primary) hypertension Status: Chronic (4) Hyperlipidemia: Qualifiers: Hyperlipidemia type: mixed hyperlipidemia Qualified Code(s): E78.2 - Mixed hyperlipidemia Code(s): E78.5 - Hyperlipidemia, unspecified Status: Acute Plan -Bilateral pleural effusion-moderate on the right and small on left; decreased -Paroxysmal AFib-rate controlled in the 70s -CAD status post CABG X 3 in 2019-chest pain appears noncardiac as it occurs when patient has coughing bout; troponin x3 negative -Chronic diastolic heart failure and new systolic heart failure-LVEF is decreased to 40-45% from 66% in 03/2024 -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 Outpatient stress test to evaluate for any ischemia as cause of recent drop in LVEF -Guideline directed medical therapy for cardiomyopathy. Continue metoprolol and empagliflozin. Add RICARDO-inhibitor/Arb/ARNI if blood pressure tolerates -Patient started on IV fluids as he is unable to take any p.o. nutrition (pulled out his Dobbhoff tube). Hold diuresis this a.m. can resume Lasix IV 40 mg b.i.d. tonight. He was 84 kilos at admission and 77 kilos now indicating he lost about 7 kilos of weight with diuresis. Creatinine has remained steady. Continue checking daily weights, ins and outs, and renal function -Check and replace electrolytes to keep potassium greater than 4 and magnesium greater than 2 -Anticoagulation with Eliquis for AFib -Management of pleural effusion and other medical problems per primary team Subjective Date/time seen: 09/09/24 06:13 Interval history: Reason for encounter: Acute on chronic heart failure Interval history: No chest pain, shortness of breath. He is undergoing scheduled PEG tube placement today as he was noted to have pharyngeal dysphagia with laryngeal penetration and aspiration. He pulled out his Dobhoff tube and not getting any p.o. meds or p.o. nutrition. He was started on IV fluids. Telemetry shows AFib with well-controlled rates. Review of Systems Cardiovascular: Comments: As per HPI Respiratory: Comments: As per HPI Exam Narrative: General: Dementia Neck: Supple, no JVD Chest: Bilateral clear to auscultation, no rales or rhonchi Cardiac: S1, S2 +, regular rate, regular rhythm, no murmurs or rubs Extremities: No pedal edema, no skin rash Neurologic: Patient has dementia, no focal neurological deficits Objective Data Vital Signs Vital Signs: Vital Signs - 24 hr 09/08/24 08:02 09/08/24 08:51 09/08/24 08:51 Temperature Pulse Rate 71 72 Respiratory Rate 18 Blood Pressure Pulse Oximetry 97 Oxygen Delivery Room Air Fraction of Inspired Oxygen 09/08/24 12:02 09/08/24 14:00 09/08/24 16:02 Temperature 36.6 C Pulse Rate 81 81 85 Respiratory Rate 14 Blood Pressure 135/71 Pulse Oximetry 96 Oxygen Delivery Fraction of Inspired Oxygen 09/08/24 19:24 09/08/24 20:00 09/08/24 21:00 Temperature 36.4 C Pulse Rate 79 82 Respiratory Rate 20 Blood Pressure 143/88 H Pulse Oximetry 96 Oxygen Delivery Room Air Fraction of Inspired Oxygen 09/08/24 23:23 09/09/24 00:00 09/09/24 04:00 Temperature Pulse Rate 83 77 Respiratory Rate Blood Pressure Pulse Oximetry 95 Oxygen Delivery Room Air Fraction of Inspired Oxygen 21 09/09/24 04:40 Temperature 36.7 C Pulse Rate 81 Respiratory Rate 18 Blood Pressure 168/88 H Pulse Oximetry 97 Oxygen Delivery Fraction of Inspired Oxygen Intake/Output Intake/Output: Intake & Output 09/06/24 09/07/24 09/08/24 09/09/24 23:59 23:59 23:59 23:59 Intake Total 790 268.8 1970.0 50 Output Total 550 1250 2500 600 Balance 240 -981.2 -530.0 -550 Meds/Results Medications: Active Medications Generic Name Dose Route Start Last Admin Trade Name Freq PRN Reason Stop Dose Admin Acetaminophen 650 mg 09/04/24 13:46 Acetaminophen 325 Mg Tablet PO Q6H PRN Mild Pain (1-3) or Fever Apixaban 5 mg 09/04/24 21:00 09/07/24 20:03 Apixaban 5 Mg Tablet PO Not Given Q12HR ARABELLA Ascorbic Acid 250 mg 09/04/24 17:00 09/08/24 16:45 Ascorbic Acid 250 Mg Tablet PO Not Given 1700 ARABELLA Aspirin 81 mg 09/05/24 12:00 09/08/24 11:37 Aspirin 81 Mg Chewable Tablet PO Not Given 1200 [facility] Benzocaine 1 lozenge 09/04/24 16:44 Benzocaine/Menthol (*Bkc) 18 Ea Lozenge PO PRN PRN Sore Throat Calcium Carbonate 200 mg 09/04/24 13:47 Calcium Carbonate (Tums) 500 Mg (200 Mg Elemental) PO Q6H PRN Indigestion Calcium Carbonate 500 mg 09/04/24 17:00 09/08/24 16:45 Calcium Carbonate (Oscal) 500 Mg Tablet PO Not Given 1700 [facility] Cyanocobalamin 2,000 mcg 09/05/24 12:00 09/08/24 11:37 Cyanocobalamin 1,000 Mcg Tablet PO Not Given 1200 [facility] Cyanocobalamin 500 mcg 09/05/24 12:00 09/08/24 11:37 Cyanocobalamin 500 Mcg Tablet PO Not Given 1200 [facility] Docusate Sodium 100 mg 09/04/24 13:47 Docusate Sodium 100 Mg Capsule PO Q12H PRN Constipation Empagliflozin 10 mg 09/07/24 09:00 09/08/24 08:57 Empagliflozin 10 Mg Tablet PO Not Given DAILY [facility] Fluticasone Propionate 1 spray 09/05/24 09:00 09/08/24 16:45 Fluticasone Propionate 0.05% Na Spr 16 Gm Btl (*Bkc) NASAL 1 spray BID ARABELLA Administration Folic Acid 400 mg 09/05/24 12:00 09/08/24 11:37 Folic Acid 0.4 Mg Tablet PO Not Given 1200 [facility] Furosemide 40 mg 09/05/24 09:00 09/08/24 16:45 Furosemide Inj 40 Mg/4 Ml Vial IV PUSH 40 mg BID ARABELLA Administration Galantamine Hydrobromide 12 mg 09/04/24 17:55 09/08/24 16:46 Galantamine Hydrobromide 4 Mg Tablet PO Not Given BID [facility] Guaifenesin 600 mg 09/05/24 21:00 09/09/24 04:50 Guaifenesin 12 Hr 600 Mg Tabcr PO Not Given Q12HR ARABELLA Clindamycin Phosphate 600 mg in 50 mls @ 100 mls/hr 09/07/24 09:00 09/09/24 02:07 Clindamycin 600 Mg/D5w 50 Ml IVPB Infused Q8H [facility] Infusion Sodium Chloride 1,000 mls @ 75 mls/hr 09/07/24 13:15 09/08/24 20:57 Normal Saline Iv IV CONT 75 mls/hr .[id number] ARABELLA Administration Loratadine 10 mg 09/05/24 21:00 09/09/24 04:50 Loratadine 10 Mg Tablet PO Not Given QHS ARABELLA Melatonin 10 mg 09/04/24 21:00 09/09/24 04:50 Melatonin 5 Mg Tablet PO Not Given HS ARABELLA Memantine 10 mg 09/04/24 17:55 09/08/24 16:46 Memantine 10 Mg Tablet PO Not Given BID [facility] Metoprolol Succinate 50 mg 09/08/24 09:00 09/08/24 08:57 Metoprolol Succinate Ext Rel 50 Mg Tabcr PO Not Given QAM [facility] Multivitamins/Minerals 1 tablet 09/05/24 09:00 09/08/24 08:58 Opti-Gen Tab PO Not Given DAILY [facility] Ondansetron HCl 4 mg 09/04/24 13:47 Ondansetron Inj 4 Mg/2 Ml Vial IV PUSH Q6H PRN Nausea And Vomiting Pravastatin Sodium 20 mg 09/04/24 21:00 09/09/24 04:50 Pravastatin Sodium 20 Mg Tablet PO Not Given QHS [facility] Vitamin D 125 mcg 09/05/24 12:00 09/08/24 11:37 Cholecalciferol (Vitamin D3) 125 Mcg (5,000 Units) Tablet PO Not Given 1200 [facility] Radiology Results: ITS Impressions Chest X-Ray 09/04/24 10:42 IMPRESSION: Bilateral pleural effusions, moderate on the left and small on the right. Modified Barium Swallow 09/06/24 14:26 IMPRESSION: Pharyngeal dysphagia with laryngeal penetration and aspiration. Please correlate with speech pathologist findings and specific feeding recommendations. Labs Labs: Laboratory Results - last 24 hr 09/09/24 04:51 WBC 5.5 RBC 4.27 L Hgb 14.0 Hct 42.2 MCV 98.8 MCH 32.8 MCHC 33.2 RDW 12.6 Plt Count 125 L MPV 10.1 Immature Gran % (Auto) 0.4 Neut % (Auto) 78.1 H Lymph % (Auto) 8.2 L Mellette % (Auto) 11.1 H Eos % (Auto) 1.5 Baso % (Auto) 0.7 Lymph # (Auto) 0.45 L Mellette # (Auto) 0.6 Eos # (Auto) 0.1 Baso # (Auto) 0.0 Abs Immat Gran (auto) 0.02 Absolute Neuts (auto) 4.3 Absolute Nucleated RBC 0.000 Nucleated RBC % 0.0 % Immature Plt Fraction 3.5 Sodium 137 Potassium 3.2 L Chloride 104 Carbon Dioxide 25 Anion Gap 8 BUN 21 H Creatinine 0.94 Estim Creat Clear Calc 50 Estimated GFR > 60 Glucose 108 Calcium 9.1 Magnesium 1.9 Total Bilirubin 1.1 AST 29 ALT 15 Alkaline Phosphatase 67 Total Protein 6.2 L Albumin 3.7
[2024-09-09] MEDS: KCL 40 MEQ/D5 1/2NS 1,000 ML 100 ML IV CONT (07:00)
[2024-09-09] MEDS: LACTATED RINGERS 1,000 ML 150 ML IV CONT (11:03)
--- NOTE | 2024-09-09 11:05 | WPDANESEPPF ---
Anes - Initial Pre Proc Eval Procedure: Operation Date: 09/09/24 14:00 Proposed Procedures p Percutaneous Endoscopic Gastrostomy - Morgan Dominguez MD Date/Time: 09/09/24 11:05 Surgeon: Chi Denny MD Pre Op Diagnosis: Shortness of Breath/CHF Patient Data Age: 84 Gender: M Height: 1.73 m Weight: 77.3 kg Last Vital Signs Temp 97.6 F 09/09/24 10:56 Pulse 77 09/09/24 10:56 Resp 18 09/09/24 10:56 BP 139/85 09/09/24 10:56 Pulse Ox 98 09/09/24 10:56 O2 Del Method Room Air 09/09/24 10:56 FiO2 21 09/08/24 23:23 Allergies Allergy/AdvReac Type Severity Reaction Status Date / Time Penicillins Allergy Severe Swelling Verified 08/12/24 14:03 morphine AdvReac Intermediate Hallucinati Verified 08/12/24 14:03 ng RICARDO Inhibitors AdvReac Mild Cough Verified 08/12/24 14:03 midazolam (From Versed) AdvReac Mild Agitated Verified 08/12/24 14:03 Home Medications ?Medication ?Instructions ?Recorded ?Confirmed ?Type apixaban 5 mg tablet (Eliquis) 5 mg PO BID 01/01/21 09/04/24 History ascorbic acid (vitamin C) 250 mg 282 mg PO 1700 01/01/21 09/04/24 History tablet aspirin 81 mg chewable tablet 81 mg PO 1200 01/01/21 09/04/24 History calcium carbonate 650 mg PO 1700 01/01/21 09/04/24 History cyanocobalamin (vitamin B-12) 2,500 mcg PO 1200 01/01/21 09/04/24 History 2,500 mcg tablet coenzyme Q10 100 mg capsule (Co 100 mg PO DAILY 12/31/21 09/04/24 History Q-10) melatonin 5 mg chewable tablet 10 mg PO HS 12/31/21 09/04/24 History roowwthm-nl-dsprb 300 mcg-K 60 1 tablet PO DAILY 12/31/21 09/04/24 History mcg-lycop 600 mcg-lutein 300 mcg tablet (Centrum Silver Men) red beet 250 mg-sour crouch 1 tablet PO DAILY 08/25/22 09/04/24 History extract 0.5 mg chewable tablet cholecalciferol (vitamin D3) 125 125 mcg PO 1200 10/10/22 09/04/24 History mcg (5,000 unit) tablet folic acid 800 mcg tablet 400 mg PO 1200 10/10/22 09/04/24 History zinc 15 mg tablet 15 mg PO DAILY 10/10/22 09/04/24 History diltiazem HCl 120 mg 120 mg PO 1200 12/18/22 09/04/24 History capsule,extended release 24 hr lidocaine 4 % topical patch 1 patch transdermal DAILY #15 ea 01/01/23 09/04/24 Rx (Lidocaine Pain Relief) acetaminophen 500 mg tablet 500 mg PO Q6H PRN pain 01/06/23 09/04/24 History (Tylenol Extra Strength) fluticasone propionate 50 1 spray intranasal BID 01/06/23 09/04/24 History mcg/actuation nasal spray,suspension prevagen See Rx Instructions BYMOUTH 01/06/23 09/04/24 History .COMPLEX vit C 250 mg-vit E 90 mg-zinc 40 1 tablet PO ONCE 01/06/23 09/04/24 History mg-copper 1 [id number] capsule (PreserVision AREDS-2) turmeric 400 mg capsule 400 mg PO DAILY 04/09/23 09/04/24 History pravastatin 20 mg tablet 20 mg PO QHS #90 tabs 12/29/23 09/04/24 Rx galantamine 4 mg tablet See Rx Instructions .Route 05/31/24 09/04/24 Rx .COMPLEX #240 tabs memantine 10 mg tablet 10 mg PO BID #180 tabs 05/31/24 09/04/24 Rx diltiazem HCl 120 mg capsule,24 120 mg PO Q24H 08/07/24 09/04/24 History hr,extended release clindamycin HCl 300 mg capsule 300 mg PO Q6H Dental infection 09/04/24 09/04/24 History Laboratory Tests 09/09/24 04:51 WBC 5.5 K/mm3 (4.5-10.0) RBC 4.27 L M/mm3 (4.6-6.20) Hgb 14.0 g/dL (14.0-18.0) Hct 42.2 % (42.0-52.0) MCV 98.8 fl (80-100) MCH 32.8 pg (26-34) MCHC 33.2 g/dl (32-36) RDW 12.6 % (11.5-14.5) Plt Count 125 L k/mm3 (150-375) MPV 10.1 fl (7.4-10.4) Immature Gran % (Auto) 0.4 % (0-0.5) Neut % (Auto) 78.1 H % (45.5-73.1) Lymph % (Auto) 8.2 L % (18.3-44.2) [place] % (Auto) 11.1 H % (2.6-8.5) Eos % (Auto) 1.5 % (0-4.4) Baso % (Auto) 0.7 % (0.2-1.2) Lymph # (Auto) 0.45 L K/mm3 (0.9-3.2) [place] # (Auto) 0.6 K/mm3 (0.1-0.6) Eos # (Auto) 0.1 K/mm3 (0-0.3) Baso # (Auto) 0.0 K/mm3 (0.0-0.1) Abs Immat Gran (auto) 0.02 K/mm3 (0.00-0.031) Absolute Neuts (auto) 4.3 K/mm3 (1.3-6.7) Absolute Nucleated RBC 0.000 K/mm3 (0.0-0.012) Nucleated RBC % 0.0 % (0.0-0.2) % Immature Plt Fraction 3.5 % (0.9-11.2) Sodium 137 mmol/L (137-145) Potassium 3.2 L mmol/L (3.4-5.0) Chloride 104 mmol/L (98-107) Carbon Dioxide 25 mmol/L (22-30) Anion Gap 8 mmol/L (4-12) BUN 21 H mg/dL (9-20) Creatinine 0.94 mg/dL (0.7-1.3) Estim Creat Clear Calc 50 ml/min Estimated GFR > 60 (59 - ) Glucose 108 mg/dL (65-110) Calcium 9.1 mg/dL (8.4-10.2) Magnesium 1.9 mg/dL (1.6-2.3) Total Bilirubin 1.1 mg/dL (0.2-1.3) AST 29 U/L (17-59) ALT 15 U/L (6-50) Alkaline Phosphatase 67 U/L (38-126) Total Protein 6.2 L g/dL (6.3-8.2) Albumin 3.7 g/dL (3.5-5.1) Patient hx anesthesia problems: none Family hx anesthesia problems: none Results Review: All pre-operative results and documents have been reviewed as part of the pre-operative evaluation. [facility] Past Medical History Medical History Prostate cancer Colon cancer (~11/01/10) BPH (benign prostatic hyperplasia) CAD (coronary artery disease) GERD (gastroesophageal reflux disease) Osteoarthritis of right knee Arthritis Dementia of the Alzheimer's type Hyperlipidemia Cognitive impairment Paroxysmal atrial fibrillation Overweight (BMI 25.0-29.9) Elevated PSA Thrombocytopenia Pulmonary emboli (~2008) Hypertension Surgical History Surgical History History of cataract extraction Fracture of hip, right, closed Right hip pinning December 19, 2022 History of colon surgery Hx of cholecystectomy 1999 S/P CABG x 3 (~10/06/18) History of left knee replacement (~2000) Family History Family History Father Heart disease Hypertension Mother Diabetes mellitus Hypertension Alzheimer disease Sibling Cancer of kidney Carcinoma of colon Cancer Daughter Cancer of kidney Cancer Grandparent Heart disease Cerebrovascular accident Social History Social History Social History: Currently lives at home with his . Surrogate decision maker: Erica Ruth, daughter. Full Code. Caffeine-None Smoking status: Never smoker Second hand tobacco smoke exposure: No Alcohol intake: never Substance use: never Substance use type: does not use Do You Feel Safe in your Home?: Yes Lack of Transportation: No Lack of Food: Never True Current Housing: I Have Housing Concerned About Future Housing: No Difficulty Paying Gas/Electric Bills: No Difficulty Paying for Meds: No Currently Unemployed: YES Education: Bachelor's Degree Difficulty w/ Childcare or Family Care: No Living arrangements: with family Additional living arrangements comments: lives with in a house Occupation/Education: retired Gender identity (if verbalized by the patient): Male Sexual Orientation (if Verbalized by the Patient): Straight or Heterosexual Spiritual care concerns: No Agree to blood products: Yes Anes - Eval Final PreProcedure Day of Procedure 09/09/24 11:05 Patient weight: normal Heart: regular rate and rhythm Lungs: clear to auscultation Airway: Mallampati scale Neurological: alert and oriented Last oral intake: >/= 8 hours ASA classification: IV Emergent: no Anesthetic plan: proceed Anesthesia type and monitoring: general GIVS and standard monitoring Results Review: All pre-operative results and documents have been reviewed as part of the pre-operative evaluation. Informed Consent: The patient's anesthetic plan and its attendant risks and benefits were discussed with the patient/family/POA. Questions were solicited and answers provided to the satisfaction of the patient/family/POA.
[2024-09-09] MEDS: BENZOCAINE (*SP) 60 ML SPRAY CAN (HURRICAINE) 1 SPRAY MUCOUS MEM (11:30)
--- NOTE | 2024-09-09 12:06 | PCNFU ---
Nutrition Follow-Up Complete: Inadequate energy intake related to swallowing ability as evidenced by failed MBS Goal: Meet estimated protein energy needs Patient is progressing towards goal. We will continue current goal. Pt current nutrition is NPO. Nutrition recommendation: Jevity 1.5 at 20 ml/hr advance by 10 ml q 4 hours to goal rate of 60 ml/hr. Last recorded weight is 77.3 kg, down from 79.4 kg on admit. Bowel Motility: Last reported BM 09/09 Labs Reviewed:BUN 21, K 3.2 Meds Noted: Folic Acid, Mucinex, Vit B12, Lasix, NS Skin: WNL Additional Notes: Patient remains NPO at this time for PEG today. Recommend tube feedings of Jevity 1.5 at 20 ml/hr advance by 10 ml q 4 hours to goal rate of 60 ml/hr. Flush 150 ml q 4 hours. Bolus feedings: 330 ml QID with 150 ml flush with each feeding. Agree with diet orders. Monitoring orders, swallowing ability, weights, labs, output, tube feeding tolerance Follow up Thursday/Thursday per policy
[2024-09-09] MEDS: EMPAGLIFLOZIN 10 MG TABLET PO (12:44)
[2024-09-09] MEDS: OPTI-GEN TAB 1 TABLET PO (12:44)
[2024-09-09] MEDS: guaiFENesin 12 HR 600 MG TABCR PO ×2 (12:44→20:21)
[2024-09-09] MEDS: GALANTAMINE HYDROBROMIDE 4 MG TABLET 12 MG PO ×2 (12:44→17:13)
[2024-09-09] MEDS: METOPROLOL SUCCINATE EXT REL 50 MG TABCR PO (12:44)
[2024-09-09] MEDS: MEMANTINE 10 MG TABLET PO ×2 (12:46→17:14)
[2024-09-09] MEDS: FLUTICASONE PROPIONATE 0.05% NA SPR 16 GM BTL (*BKC) 1 SPRAY NASAL ×2 (12:47→17:17)
[2024-09-09] MEDS: CYANOCOBALAMIN 1,000 MCG TABLET 2000 MCG PO (12:54)
[2024-09-09] MEDS: FOLIC ACID 0.4 MG TABLET PO (12:54)
[2024-09-09] MEDS: CYANOCOBALAMIN 500 MCG TABLET PO (12:54)
[2024-09-09] MEDS: CHOLECALCIFEROL (VITAMIN D3) 125 MCG (5,000 UNITS) TABLET PO (12:55)
[2024-09-09] MEDS: ASPIRIN 81 MG CHEWABLE TABLET PO (12:55)
--- NOTE | 2024-09-09 13:16 | P.PNIM_ITS ---
Progress Note: A&P Assessment and Plan (1) CHF (congestive heart failure): Qualifiers: Heart failure chronicity: acute Heart failure type: unspecified Qualified Code(s): I50.9 - Heart failure, unspecified Code(s): I50.9 - Heart failure, unspecified Status: Acute Assessment and Plan: patient admitted with new bilateral pleural effusions no previous history of congestive heart failure last echo 03/2023 showed normal diastolic function with an LVEF of 60 65%, patient does have history of CABG and atrial fibrillation, elevated BNP, Patient on RA * IV Lasix b.i.d. * monitor renal function during diuresis * echocardiogram showed 40-45% * on jardiance, Metoprolol 50mg, Cardizem discontinued due to Depressed ejection fraction * daily weights Cardiology following (2) Pleural effusion: Code(s): J90 - Pleural effusion, not elsewhere classified Status: Acute Assessment and Plan: SEE ABOVE * continue with IV Lasix * add incentive spirometer * oxygen as needed currently on room air (3) Paroxysmal atrial fibrillation: Code(s): I48.0 - Paroxysmal atrial fibrillation Status: Acute Assessment and Plan: patient with history proximal atrial fibrillation had previous cardiac monitoring device which has been removed * on Metoprolol and Eliquis continue telemetry cardiology following (4) Hyperlipidemia: Qualifiers: Hyperlipidemia type: mixed hyperlipidemia Qualified Code(s): E78.2 - Mixed hyperlipidemia Code(s): E78.5 - Hyperlipidemia, unspecified Status: Acute Assessment and Plan: * Continue statin Plan Difficulty swallowing MBS showed pharyngeal dysphagia with laryngeal penetration and aspiration Also showed Bridging osteophytes at C3-C7 consistent with diffuse idiopathic skeletal hyperostosis GI consulted for G tube placement Removed NG tube placed by IR, for PEG tube today monitor Code status: Full code per patient DVT prophylaxis: Eliquis on hold until 12th after procedure Subjective Date/time seen: 09/09/24 13:16 Interval history: Comfortable at bedside Review of Systems Review of Systems: All systems reviewed & are unremarkable except as noted in HPI and below Exam Narrative: absent breath sounds in the lower lung figueroa, L worse than R Const: General: comfortable and no acute distress Other: On RA HENMT: Face/Nose/Sinus: Normal nares present Mouth: Yes moist mucous membranes Eyes: General: appearance normal, both eyes and all related structures Sclera: sclerae normal Pupils: Equal, round and reactive pupils present EOM: EOMs intact bilaterally Neck: Neck: supple and no JVD Resp: Effort & Inspection: normal respiratory effort Other: absent breath sounds in the lower lung figueroa, L worse than R. no wheezing or crackles appreciated. Cardio: Rate: regular rate Rhythm: regular rhythm Other: regular, irregular AFIB on monitor and EKG GI: Other: Abdomen soft, nondistended, nontender. Normoactive bowel sounds in all quadrants. Skin: General skin exam: normal color and no rashes or lesions noted Wound s: no wounds Neuro: Cranial nerves: Yes Equal, round and reactive pupils present Speech: normal speech Motor exam (neuro): 5/5 motor strength present throughout Sensory Exam: normal sensation Other: A&O x3 Extrem: General: normal to inspection Psych: Mental Status: mental status grossly normal Affect: normal affect Other: very pleasant Objective Data Vital Signs Vital Signs: Vital Signs - 24 hr 09/08/24 14:00 09/08/24 16:02 09/08/24 19:24 Temperature 97.8 F 97.6 F Pulse Rate 81 85 79 Respiratory Rate 14 20 Blood Pressure 135/71 143/88 H Pulse Oximetry 96 96 Oxygen Delivery Fraction of Inspired Oxygen 09/08/24 20:00 09/08/24 21:00 09/08/24 23:23 Temperature Pulse Rate 82 Respiratory Rate Blood Pressure Pulse Oximetry 95 Oxygen Delivery Room Air Room Air Fraction of Inspired Oxygen 21 09/09/24 00:00 09/09/24 04:00 09/09/24 04:40 Temperature 98.0 F Pulse Rate 83 77 81 Respiratory Rate 18 Blood Pressure 168/88 H Pulse Oximetry 97 Oxygen Delivery Fraction of Inspired Oxygen 09/09/24 08:00 09/09/24 09:50 09/09/24 10:56 Temperature 97.6 F Pulse Rate 101 H 77 Respiratory Rate 18 Blood Pressure 139/85 Pulse Oximetry 98 Oxygen Delivery Room Air Room Air Fraction of Inspired Oxygen 09/09/24 11:41 09/09/24 11:51 09/09/24 12:01 Temperature Pulse Rate 69 78 75 Respiratory Rate 18 18 18 Blood Pressure 178/93 H 185/87 H 146/84 H Pulse Oximetry 99 95 95 Oxygen Delivery Room Air Room Air Room Air Fraction of Inspired Oxygen 09/09/24 12:27 09/09/24 12:44 Temperature 97.7 F Pulse Rate 70 70 Respiratory Rate 18 Blood Pressure 157/95 H Pulse Oximetry 98 Oxygen Delivery Fraction of Inspired Oxygen Intake/Output Intake/Output: Intake & Output 09/06/24 09/07/24 09/08/24 09/09/24 23:59 23:59 23:59 23:59 Intake Total 790 268.8 1970.0 100 Output Total 550 1250 2500 600 Balance 240 -981.2 -530.0 -500 Meds/Results Medications: Active Medications Generic Name Dose Route Start Last Admin Trade Name Freq PRN Reason Stop Dose Admin Acetaminophen 650 mg 09/04/24 13:46 Acetaminophen 325 Mg Tablet PO Q6H PRN Mild Pain (1-3) or Fever Apixaban 5 mg 09/04/24 21:00 09/07/24 20:03 Apixaban 5 Mg Tablet PO Not Given Q12HR [facility] Ascorbic Acid 250 mg 09/04/24 17:00 09/08/24 16:45 Ascorbic Acid 250 Mg Tablet PO Not Given 1700 [facility] Aspirin 81 mg 09/05/24 12:00 09/09/24 12:55 Aspirin 81 Mg Chewable Tablet PO 81 mg 1200 [facility] Administration Benzocaine 1 lozenge 09/04/24 16:44 Benzocaine/Menthol (*Bkc) 18 Ea Lozenge PO PRN PRN Sore Throat Calcium Carbonate 200 mg 09/04/24 13:47 Calcium Carbonate (Tums) 500 Mg (200 Mg Elemental) PO Q6H PRN Indigestion Calcium Carbonate 500 mg 09/04/24 17:00 09/08/24 16:45 Calcium Carbonate (Oscal) 500 Mg Tablet PO Not Given 1700 ARABELLA Cyanocobalamin 2,000 mcg 09/05/24 12:00 09/09/24 12:54 Cyanocobalamin 1,000 Mcg Tablet PO 2,000 mcg 1200 ARABELLA Administration Cyanocobalamin 500 mcg 09/05/24 12:00 09/09/24 12:54 Cyanocobalamin 500 Mcg Tablet PO 500 mcg 1200 ARABELLA Administration Docusate Sodium 100 mg 09/04/24 13:47 Docusate Sodium 100 Mg Capsule PO Q12H PRN Constipation Empagliflozin 10 mg 09/07/24 09:00 09/09/24 12:44 Empagliflozin 10 Mg Tablet PO 10 mg DAILY ARABELLA Administration Fluticasone Propionate 1 spray 09/05/24 09:00 09/09/24 12:47 Fluticasone Propionate 0.05% Na Spr 16 Gm Btl (*Bkc) NASAL 1 spray BID ARABELLA Administration Folic Acid 0.4 mg 09/09/24 12:00 09/09/24 12:54 Folic Acid 0.4 Mg Tablet PO 0.4 mg 1200 ARABELLA Administration Furosemide 40 mg 09/05/24 09:00 09/09/24 12:55 Furosemide Inj 40 Mg/4 Ml Vial IV PUSH Not Given BID ARABELLA Galantamine Hydrobromide 12 mg 09/04/24 17:55 09/09/24 12:44 Galantamine Hydrobromide 4 Mg Tablet PO 12 mg BID ARABELLA Administration Guaifenesin 600 mg 09/05/24 21:00 09/09/24 12:44 Guaifenesin 12 Hr 600 Mg Tabcr PO 600 mg Q12HR ARABELLA Administration Sodium Chloride 1,000 mls @ 75 mls/hr 09/07/24 13:15 09/08/24 20:57 Normal Saline Iv IV CONT 75 mls/hr .[id number] ARABELLA Administration Potassium Chloride/Dextrose/Sod Cl 1,000 mls @ 100 mls/hr 09/09/24 06:20 09/09/24 07:00 Kcl 40 Meq/D5 1/2ns IV CONT 100 mls/hr .Q10H ARABELLA Administration Loratadine 10 mg 09/05/24 21:00 09/09/24 04:50 Loratadine 10 Mg Tablet PO Not Given QHS ARABELLA Melatonin 10 mg 09/04/24 21:00 09/09/24 04:50 Melatonin 5 Mg Tablet PO Not Given HS ARABELLA Memantine 10 mg 09/04/24 17:55 09/09/24 12:46 Memantine 10 Mg Tablet PO 10 mg BID ARABELLA Administration Metoprolol Succinate 50 mg 09/08/24 09:00 09/09/24 12:44 Metoprolol Succinate Ext Rel 50 Mg Tabcr PO 50 mg QAM ARABELLA Administration Multivitamins/Minerals 1 tablet 09/05/24 09:00 09/09/24 12:44 Opti-Gen Tab PO 1 tablet DAILY ARABELLA Administration Ondansetron HCl 4 mg 09/04/24 13:47 Ondansetron Inj 4 Mg/2 Ml Vial IV PUSH Q6H PRN Nausea And Vomiting Pravastatin Sodium 20 mg 09/04/24 21:00 09/09/24 04:50 Pravastatin Sodium 20 Mg Tablet PO Not Given QHS ARABELLA Vitamin D 125 mcg 09/05/24 12:00 09/09/24 12:55 Cholecalciferol (Vitamin D3) 125 Mcg (5,000 Units) Tablet PO 125 mcg 1200 ARABELLA Administration Radiology Results: ITS Impressions Chest X-Ray 09/04/24 10:42 IMPRESSION: Bilateral pleural effusions, moderate on the left and small on the right. Modified Barium Swallow 09/06/24 14:26 IMPRESSION: Pharyngeal dysphagia with laryngeal penetration and aspiration. Please correlate with speech pathologist findings and specific feeding recommendations. Labs Labs: Laboratory Results - last 24 hr 09/09/24 04:51 WBC 5.5 RBC 4.27 L Hgb 14.0 Hct 42.2 MCV 98.8 MCH 32.8 MCHC 33.2 RDW 12.6 Plt Count 125 L MPV 10.1 Immature Gran % (Auto) 0.4 Neut % (Auto) 78.1 H Lymph % (Auto) 8.2 L [place] % (Auto) 11.1 H Eos % (Auto) 1.5 Baso % (Auto) 0.7 Lymph # (Auto) 0.45 L [place] # (Auto) 0.6 Eos # (Auto) 0.1 Baso # (Auto) 0.0 Abs Immat Gran (auto) 0.02 Absolute Neuts (auto) 4.3 Absolute Nucleated RBC 0.000 Nucleated RBC % 0.0 % Immature Plt Fraction 3.5 Sodium 137 Potassium 3.2 L Chloride 104 Carbon Dioxide 25 Anion Gap 8 BUN 21 H Creatinine 0.94 Estim Creat Clear Calc 50 Estimated GFR > 60 Glucose 108 Calcium 9.1 Magnesium 1.9 Total Bilirubin 1.1 AST 29 ALT 15 Alkaline Phosphatase 67 Total Protein 6.2 L Albumin 3.7 Quality VTE Prophylaxis VTE prophylaxis: pharmacologic ordered
[2024-09-09] MEDS: ACETAMINOPHEN 325 MG TABLET 650 MG PO (17:13)
[2024-09-09] MEDS: FUROSEMIDE INJ 40 MG/4 ML VIAL IV PUSH (17:17)
[2024-09-09] MEDS: CALCIUM CARBONATE (OSCAL) 500 MG TABLET PO (17:17)
[2024-09-09] MEDS: ASCORBIC ACID 250 MG TABLET PO (17:17)
[2024-09-09] MEDS: SODIUM CHLORIDE 0.9% IV 1,000 ML 75 ML IV CONT (17:27)
[2024-09-09] MEDS: PRAVASTATIN SODIUM 20 MG TABLET PO (20:21)
[2024-09-09] MEDS: MELATONIN 5 MG TABLET 10 MG PO (20:21)
[2024-09-09] MEDS: LORATADINE 10 MG TABLET PO (20:21)
[2024-09-10] VITALS (12 sets, daily range): BP systolic 119–144; BP diastolic 71–93; PULSE 49–92; RESP 16–20; TEMP 36.4–36.7; O2SAT 97–99
[2024-09-10 05:16] LABS: Hematocrit 41.6 % (42.0-52.0); Hemoglobin 14.0 g/dL (14.0-18.0); Immature Granulocyte Percent A 0.4 % (0-0.5); Lymphocytes Absolute Auto 0.64 K/mm3 (0.9-3.2); Mean Corpuscular HGB Conc 33.7 g/dl (32-36); Mean Corpuscular Hemoglobin 32.9 pg (26-34); Mean Corpuscular Volume 97.9 fl (80-100); Nucleated Red Blood Cells Absolute Auto 0.000 K/mm3 (0.0-0.012); Nucleated Red Blood Cells Perc 0.0 % (0.0-0.2); Platelet Count Result 113 k/mm3 (150-375); Red Blood Count 4.25 M/mm3 (4.6-6.20); White Blood Count 7.2 K/mm3 (4.5-10.0)
[2024-09-10 05:39] LABS: Alanine Aminotransferase 16 U/L (6-50); Albumin Level 3.5 g/dL (3.5-5.1); Alkaline Phosphatase 66 U/L (38-126); Anion Gap 6 mmol/L (4-12); Aspartate Amino Transferase 25 U/L (17-59); Bilirubin,Total 0.6 mg/dL (0.2-1.3); Blood Urea Nitrogen 17 mg/dL (9-20); Calcium 9.1 mg/dL (8.4-10.2); Carbon Dioxide 28 mmol/L (22-30); Chloride 105 mmol/L (98-107); Estimated CRCL calculation 54 ml/min; Estimated Glomerular Filt Rate > 60; Glucose 138 mg/dL (65-110); Magnesium 2.0 mg/dL (1.6-2.3); Potassium 3.1 mmol/L (3.4-5.0); Sodium 139 mmol/L (137-145); Total Protein 6.1 g/dL (6.3-8.2)
[2024-09-10] MEDS: SODIUM CHLORIDE 0.9% IV 1,000 ML 75 ML IV CONT (06:59)
[2024-09-10] MEDS: ACETAMINOPHEN 325 MG TABLET 650 MG PO (07:00)
--- NOTE | 2024-09-10 09:11 | PM.PNCARD ---
Progress Note: A&P Assessment and Plan (1) Systolic heart failure: Code(s): I50.20 - Unspecified systolic (congestive) heart failure Status: Acute (2) Paroxysmal atrial fibrillation: Code(s): I48.0 - Paroxysmal atrial fibrillation Status: Acute (3) Hypertension: Qualifiers: Hypertension type: primary hypertension Qualified Code(s): I10 - Essential (primary) hypertension Code(s): I10 - Essential (primary) hypertension Status: Chronic (4) Hyperlipidemia: Qualifiers: Hyperlipidemia type: mixed hyperlipidemia Qualified Code(s): E78.2 - Mixed hyperlipidemia Code(s): E78.5 - Hyperlipidemia, unspecified Status: Acute Plan -Bilateral pleural effusion-moderate on the right and small on left; decreased -Paroxysmal AFib-rate controlled in the 70s -CAD status post CABG X 3 in 2019-chest pain appears noncardiac as it occurs when patient has coughing bout; troponin x3 negative -Chronic diastolic heart failure and new systolic heart failure-LVEF is decreased to 40-45% from 66% in 03/2024 -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 Outpatient stress test to evaluate for any ischemia as cause of recent drop in LVEF -Guideline directed medical therapy for cardiomyopathy. Continue metoprolol and empagliflozin. Add RICARDO-inhibitor/Arb/ARNI if blood pressure tolerates -Patient started on IV fluids as he is unable to take any p.o. nutrition (pulled out his Dobbhoff tube). Now on oral Lasix. Continue checking daily weights, ins and outs, and renal function -Check and replace electrolytes to keep potassium greater than 4 and magnesium greater than 2 . Potassium 3.1 today. Will give 40 mEq potassium chlorideIV x1 -Anticoagulation with Eliquis for AFib -Management of pleural effusion and other medical problems per primary team Subjective Date/time seen: 09/10/24 09:11 Interval history: Reason for encounter: Acute on chronic heart failure Interval history: No chest pain, shortness of breath. He is undergoing scheduled PEG tube placement today as he was noted to have pharyngeal dysphagia with laryngeal penetration and aspiration. He pulled out his Dobhoff tube and not getting any p.o. meds or p.o. nutrition. He was started on IV fluids. Telemetry shows AFib with well-controlled rates. Date of service 09/10/2024: No chest pain or shortness of breath. No swelling. Review of Systems Constitutional: Constitutional: Denies body ache(s) Cardiovascular: Cardiovascular: Denies chest pain and Denies diaphoresis Respiratory: Respiratory: Denies hemoptysis Gastrointestinal: Gastrointestinal: Denies abdominal pain Exam Narrative: General: Dementia Neck: Supple, no JVD Chest: Bilateral clear to auscultation, no rales or rhonchi Cardiac: S1, S2 +, regular rate, regular rhythm, no murmurs or rubs Extremities: No pedal edema, no skin rash Neurologic: Patient has dementia, no focal neurological deficits GI: Inspection: non-distended GI Palp: Yes Soft to palpation Auscultation: normal bowel sounds Objective Data Vital Signs Vital Signs: Vital Signs - 24 hr 09/09/24 09:50 09/09/24 10:56 09/09/24 11:41 Temperature 36.4 C Pulse Rate 77 69 Respiratory Rate 18 18 Blood Pressure 139/85 178/93 H Pulse Oximetry 98 99 Oxygen Delivery Room Air Room Air Room Air 09/09/24 11:51 09/09/24 12:01 09/09/24 12:27 Temperature 36.5 C Pulse Rate 78 75 70 Respiratory Rate 18 18 18 Blood Pressure 185/87 H 146/84 H 157/95 H Pulse Oximetry 95 95 98 Oxygen Delivery Room Air Room Air 09/09/24 12:44 09/09/24 14:00 09/09/24 16:00 Temperature 36.5 C Pulse Rate 70 70 83 Respiratory Rate 18 Blood Pressure 157/95 H Pulse Oximetry 98 Oxygen Delivery 09/09/24 20:00 09/09/24 20:00 09/09/24 21:45 Temperature Pulse Rate 74 Respiratory Rate Blood Pressure Pulse Oximetry 96 Oxygen Delivery Room Air Room Air 09/09/24 22:00 09/10/24 00:00 09/10/24 04:00 Temperature 36.7 C Pulse Rate 74 67 49 L Respiratory Rate 16 Blood Pressure 143/86 H Pulse Oximetry 97 Oxygen Delivery 09/10/24 06:00 Temperature 36.7 C Pulse Rate 70 Respiratory Rate 16 Blood Pressure 135/71 Pulse Oximetry 99 Oxygen Delivery Intake/Output Intake/Output: Intake & Output 07/11/2409/08/24 09/09/24 09/10/24 23:59 23:59 23:59 23:59 Intake Total 268.8 1970.0 1175 1000 Output Total 1250 2500 1600 800 Balance -981.2 -530.0 -425 200 Meds/Results Medications: Active Medications Generic Name Dose Route Start Last Admin Trade Name Freq PRN Reason Stop Dose Admin Acetaminophen 650 mg 09/10/24 07:51 Acetaminophen Elixir 325 Mg/10.15 Ml Udc FEED TUBE Q6H PRN Mild Pain (1-3) or Fever Apixaban 5 mg 09/10/24 09:00 Apixaban 5 Mg Tablet FEED TUBE Q12HR [facility] Ascorbic Acid 250 mg 09/10/24 17:00 Ascorbic Acid 250 Mg Tablet FEED TUBE 1700 [facility] Aspirin 81 mg 09/10/24 12:00 Aspirin 81 Mg Chewable Tablet FEED TUBE 1200 [facility] Benzocaine 1 lozenge 09/04/24 16:44 Benzocaine/Menthol (*Bkc) 18 Ea Lozenge PO PRN PRN Sore Throat Calcium Carbonate 200 mg 09/10/24 07:56 Calcium Carbonate (Tums) 500 Mg (200 Mg Elemental) FEED TUBE Q6H PRN Indigestion Calcium Carbonate 200 mg 09/10/24 17:00 Calcium Carbonate (Tums) 500 Mg (200 Mg Elemental) FEED TUBE 1700 [facility] Cyanocobalamin 2,000 mcg 09/10/24 12:00 Cyanocobalamin 1,000 Mcg Tablet FEED TUBE 1200 [facility] Cyanocobalamin 500 mcg 09/10/24 12:00 Cyanocobalamin 500 Mcg Tablet FEED TUBE 1200 [facility] Docusate Sodium 100 mg 09/10/24 07:52 Docusate Sodium Liq 100 Mg/10 Ml Udc FEED TUBE Q12H PRN Constipation Empagliflozin 10 mg 09/10/24 09:00 Empagliflozin 10 Mg Tablet FEED TUBE DAILY [facility] Fluticasone Propionate 1 spray 09/05/24 09:00 09/09/24 17:17 Fluticasone Propionate 0.05% Na Spr 16 Gm Btl (*Bkc) NASAL 1 spray BID [facility] Administration Folic Acid 0.4 mg 09/10/24 12:00 Folic Acid 0.4 Mg Tablet FEED TUBE 1200 [facility] Furosemide 40 mg 09/10/24 09:00 Furosemide 40 Mg Tablet FEED TUBE BID [facility] Galantamine Hydrobromide 12 mg 09/10/24 09:00 Galantamine Hydrobromide 4 Mg Tablet FEED TUBE BID [facility] Guaifenesin 200 mg 09/10/24 09:00 Guaifenesin 200 Mg/10 Ml Udc FEED TUBE Q4HR [facility] Sodium Chloride 1,000 mls @ 75 mls/hr 09/07/24 13:15 09/10/24 06:59 Normal Saline Iv IV CONT 75 mls/hr .[id number] [facility] Administration Loratadine 10 mg 09/10/24 21:00 Loratadine 10 Mg Tablet FEED TUBE QHS [facility] Melatonin 10 mg 09/10/24 21:00 Melatonin 5 Mg Tablet FEED TUBE HS [facility] Memantine 10 mg 09/10/24 09:00 Memantine 10 Mg Tablet FEED TUBE BID [facility] Metoprolol Tartrate 25 mg 09/10/24 09:00 Metoprolol Tartrate 25 Mg Tablet FEED TUBE Q12HR [facility] Multivitamins/Minerals 1 tablet 09/10/24 09:00 Opti-Gen Tab FEED TUBE DAILY [facility] Ondansetron HCl 4 mg 09/04/24 13:47 Ondansetron Inj 4 Mg/2 Ml Vial IV PUSH Q6H PRN Nausea And Vomiting Pravastatin Sodium 20 mg 09/10/24 21:00 Pravastatin Sodium 20 Mg Tablet FEED TUBE QHS [facility] Vitamin D 125 mcg 09/10/24 12:00 Cholecalciferol (Vitamin D3) 125 Mcg (5,000 Units) Tablet FEED TUBE 1200 [facility] Radiology Results: ITS Impressions Chest X-Ray 09/04/24 10:42 IMPRESSION: Bilateral pleural effusions, moderate on the left and small on the right. Modified Barium Swallow 09/06/24 14:26 IMPRESSION: Pharyngeal dysphagia with laryngeal penetration and aspiration. Please correlate with speech pathologist findings and specific feeding recommendations. Labs Labs: Laboratory Results - last 24 hr 09/10/24 05:05 WBC 7.2 RBC 4.25 L Hgb 14.0 Hct 41.6 L MCV 97.9 MCH 32.9 MCHC 33.7 RDW 12.8 Plt Count 113 L MPV 9.9 Immature Gran % (Auto) 0.4 Neut % (Auto) 75.2 H Lymph % (Auto) 8.9 L [place] % (Auto) 13.2 H Eos % (Auto) 1.7 Baso % (Auto) 0.6 Lymph # (Auto) 0.64 L [place] # (Auto) 1.0 H Eos # (Auto) 0.1 Baso # (Auto) 0.0 Abs Immat Gran (auto) 0.03 Absolute Neuts (auto) 5.4 Absolute Nucleated RBC 0.000 Nucleated RBC % 0.0 Sodium 139 Potassium 3.1 L Chloride 105 Carbon Dioxide 28 Anion Gap 6 BUN 17 Creatinine 0.86 Estim Creat Clear Calc 54 Estimated GFR > 60 Glucose 138 H Calcium 9.1 Magnesium 2.0 Total Bilirubin 0.6 AST 25 ALT 16 Alkaline Phosphatase 66 Total Protein 6.1 L Albumin 3.5
[2024-09-10] MEDS: APIXABAN 5 MG TABLET FEED TUBE ×2 (09:59→21:26)
[2024-09-10] MEDS: MEMANTINE 10 MG TABLET FEED TUBE ×2 (09:59→17:09)
[2024-09-10] MEDS: EMPAGLIFLOZIN 10 MG TABLET FEED TUBE (09:59)
[2024-09-10] MEDS: GALANTAMINE HYDROBROMIDE 4 MG TABLET 12 MG FEED TUBE ×2 (10:00→17:09)
[2024-09-10] MEDS: OPTI-GEN TAB 1 TABLET FEED TUBE (10:01)
[2024-09-10] MEDS: METOPROLOL TARTRATE 25 MG TABLET FEED TUBE ×2 (10:01→21:26)
[2024-09-10] MEDS: FUROSEMIDE 40 MG TABLET FEED TUBE ×2 (10:02→17:09)
[2024-09-10] MEDS: FLUTICASONE PROPIONATE 0.05% NA SPR 16 GM BTL (*BKC) 1 SPRAY NASAL ×2 (10:02→17:08)
[2024-09-10] MEDS: POTASSIUM CHLORIDE INJ 40 MEQ in SODIUM CHLORIDE 0.9% IV 500 ML 75 MEQ IVPB (10:09)
--- NOTE | 2024-09-10 10:18 | P.PNIM_ITS ---
Progress Note: A&P Assessment and Plan (1) CHF (congestive heart failure): Qualifiers: Heart failure chronicity: acute Heart failure type: unspecified Qualified Code(s): I50.9 - Heart failure, unspecified Code(s): I50.9 - Heart failure, unspecified Status: Acute Assessment and Plan: patient admitted with new bilateral pleural effusions no previous history of congestive heart failure last echo 03/2023 showed normal diastolic function with an LVEF of 60 65%, patient does have history of CABG and atrial fibrillation, elevated BNP, Patient on RA * IV Lasix b.i.d. * monitor renal function during diuresis * echocardiogram showed 40-45% * on jardiance, Metoprolol 50mg, Cardizem discontinued due to Depressed ejection fraction * daily weights Cardiology following (2) Pleural effusion: Code(s): J90 - Pleural effusion, not elsewhere classified Status: Acute Assessment and Plan: SEE ABOVE * continue with IV Lasix * add incentive spirometer * oxygen as needed currently on room air (3) Paroxysmal atrial fibrillation: Code(s): I48.0 - Paroxysmal atrial fibrillation Status: Acute Assessment and Plan: patient with history proximal atrial fibrillation had previous cardiac monitoring device which has been removed * on Metoprolol and Eliquis continue telemetry cardiology following (4) Hyperlipidemia: Qualifiers: Hyperlipidemia type: mixed hyperlipidemia Qualified Code(s): E78.2 - Mixed hyperlipidemia Code(s): E78.5 - Hyperlipidemia, unspecified Status: Acute Assessment and Plan: * Continue statin Plan Difficulty swallowing MBS showed pharyngeal dysphagia with laryngeal penetration and aspiration Also showed Bridging osteophytes at C3-C7 consistent with diffuse idiopathic skeletal hyperostosis s/p PEG tube placement continue Tube feeding monitor appreciate GI input Code status: Full code per patient DVT prophylaxis: On Eliquis Subjective Date/time seen: 09/10/24 10:18 Interval history: comfortable at bedside now on tube feeding Review of Systems Review of Systems: All systems reviewed & are unremarkable except as noted in HPI and below Exam Narrative: absent breath sounds in the lower lung [place]ueroa, L worse than R Const: General: comfortable and no acute distress Other: On RA HENMT: Face/Nose/Sinus: Normal nares present Mouth: Yes moist mucous membranes Eyes: General: appearance normal, both eyes and all related structures Sclera: sclerae normal Pupils: Equal, round and reactive pupils present EOM: EOMs intact bilaterally Neck: Neck: supple and no JVD Resp: Effort & Inspection: normal respiratory effort Other: absent breath sounds in the lower lung [place], L worse than R. no wheezing or crackles appreciated. Cardio: Rate: regular rate Rhythm: regular rhythm Other: regular, irregular AFIB on monitor and EKG GI: Other: Abdomen soft, nondistended, nontender. Normoactive bowel sounds in all quadrants. Skin: General skin exam: normal color and no rashes or lesions noted Wounds: no wounds Neuro: Cranial nerves: Yes Equal, round and reactive pupils present Speech: normal speech Motor exam (neuro): 5/5 motor strength present throughout Sensory Exam: normal sensation Other: A&O x3 Extrem: General: normal to inspection Psych: Mental Status: mental status grossly normal Affect: normal affect Other: very pleasant Objective Data Vital Signs Vital Signs: Vital Signs - 24 hr 09/09/24 10:56 09/09/24 11:41 09/09/24 11:51 Temperature 97.6 F Pulse Rate 77 69 78 Respiratory Rate 18 18 18 Blood Pressure 139/85 178/93 H 185/87 H Pulse Oximetry 98 99 95 Oxygen Delivery Room Air Room Air Room Air 09/09/24 12:01 09/09/24 12:27 09/09/24 12:44 Temperature 97.7 F Pulse Rate 75 70 70 Respiratory Rate 18 18 Blood Pressure 146/84 H 157/95 H Pulse Oximetry 95 98 Oxygen Delivery Room Air 09/09/24 14:00 09/09/24 16:00 09/09/24 20:00 Temperature 97.7 F Pulse Rate 70 83 Respiratory Rate 18 Blood Pressure 157/95 H Pulse Oximetry 98 Oxygen Delivery Room Air 09/09/24 20:00 09/09/24 21:45 09/09/24 22:00 Temperature 98.1 F Pulse Rate 74 74 Respiratory Rate 16 Blood Pressure 143/86 H Pulse Oximetry 96 97 Oxygen Delivery Room Air 09/10/24 00:00 09/10/24 04:00 09/10/24 06:00 Temperature 98.1 F Pulse Rate 67 49 L 70 Respiratory Rate 16 Blood Pressure 135/71 Pulse Oximetry 99 Oxygen Delivery 09/10/24 10:01 Temperature Pulse Rate 72 Respiratory Rate Blood Pressure Pulse Oximetry Oxygen Delivery Intake/Output Intake/Output: Intake & Output 09/07/24 09/08/24 09/09/24 09/10/24 23:59 23:59 23:59 23:59 Intake Total 268.8 1970.0 1175 1000 Output Total 1250 2500 1600 800 Balance -981.2 -530.0 -425 200 Meds/Results Medications: Active Medications Generic Name Dose Route Start Last Admin Trade Name Freq PRN Reason Stop Dose Admin Acetaminophen 650 mg 09/10/24 07:51 Acetaminophen Elixir 325 Mg/10.15 Ml Udc FEED TUBE Q6H PRN Mild Pain (1-3) or Fever Apixaban 5 mg 09/10/24 09:00 09/10/24 09:59 Apixaban 5 Mg Tablet FEED TUBE 5 mg Q12HR [facility] Administration Ascorbic Acid 250 mg 09/10/24 17:00 Ascorbic Acid 250 Mg Tablet FEED TUBE 1700 [facility] Aspirin 81 mg 09/10/24 12:00 Aspirin 81 Mg Chewable Tablet FEED TUBE 1200 [facility] Benzocaine 1 lozenge 09/04/24 16:44 Benzocaine/Menthol (*Bkc) 18 Ea Lozenge PO PRN PRN Sore Throat Calcium Carbonate 200 mg 09/10/24 07:56 Calcium Carbonate (Tums) 500 Mg (200 Mg Elemental) FEED TUBE Q6H PRN Indigestion Calcium Carbonate 200 mg 09/10/24 17:00 Calcium Carbonate (Tums) 500 Mg (200 Mg Elemental) FEED TUBE 1700 [facility] Cyanocobalamin 2,000 mcg 09/10/24 12:00 Cyanocobalamin 1,000 Mcg Tablet FEED TUBE 1200 [facility] Cyanocobalamin 500 mcg 09/10/24 12:00 Cyanocobalamin 500 Mcg Tablet FEED TUBE 1200 [facility] Docusate Sodium 100 mg 09/10/24 07:52 Docusate Sodium Liq 100 Mg/10 Ml Udc FEED TUBE Q12H PRN Constipation Empagliflozin 10 mg 09/10/24 09:00 09/10/24 09:59 Empagliflozin 10 Mg Tablet FEED TUBE 10 mg DAILY [facility] Administration Fluticasone Propionate 1 spray 09/05/24 09:00 09/10/24 10:02 Fluticasone Propionate 0.05% Na Spr 16 Gm Btl (*Bkc) NASAL 1 spray BID [facility] Administration Folic Acid 0.4 mg 09/10/24 12:00 Folic Acid 0.4 Mg Tablet FEED TUBE 1200 [facility] Furosemide 40 mg 09/10/24 09:00 09/10/24 10:02 Furosemide 40 Mg Tablet FEED TUBE 40 mg BID [facility] Administration Galantamine Hydrobromide 12 mg 09/10/24 09:00 09/10/24 10:00 Galantamine Hydrobromide 4 Mg Tablet FEED TUBE 12 mg BID [facility] Administration Guaifenesin 200 mg 09/10/24 09:00 09/10/24 09:59 Guaifenesin 200 Mg/10 Ml Udc FEED TUBE 200 mg Q4HR [facility] Administration Sodium Chloride 1,000 mls @ 75 mls/hr 09/07/24 13:15 09/10/24 06:59 Normal Saline Iv IV CONT 75 mls/hr .[id number] [facility] Administration Potassium Chloride 40 meq/ 520 mls @ 130 mls/hr 09/10/24 10:00 09/10/24 10:09 Sodium Chloride IVPB 09/10/24 13:59 75 mls/hr ONCE ONE Administration Loratadine 10 mg 09/10/24 21:00 Loratadine 10 Mg Tablet FEED TUBE QHS [facility] Melatonin 10 mg 09/10/24 21:00 Melatonin 5 Mg Tablet FEED TUBE HS [facility] Memantine 10 mg 09/10/24 09:00 09/10/24 09:59 Memantine 10 Mg Tablet FEED TUBE 10 mg BID [facility] Administration Metoprolol Tartrate 25 mg 09/10/24 09:00 09/10/24 10:01 Metoprolol Tartrate 25 Mg Tablet FEED TUBE 25 mg Q12HR [facility] Administration Multivitamins/Minerals 1 tablet 09/10/24 09:00 09/10/24 10:01 Opti-Gen Tab FEED TUBE 1 tablet DAILY [facility] Administration Ondansetron HCl 4 mg 09/04/24 13:47 Ondansetron Inj 4 Mg/2 Ml Vial IV PUSH Q6H PRN Nausea And Vomiting Pravastatin Sodium 20 mg 09/10/24 21:00 Pravastatin Sodium 20 Mg Tablet FEED TUBE QHS [facility] Vitamin D 125 mcg 09/10/24 12:00 Cholecalciferol (Vitamin D3) 125 Mcg (5,000 Units) Tablet FEED TUBE 1200 [facility] Radiology Results: ITS Impressions Chest X-Ray 09/04/24 10:42 IMPRESSION: Bilateral pleural effusions, moderate on the left and small on the right. Modified Barium Swallow 09/06/24 14:26 IMPRESSION: Pharyngeal dysphagia with laryngeal penetration and aspiration. Please correlate with speech pathologist findings and specific feeding recommendations. Labs Labs: Laboratory Results - last 24 hr 09/10/24 05:05 WBC 7.2 RBC 4.25 L Hgb 14.0 Hct 41.6 L MCV 97.9 MCH 32.9 MCHC 33.7 RDW 12.8 Plt Count 113 L MPV 9.9 Immature Gran % (Auto) 0.4 Neut % (Auto) 75.2 H Lymph % (Auto) 8.9 L [place] % (Auto) 13.2 H Eos % (Auto) 1.7 Baso % (Auto) 0.6 Lymph # (Auto) 0.64 L [place] # (Auto) 1.0 H Eos # (Auto) 0.1 Baso # (Auto) 0.0 Abs Immat Gran (auto) 0.03 Absolute Neuts (auto) 5.4 Absolute Nucleated RBC 0.000 Nucleated RBC % 0.0 Sodium 139 Potassium 3.1 L Chloride 105 Carbon Dioxide 28 Anion Gap 6 BUN 17 Creatinine 0.86 Estim Creat Clear Calc 54 Estimated GFR > 60 Glucose 138 H Calcium 9.1 Magnesium 2.0 Total Bilirubin 0.6 AST 25 ALT 16 Alkaline Phosphatase 66 Total Protein 6.1 L Albumin 3.5 Quality VTE Prophylaxis VTE prophylaxis: pharmacologic ordered
[2024-09-10] MEDS: CHOLECALCIFEROL (VITAMIN D3) 125 MCG (5,000 UNITS) TABLET FEED TUBE (12:01)
[2024-09-10] MEDS: CYANOCOBALAMIN 1,000 MCG TABLET 2000 MCG FEED TUBE (12:01)
[2024-09-10] MEDS: CYANOCOBALAMIN 500 MCG TABLET FEED TUBE (12:01)
[2024-09-10] MEDS: FOLIC ACID 0.4 MG TABLET FEED TUBE (12:01)
[2024-09-10] MEDS: ASPIRIN 81 MG CHEWABLE TABLET FEED TUBE (12:04)
[2024-09-10] MEDS: CALCIUM CARBONATE (TUMS) 500 MG (200 MG ELEMENTAL) FEED TUBE (17:08)
[2024-09-10] MEDS: ASCORBIC ACID 250 MG TABLET FEED TUBE (17:09)
[2024-09-10] MEDS: PRAVASTATIN SODIUM 20 MG TABLET FEED TUBE (21:26)
[2024-09-10] MEDS: LORATADINE 10 MG TABLET FEED TUBE (21:26)
[2024-09-10] MEDS: MELATONIN 5 MG TABLET 10 MG FEED TUBE (21:26)
[2024-09-11] VITALS (10 sets, daily range): BP systolic 117–125; BP diastolic 64–72; PULSE 49–94; RESP 18–20; TEMP 36.5–37.2; O2SAT 95–98
[2024-09-11 05:33] LABS: Hematocrit 41.9 % (42.0-52.0); Hemoglobin 13.9 g/dL (14.0-18.0); Immature Platelet Fraction Pct 4.4 % (0.9-11.2); Mean Corpuscular HGB Conc 33.2 g/dl (32-36); Mean Corpuscular Hemoglobin 33.3 pg (26-34); Mean Corpuscular Volume 100.5 fl (80-100); Platelet Count Result 115 k/mm3 (150-375); Red Blood Count 4.17 M/mm3 (4.6-6.20); White Blood Count 8.2 K/mm3 (4.5-10.0)
[2024-09-11 05:54] LABS: Alanine Aminotransferase 14 U/L (6-50); Albumin Level 3.5 g/dL (3.5-5.1); Alkaline Phosphatase 56 U/L (38-126); Anion Gap 5 mmol/L (4-12); Aspartate Amino Transferase 24 U/L (17-59); Bilirubin,Total 0.4 mg/dL (0.2-1.3); Blood Urea Nitrogen 18 mg/dL (9-20); Calcium 9.6 mg/dL (8.4-10.2); Carbon Dioxide 33 mmol/L (22-30); Chloride 104 mmol/L (98-107); Estimated CRCL calculation 52 ml/min; Estimated Glomerular Filt Rate > 60; Glucose 119 mg/dL (65-110); Magnesium 2.1 mg/dL (1.6-2.3); Potassium 3.8 mmol/L (3.4-5.0); Sodium 142 mmol/L (137-145); Total Protein 6.2 g/dL (6.3-8.2)
--- NOTE | 2024-09-11 08:41 | P.PNCA_ITS ---
Progress Note: A&P Assessment and Plan (1) Systolic heart failure: Code(s): I50.20 - Unspecified systolic (congestive) heart failure Status: Acute (2) Paroxysmal atrial fibrillation: Code(s): I48.0 - Paroxysmal atrial fibrillation Status: Acute (3) Hypertension: Qualifiers: Hypertension type: primary hypertension Qualified Code(s): I10 - Essential (primary) hypertension Code(s): I10 - Essential (primary) hypertension Status: Chronic (4) Hyperlipidemia: Qualifiers: Hyperlipidemia type: mixed hyperlipidemia Qualified Code(s): E78.2 - Mixed hyperlipidemia Code(s): E78.5 - Hyperlipidemia, unspecified Status: Acute Plan -Bilateral pleural effusion-moderate on the right and small on left; decreased -Paroxysmal AFib-rate controlled in the 70s -CAD status post CABG X 3 in 2019-chest pain appears noncardiac as it occurs when patient has coughing bout; troponin x3 negative -Chronic diastolic heart failure and new systolic heart failure-LVEF is decreased to 40-45% from 66% in 03/2024 -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 Outpatient stress test to evaluate for any ischemia as cause of recent drop in LVEF -Guideline directed medical therapy for cardiomyopathy. Continue metoprolol and empagliflozin. Add RICARDO-inhibitor/Arb/ARNI if blood pressure tolerates -will reduce his oral Lasix to 40 mg once daily Continue checking daily weights, ins and outs, and renal function -Check and replace electrolytes to keep potassium greater than 4 and magnesium greater than 2 . Potassium 3.8 today -Anticoagulation with Eliquis for AFib -Management of pleural effusion and other medical problems per primary team Subjective Date/time seen: 09/11/24 08:41 Interval history: Reason for encounter: Acute on chronic heart failure Interval history: No chest pain, shortness of breath. He is undergoing scheduled PEG tube placement today as he was noted to have pharyngeal dysphagia with laryngeal penetration and aspiration. He pulled out his Dobhoff tube and not getting any p.o. meds or p.o. nutrition. He was started on IV fluids. Telemetry shows AFib with well-controlled rates. Date of service 09/10/2024: No chest pain or shortness of breath. No swelling. Date of service 09/11/2024: He continues to be feeling pretty well at this point. No chest pain, shortness of breath, swelling, palpitation Review of Systems Review of Systems: All systems reviewed & are unremarkable except as noted in HPI and below ENT: Reports dysphagia Exam Narrative: General: Dementia Neck: Supple, no JVD Chest: Bilateral clear to auscultation, no rales or rhonchi Cardiac: S1, S2 +, regular rate, regular rhythm, no murmurs or rubs Extremities: No pedal edema, no skin rash Neurologic: Patient has dementia, no focal neurological deficits GI: Inspection: non-distended Auscultation: normal bowel sounds Objective Data Vital Signs Vital Signs: Vital Signs - 24 hr 09/10/24 10:01 09/10/24 12:00 09/10/24 14:00 Temperature 36.4 C L Pulse Rate 72 62 85 Respiratory Rate 18 Blood Pressure 119/75 Pulse Oximetry 97 Oxygen Delivery Fraction of Inspired Oxygen 09/10/24 16:00 09/10/24 20:02 09/10/24 20:02 Temperature Pulse Rate 67 82 Respiratory Rate Blood Pressure Pulse Oximetry Oxygen Delivery Room Air Fraction of Inspired Oxygen 09/10/24 20:16 09/10/24 20:59 09/10/24 21:26 Temperature 36.7 C Pulse Rate 71 92 92 Respiratory Rate 20 18 Blood Pressure 144/93 H Pulse Oximetry 97 98 Oxygen Delivery Fraction of Inspired Oxygen 21 09/11/24 00:03 09/11/24 04:01 09/11/24 06:00 Temperature 36.5 C Pulse Rate 62 55 L 77 Respiratory Rate 20 Blood Pressure 123/72 Pulse Oximetry 98 Oxygen Delivery Fraction of Inspired Oxygen Intake/Output Intake/Output: Intake & Output 09/08/24 09/09/24 09/10/24 09/11/24 23:59 23:59 23:59 23:59 Intake Total 1970.0 1175 1000 0 Output Total 2500 1600 1700 600 Balance -530.0 -425 -700 -600 Meds/Results Medications: Active Medications Generic Name Dose Route Start Last Admin Trade Name Freq PRN Reason Stop Dose Admin Acetaminophen 650 mg 09/10/24 07:51 Acetaminophen Elixir 325 Mg/10.15 Ml Udc FEED TUBE Q6H PRN Mild Pain (1-3) or Fever Apixaban 5 mg 09/10/24 09:00 09/10/24 21:26 Apixaban 5 Mg Tablet FEED TUBE 5 mg Q12HR ARABELLA Administration Ascorbic Acid 250 mg 09/10/24 17:00 09/10/24 17:09 Ascorbic Acid 250 Mg Tablet FEED TUBE 250 mg 1700 ARABELLA Administration Aspirin 81 mg 09/10/24 12:00 09/10/24 12:04 Aspirin 81 Mg Chewable Tablet FEED TUBE 81 mg 1200 ARABELLA Administration Benzocaine 1 lozenge 09/04/24 16:44 Benzocaine/Menthol (*Bkc) 18 Ea Lozenge PO PRN PRN Sore Throat Calcium Carbonate 200 mg 09/10/24 07:56 Calcium Carbonate (Tums) 500 Mg (200 Mg Elemental) FEED TUBE Q6H PRN Indigestion Calcium Carbonate 200 mg 09/10/24 17:00 09/10/24 17:08 Calcium Carbonate (Tums) 500 Mg (200 Mg Elemental) FEED TUBE 200 mg 1700 ARABELLA Administration Cyanocobalamin 2,000 mcg 09/10/24 12:00 09/10/24 12:01 Cyanocobalamin 1,000 Mcg Tablet FEED TUBE 2,000 mcg 1200 ARABELLA Administration Cyanocobalamin 500 mcg 09/10/24 12:00 09/10/24 12:01 Cyanocobalamin 500 Mcg Tablet FEED TUBE 500 mcg 1200 ARABELLA Administration Docusate Sodium 100 mg 09/10/24 07:52 Docusate Sodium Liq 100 Mg/10 Ml Udc FEED TUBE Q12H PRN Constipation Empagliflozin 10 mg 09/10/24 09:00 09/10/24 09:59 Empagliflozin 10 Mg Tablet FEED TUBE 10 mg DAILY ARABELLA Administration Fluticasone Propionate 1 spray 09/05/24 09:00 09/10/24 17:08 Fluticasone Propionate 0.05% Na Spr 16 Gm Btl (*Bkc) NASAL 1 spray BID ARABELLA Administration Folic Acid 0.4 mg 09/10/24 12:00 09/10/24 12:01 Folic Acid 0.4 Mg Tablet FEED TUBE 0.4 mg 1200 ARABELLA Administration Furosemide 40 mg 09/10/24 09:00 09/10/24 17:09 Furosemide 40 Mg Tablet FEED TUBE 40 mg BID ARABELLA Administration Galantamine Hydrobromide 12 mg 09/10/24 09:00 09/10/24 17:09 Galantamine Hydrobromide 4 Mg Tablet FEED TUBE 12 mg BID ARABELLA Administration Guaifenesin 200 mg 09/10/24 09:00 09/11/24 05:50 Guaifenesin 200 Mg/10 Ml Udc FEED TUBE 200 mg Q4HR ARABELLA Administration Loratadine 10 mg 09/10/24 21:00 09/10/24 21:26 Loratadine 10 Mg Tablet FEED TUBE 10 mg QHS ARABELLA Administration Melatonin 10 mg 09/10/24 21:00 09/10/24 21:26 Melatonin 5 Mg Tablet FEED TUBE 10 mg HS ARABELLA Administration Memantine 10 mg 09/10/24 09:00 09/10/24 17:09 Memantine 10 Mg Tablet FEED TUBE 10 mg BID ARABELLA Administration Metoprolol Tartrate 25 mg 09/10/24 09:00 09/10/24 21:26 Metoprolol Tartrate 25 Mg Tablet FEED TUBE 25 mg Q12HR ARABELLA Administration Multivitamins/Minerals 1 tablet 09/10/24 09:00 09/10/24 10:01 Opti-Gen Tab FEED TUBE 1 tablet DAILY ARABELLA Administration Ondansetron HCl 4 mg 09/04/24 13:47 Ondansetron Inj 4 Mg/2 Ml Vial IV PUSH Q6H PRN Nausea And Vomiting Pravastatin Sodium 20 mg 09/10/24 21:00 09/10/24 21:26 Pravastatin Sodium 20 Mg Tablet FEED TUBE 20 mg QHS ARABELLA Administration Vitamin D 125 mcg 09/10/24 12:00 09/10/24 12:01 Cholecalciferol (Vitamin D3) 125 Mcg (5,000 Units) Tablet FEED TUBE 125 mcg 1200 ARABELLA Administration Radiology Results: ITS Impressions Chest X-Ray 09/04/24 10:42 IMPRESSION: Bilateral pleural effusions, moderate on the left and small on the right. Modified Barium Swallow 09/06/24 14:26 IMPRESSION: Pharyngeal dysphagia with laryngeal penetration and aspiration. Please correlate with speech pathologist findings and specific feeding recommendations. Labs Labs: Laboratory Results - last 24 hr 09/11/24 05:16 WBC 8.2 RBC 4.17 L Hgb 13.9 L Hct 41.9 L MCV 100.5 H MCH 33.3 MCHC 33.2 RDW 12.9 Plt Count 115 L MPV 10.6 H % Immature Plt Fraction 4.4 Sodium 142 Potassium 3.8 Chloride 104 Carbon Dioxide 33 H Anion Gap 5 BUN 18 Creatinine 0.90 Estim Creat Clear Calc 52 Estimated GFR > 60 Glucose 119 H Calcium 9.6 Magnesium 2.1 Total Bilirubin 0.4 AST 24 ALT 14 Alkaline Phosphatase 56 Total Protein 6.2 L Albumin 3.5
[2024-09-11] MEDS: MEMANTINE 10 MG TABLET FEED TUBE ×2 (10:35→17:32)
[2024-09-11] MEDS: APIXABAN 5 MG TABLET FEED TUBE ×2 (10:35→21:45)
[2024-09-11] MEDS: GALANTAMINE HYDROBROMIDE 4 MG TABLET 12 MG FEED TUBE ×2 (10:35→17:32)
[2024-09-11] MEDS: FUROSEMIDE 40 MG TABLET FEED TUBE (10:36)
[2024-09-11] MEDS: EMPAGLIFLOZIN 10 MG TABLET FEED TUBE (10:36)
[2024-09-11] MEDS: OPTI-GEN TAB 1 TABLET FEED TUBE (10:36)
[2024-09-11] MEDS: METOPROLOL TARTRATE 25 MG TABLET FEED TUBE ×2 (10:36→21:46)
[2024-09-11] MEDS: FLUTICASONE PROPIONATE 0.05% NA SPR 16 GM BTL (*BKC) 1 SPRAY NASAL ×2 (10:37→17:37)
--- NOTE | 2024-09-11 12:54 | P.PNIM_ITS ---
Progress Note: A&P Assessment and Plan (1) CHF (congestive heart failure): Qualifiers: Heart failure chronicity: acute Heart failure type: unspecified Qualified Code(s): I50.9 - Heart failure, unspecified Code(s): I50.9 - Heart failure, unspecified Status: Acute Assessment and Plan: patient admitted with new bilateral pleural effusions no previous history of congestive heart failure last echo 03/2023 showed normal diastolic function with an LVEF of 60 65%, patient does have history of CABG and atrial fibrillation, elevated BNP, Patient on RA * IV Lasix b.i.d. * monitor renal function during diuresis * echocardiogram showed 40-45% * on jardiance, Metoprolol 50mg, Cardizem discontinued due to Depressed ejection fraction * daily weights Cardiology following (2) Pleural effusion: Code(s): J90 - Pleural effusion, not elsewhere classified Status: Acute Assessment and Plan: SEE ABOVE * continue with IV Lasix * add incentive spirometer * oxygen as needed currently on room air (3) Paroxysmal atrial fibrillation: Code(s): I48.0 - Paroxysmal atrial fibrillation Status: Acute Assessment and Plan: patient with history proximal atrial fibrillation had previous cardiac monitoring device which has been removed * on Metoprolol and Eliquis continue telemetry cardiology following (4) Hyperlipidemia: Qualifiers: Hyperlipidemia type: mixed hyperlipidemia Qualified Code(s): E78.2 - Mixed hyperlipidemia Code(s): E78.5 - Hyperlipidemia, unspecified Status: Acute Assessment and Plan: * Continue statin Plan Difficulty swallowing MBS showed pharyngeal dysphagia with laryngeal penetration and aspiration Also showed Bridging osteophytes at C3-C7 consistent with diffuse idiopathic skeletal hyperostosis s/p PEG tube placement continue Tube feeding monitor appreciate GI input Code status: Full code per patient DVT prophylaxis: On Eliquis Subjective Date/time seen: 09/11/24 12:54 Interval history: Comfortable at bedside For discharge tomorrow Review of Systems Review of Systems: All systems reviewed & are unremarkable except as noted in HPI and below Exam Narrative: absent breath sounds in the lower lung figueroa, L worse than R Const: General: comfortable and no acute distress Other: On RA HENMT: Face/Nose/Sinus: Normal nares present Mouth: Yes moist mucous membranes Eyes: General: appearance normal, both eyes and all related structures Sclera: sclerae normal Pupils: Equal, round and reactive pupils present EOM: EOMs intact bilaterally Neck: Neck: supple and no JVD Resp: Effort & Inspection: normal respiratory effort Other: absent breath sounds in the lower lung figueroa, L worse than R. no wheezing or crackles appreciated. Cardio: Rate: regular rate Rhythm: regular rhythm Other: regular, irregular AFIB on monitor and EKG GI: Other: Abdomen soft, nondistended, nontender. Normoactive bowel sounds in all quadrants. Skin: General skin exam: normal color and no rashes or lesions noted Wounds: no wounds Neuro: Cranial nerves: Yes Equal, round and reactive pupils present Speech: normal speech Motor exam (neuro): 5/5 motor strength present throughout Sensory Exam: normal sensation Other: A&O x3 Extrem: General: normal to inspection Psych: Mental Status: mental status grossly normal Affect: normal affect Other: very pleasant Objective Data Vital Signs Vital Signs: Vital Signs - 24 hr 09/10/24 14:00 09/10/24 16:00 09/10/24 20:02 Temperature 97.5 F L Pulse Rate 85 67 Respiratory Rate 18 Blood Pressure 119/75 Pulse Oximetry 97 Oxygen Delivery Room Air Fraction of Inspired Oxygen 09/10/24 20:02 09/10/24 20:16 09/10/24 20:59 Temperature 98.1 F Pulse Rate 82 71 92 Respiratory Rate 20 18 Blood Pressure 144/93 H Pulse Oximetry 97 98 Oxygen Delivery Fraction of Inspired Oxygen 21 09/10/24 21:26 09/11/24 00:03 09/11/24 04:01 Temperature Pulse Rate 92 62 55 L Respiratory Rate Blood Pressure Pulse Oximetry Oxygen Delivery Fraction of Inspired Oxygen 09/11/24 06:00 Temperature 97.7 F Pulse Rate 77 Respiratory Rate 20 Blood Pressure 123/72 Pulse Oximetry 98 Oxygen Delivery Fraction of Inspired Oxygen Intake/Output Intake/Output: Intake & Output 09/08/24 09/09/24 09/10/24 09/11/24 23:59 23:59 23:59 23:59 Intake Total 1970.0 1175 1000 0 Output Total 2500 1600 1700 600 Balance -530.0 -425 -700 -600 Meds/Results Medications: Active Medications Generic Name Dose Route Start Last Admin Trade Name Freq PRN Reason Stop Dose Admin Acetaminophen 650 mg 09/10/24 07:51 Acetaminophen Elixir 325 Mg/10.15 Ml Udc FEED TUBE Q6H PRN Mild Pain (1-3) or Fever Apixaban 5 mg 09/10/24 09:00 09/11/24 10:35 Apixaban 5 Mg Tablet FEED TUBE 5 mg Q12HR ARABELLA Administration Ascorbic Acid 250 mg 09/10/24 17:00 09/10/24 17:09 Ascorbic Acid 250 Mg Tablet FEED TUBE 250 mg 1700 ARABELLA Administration Aspirin 81 mg 09/10/24 12:00 09/10/24 12:04 Aspirin 81 Mg Chewable Tablet FEED TUBE 81 mg 1200 ARABELLA Administration Benzocaine 1 lozenge 09/04/24 16:44 Benzocaine/Menthol (*Bkc) 18 Ea Lozenge PO PRN PRN Sore Throat Calcium Carbonate 200 mg 09/10/24 07:56 Calcium Carbonate (Tums) 500 Mg (200 Mg Elemental) FEED TUBE Q6H PRN Indigestion Calcium Carbonate 200 mg 09/10/24 17:00 09/10/24 17:08 Calcium Carbonate (Tums) 500 Mg (200 Mg Elemental) FEED TUBE 200 mg 1700 ARABELLA Administration Cyanocobalamin 2,000 mcg 09/10/24 12:00 09/10/24 12:01 Cyanocobalamin 1,000 Mcg Tablet FEED TUBE 2,000 mcg 1200 ARABELLA Administration Cyanocobalamin 500 mcg 09/10/24 12:00 09/10/24 12:01 Cyanocobalamin 500 Mcg Tablet FEED TUBE 500 mcg 1200 ARABELLA Administration Docusate Sodium 100 mg 09/10/24 07:52 Docusate Sodium Liq 100 Mg/10 Ml Udc FEED TUBE Q12H PRN Constipation Empagliflozin 10 mg 09/10/24 09:00 09/11/24 10:36 Empagliflozin 10 Mg Tablet FEED TUBE 10 mg DAILY ARABELLA Administration Fluticasone Propionate 1 spray 09/05/24 09:00 09/11/24 10:37 Fluticasone Propionate 0.05% Na Spr 16 Gm Btl (*Bkc) NASAL 1 spray BID ARABELLA Administration Folic Acid 0.4 mg 09/10/24 12:00 09/10/24 12:01 Folic Acid 0.4 Mg Tablet FEED TUBE 0.4 mg 1200 ARABELLA Administration Furosemide 40 mg 09/11/24 09:00 09/11/24 10:36 Furosemide 40 Mg Tablet FEED TUBE 40 mg DAILY ARABELLA Administration Galantamine Hydrobromide 12 mg 09/10/24 09:00 09/11/24 10:35 Galantamine Hydrobromide 4 Mg Tablet FEED TUBE 12 mg BID ARABELLA Administration Guaifenesin 200 mg 09/10/24 09:00 09/11/24 10:35 Guaifenesin 200 Mg/10 Ml Udc FEED TUBE 200 mg Q4HR ARABELLA Administration Loratadine 10 mg 09/10/24 21:00 09/10/24 21:26 Loratadine 10 Mg Tablet FEED TUBE 10 mg QHS ARABELLA Administration Melatonin 10 mg 09/10/24 21:00 09/10/24 21:26 Melatonin 5 Mg Tablet FEED TUBE 10 mg HS ARABELLA Administration Memantine 10 mg 09/10/24 09:00 09/11/24 10:35 Memantine 10 Mg Tablet FEED TUBE 10 mg BID ARABELLA Administration Metoprolol Tartrate 25 mg 09/10/24 09:00 09/11/24 10:36 Metoprolol Tartrate 25 Mg Tablet FEED TUBE 25 mg Q12HR ARABELLA Administration Multivitamins/Minerals 1 tablet 09/10/24 09:00 09/11/24 10:36 Opti-Gen Tab FEED TUBE 1 tablet DAILY ARABELLA Administration Ondansetron HCl 4 mg 09/04/24 13:47 Ondansetron Inj 4 Mg/2 Ml Vial IV PUSH Q6H PRN Nausea And Vomiting Pravastatin Sodium 20 mg 09/10/24 21:00 09/10/24 21:26 Pravastatin Sodium 20 Mg Tablet FEED TUBE 20 mg QHS ARABELLA Administration Vitamin D 125 mcg 09/10/24 12:00 09/10/24 12:01 Cholecalciferol (Vitamin D3) 125 Mcg (5,000 Units) Tablet FEED TUBE 125 mcg 1200 ARABELLA Administration Radiology Results: ITS Impressions Chest X-Ray 09/04/24 10:42 IMPRESSION: Bilateral pleural effusions, moderate on the left and small on the right. Modified Barium Swallow 09/06/24 14:26 IMPRESSION: Pharyngeal dysphagia with laryngeal penetration and aspiration. Please correlate with speech pathologist findings and specific feeding recommendations. Labs Labs: Laboratory Results - last 24 hr 09/11/24 05:16 WBC 8.2 RBC 4.17 L Hgb 13.9 L Hct 41.9 L MCV 100.5 H MCH 33.3 MCHC 33.2 RDW 12.9 Plt Count 115 L MPV 10.6 H % Immature Plt Fraction 4.4 Sodium 142 Potassium 3.8 Chloride 104 Carbon Dioxide 33 H Anion Gap 5 BUN 18 Creatinine 0.90 Estim Creat Clear Calc 52 Estimated GFR > 60 Glucose 119 H Calcium 9.6 Magnesium 2.1 Total Bilirubin 0.4 AST 24 ALT 14 Alkaline Phosphatase 56 Total Protein 6.2 L Albumin 3.5 Quality VTE Prophylaxis VTE prophylaxis: pharmacologic ordered
[2024-09-11] MEDS: CYANOCOBALAMIN 1,000 MCG TABLET 2000 MCG FEED TUBE (13:09)
[2024-09-11] MEDS: FOLIC ACID 0.4 MG TABLET FEED TUBE (13:09)
[2024-09-11] MEDS: CYANOCOBALAMIN 500 MCG TABLET FEED TUBE (13:10)
[2024-09-11] MEDS: CHOLECALCIFEROL (VITAMIN D3) 125 MCG (5,000 UNITS) TABLET FEED TUBE (13:10)
[2024-09-11] MEDS: ASPIRIN 81 MG CHEWABLE TABLET FEED TUBE (13:13)
[2024-09-11] MEDS: CALCIUM CARBONATE (TUMS) 500 MG (200 MG ELEMENTAL) FEED TUBE (17:37)
[2024-09-11] MEDS: ASCORBIC ACID 250 MG TABLET FEED TUBE (17:37)
[2024-09-11] MEDS: LORATADINE 10 MG TABLET FEED TUBE (21:44)
[2024-09-11] MEDS: MELATONIN 5 MG TABLET 10 MG FEED TUBE (21:45)
[2024-09-11] MEDS: PRAVASTATIN SODIUM 20 MG TABLET FEED TUBE (21:45)
[2024-09-12] VITALS (9 sets, daily range): BP systolic 121–132; BP diastolic 69–75; PULSE 61–75; RESP 18–20; TEMP 36.5–36.7; O2SAT 92–96
[2024-09-12 06:25] LABS: Hematocrit 42.2 % (42.0-52.0); Hemoglobin 13.9 g/dL (14.0-18.0); Immature Platelet Fraction Pct 5.7 % (0.9-11.2); Mean Corpuscular HGB Conc 32.9 g/dl (32-36); Mean Corpuscular Hemoglobin 32.9 pg (26-34); Mean Corpuscular Volume 99.8 fl (80-100); Platelet Count Result 108 k/mm3 (150-375); Red Blood Count 4.23 M/mm3 (4.6-6.20); White Blood Count 13.1 K/mm3 (4.5-10.0)
[2024-09-12 06:46] LABS: Alanine Aminotransferase 15 U/L (6-50); Albumin Level 3.5 g/dL (3.5-5.1); Alkaline Phosphatase 65 U/L (38-126); Anion Gap 8 mmol/L (4-12); Aspartate Amino Transferase 26 U/L (17-59); Bilirubin,Total 1.0 mg/dL (0.2-1.3); Blood Urea Nitrogen 20 mg/dL (9-20); Calcium 9.5 mg/dL (8.4-10.2); Carbon Dioxide 30 mmol/L (22-30); Chloride 105 mmol/L (98-107); Estimated CRCL calculation 55 ml/min; Estimated Glomerular Filt Rate > 60; Glucose 145 mg/dL (65-110); Magnesium 2.1 mg/dL (1.6-2.3); Potassium 3.1 mmol/L (3.4-5.0); Sodium 143 mmol/L (137-145); Total Protein 6.3 g/dL (6.3-8.2)
--- NOTE | 2024-09-12 08:40 | P.PNCA_ITS ---
Progress Note: A&P Assessment and Plan (1) Systolic heart failure: Code(s): I50.20 - Unspecified systolic (congestive) heart failure Status: Acute (2) Paroxysmal atrial fibrillation: Code(s): I48.0 - Paroxysmal atrial fibrillation Status: Acute (3) Hypertension: Qualifiers: Hypertension type: primary hypertension Qualified Code(s): I10 - Essential (primary) hypertension Code(s): I10 - Essential (primary) hypertension Status: Chronic (4) Hyperlipidemia: Qualifiers: Hyperlipidemia type: mixed hyperlipidemia Qualified Code(s): E78.2 - Mixed hyperlipidemia Code(s): E78.5 - Hyperlipidemia, unspecified Status: Acute Plan -Bilateral pleural effusion-moderate on the right and small on left; decreased -Paroxysmal AFib-rate controlled in the 70s -CAD status post CABG X 3 in 2019-chest pain appears noncardiac as it occurs when patient has coughing bout; troponin x3 negative -Chronic diastolic heart failure and new systolic heart failure-LVEF is decreased to 40-45% from 66% in 03/2024 -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 Outpatient stress test to evaluate for any ischemia as cause of recent drop in LVEF which has been scheduled -Guideline directed medical therapy for cardiomyopathy. Continue metoprolol and empagliflozin. Will add spironolactone. Can optimize GDMT as outpatient -Continue furosemide 40mg p.o. daily -Continue checking daily weights, ins and outs, and renal function -Check and replace electrolytes to keep potassium greater than 4 and magnesium greater than 2 . Potassium 3.1 today. Will give 40 mEq KCL IV x 1. -Anticoagulation with Eliquis for AFib -Management of pleural effusion and other medical problems per primary team -Ok for discharge today from a cardiac perspective Subjective Date/time seen: 09/12/24 08:40 Interval history: Reason for encounter: Acute on chronic heart failure Interval history: No chest pain, shortness of breath. He is undergoing scheduled PEG tube placement today as he was noted to have pharyngeal dysphagia with laryngeal penetration and aspiration. He pulled out his Dobhoff tube and not getting any p.o. meds or p.o. nutrition. He was started on IV fluids. Telemetry shows AFib with well-controlled rates. Date of service 09/10/2024: No chest pain or shortness of breath. No swelling. Date of service 09/11/2024: He continues to be feeling pretty well at this point. No chest pain, shortness of breath, swelling, palpitation Date of service 09/12/2024: His only complaint this morning is fatigue. No chest pain, shortness of breath, swelling. Review of Systems Review of Systems: A complete review of systems was performed and negative other than those mentioned HPI All systems reviewed & are unremarkable except as noted in HPI and below Constitutional: Constitutional: Denies body ache(s) ENT: Reports dysphagia Cardiovascular: Cardiovascular: Denies chest pain and Denies diaphoresis Respiratory: Respiratory: Denies hemoptysis Gastrointestinal: Gastrointestinal: Denies abdominal pain and Reports dysphagia Exam Narrative: Const: General: comfortable, no acute distress, alert and awake HENMT: Head: normal to inspection Eyes: General: appearance normal, both eyes and all related structures Pupils: Equal, round and reactive pupils present Neck: Neck: normal visual inspection, supple and no JVD Carotids: normal carotid upstroke Resp: Effort & Inspection: normal respiratory effort Auscultation: clear to auscultation bilaterally Cardio: Rate: regular rate Rhythm: abnormal rhythm irregularly irregular Heart sounds: S1 normal heart sound present, S2 normal heart sound present and no murmurs GI: Inspection: non-distended and other (feeding tube in place) Auscultation: normal bowel sounds Skin: General skin exam: normal color Neuro: General: confusion Cranial nerves: Yes Equal, round and reactive pupils present Extrem: General: normal to inspection Other: no edema Psych: Appearance: grossly normal Mental Status: mental status grossly abnormal Objective Data Vital Signs Vital Signs: Vital Signs - 24 hr 09/11/24 12:00 09/11/24 14:00 09/11/24 16:00 Temperature 37.2 C Pulse Rate 77 81 81 Respiratory Rate 18 Blood Pressure 117/64 Pulse Oximetry 97 Oxygen Delivery Fraction of Inspired Oxygen 09/11/24 20:00 09/11/24 20:23 09/11/24 21:46 Temperature 37.0 C Pulse Rate 94 94 Respiratory Rate 18 Blood Pressure 125/72 Pulse Oximetry 95 Oxygen Delivery Room Air Fraction of Inspired Oxygen 21 09/11/24 23:37 09/12/24 00:00 09/12/24 04:00 Temperature Pulse Rate 49 L 62 67 Respiratory Rate Blood Pressure Pulse Oximetry Oxygen Delivery Fraction of Inspired Oxygen 09/12/24 04:57 Temperature 36.7 C Pulse Rate 75 Respiratory Rate 18 Blood Pressure 121/71 Pulse Oximetry 95 Oxygen Delivery Fraction of Inspired Oxygen Intake/Output Intake/Output: Intake & Output 09/09/24 09/10/24 09/11/24 09/12/24 23:59 23:59 23:59 23:59 Intake Total 1175 1000 0 0 Output Total 1600 1700 1700 800 Balance -425 -700 -1700 -800 Meds/Results Medications: Active Medications Generic Name Dose Route Start Last Admin Trade Name Freq PRN Reason Stop Dose Admin Acetaminophen 650 mg 09/10/24 07:51 Acetaminophen Elixir 325 Mg/10.15 Ml Udc FEED TUBE Q6H PRN Mild Pain (1-3) or Fever Apixaban 5 mg 09/10/24 09:00 09/11/24 21:45 Apixaban 5 Mg Tablet FEED TUBE 5 mg Q12HR ARABELLA Administration Ascorbic Acid 250 mg 09/10/24 17:00 09/11/24 17:37 Ascorbic Acid 250 Mg Tablet FEED TUBE 250 mg 1700 ARABELLA Administration Aspirin 81 mg 09/10/24 12:00 09/11/24 13:13 Aspirin 81 Mg Chewable Tablet FEED TUBE 81 mg 1200 ARABELLA Administration Benzocaine 1 lozenge 09/04/24 16:44 Benzocaine/Menthol (*Bkc) 18 Ea Lozenge PO PRN PRN Sore Throat Calcium Carbonate 200 mg 09/10/24 07:56 Calcium Carbonate (Tums) 500 Mg (200 Mg Elemental) FEED TUBE Q6H PRN Indigestion Calcium Carbonate 200 mg 09/10/24 17:00 09/11/24 17:37 Calcium Carbonate (Tums) 500 Mg (200 Mg Elemental) FEED TUBE 200 mg 1700 ARABELLA Administration Cyanocobalamin 2,000 mcg 09/10/24 12:00 09/11/24 13:09 Cyanocobalamin 1,000 Mcg Tablet FEED TUBE 2,000 mcg 1200 ARABELLA Administration Cyanocobalamin 500 mcg 09/10/24 12:00 09/11/24 13:10 Cyanocobalamin 500 Mcg Tablet FEED TUBE 500 mcg 1200 ARABELLA Administration Docusate Sodium 100 mg 09/10/24 07:52 Docusate Sodium Liq 100 Mg/10 Ml Udc FEED TUBE Q12H PRN Constipation Empagliflozin 10 mg 09/10/24 09:00 09/11/24 10:36 Empagliflozin 10 Mg Tablet FEED TUBE 10 mg DAILY ARABELLA Administration Fluticasone Propionate 1 spray 09/05/24 09:00 09/11/24 17:37 Fluticasone Propionate 0.05% Na Spr 16 Gm Btl (*Bkc) NASAL 1 spray BID ARABELLA Administration Folic Acid 0.4 mg 09/10/24 12:00 09/11/24 13:09 Folic Acid 0.4 Mg Tablet FEED TUBE 0.4 mg 1200 ARABELLA Administration Furosemide 40 mg 09/11/24 09:00 09/11/24 10:36 Furosemide 40 Mg Tablet FEED TUBE 40 mg DAILY ARABELLA Administration Galantamine Hydrobromide 12 mg 09/10/24 09:00 09/11/24 17:32 Galantamine Hydrobromide 4 Mg Tablet FEED TUBE 12 mg BID ARABELLA Administration Guaifenesin 200 mg 09/10/24 09:00 09/12/24 04:46 Guaifenesin 200 Mg/10 Ml Udc FEED TUBE 200 mg Q4HR ARABELLA Administration Loratadine 10 mg 09/10/24 21:00 09/11/24 21:44 Loratadine 10 Mg Tablet FEED TUBE 10 mg QHS ARABELLA Administration Melatonin 10 mg 09/10/24 21:00 09/11/24 21:45 Melatonin 5 Mg Tablet FEED TUBE 10 mg HS ARABELLA Administration Memantine 10 mg 09/10/24 09:00 09/11/24 17:32 Memantine 10 Mg Tablet FEED TUBE 10 mg BID ARABELLA Administration Metoprolol Tartrate 25 mg 09/10/24 09:00 09/11/24 21:46 Metoprolol Tartrate 25 Mg Tablet FEED TUBE 25 mg Q12HR ARABELLA Administration Multivitamins/Minerals 1 tablet 09/10/24 09:00 09/11/24 10:36 Opti-Gen Tab FEED TUBE 1 tablet DAILY ARABELLA Administration Ondansetron HCl 4 mg 09/04/24 13:47 Ondansetron Inj 4 Mg/2 Ml Vial IV PUSH Q6H PRN Nausea And Vomiting Pravastatin Sodium 20 mg 09/10/24 21:00 09/11/24 21:45 Pravastatin Sodium 20 Mg Tablet FEED TUBE 20 mg QHS ARABELLA Administration Vitamin D 125 mcg 09/10/24 12:00 09/11/24 13:10 Cholecalciferol (Vitamin D3) 125 Mcg (5,000 Units) Tablet FEED TUBE 125 mcg 1200 ARABELLA Administration Radiology Results: ITS Impressions Chest X-Ray 09/04/24 10:42 IMPRESSION: Bilateral pleural effusions, moderate on the left and small on the right. Modified Barium Swallow 09/06/24 14:26 IMPRESSION: Pharyngeal dysphagia with laryngeal penetration and aspiration. Please correlate with speech pathologist findings and specific feeding recommendations. Labs Labs: Laboratory Results - last 24 hr 09/12/24 05:56 WBC 13.1 H RBC 4.23 L Hgb 13.9 L Hct 42.2 MCV 99.8 MCH 32.9 MCHC 32.9 RDW 13.1 Plt Count 108 L MPV 11.0 H % Immature Plt Fraction 5.7 Sodium 143 Potassium 3.1 L Chloride 105 Carbon Dioxide 30 Anion Gap 8 BUN 20 Creatinine 0.85 Estim Creat Clear Calc 55 Estimated GFR > 60 Glucose 145 H Calcium 9.5 Magnesium 2.1 Total Bilirubin 1.0 AST 26 ALT 15 Alkaline Phosphatase 65 Total Protein 6.3 Albumin 3.5
--- NOTE | 2024-09-12 09:50 | P.PNIM_ITS ---
Progress Note: A&P Assessment and Plan (1) CHF (congestive heart failure): Qualifiers: Heart failure chronicity: acute Heart failure type: unspecified Qualified Code(s): I50.9 - Heart failure, unspecified Code(s): I50.9 - Heart failure, unspecified Status: Acute Assessment and Plan: patient admitted with new bilateral pleural effusions no previous history of congestive heart failure last echo 03/2023 showed normal diastolic function with an LVEF of 60 65%, patient does have history of CABG and atrial fibrillation, elevated BNP, Patient on RA * IV Lasix b.i.d. * monitor renal function during diuresis * echocardiogram showed 40-45% * on jardiance, Metoprolol 50mg, Cardizem discontinued due to Depressed ejection fraction * daily weights Cardiology following (2) Pleural effusion: Code(s): J90 - Pleural effusion, not elsewhere classified Status: Acute Assessment and Plan: SEE ABOVE * continue with IV Lasix * add incentive spirometer * oxygen as needed currently on room air (3) Paroxysmal atrial fibrillation: Code(s): I48.0 - Paroxysmal atrial fibrillation Status: Acute Assessment and Plan: patient with history proximal atrial fibrillation had previous cardiac monitoring device which has been removed * on Metoprolol and Eliquis continue telemetry cardiology following (4) Hyperlipidemia: Qualifiers: Hyperlipidemia type: mixed hyperlipidemia Qualified Code(s): E78.2 - Mixed hyperlipidemia Code(s): E78.5 - Hyperlipidemia, unspecified Status: Acute Assessment and Plan: * Continue statin Plan Difficulty swallowing MBS showed pharyngeal dysphagia with laryngeal penetration and aspiration Also showed Bridging osteophytes at C3-C7 consistent with diffuse idiopathic skeletal hyperostosis s/p PEG tube placement continue Tube feeding monitor appreciate GI input Code status: Full code per patient DVT prophylaxis: On Eliquis Awaiting PT/OT eval for discharge disposition Subjective Date/time seen: 09/12/24 09:50 Interval history: Comfortable at bedside Awaiting PT/OT eval Review of Systems Review of Systems: All systems reviewed & are unremarkable except as noted in HPI and below Exam Narrative: absent breath sounds in the lower lung figueroa, L worse than R Const: General: comfortable and no acute distress Other: On RA HENMT: Face/Nose/Sinus: Normal nares present Mouth: Yes moist mucous membranes Eyes: General: appearance normal, both eyes and all related structures Sclera: sclerae normal Pupils: Equal, round and reactive pupils present EOM: EOMs intact bilaterally Neck: Neck: supple and no JVD Resp: Effort & Inspection: normal respiratory effort Other: absent breath sounds in the lower lung figueroa, L worse than R. no wheezing or crackles appreciated. Cardio: Rate: regular rate Rhythm: regular rhythm Other: regular, irregular AFIB on monitor and EKG GI: Other: Abdomen soft, nondistended, nontender. Normoactive bowel sounds in all quadrants. Skin: General skin exam: normal color and no rashes or lesions noted Wounds: no wounds Neuro: Cranial nerves: Yes Equal, round and reactive pupils present Speech: normal speech Motor exam (neuro): 5/5 motor strength present throughout Sensory Exam: normal sensation Other: A&O x3 Extrem: General: normal to inspection Psych: Mental Status: mental status grossly normal Affect: normal affect Other: very pleasant Objective Data Vital Signs Vital Signs: Vital Signs - 24 hr 09/11/24 12:00 09/11/24 14:00 09/11/24 16:00 Temperature 98.9 F Pulse Rate 77 81 81 Respiratory Rate 18 Blood Pressure 117/64 Pulse Oximetry 97 Oxygen Delivery Fraction of Inspired Oxygen 09/11/24 20:00 09/11/24 20:23 09/11/24 21:46 Temperature 98.6 F Pulse Rate 94 94 Respiratory Rate 18 Blood Pressure 125/72 Pulse Oximetry 95 Oxygen Delivery Room Air Fraction of Inspired Oxygen 21 09/11/24 23:37 09/12/24 00:00 09/12/24 04:00 Temperature Pulse Rate 49 L 62 67 Respiratory Rate Blood Pressure Pulse Oximetry Oxygen Delivery Fraction of Inspired Oxygen 09/12/24 04:57 Temperature 98.1 F Pulse Rate 75 Respiratory Rate 18 Blood Pressure 121/71 Pulse Oximetry 95 Oxygen Delivery Fraction of Inspired Oxygen Intake/Output Intake/Output: Intake & Output 09/09/24 09/10/24 09/11/24 09/12/24 23:59 23:59 23:59 23:59 Intake Total 1175 1000 0 0 Output Total 1600 1700 1700 800 Balance -425 -700 -1700 -800 Meds/Results Medications: Active Medications Generic Name Dose Route Start Last Admin Trade Name Freq PRN Reason Stop Dose Admin Acetaminophen 650 mg 09/10/24 07:51 Acetaminophen Elixir 325 Mg/10.15 Ml Udc FEED TUBE Q6H PRN Mild Pain (1-3) or Fever Apixaban 5 mg 09/10/24 09:00 09/11/24 21:45 Apixaban 5 Mg Tablet FEED TUBE 5 mg Q12HR ARABELLA Administration Ascorbic Acid 250 mg 09/10/24 17:00 09/11/24 17:37 Ascorbic Acid 250 Mg Tablet FEED TUBE 250 mg 1700 ARABELLA Administration Aspirin 81 mg 09/10/24 12:00 09/11/24 13:13 Aspirin 81 Mg Chewable Tablet FEED TUBE 81 mg 1200 ARABELLA Administration Benzocaine 1 lozenge 09/04/24 16:44 Benzocaine/Menthol (*Bkc) 18 Ea Lozenge PO PRN PRN Sore Throat Calcium Carbonate 200 mg 09/10/24 07:56 Calcium Carbonate (Tums) 500 Mg (200 Mg Elemental) FEED TUBE Q6H PRN Indigestion Calcium Carbonate 200 mg 09/10/24 17:00 09/11/24 17:37 Calcium Carbonate (Tums) 500 Mg (200 Mg Elemental) FEED TUBE 200 mg 1700 ARABELLA Administration Cyanocobalamin 2,000 mcg 09/10/24 12:00 09/11/24 13:09 Cyanocobalamin 1,000 Mcg Tablet FEED TUBE 2,000 mcg 1200 ARABELLA Administration Cyanocobalamin 500 mcg 09/10/24 12:00 09/11/24 13:10 Cyanocobalamin 500 Mcg Tablet FEED TUBE 500 mcg 1200 ARABELLA Administration Docusate Sodium 100 mg 09/10/24 07:52 Docusate Sodium Liq 100 Mg/10 Ml Udc FEED TUBE Q12H PRN Constipation Empagliflozin 10 mg 09/10/24 09:00 09/11/24 10:36 Empagliflozin 10 Mg Tablet FEED TUBE 10 mg DAILY ARABELLA Administration Fluticasone Propionate 1 spray 09/05/24 09:00 09/11/24 17:37 Fluticasone Propionate 0.05% Na Spr 16 Gm Btl (*Bkc) NASAL 1 spray BID ARABELLA Administration Folic Acid 0.4 mg 09/10/24 12:00 09/11/24 13:09 Folic Acid 0.4 Mg Tablet FEED TUBE 0.4 mg 1200 ARABELLA Administration Furosemide 40 mg 09/11/24 09:00 09/11/24 10:36 Furosemide 40 Mg Tablet FEED TUBE 40 mg DAILY ARABELLA Administration Galantamine Hydrobromide 12 mg 09/10/24 09:00 09/11/24 17:32 Galantamine Hydrobromide 4 Mg Tablet FEED TUBE 12 mg BID ARABELLA Administration Guaifenesin 200 mg 09/10/24 09:00 09/12/24 04:46 Guaifenesin 200 Mg/10 Ml Udc FEED TUBE 200 mg Q4HR ARABELLA Administration Potassium Chloride/Sodium Chloride 1,000 mls @ 100 mls/hr 09/12/24 09:50 Kcl 40 Meq/Ns IV CONT .Q10H ARABELLA Loratadine 10 mg 09/10/24 21:00 09/11/24 21:44 Loratadine 10 Mg Tablet FEED TUBE 10 mg QHS ARABELLA Administration Melatonin 10 mg 09/10/24 21:00 09/11/24 21:45 Melatonin 5 Mg Tablet FEED TUBE 10 mg HS ARABELLA Administration Memantine 10 mg 09/10/24 09:00 09/11/24 17:32 Memantine 10 Mg Tablet FEED TUBE 10 mg BID ARABELLA Administration Metoprolol Tartrate 25 mg 09/10/24 09:00 09/11/24 21:46 Metoprolol Tartrate 25 Mg Tablet FEED TUBE 25 mg Q12HR ARABELLA Administration Multivitamins/Minerals 1 tablet 09/10/24 09:00 09/11/24 10:36 Opti-Gen Tab FEED TUBE 1 tablet DAILY ARABELLA Administration Ondansetron HCl 4 mg 09/04/24 13:47 Ondansetron Inj 4 Mg/2 Ml Vial IV PUSH Q6H PRN Nausea And Vomiting Potassium Chloride 40 meq 09/12/24 09:46 Potassium Chloride 20 Meq Er Tablet PO 09/12/24 09:47 ONCE ONE Pravastatin Sodium 20 mg 09/10/24 21:00 09/11/24 21:45 Pravastatin Sodium 20 Mg Tablet FEED TUBE 20 mg QHS ARABELLA Administration Spironolactone 12.5 mg 09/13/24 09:00 Spironolactone 12.5 Mg Tablet FEED TUBE QAM [facility] Vitamin D 125 mcg 09/10/24 12:00 09/11/24 13:10 Cholecalciferol (Vitamin D3) 125 Mcg (5,000 Units) Tablet FEED TUBE 125 mcg 1200 ARABELLA Administration Radiology Results: ITS Impressions Chest X-Ray 09/04/24 10:42 IMPRESSION: Bilateral pleural effusions, moderate on the left and small on the right. Modified Barium Swallow 09/06/24 14:26 IMPRESSION: Pharyngeal dysphagia with laryngeal penetration and aspiration. Please correlate with speech pathologist findings and specific feeding recommendations. Labs Labs: Laboratory Results - last 24 hr 09/12/24 05:56 WBC 13.1 H RBC 4.23 L Hgb 13.9 L Hct 42.2 MCV 99.8 MCH 32.9 MCHC 32.9 RDW 13.1 Plt Count 108 L MPV 11.0 H % Immature Plt Fraction 5.7 Sodium 143 Potassium 3.1 L Chloride 105 Carbon Dioxide 30 Anion Gap 8 BUN 20 Creatinine 0.85 Estim Creat Clear Calc 55 Estimated GFR > 60 Glucose 145 H Calcium 9.5 Magnesium 2.1 Total Bilirubin 1.0 AST 26 ALT 15 Alkaline Phosphatase 65 Total Protein 6.3 Albumin 3.5 Quality VTE Prophylaxis VTE prophylaxis: pharmacologic ordered
--- NOTE | 2024-09-12 10:10 | PM.DS ---
DS: Admitting Diagnosis Discharge Date 09/12/24 Admitting Diagnosis Shortness of Breath, Chest Tightness DS: Discharge Diagnosis Discharge Diagnosis (1) Systolic heart failure: Code(s): I50.20 - Unspecified systolic (congestive) heart failure Status: Acute (2) Paroxysmal atrial fibrillation: Code(s): I48.0 - Paroxysmal atrial fibrillation Status: Acute DS: Summary Hospital Course Hospital Course: 84 y/o M with PMH of dementia, CAD s/p CABG x3 (2018), paroxysmal AFib, PE (2009), prostate cancer s/p radiation, hypertension and GERD presents here with shortness of breath and chest tightness. The patient presents here from home on 09/04 for further evaluation of shortness of breath and chest tightness. presents majority of history as the patient has a history of dementia and has difficulty describing symptoms. She reports he has been complaining of chest tightness and neck tightness as well as shortness of breath for the past 3-4 days. Shortness of breath/chest tightness are accompanied by intermittent poor appetite, tachypnea, and fatigue. He denies lower extremity swelling, weight gain, abdominal distention. He has a cardiac history significant for CAD s/p CABG, paroxysmal AFib, and hypertension. (and patient) denies any previously known history of CHF. Initial VS at presentation: 97.9? F, HR 71, RR 24, 146/70, and 97% on RA. ED workup showed: No leukocytosis, no anemia, INR 1.2, no significant electrolyte derangements, creatinine 0.85 and GFR >60, glucose 157, initial troponin negative x2, and BNP 2700, viral PCR negative. CXR showed bilateral pleural effusions, moderate on the left and small the right. EKG showed AFib, rate 66, borderline left axis deviation, moderate ST depression. Patient was managed for CHF systolic, ECHO showed EF 40-45%, cardiology was consulted patient was started on guideline therapy and discharged on Metoprolol, Jardiance, Spironolactone and lasix 40mg. Patient will continue cardiology with further titration. will follow up with cardiology for ischemic workup . Cardizem discontinued due to low EF. HYpokalemia, K 3.1 this morning, replaced and patient discharged on KCl 20 mEq daily x 5days since patient is also on SPironolactone. Also managed for dysphagia and failed swallowing eval and NPO was recommended. GI was consulted and PEG tube was placed and patient was started on tube feeding. Discharged home today with tube feeding. F/u with PCP in 3-5 days F/u with cardiology and GI as instructed discharged home with home health. Time Spent with Patient Time attestation: Total time spent providing and/or coordinating discharge services: DS: Data Data Completed and Pending Labs on day of discharge: Labs from last 24 hours 09/12/24 05:56 WBC 13.1 H RBC 4.23 L Hgb 13.9 L Hct 42.2 MCV 99.8 MCH 32.9 MCHC 32.9 RDW 13.1 Plt Count 108 L MPV 11.0 H % Immature Plt Fraction 5.7 Sodium 143 Potassium 3.1 L Chloride 105 Carbon Dioxide 30 Anion Gap 8 BUN 20 Creatinine 0.85 Estim Creat Clear Calc 55 Estimated GFR > 60 Glucose 145 H Calcium 9.5 Magnesium 2.1 Total Bilirubin 1.0 AST 26 ALT 15 Alkaline Phosphatase 65 Total Protein 6.3 Albumin 3.5 Discharge Plan Discharge Attending physician on discharge: Naima Nino Consulting providers: Gretel Kingston; Hanna Sibley; Anthony Montenegro Discharging Clinician: Naima Nino Anticipated Discharge Date/Time: 09/12/24 09:52 Patient Disposition: Home Activity: as tolerated Diet: as tolerated and heart healthy Discharge Instructions: Care Coordination: Patient to have [facility] for PT/OT eval and treat, and halfway. Their phone number is [phone] if you have any questions; they will contact you to schedule their first visit. Patient Instructions: Antibiotic Form, Apixaban (By mouth), Safe Use of Anticoagulants (GEN), Blood Thinners (GEN) Patient Language: Norwegian Stand Alone Forms: General Discharge Information Follow-up/Referrals: Hanna Sibley MD [Physician] - (F/u with Cardiology as instructed ) Dave Ayala DO [Primary Care Provider] - (F/u with PCP in 3-5 days ) Discharge Medications: New Jardiance 10 mg Tablet 10 mg feeding tube DAILY 30 Days Qty: 30 1RF metoprolol tartrate 25 mg Tablet 25 mg feeding tube Q12HR 30 Days Qty: 60 1RF furosemide 40 mg Tablet 40 mg feeding tube DAILY 30 Days Qty: 30 1RF spironolactone 25 mg tablet 12.5 mg PO DAILY 30 Days Qty: 15 1RF potassium chloride 20 mEq/15 mL liquid 20 meq PO DAILY 5 Days Qty: 75 0RF Continued red beet-sour crouch extract 250-0.5 mg tablet,chewable 1 tablet PO DAILY galantamine 4 mg tablet See Rx Instructions .ROUTE .COMPLEX Qty: 240 6RF Dose Instruction: TAKE 3 TABLETS BY MOUTH TWICE DAILY Rx Instructions: TAKE 3 TABLETS BY MOUTH TWICE DAILY memantine 10 mg tablet 10 mg PO BID Qty: 180 6RF Eliquis 5 mg tablet 5 mg PO BID aspirin 81 mg tablet,chewable 81 mg PO 1200 calcium carbonate 650 mg calcium (1,625 mg) tablet 650 mg PO 1700 Patient Comments: as viactive gummy ascorbic acid (vitamin C) 250 mg tablet 282 mg PO 1700 cyanocobalamin (vitamin B-12) 2,500 mcg tablet 2,500 mcg PO 1200 turmeric 400 mg capsule 400 mg PO DAILY coenzyme Q10 [Co Q-10] 100 mg Capsule 100 mg PO DAILY Centrum Silver Men 300-600-300 mcg Tablet 1 tablet PO DAILY melatonin 5 mg Tablet,Chewable 10 mg PO HS Rx Instructions: takes 2 gummies nightly for a total of 10 mg. zinc 15 mg Tablet 15 mg PO DAILY folic acid 800 mcg Tablet 400 mg PO 1200 cholecalciferol (vitamin D3) 125 mcg (5,000 unit) Tablet 125 mcg PO 1200 clindamycin HCl 300 mg capsule 300 mg PO Q6H PreserVision AREDS-2 250-90-40-1 mg capsule 1 tablet PO ONCE prevagen See Rx Instructions BYMOUTH .COMPLEX Rx Instructions: 1 orally; fluticasone propionate 50 mcg/actuation spray,suspension 1 spray intranasal BID Rx Instructions: administer into each nostril acetaminophen [Tylenol Extra Strength] 500 mg tablet 500 mg PO Q6H PRN (Reason: pain) pravastatin 20 mg tablet 20 mg PO QHS Qty: 90 3RF lidocaine [Lidocaine Pain Relief] 4 % Adhesive Patch,Medicated 1 patch transdermal DAILY Qty: 15 0RF Discontinued diltiazem HCl 120 mg capsule,extended release 24hr 120 mg PO 1200 diltiazem HCl 120 mg capsule,extended release 24hr 120 mg PO Q24H Date of admission: 09/06/24 09:56 Primary Care Provider: Dave Ayala Admitting Provider: Alexander Denny Attending physician on admission: Alexander Denny Condition: Stable
[2024-09-12] MEDS: GALANTAMINE HYDROBROMIDE 4 MG TABLET 12 MG FEED TUBE ×2 (10:32→16:33)
[2024-09-12] MEDS: METOPROLOL TARTRATE 25 MG TABLET FEED TUBE ×2 (10:33→20:23)
[2024-09-12] MEDS: APIXABAN 5 MG TABLET FEED TUBE ×2 (10:34→20:23)
[2024-09-12] MEDS: POTASSIUM CHLORIDE 20 MEQ PACKET (FOR LIQUID) 40 MEQ FEED TUBE (10:34)
[2024-09-12] MEDS: MEMANTINE 10 MG TABLET FEED TUBE ×2 (10:34→16:34)
[2024-09-12] MEDS: EMPAGLIFLOZIN 10 MG TABLET FEED TUBE (10:34)
[2024-09-12] MEDS: OPTI-GEN TAB 1 TABLET FEED TUBE (10:34)
[2024-09-12] MEDS: FUROSEMIDE 40 MG TABLET FEED TUBE (10:34)
[2024-09-12] MEDS: FLUTICASONE PROPIONATE 0.05% NA SPR 16 GM BTL (*BKC) 1 SPRAY NASAL ×2 (10:35→16:34)
[2024-09-12] MEDS: ACETAMINOPHEN ELIXIR 325 MG/10.15 ML UDC 650 MG FEED TUBE (10:38)
[2024-09-12] MEDS: CHOLECALCIFEROL (VITAMIN D3) 125 MCG (5,000 UNITS) TABLET FEED TUBE (13:25)
[2024-09-12] MEDS: CYANOCOBALAMIN 1,000 MCG TABLET 2000 MCG FEED TUBE (13:25)
[2024-09-12] MEDS: CYANOCOBALAMIN 500 MCG TABLET FEED TUBE (13:25)
[2024-09-12] MEDS: ASPIRIN 81 MG CHEWABLE TABLET FEED TUBE (13:25)
[2024-09-12] MEDS: FOLIC ACID 0.4 MG TABLET FEED TUBE (13:25)
[2024-09-12] MEDS: ASCORBIC ACID 250 MG TABLET FEED TUBE (16:33)
[2024-09-12] MEDS: CALCIUM CARBONATE (TUMS) 500 MG (200 MG ELEMENTAL) FEED TUBE (16:34)
[2024-09-12] MEDS: MELATONIN 5 MG TABLET 10 MG FEED TUBE (20:22)
[2024-09-12] MEDS: PRAVASTATIN SODIUM 20 MG TABLET FEED TUBE (20:24)
[2024-09-12] MEDS: LORATADINE 10 MG TABLET FEED TUBE (20:24)
[2024-09-13 04:16] VITALS: BP 152/70; PULSE 72; RESP 20; TEMP 36.9; O2SAT 93
[2024-09-13 05:28] LABS: Hematocrit 42.0 % (42.0-52.0); Hemoglobin 13.7 g/dL (14.0-18.0); Immature Platelet Fraction Pct 6.6 % (0.9-11.2); Mean Corpuscular HGB Conc 32.6 g/dl (32-36); Mean Corpuscular Hemoglobin 33.3 pg (26-34); Mean Corpuscular Volume 101.9 fl (80-100); Platelet Count Result 99 k/mm3 (150-375); Red Blood Count 4.12 M/mm3 (4.6-6.20); White Blood Count 12.2 K/mm3 (4.5-10.0)
[2024-09-13 05:47] LABS: Alanine Aminotransferase 13 U/L (6-50); Albumin Level 3.5 g/dL (3.5-5.1); Alkaline Phosphatase 63 U/L (38-126); Anion Gap 6 mmol/L (4-12); Aspartate Amino Transferase 26 U/L (17-59); Bilirubin,Total 1.1 mg/dL (0.2-1.3); Blood Urea Nitrogen 22 mg/dL (9-20); Calcium 9.3 mg/dL (8.4-10.2); Carbon Dioxide 30 mmol/L (22-30); Chloride 106 mmol/L (98-107); Estimated CRCL calculation 55 ml/min; Estimated Glomerular Filt Rate > 60; Glucose 108 mg/dL (65-110); Magnesium 2.2 mg/dL (1.6-2.3); Potassium 3.5 mmol/L (3.4-5.0); Sodium 142 mmol/L (137-145); Total Protein 6.3 g/dL (6.3-8.2)
[2024-09-13 07:48] VITALS: O2SAT 92
[2024-09-13] MEDS: FUROSEMIDE 40 MG TABLET FEED TUBE (09:24)
[2024-09-13] MEDS: EMPAGLIFLOZIN 10 MG TABLET FEED TUBE (09:24)
[2024-09-13] MEDS: APIXABAN 5 MG TABLET FEED TUBE (09:24)
[2024-09-13 09:25] VITALS: PULSE 84
[2024-09-13] MEDS: MEMANTINE 10 MG TABLET FEED TUBE (09:25)
[2024-09-13] MEDS: OPTI-GEN TAB 1 TABLET FEED TUBE (09:25)
[2024-09-13] MEDS: GALANTAMINE HYDROBROMIDE 4 MG TABLET 12 MG FEED TUBE (09:25)
[2024-09-13] MEDS: METOPROLOL TARTRATE 25 MG TABLET FEED TUBE (09:25)
[2024-09-13] MEDS: FLUTICASONE PROPIONATE 0.05% NA SPR 16 GM BTL (*BKC) 1 SPRAY NASAL (09:27)
[2024-09-13 09:52] VITALS: O2SAT 94
--- NOTE | 2024-09-13 12:08 | P.DS_ITS ---
DS: Admitting Diagnosis Discharge Date 09/13/24 Admitting Diagnosis Shortness of breath DS: Discharge Diagnosis Discharge Diagnosis (1) Systolic heart failure: Code(s): I50.20 - Unspecified systolic (congestive) heart failure Status: Acute (2) Paroxysmal atrial fibrillation: Code(s): I48.0 - Paroxysmal atrial fibrillation Status: Acute Assessment and Plan: patient with history proximal atrial fibrillation had previous cardiac monitoring device which has been removed * on Metoprolol and Eliquis continue telemetry cardiology following Plan Difficulty swallowing MBS showed pharyngeal dysphagia with laryngeal penetration and aspiration Also showed Bridging osteophytes at C3-C7 consistent with diffuse idiopathic skeletal hyperostosis s/p PEG tube placement continue Tube feeding monitor appreciate GI input Code status: Full code per patient DVT prophylaxis: On Eliquis DS: Summary Hospital Course Hospital Course: per previous notes: 84 y/o M with PMH of dementia, CAD s/p CABG x3 (2018), paroxysmal AFib, PE (2008), prostate cancer s/p radiation, hypertension and GERD presents here with shortness of breath and chest tightness. The patient presents here from home on 09/04 for further evaluation of shortness of breath and chest tightness. presents majority of history as the patient has a history of dementia and has difficulty describing symptoms. She reports he has been complaining of chest tightness and neck tightness as well as shortness of breath for the past 3-4 days. Shortness of breath/chest tightness are accompanied by intermittent poor appetite, tachypnea, and fatigue. He denies lower extremity swelling, weight gain, abdominal distention. He has a cardiac history significant for CAD s/p CABG, paroxysmal AFib, and hypertension. (and patient) denies any previously known history of CHF. Initial VS at presentation: 97.9? F, HR 71, RR 24, 146/70, and 97% on RA. ED workup showed: No leukocytosis, no anemia, INR 1.2, no significant electrolyte derangements, creatinine 0.85 and GFR >60, glucose 157, initial troponin negative x2, and BNP 2700, viral PCR negative. CXR showed bilateral pleural effusions, moderate on the left and small the right. EKG showed AFib, rate 66, borderline left axis deviation, moderate ST depression. Patient was managed for CHF systolic, ECHO showed EF 40-45%, cardiology was consulted patient was started on guideline therapy and discharged on Metoprolol, Jardiance, Spironolactone and lasix 40mg. Patient will continue cardiology with further titration. will follow up with cardiology for ischemic workup . Cardizem discontinued due to low EF. HYpokalemia, K 3.1 this morning, replaced and patient discharged on KCl 20 mEq daily x 5days since patient is also on SPironolactone. Also managed for dysphagia and failed swallowing eval and NPO was recommended. GI was consulted and PEG tube was placed and patient was started on tube feeding. 09/13/24 Patient was in agreement with that. He is feeling fine. Denies any chest pain, abdominal pain, nausea vomiting. Plan was to discharge patient yesterday but home health was not able to, and educated patient until today. Status at Discharge Overall status at discharge: patient is progressing back to baseline Time Spent with Patient Time attestation: Total time spent providing and/or coordinating discharge services: Time spent: Greater than 30 minutes Exam Const: Other: On RA Resp: Other: absent breath sounds in the lower lung figueroa, L worse than R. no wheezing or crackles appreciated. Cardio: Other: regular, irregular AFIB on monitor and EKG GI: Other: Abdomen soft, nondistended, nontender. Normoactive bowel sounds in all quadrants. Neuro: Other: A&O x3 Psych: Other: very pleasant DS: Data Data Completed and Pending Labs on day of discharge: Labs from last 24 hours 09/13/24 04:58 WBC 12.2 H RBC 4.12 L Hgb 13.7 L Hct 42.0 MCV 101.9 H MCH 33.3 MCHC 32.6 RDW 13.1 Plt Count 99 L MPV 11.3 H % Immature Plt Fraction 6.6 Sodium 142 Potassium 3.5 Chloride 106 Carbon Dioxide 30 Anion Gap 6 BUN 22 H Creatinine 0.85 Estim Creat Clear Calc 55 Estimated GFR > 60 Glucose 108 Calcium 9.3 Magnesium 2.2 Total Bilirubin 1.1 AST 26 ALT 13 Alkaline Phosphatase 63 Total Protein 6.3 Albumin 3.5 Discharge Plan Discharge Attending physician on discharge: Naima Nino Consulting providers: Gretel Kingston; Hanna Sibley; Anthony Montenegro; Oscar Myers Discharging Clinician: Naima Nino Anticipated Discharge Date/Time: 09/12/24 09:52 Patient Disposition: Home with Home Health Service Activity: as tolerated Diet: tube feeding Discharge Instructions: Care Coordination: Patient to have [facility] for PT/OT eval and treat, and retirement. Their phone number is [phone] if you have any questions; they will contact you to schedule their first visit. Recommend tube feedings of Jevity 1.5 at 20 ml/hr advance by 10 ml q 4 hours to goal rate of 60 ml/hr. Flush 150 ml q 4 hours. Bolus feedings: 330 ml QID with 150 ml flush with each feeding. Patient Instructions: Antibiotic Form, Apixaban (By mouth), How to Use and Care for Your PEG Tube (DC), Safe Use of Anticoagulants (GEN), Blood Thinners (GEN) Patient Language: Belarusian Stand Alone Forms: General Discharge Information Follow-up/Referrals: Hanna Sibley MD [Physician] - (F/u with Cardiology as instructed ) Dave Ayala DO [Primary Care Provider] - (F/u with PCP in 3-5 days ) Discharge Medications: New furosemide 40 mg Tablet 40 mg feeding tube DAILY 30 Days Qty: 30 1RF metoprolol tartrate 25 mg Tablet 25 mg feeding tube Q12HR 30 Days Qty: 60 1RF Jardiance 10 mg Tablet 10 mg feeding tube DAILY 30 Days Qty: 30 1RF spironolactone 25 mg tablet 12.5 mg PO DAILY 30 Days Qty: 15 1RF potassium chloride 20 mEq/15 mL liquid 20 meq PO DAILY 5 Days Qty: 75 0RF Continued red beet-sour crouch extract 250-0.5 mg tablet,chewable 1 tablet PO DAILY galantamine 4 mg tablet See Rx Instructions .ROUTE .COMPLEX Qty: 240 6RF Dose Instruction: TAKE 3 TABLETS BY MOUTH TWICE DAILY Rx Instructions: TAKE 3 TABLETS BY MOUTH TWICE DAILY memantine 10 mg tablet 10 mg PO BID Qty: 180 6RF Eliquis 5 mg tablet 5 mg PO BID aspirin 81 mg tablet,chewable 81 mg PO 1200 calcium carbonate 650 mg calcium (1,625 mg) tablet 650 mg PO 1700 Patient Comments: as viactive gummy ascorbic acid (vitamin C) 250 mg tablet 282 mg PO 1700 cyanocobalamin (vitamin B-12) 2,500 mcg tablet 2,500 mcg PO 1200 turmeric 400 mg capsule 400 mg PO DAILY coenzyme Q10 [Co Q-10] 100 mg Capsule 100 mg PO DAILY Centrum Silver Men 300-600-300 mcg Tablet 1 tablet PO DAILY melatonin 5 mg Tablet,Chewable 10 mg PO HS Rx Instructions: takes 2 gummies nightly for a total of 10 mg. zinc 15 mg Tablet 15 mg PO DAILY folic acid 800 mcg Tablet 400 mg PO 1200 cholecalciferol (vitamin D3) 125 mcg (5,000 unit) Tablet 125 mcg PO 1200 clindamycin HCl 300 mg capsule 300 mg PO Q6H PreserVision AREDS-2 250-90-40-1 mg capsule 1 tablet PO ONCE prevagen See Rx Instructions BYMOUTH .COMPLEX Rx Instructions: 1 orally; fluticasone propionate 50 mcg/actuation spray,suspension 1 spray intranasal BID Rx Instructions: administer into each nostril acetaminophen [Tylenol Extra Strength] 500 mg tablet 500 mg PO Q6H PRN (Reason: pain) pravastatin 20 mg tablet 20 mg PO QHS Qty: 90 3RF lidocaine [Lidocaine Pain Relief] 4 % Adhesive Patch,Medicated 1 patch transdermal DAILY Qty: 15 0RF Discontinued diltiazem HCl 120 mg capsule,extended release 24hr 120 mg PO 1200 diltiazem HCl 120 mg capsule,extended release 24hr 120 mg PO Q24H Date of admission: 09/06/24 09:56 Primary Care Provider: Dave Ayala Admitting Provider: Alexander Denny Attending physician on admission: Aelxander Denny Condition: Stable Quality VTE Prophylaxis VTE prophylaxis: pharmacologic ordered
[2024-09-13] MEDS: CYANOCOBALAMIN 1,000 MCG TABLET 2000 MCG FEED TUBE (12:26)
[2024-09-13] MEDS: CHOLECALCIFEROL (VITAMIN D3) 125 MCG (5,000 UNITS) TABLET FEED TUBE (12:26)
[2024-09-13] MEDS: FOLIC ACID 0.4 MG TABLET FEED TUBE (12:26)
[2024-09-13] MEDS: ASPIRIN 81 MG CHEWABLE TABLET FEED TUBE (12:26)
[2024-09-13] MEDS: CYANOCOBALAMIN 500 MCG TABLET FEED TUBE (12:26)
== END 2024-09-13 14:30 | disposition home health service (06) | DRG 291 ==
LOC: ANHED 13:57 → ANH2MED 15:08
PROVIDERS: Emergency Medicine; Internal Medicine; Internal Medicine Gastroenterology; Nurse Practitioner Family; Student in an Organized Health Care Education/Training Program; Admitting Provider Internal Medicine; Emergency Provider Emergency Medicine; PCP Internal Medicine; Visit Provider Internal Medicine
PROC: 0DH63UZ Insertion of Feeding Device into Stomach, Percutaneous Approach (ICD-10-PCS; CPT 43246; principal; 2024-09-09 14:00)
DX: I11.0 Hypertensive heart disease with heart failure (principal); I50.41 Acute combined systolic (congestive) and diastolic (congestive) heart failure; R13.13 Dysphagia, pharyngeal phase; I48.0 Paroxysmal atrial fibrillation; I25.10 Atherosclerotic heart disease of native coronary artery without angina pectoris; G30.9 Alzheimer's disease, unspecified; F02.80 Dementia in other diseases classified elsewhere, unspecified severity, without behavioral disturbance, psychotic disturbance, mood disturbance, and anxiety; I71.40 Abdominal aortic aneurysm, without rupture, unspecified; K21.9 Gastro-esophageal reflux disease without esophagitis; E78.2 Mixed hyperlipidemia; M48.12 Ankylosing hyperostosis [Forestier], cervical region; E87.6 Hypokalemia; E66.9 Obesity, unspecified; Z68.27 Body mass index [BMI] 27.0-27.9, adult; Z20.822 Contact with and (suspected) exposure to COVID-19; Z79.01 Long term (current) use of anticoagulants; Z79.899 Other long term (current) drug therapy; Z85.038 Personal history of other malignant neoplasm of large intestine; Z85.46 Personal history of malignant neoplasm of prostate; Z86.711 Personal history of pulmonary embolism; Z92.3 Personal history of irradiation; Z95.1 Presence of aortocoronary bypass graft
CPT/HCPCS: 36415; 43246; 43752; 71046; 74230; 80048; 80053; 83690; 83735; 83880; 84484; 85025; 85027; 85055; 85610; 85730; 87637; 92526; 92610; 92611; 93005; 96374; 96375; 96376; 99285; A9270; C8929; G0378; J1938; J2704; J3480; J7030; J7040; J7120; Q9957

== ENCOUNTER 2024-09-17 18:06 | Emergency (ER) | payer BC, SELFPAY ==
--- NOTE | ~2024-09-17 | CT_ITS ---
Clinical Indication: Dyspnea, abdominal pain, status post G-tube placement CT Scan of the Chest, Abdomen, and Pelvis with Contrast: Technique: Contiguous sections were acquired throughout the chest, abdomen, and pelvis after intraven ous administration of 100 cc of Omnipaque 350. Dose reduction technique was used on this scan by uti nereydaing automated exposure control and iterative reconstruction technique. The dose-length product (DL P) was 1212.33 mGy-cm. Comparison: 09/07/2023 Findings: There is no evidence of any significant mediastinal, hilar or axillary lymphadenopathy. The mediastin al soft tissues appear normal. No aortic aneurysm or dissection. No large central pulmonary embolus s een. There is no evidence of pleural or pericardial effusion. There is bibasilar pulmonary consolidation, which could reflect atelectasis versus pneumonia, right w orse than left. The liver, spleen, adrenals and kidneys are within normal limits. Cholecystectomy clips are present. Pancreas is atrophic with diffuse pancreatic ductal dilatation. There is focal calcification at the p ancreatic head. There are atherosclerotic calcifications of the aorta. Infrarenal abdominal aortic an eurysm measures up to 4.7 cm in diameter. No lymphadenopathy. No bowel obstruction or bowel wall thickening. There is no evidence to suggest acute appendicitis. Pe rcutaneous gastrostomy tube in place. Urinary bladder is unremarkable. No pelvic mass seen. No ascites. Impression: Bibasilar pulmonary consolidation could reflect atelectasis versus pneumonia. Correlate clinically. Probable chronic pancreatitis with atrophic pancreas and diffuse ductal dilatation of the pancreas. 4.7 cm infrarenal abdominal aortic aneurysm. Reviewed, dictated and finalized at location . Impression: Bibasilar pulmonary consolidation could reflect atelectasis versus pneumonia. C orrelate clinically. Probable chronic pancreatitis with atrophic pancreas and diffuse ductal dilatat ion of the pancreas. 4.7 cm infrarenal abdominal aortic aneurysm.
[2024-09-17 18:11] VITALS: BP 125/72; PULSE 93; RESP 24; TEMP 37.2; O2SAT 95
[2024-09-17 19:00] VITALS: BP 128/91; PULSE 78; RESP 21; TEMP 36.7; O2SAT 95
--- NOTE | 2024-09-17 19:26 | ECG_ITS ---
Test Date: 2024-09-17 19:48:04 Measurements Intervals [place] Rate: 113 P: 0 GA: 0 QRS: -9 QRSD: 93 T: 43 QT: 334 QTc: 458 Interpretive Statements ATRIAL FIBRILLATION WITH RAPID VENTRICULAR RESPONSE NONSPECIFIC ST AND T-WAVE ABNORMALITY ABNORMAL ECG Compared to ECG 09/04/2024 12:37:07 HEART RATE IS INCREASED, NO OTHER SIGNIFICANT CHANGE Electronically Signed On 09-18-2024 08:14:09 CDT by Brooks Ch M.D.
[2024-09-17 19:30] VITALS: BP 144/75; PULSE 92; RESP 25; O2SAT 95
[2024-09-17 19:42] LABS: Hematocrit 41.3 % (42.0-52.0); Hemoglobin 13.0 g/dL (14.0-18.0); Immature Granulocyte Percent A 1.2 % (0-0.5); Lymphocytes Absolute Auto 0.71 K/mm3 (0.9-3.2); Mean Corpuscular HGB Conc 31.5 g/dl (32-36); Mean Corpuscular Hemoglobin 32.7 pg (26-34); Mean Corpuscular Volume 104.0 fl (80-100); Nucleated Red Blood Cells Absolute Auto 0.000 K/mm3 (0.0-0.012); Nucleated Red Blood Cells Perc 0.0 % (0.0-0.2); Platelet Count Result 128 k/mm3 (150-375); Red Blood Count 3.97 M/mm3 (4.6-6.20); White Blood Count 12.0 K/mm3 (4.5-10.0)
[2024-09-17 19:54] LABS: INR 1.6; Prothrombin Time 19.0 Seconds (11.1-14.7)
[2024-09-17 19:55] LABS: Partial Thromboplastin Time 33.7 Seconds (22.3-36.8)
--- NOTE | 2024-09-17 19:57 | ED.ABDPAIN ---
HPI - Abdominal Pain General Chief Complaint: Abdominal Pain Stated Complaint: abd pain Time Seen by Provider: 09/17/24 19:03 History of Present Illness HPI narrative: 84-year-old male past medical history including dementia, coronary disease status post bypass grafting, paroxysmal AFib on Eliquis and metoprolol. History of prostate cancer, hypertension. History of severe dysphagia being evaluated by ENT outpatient, discussed tracheostomy previously but patient and family declined. He has a recently placed G-tube for dysphagia needing PEG tube feedings. This was placed during recent hospital admission and he was discharged on the . He followed up with his ENT doctor on the and was referred to speech therapy for conservative management of his severe dysphagia and phonation difficulties. Patient presents to the emergency department today accompanied by his family members for concerns of abdominal pain with a new G-tube. Patient has been getting fed through the G-tube with gravity feeds as well as medications without any difficulty for last few days. Today he started developing abdominal pain and the nursing staff that attended to him today knows that there was some potential bile in the G-tube that resolved spontaneously and did not recur. Patient is not any acute distress but is at his baseline mentation presently which is demented and he is not able to cooperate with history or physical. Related Data Home Medications ?Medication ?Instructions ?Recorded ?Confirmed ?Last Taken ?Type apixaban 5 mg tablet (Eliquis) 5 mg PO BID 01/01/21 09/16/24 09/04/24 08:00 History 5 mg aspirin 81 mg chewable tablet 81 mg PO 1200 01/01/21 09/16/24 12/17/22 History coenzyme Q10 100 mg capsule (Co 100 mg PO DAILY 12/31/21 09/16/24 09/03/24 21:00 History Q-10) 100 mg melatonin 5 mg chewable tablet 10 mg PO HS 12/31/21 09/16/24 09/03/24 21:00 History 5 mg cholecalciferol (vitamin D3) 125 125 mcg PO 1200 10/10/22 09/16/24 Unknown History mcg (5,000 unit) tablet folic acid 800 mcg tablet 400 mg PO 1200 10/10/22 09/16/24 Unknown History fluticasone propionate 50 1 spray intranasal BID 01/06/23 09/16/24 09/04/24 08:00 History mcg/actuation nasal 2 spray spray,suspension vit C 250 mg-vit E 90 mg-zinc 40 1 tablet PO ONCE 01/06/23 09/16/24 09/03/24 12:00 History mg-copper 1 [id number] 1 tablet capsule (PreserVision AREDS-2) clindamycin HCl 300 mg capsule 300 mg PO Q6H Dental infection 09/04/24 09/16/24 09/04/24 08:00 History 300 mg pseudoephedrine-guaifenesin ER 60 1 tablet PO BID PRN 09/16/24 09/16/24 Unknown History mg-600 mg tablet,extend release 12hr (Mucinex D) Allergies Allergy/AdvReac Type Severity Reaction Status Date / Time Penicillins Allergy Severe Swelling Verified 09/16/24 10:31 morphine AdvReac Intermediate Hallucinati Verified 09/16/24 10:31 ng RICARDO Inhibitors AdvReac Mild Cough Verified 09/16/24 10:31 midazolam (From Versed) AdvReac Mild Agitated Verified 09/16/24 10:31 Review of Systems Review of Systems: As reviewed above in HPI [facility] Past Medical History Medical History Prostate cancer Colon cancer (~11/01/10) BPH (benign prostatic hyperplasia) CAD (coronary artery disease) GERD (gastroesophageal reflux disease) Osteoarthritis of right knee Arthritis Dementia of the Alzheimer's type Hyperlipidemia Cognitive impairment Paroxysmal atrial fibrillation Overweight (BMI 25.0-29.9) Elevated PSA Thrombocytopenia Pulmonary emboli (~2008) Hypertension Surgical History Surgical History History of cataract extraction Fracture of hip, right, closed Right hip pinning December 19, 2022 History of colon surgery Hx of cholecystectomy 1999 S/P CABG x 3 (~10/06/18) History of left knee replacement (~2000) Family History Family History Father Heart disease Hypertension Mother Diabetes mellitus Hypertension Alzheimer disease Sibling Cancer of kidney Carcinoma of colon Cancer Daughter Cancer of kidney Cancer Grandparent Heart disease Cerebrovascular accident Social History Social History Social History: Currently lives at home with his . Surrogate decision maker: Erica Ruth, daughter. Full Code. Caffeine-None Smoking status: Never smoker Second hand tobacco smoke exposure: No Alcohol intake: never Substance use: never Substance use type: does not use Do You Feel Safe in your Home?: Yes Lack of Transportation: No Lack of Food: Never True Current Housing: I Have Housing Concerned About Future Housing: No Difficulty Paying Gas/Electric Bills: No Difficulty Paying for Meds: No Currently Unemployed: YES Education: Bachelor's Degree Difficulty w/ Childcare or Family Care: No Living arrangements: with family Additional living arrangements comments: lives with in a house Occupation/Education: retired Gender identity (if verbalized by the patient): Male Sexual Orientation (if Verbalized by the Patient): Straight or Heterosexual Spiritual care concerns: No Agree to blood products: Yes Exam Narrative: GENERAL: Elderly and frail-appearing HEAD: [Normocephalic, atraumatic.] EYES: [PERRLA and EOMI.] ENT: Nares clear, no rhinorrhea or epistaxis. Mucous membranes moist. Dysphonic NECK: Supple. CHEST: Mildly tachypneic but otherwise clear with symmetric chest rise HEART: [Regular rate and rhythm]. No murmur heard. [Normal peripheral pulses.] ABDOMEN: Soft abdomen, mildly tender to palpation around the right lower quadrant, no distension, no rigidity or guarding. No overlying skin changes around the G-tube site. No retained material in the tube. EXTREMITIES: Normal range of motion. [No edema.] SKIN: Warm, dry, no rash. NEURO: [No focal deficits]. Alert and oriented [x3.] PSYCH: [Normal mood and affect.] Course Vital Signs Vital signs: Vital Signs Temperature 37.2 C 09/17/24 18:11 Pulse Rate 93 09/17/24 18:11 Respiratory Rate 24 H 09/17/24 18:11 Blood Pressure 125/72 09/17/24 18:11 Pulse Oximetry 95 09/17/24 18:11 Oxygen Delivery Room Air 09/17/24 18:11 Temperature 36.7 C 09/17/24 19:00 Pulse Rate 103 H 09/17/24 21:30 Respiratory Rate 19 09/17/24 21:30 Blood Pressure 130/74 09/17/24 21:30 Pulse Oximetry 94 07/19/25 21:30 Oxygen Delivery Room Air 09/17/24 18:11 MDM - Abdominal Pain MDM Narrative Medical decision making narrative: 84-year-old male past medical history including dementia, coronary disease status post bypass grafting, paroxysmal AFib on Eliquis and metoprolol. History of prostate cancer, hypertension. History of severe dysphagia being evaluated by ENT outpatient, discussed tracheostomy previously but patient and family declined. He has a recently placed G-tube for dysphagia needing PEG tube feedings. This was placed during recent hospital admission and he was discharged on the . He followed up with his ENT doctor on the and was referred to speech therapy for conservative management of his severe dysphagia and phonation difficulties. Patient presents to the emergency department today accompanied by his family members for concerns of abdominal pain with a new G-tube. Patient has been getting fed through the G-tube with gravity feeds as well as medications without any difficulty for last few days. Today he started developing abdominal pain and the nursing staff that attended to him today knows that there was some potential bile in the G-tube that resolved spontaneously and did not recur. Patient is not any acute distress but is at his baseline mentation presently which is demented and he is not able to cooperate with history or physical. Patient is not any acute distress and has reassuring vital signs. He has chronic dysphonia and dysphagia and mildly tachypneic. He has a mildly tender abdomen but no overlying distension or skin changes concerning for cellulitis or dislodged PEG tube. He is afebrile with no tachycardia or blood pressure concerns. Given patient's recently placed G-tube with abdominal pain complaints CT scan of the chest abdomen pelvis was ordered for evaluation potential complications such as dislodgement, bleeding, malposition, erosion, infection or abscess. Laboratory studies were obtained. Patient re-evaluated and doing well. Laboratory studies show some persistent leukocytosis but decreasing from prior at 12.0. Normal anemia at 13.0. Platelets unchanged from baseline. Electrolytes are unremarkable. Normal creatinine, normal glucose, normal LFTs. Negative troponin, down trending BNP. Urinalysis with no infection. CT scan shows no acute complications with the G-tube. He has chronic pancreatitis and atrophic pancreas changes. Infrarenal abdominal aneurysm which is known. Bibasilar consolidations likely atelectasis rather than pneumonia as he does not have a cough, fever or any respiratory complaints at this time. These consolidations and fluid were seen on previous imaging and x-ray and during his hospital stay was treated with diuretics. Patient has no respiratory complaints and I discussed this with the family members including potential admission versus discharge and after shared decision-making family felt comfortable with him going home with outpatient follow-up and understood the very strict return precautions for any respiratory symptoms, fever, cough, vomiting or aspiration. Patient comfortable with the plan and discharged home at this time. Medical Records Attestation: I reviewed the patient's medical records. Lab Data Attestation: I reviewed the patient's lab results. 09/17/24 19:36 09/17/24 19:36 Labs: Lab Results 09/17/24 09/17/24 Range/Units 19:36 20:02 WBC 12.0 H (4.5-10.0) K/mm3 RBC 3.97 L (4.6-6.20) M/mm3 Hgb 13.0 L (14.0-18.0) g/dL Hct 41.3 L (42.0-52.0) % MCV 104.0 H (80-100) fl MCH 32.7 (26-34) pg MCHC 31.5 L (32-36) g/dl RDW 13.1 (11.5-14.5) % Plt Count 128 L (150-375) k/mm3 MPV 12.0 H (7.4-10.4) fl Immature Gran % (Auto) 1.2 H (0-0.5) % Neut % (Auto) 83.4 H (45.5-73.1) % Lymph % (Auto) 5.9 L (18.3-44.2) % [place] % (Auto) 8.3 (2.6-8.5) % Eos % (Auto) 0.7 (0-4.4) % Baso % (Auto) 0.5 (0.2-1.2) % Lymph # (Auto) 0.71 L (0.9-3.2) K/mm3 [place] # (Auto) 1.0 H (0.1-0.6) K/mm3 Eos # (Auto) 0.1 (0-0.3) K/mm3 Baso # (Auto) 0.1 (0.0-0.1) K/mm3 Abs Immat Gran (auto) 0.14 H (0.00-0.031) K/mm3 Absolute Neuts (auto) 10.0 H (1.3-6.7) K/mm3 Absolute Nucleated RBC 0.000 (0.0-0.012) K/mm3 Nucleated RBC % 0.0 (0.0-0.2) % PT 19.0 H (11.1-14.7) Seconds INR 1.6 APTT 33.7 (22.3-36.8) Seconds Sodium 142 (137-145) mmol/L Potassium 4.7 (3.4-5.0) mmol/L Chloride 104 (98-107) mmol/L Carbon Dioxide 32 H (22-30) mmol/L Anion Gap 6 (4-12) mmol/L BUN 30 H (9-20) mg/dL Creatinine 1.01 (0.7-1.3) mg/dL Estim Creat Clear Calc 50 ml/min Estimated GFR > 60 (59 - ) Glucose 121 H (65-110) mg/dL Calcium 9.4 (8.4-10.2) mg/dL Magnesium 2.5 H (1.6-2.3) mg/dL Total Bilirubin 1.1 (0.2-1.3) mg/dL AST 34 (17-59) U/L ALT 28 (6-50) U/L Alkaline Phosphatase 77 (38-126) U/L Troponin I < 0.012 (0.000-0.034) ng/mL NT-Pro-B Natriuret Pep 1810 H (19.9-100) pg/mL Total Protein 6.5 (6.3-8.2) g/dL Albumin 3.4 L (3.5-5.1) g/dL Lipase 164 (23-300) U/L Urine Color Yellow (Yellow) Urine Appearance Clear (Clear) Urine pH 7.5 (5.0-9.0) Ur Specific [place] 1.017 (1.001-1.035) Urine Protein 1+ H (Negative) mg/dL Urine Glucose (UA) Negative (Negative) mg/dL Urine Ketones Negative (Negative) mg/dL Ur Blood (Man) Negative (Negative) Urine Nitrate Negative (Negative) Urine Bilirubin Negative (Negative) Urine Urobilinogen 1.0 (<2.0) mg/dL Leukocyte Esterase Rfl Negative (Negative) JUANA/UL Urine RBC 0-2 (0-2) /hpf Urine WBC 0-5 (0-3) /hpf Ur Squamous Epith Cells None seen (Few) /hpf Urine Bacteria None seen /hpf Urine Casts 0-2 Imaging Data Attestation: I personally reviewed and interpreted this imaging study as follows: My impression: Impressions Chest/Abdomen/Pelvis CT 09/17/24 20:59 Impression: Bibasilar pulmonary consolidation could reflect atelectasis versus pneumonia. Correlate clinically. Probable chronic pancreatitis with atrophic pancreas and diffuse ductal dilatation of the pancreas. 4.7 cm infrarenal abdominal aortic aneurysm. Radiologist's impression: ITS Impressions Chest/Abdomen/Pelvis CT 09/17/24 20:59 Impression: Bibasilar pulmonary consolidation could reflect atelectasis versus pneumonia. Correlate clinically. Probable chronic pancreatitis with atrophic pancreas and diffuse ductal dilatation of the pancreas. 4.7 cm infrarenal abdominal aortic aneurysm. Discharge Plan Discharge Clinical Impression: Status post gastrostomy tube (G tube) placement, follow-up exam, Vocal cord dysfunction, Dysphagia, AAA (abdominal aortic aneurysm), Atelectasis of both lungs, Abdominal pain Patient Disposition: Home Condition: Stable Instructions: Antibiotic Form Additional Instructions: No apparent complications with the gastrostomy tube and a CT scan in the abdomen is reassuring without any acute changes or findings. Chronic findings still identified. The lungs still to have some fluid which in the absence of any respiratory complaints, productive cough, fever or aspiration is felt to be more related to previous fluid on the lungs that was seen during admission or atelectasis. If patient starts developing fevers, worsening pulmonary status, aspiration or vomiting please return to the emergency department at that time otherwise follow-up with regular care providers and home healthcare nursing staff. Continue the G-tube feeding as instructed and medication delivery as well. Patient Language: Liberian Prescriptions: No Action galantamine 4 mg tablet See Rx Instructions .ROUTE .COMPLEX Qty: 240 6RF Dose Instruction: TAKE 3 TABLETS BY MOUTH TWICE DAILY Rx Instructions: TAKE 3 TABLETS BY MOUTH TWICE DAILY memantine 10 mg tablet 10 mg PO BID Qty: 180 6RF Eliquis 5 mg tablet 5 mg PO BID aspirin 81 mg tablet,chewable 81 mg PO 1200 pseudoephedrine-guaifenesin [Mucinex D] 60-600 mg tablet extended release 12 hr 1 tablet PO BID PRN coenzyme Q10 [Co Q-10] 100 mg Capsule 100 mg PO DAILY melatonin 5 mg Tablet,Chewable 10 mg PO HS Rx Instructions: takes 2 gummies nightly for a total of 10 mg. folic acid 800 mcg Tablet 400 mg PO 1200 cholecalciferol (vitamin D3) 125 mcg (5,000 unit) Tablet 125 mcg PO 1200 clindamycin HCl 300 mg capsule 300 mg PO Q6H furosemide 40 mg Tablet 40 mg feeding tube DAILY 30 Days Qty: 30 1RF metoprolol tartrate 25 mg Tablet 25 mg feeding tube Q12HR 30 Days Qty: 60 1RF spironolactone 25 mg tablet 12.5 mg PO DAILY 30 Days Qty: 15 1RF potassium chloride 20 mEq/15 mL liquid 20 meq PO DAILY 5 Days Qty: 75 0RF PreserVision AREDS-2 250-90-40-1 mg capsule 1 tablet PO ONCE fluticasone propionate 50 mcg/actuation spray,suspension 1 spray intranasal BID Rx Instructions: administer into each nostril pravastatin 20 mg tablet 20 mg PO QHS Qty: 90 3RF lidocaine [Lidocaine Pain Relief] 4 % Adhesive Patch,Medicated 1 patch transdermal DAILY Qty: 15 0RF Follow-up/Referrals: Dave Ayala DO [Primary Care Provider] - Time of Disposition: 22:08
[2024-09-17 20:00] VITALS: BP 125/77; PULSE 89; RESP 24; O2SAT 95
[2024-09-17 20:08] LABS: Alanine Aminotransferase 28 U/L (6-50); Albumin Level 3.4 g/dL (3.5-5.1); Alkaline Phosphatase 77 U/L (38-126); Anion Gap 6 mmol/L (4-12); Aspartate Amino Transferase 34 U/L (17-59); Bilirubin,Total 1.1 mg/dL (0.2-1.3); Blood Urea Nitrogen 30 mg/dL (9-20); Calcium 9.4 mg/dL (8.4-10.2); Carbon Dioxide 32 mmol/L (22-30); Chloride 104 mmol/L (98-107); Estimated CRCL calculation 50 ml/min; Estimated Glomerular Filt Rate > 60; Glucose 121 mg/dL (65-110); Lipase 164 U/L (23-300); Magnesium 2.5 mg/dL (1.6-2.3); Potassium 4.7 mmol/L (3.4-5.0); Sodium 142 mmol/L (137-145); Total Protein 6.5 g/dL (6.3-8.2)
[2024-09-17 20:12] LABS: Add Urine Microscopic? YES; Appearance Urine Clear (Clear); Glucose Urine UA Negative (Negative); Leukocyte Esterase Ur Negative LEU/UL (Negative); Nitrate Urine Negative (Negative); Non Pathogenic Casts 0-2; Specific Grav Ur 1.017 (1.001-1.035)
[2024-09-17 20:14] LABS: NT Pro B Type Natriuretic Pept 1810 pg/mL (19.9-100); Troponin I < 0.012 ng/mL (0.000-0.034)
--- OUTSIDE RECORDS SUMMARY | 2024-09-17 20:19 | XMS_ITS | Encounter Summary ---
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 Name Role Phone Unavailable Primary Care Provider Unavailabl e Reason for Visit * Reason Onset Date Comments Appointment 09/16/2024 Encounter Details Date Type Department Care Team (Late st Contact Info) Description 09/16/2024 Telephone [facility] - ENT [address], [facility] [address] [place] [address] [place] [address] [place] [address] Appointment Social History Tobacco Use Types Packs/Day Years Used Date Smoking Tobacco: Never Assessed Sex and Gender Information Value Date Recorded Sex Assigned at Not on file Legal Sex Male 7:06 AM CDT Gender Identity Not on file Sexual Orientation Not on file documented as of this encounter Miscellaneous Notes * Telephone Encounter - Jenny Leal - 09/16/2024 3:21 PM CDT Called Bud and talked with his and scheduled his appointment with Dr. Amaya for Dysphagia, unspecified, Dysphonia, dyspnea unspecified. Referred by Dr. Giovanni Harrington documented in this encounter Plan of Treatment Upcoming Encounters Date Type Department Care Team (Late Contact Info) Description 10/27/2024 2:45 PM CDT Office Visit [facility] - ENT [address] [place] [phone] [place] [address] [address] [place] [address] documented as of this encounter Visit Diagnoses Not on filedocumented in this encounter
--- OUTSIDE RECORDS SUMMARY | 2024-09-17 20:19 | XMS_ITS | Encounter Summary ---
Author Organization [facility] Healthcare Address [address] [place] [address] Care Team Providers Care Hardboard Coating Machine Operator Name Role Phone Dave Ayala DO Primary Care Provider +1- [phone] Encounter Details Date Type Department Care Team (Late st Contact Info) Description 09/15/2024 Orders Only [facility] Medical Group Cardiology [address] [place] [address] Alethea Roblero NP [address] [place] [address] Social History Tobacco Use Types Packs/Day Years Used Date Smoking Tobacco: Never Personal Safety Answer Date Recorded Getting School Help Needed Not on file 02/11 Sex and Gender Information Value Date Recorded Sex Assigned at Not on file Legal Sex Male 12:29 PM CDT Gender Identity Not on file Sexual Orientation Not on file documented as of this encounter Plan of Treatment Not on file documented as of this encounter Procedures Procedure Name Priority Date/Time Associated Diagnosis Comments CARDIOLOGY DOCUMENT SCAN Routine 09/12/2024 9:29 AM CDT documented in this encounter Results * Cardiology Document Scan (09/12/2024 9:29 AM CDT) Anatomical Region Laterality Modality Other Alethea Roblero NP CV CARDIAC SERVICES PROCEDUR ES Final Result documented in this encounter Visit Diagnoses Not on filedocumented in this encounter Care Teams Hardboard Coating Machine Operator Relationship Specialty Start Date End Date Dave Ayala DO PCP - General Internal Medicine 03/06/21 documented as of this encounter
--- OUTSIDE RECORDS SUMMARY | 2024-09-17 20:19 | XMS_ITS | Encounter Summary ---
Author Organization [facility] Healthcare Address [address] [place] [address] Care Team Providers Care Data Input Clerk Name Role Phone Dave Ayala DO Primary Care Provider +1- [phone] Encounter Details Date Type Department Care Team (Late st Contact Info) Description 09/13/2024 Orders Only [facility] Medical Group Cardiology [address] [facility] [address] [place] [address] Hanna Sibley MD [address] [place] [address] Social History Tobacco Use Types Packs/Day Years [...] Associated Diagnosis Comments CARDIOLOGY DOCUMENT SCAN Routine 025 11:09 AM CDT CARDIOLOGY DOCUMENT SCAN Routine 025 11:06 AM CDT CARDIOLOGY DOCUMENT SCAN Routine 025 11:04 AM CDT CARDIOLOGY DOCUMENT SCAN Routine 025 11:00 AM CDT CARDIOLOGY DOCUMENT SCAN Routine 025 10:39 AM CDT documented in this encounter Results * Cardiology Document Scan (09/11/2024 11:09 AM CDT) Anatomical Region Laterality Modality Other us Don Kapoor MD CV CARDIAC SERVICES PROCE DURES Final Result * Cardiology Document Scan (09/10/2024 11:06 AM CDT) Anatomical Region Laterality Modality Other us Don Kapoor MD CV CARDIAC SERVICES PROCE DURES Final Result * Cardiology Document Scan (09/09/2024 11:04 AM CDT) Anatomical Region Laterality Modality Other Result Rachel Sibley MD CV CARDIAC SERVICES PROCEDU RES Final Result * Cardiology Document Scan (09/08/2024 11:00 AM CDT) Anatomical Region Laterality Modality Other Result Rachel Sibley MD CV CARDIAC SERVICES PROCEDU RES Final Result * Cardiology Document Scan (09/07/2024 10:39 AM CDT) Anatomical Region Laterality Modality Other Result Rachel Sibley MD CV CARDIAC SERVICES PROCEDU RES Final Result documented in this encounter Visit Diagnoses Not on filedocumented in this encounter Care Teams Data Input Clerk Relationship Specialty Start Date End Date Dave Ayala DO PCP - General Internal Medicine 03/06/21 documented as of this encounter
--- OUTSIDE RECORDS SUMMARY | 2024-09-17 20:19 | XMS_ITS | Referral Summary ---
Author Organization [facility] Address [address] [place] [address] Care Team Providers Care Ring Making Machine Operator Name Role Phone Dave Ayala DO Primary Care Provider +1- [phone] Encounters Date Type Department Care Team Description 09/15/2024 Orders Only [facility] Medical [facility] Cardiology [address] [place] [address] Alethea Roblero NP 09/13/2024 Orders Only [facility] Medical [facility] Cardiology [address] [place] [address] Hanna Sibley MD from Last 3 Months Allergies Active Allergy Reactions Criticality Noted Date [...] capsules (200 mg total) 12/04/2015 Active zinc-colostrum- [id number] 15 mg-50 mg- 1 mg-1 mg capsule [...] Nash Confirm Loop Recorder. Dx; PAF/Aflutter. DOI 09/23/2019-[facility]. [facility]. Social History Tobacco Use Types Packs/Day Years [...] CDT Plan of Treatment Not on file Procedures Procedure Name Priority Date/Time Associated Diagnosis Comments CARDIOLOGY DOCUMENT SCAN Routine 09/12/2024 9:29 AM CDT CARDIOLOGY DOCUMENT SCAN Routine 025 11:09 AM CDT CARDIOLOGY DOCUMENT SCAN Routine 025 11:06 AM CDT CARDIOLOGY DOCUMENT SCAN Routine 025 11:04 AM CDT CARDIOLOGY DOCUMENT SCAN Routine 025 11:00 AM CDT CARDIOLOGY DOCUMENT SCAN Routine 025 10:39 AM CDT from Last 3 Months Results * Cardiology Document Scan (09/12/2024 9:29 AM CDT) Anatomical Region Laterality Modality Other Alethea Roblero NP CV CARDIAC SERVICES PROCEDUR ES Final Result * Cardiology Document Scan (09/11/2024 11:09 AM CDT) Anatomical Region Laterality Modality Other Don Kapoor MD CV CARDIAC SERVICES PROCE DURES Final Result * Cardiology Document Scan (09/10/2024 11:06 AM CDT) Anatomical Region Laterality Modality Other Don Kapoor MD CV CARDIAC SERVICES PROCE DURES Final Result * Cardiology Document Scan (09/09/2024 11:04 AM CDT) Anatomical Region Laterality Modality Other Hanna Sibley MD CV CARDIAC SERVICES PROCEDU RES Final Result * Cardiology Document Scan (09/08/2024 11:00 AM CDT) Anatomical Region Laterality Modality Other Hanna Sibley MD CV CARDIAC SERVICES PROCEDU RES Final Result * Cardiology Document Scan (09/07/2024 10:39 AM CDT) Anatomical Region Laterality Modality Other Hanna Sibley MD CV CARDIAC SERVICES PROCEDU RES Final Result from Last 3 Months Insurance [facility] [employer] Member Subscriber Plan / Payer ( fective 2020-Present) Name:Bud James Relation to Subscriber:Self Name:FarhatBud gonzalez Lavon Payer ID:[id number] (NAIC) Group ID:[id number] Type:[facility] Address: [address] [place] [id number] MEDICARE [facility] [employer] Care Teams Ring Making Machine Operator Relationship Specialty Start Date End Date Dave Ayala DO PCP - General Internal Medicine 03/06/21
--- OUTSIDE RECORDS SUMMARY | 2024-09-17 20:19 | XMS_ITS | Clinical Summary ---
Author Organization [facility] Address [address] [place] [address] Care Team Providers Care Fuels Sales Representative Name Role Phone Unavailable Primary Care Provider Unavailabl e Source Comments [facility],non-owned Affiliates and Associated Physician Practices is amultiple site organization consisting of ambulatory clinics and hospital sitesin [place], [place], [place] and [place]. This disclosure is being madepursuant to the Care Everywhere program and may not contain all information available regarding this patient. Last updated 17.[facility] Encounters Date Type Department Care Team Description 09/16/2024 Telephone [facility] - ENT [address], [address] [place] [address] Chi Amaya MD Appointment from Last 3 Months Social History Tobacco Use Types Packs/Day Years Used Date Smoking Tobacco: Never Assessed Sex and Gender Information Value Date Recorded Sex Assigned at Not on file Legal Sex Male 7:06 AM CDT Gender Identity Not on file Sexual Orientation Not on file Plan of Treatment Upcoming Encounters Date Type Department Care Team (Late st Contact Info) Description 10/27/2024 2:45 PM CDT Office Visit [facility] - ENT [address] [place] [address] [place] [address] [place] [address] Health Maintenance Due Date Last Done Comments DTAP/TDAP/TD VACCINES (1 - Tdap) 07/31/1959 PNEUMOCOCCAL VACCINE 50+ (1 of 1 - PCV) 1990 ZOSTER VACCINE (1 of 2) 1990 Respiratory Syncytial Virus (RSV) Vaccine Pt: or over 60 yrs (1 - 1-dose 75+ series) 07/31/2015 COVID-19 VACCINE (1 - 2024-2 5 season) 2023 DEPRESSION SCREENING 03/02/2024 INFLUENZA VACCINE (#1) 2024 HEPATITIS B VACCINE Aged Out No longe r eligible based on patient's age to complete this topic HIB VACCINE Aged Out No longer eligi ble based on patient's age to complete this topic HPV VACCINE Aged Out No longer eligi ble based on patient's age to complete this topic MENINGOCOCCAL (Group B) VACC INE SHARED DECISION-MAKING Aged Out No longer eligibl e based on patient's age to complete this topic MENINGOCOCCAL GROUPS A/C/Y/W VACCINE Aged Out No longer eligible b ased on patient's age to complete this topic [facility]
--- OUTSIDE RECORDS SUMMARY | 2024-09-17 20:19 | XMS_ITS | Clinical Summary ---
Author Organization [facility] Address [address] [place] [address] Care Team Providers Care Telecommunications Facility Examiner Name Role Phone Dave Ayala DO Primary Care Provider +1- [phone] Allergies Active Allergy Reactions Criticality Noted Date [...] capsules (200 mg total) 12/04/2015 Active zinc-colostrum- [id number] 15 mg-50 mg- 1 mg-1 mg capsule [...] Nash Confirm Loop Recorder. Dx; PAF/Aflutter. [facility]. Encounters Date Type Department Care Team Description 09/15/2024 Orders Only [facility] Medical Group Cardiology [address] [place] [address] Alethea Roblero NP 09/13/2024 Orders Only [facility] Medical Group Cardiology [address] [place] [address] Hanna Sibley MD from Last 3 Months Surgical History Surgery Date Site/Laterality Comments CORONARY [...] Completed 016, 08/11/2012, 01/29/2011, Additional history exists Procedures Procedure [...] Final Result from Last 3 Months Insurance [facility] FEDERAL MEDICARE [facility] Care Teams Telecommunications Facility Examiner Relationship Specialty Start Date End Date Dave Ayala DO PCP - General Internal Medicine 03/06/21
--- OUTSIDE RECORDS SUMMARY | 2024-09-17 20:19 | XMS_ITS | Clinical Summary ---
Author Organization [facility] Address [address] [facility] Attn: Epic Prelude ADT [place] [address] Care Team Providers Care Chemical Plant Operator Name Role Phone Dave Ayala DO [...] BID, # 60 tab, Refill(s) 11, Pharmacy: [facility], [id number], 1 tab By mouth BID, 82.91, 11/28/20 14:57:00 CDT, kg, Weight 11/28/2020 Active aspirin (ECOTRIN EC) 81 mg Tablet, Delayed Release (E.C.) 81 mg. 09/12/2019 Active Cholecalciferol , Vitamin D3, 50 mcg (2,000 unit) Capsule 50 mcg. 09/05/2020 Activ e memantine (NAMENDA) 10 mg Tablet = 1 tab, By mouth, BID, # 180 tab, Refill(s) 1, Pharmacy: [facility], [id number], 1 tab By mouth BID, 69, 08/03/20 [...] Take by mouth nightly as needed. Active uttpuhe-juga-cl hvw-sxfq-xjngre 100 mg-150 mg- 50 mg-150 mg Capsule Take by mouth. 500 mg gummy Active tamsulosin (FLOMAX) 0.4 mg capsule Take 0.4 mg by mouth daily. 07/15/2023 Active alendronate sodium (ALENDRONATE ORAL) Take by mouth every 7 days. Active omega-3/dha/epa /algal oil (FFIKS-0C-EYY-E PA-ALGAL OIL ORAL) Take 250 mg by [...] STL ABSTRACTION Provider, Abstract 07/12/2024 Orders Only [facility] Oncology and Hematology - [address] [place] [address] Carlos Castelan MD 07/11/2024 Orders Only [facility] Oncology and Hematology - Ang [address] [place] [address] Carlos Castelan MD 07/04/2024 11:30 AM CDT Office Visit [facility] Oncology and Hematology - Ang [address] [place] [address] Carlos Castelan MD Other secondary [...] on file 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
[2024-09-17 20:30] VITALS: BP 128/87; PULSE 106; RESP 24; O2SAT 95
[2024-09-17 21:30] VITALS: BP 130/74; PULSE 103; RESP 19; O2SAT 94
== END 2024-09-17 22:33 | disposition home or self-care (01) ==
PROVIDERS: Emergency Provider Student in an Organized Health Care Education/Training Program; PCP Internal Medicine
DX: Z43.1 Encounter for attention to gastrostomy (principal); I71.40 Abdominal aortic aneurysm, without rupture, unspecified; J38.3 Other diseases of vocal cords; R13.10 Dysphagia, unspecified; J98.11 Atelectasis; R10.9 Unspecified abdominal pain; G30.9 Alzheimer's disease, unspecified; F02.80 Dementia in other diseases classified elsewhere, unspecified severity, without behavioral disturbance, psychotic disturbance, mood disturbance, and anxiety; I48.0 Paroxysmal atrial fibrillation; I25.10 Atherosclerotic heart disease of native coronary artery without angina pectoris; I10 Essential (primary) hypertension; E78.5 Hyperlipidemia, unspecified; N40.0 Benign prostatic hyperplasia without lower urinary tract symptoms; K21.9 Gastro-esophageal reflux disease without esophagitis; M17.11 Unilateral primary osteoarthritis, right knee; Z95.1 Presence of aortocoronary bypass graft; Z96.652 Presence of left artificial knee joint; Z85.038 Personal history of other malignant neoplasm of large intestine; Z85.46 Personal history of malignant neoplasm of prostate; Z86.711 Personal history of pulmonary embolism; Z98.49 Cataract extraction status, unspecified eye; Z90.49 Acquired absence of other specified parts of digestive tract; Z79.01 Long term (current) use of anticoagulants; Z79.899 Other long term (current) drug therapy; I48.91 Unspecified atrial fibrillation; R94.31 Abnormal electrocardiogram [ECG] [EKG]
CPT/HCPCS: 36415; 71260; 74177; 80053; 81001; 83690; 83735; 83880; 84484; 85025; 85610; 85730; 93005; 99284; Q9967

== ENCOUNTER 2024-09-28 15:24 | Outpatient (NON) | payer BC, SELFPAY ==
--- OUTSIDE RECORDS SUMMARY | 2024-09-28 15:32 | XMS_ITS | Referral Summary ---
Author Organization [facility] Address [address] [place] [address] Care Team Providers Care Chemical Strength Tester Name Role Phone Lucy Dave Júnior DHALIWAL Primary Care Provider +1- [phone] Encounters Date Type Department Care Team Description 09/27/2024 2:30 PM CDT Office Visit [facility] Medical [facility] Cardiology [address] [place] [address] [address] [place] [address] Fina Weiner NP Heart failure with mildly reduced ejection fraction (HCC) (Primary Dx); Atrial fibrillation, unspecified type (HCC); Coronary artery disease involving ouzinkie coronary artery of ouzinkie heart without angina pectoris; Dementia without behavioral disturbance, psychotic disturbance, mood disturbance, or anxiety, unspecified dementia severity, unspecified dementia type (HCC); Hospital discharge follow-up 09/19/2024 Telephone [facility] Medical [facility] Cardiology [address] [place] [address] [address] [place] [address] Pato Kong MD 09/15/2024 Orders Only [facility] Cardiology [address] [place] [address] [address] [place] [address] Alethea Roblero NP 09/13/2024 Orders Only [facility] Cardiology [address] [place] [address] [address] [place] [address] Hanna Sibley MD from Last 3 Months Allergies Active Allergy Reactions Criticality Noted Date Comments Shaun Inhibitors Cough Low 12/14/2020 Morphine Hallucinations Medium 12/14/2020 Penicillins Hives,Swelling Medium 12/14/2020 Midazolam Agitation Low 12/14/2020 Medications aspirin 81 mg enteric coated tablet 1 tablet (81 mg total) 0 Active galantamine (RAZADYNE) 4 mg tablet Take 2 tablets (8 mg total) by mouth 2 (two) times a day 1 Active pravastatin (PRAVACHOL) 20 mg tablet Take 1 tablet (20 mg total) by mouth daily Active memantine (NAMENDA) 10 mg tablet 1 tablet (10 mg total) 1 Active potassium chloride ER (KLOR-CON) 10 mEq CR tablet Take 10 mEq by mouth daily Active acetaminophen (TYLENOL) 500 mg tablet Take 1 tablet (500 mg total) by mouth every 6 (six) hours as needed for pain Active apixaban (Eliquis) 5 mg tablet Take 1 tablet by mouth twice daily 180 tablet 3 4 Active spironolactone (ALDACTONE) 25 mg tablet Take 0.5 tablets (12.5 mg total) by mouth daily 5 Active furosemide (LASIX) 40 mg tablet TAKE 1 TABLET BY FEEDING TUBE ONCE DAILY 5 Active metoprolol XL (TOPROL-XL) 25 mg extended release tabletIndicatio ns:Heart failure with mildly reduced ejection fraction (HCC) Take 1 tablet (25 mg total) by mouth nightly 90 tablet 3 5 Active cholecalciferol (VITAMIN D-3) 2000 unit capsule 2000 IU, By mouth, Daily, to stop 07/05/11, Refill(s) 0 0 09/28/19 25 Discontinue d(No longer taking - Do not display on AVS) cyanocobalamin (Vitamin B-12) 250 mcg tablet 10 tablets (2,500 mcg total) 6 09/28/19 25 Discontinue d(No longer taking - Do not display on AVS) famotidine (PEPCID) 20 mg tablet 1 tablet (20 mg total) 1 09/28/19 25 Discontinue d(No longer taking - Do not display on AVS) magnesium oxide (MAG-OX) 250 mg (150.8 mg elemental) tablet 1 tablet (250 mg total) 0 09/28/19 25 Discontinue d(No longer taking - Do not display on AVS) multivitamin-mi nerals-lutein (Multivitamin 50 Plus) tablet 2 gummies, By mouth, Daily, to stop 07/04/20, Refill(s) 0 6 09/28/19 25 Discontinue d(No longer taking - Do not display on AVS) tamsulosin (FLOMAX) 0.4 mg extended release capsule Take 1 capsule (0.4 mg total) by mouth nightly 09/28/19 25 Discontinue d(No longer taking - Do not display on AVS) coenzyme Q10 (Co Q-10) 10 mg capsule 20 capsules (200 mg total) 6 09/28/19 25 Discontinue d(No longer taking - Do not display on AVS) zinc-colostrum- [id number] 15 mg-50 mg- 1 mg-1 mg capsule Take by mouth 09/28/19 25 Discontinue d(No longer taking - Do not display on AVS) vit C/E/cuperic/zin c/lutein (PRESERVISION LUTEIN ORAL) Take by mouth 09/28/19 25 Discontinue d(No longer taking - Do not display on AVS) TURMERIC ORAL Take by mouth 09/28/19 25 Discontinue d(No longer taking - Do not display on AVS) diltiazem (TIAZAC) 120 mg 24 hr capsule Take 1 capsule (120 mg total) by mouth daily 30 capsule 2 5 09/28/19 25 Discontinue d(Alternate therapy) metoprolol tartrate (LOPRESSOR) 25 mg immediate release tablet TAKE 1 TABLET BY FEEDING TUBE EVERY 12 HOURS 5 09/28/19 25 Discontinue d(Alternate therapy) Active Problems Problem Noted Date Diagnosed Date Visit for wound check 01/09/2022 Status post placement of implantable loop record er 03/14/2021 Overview (03/14/2021): [facility]jo/St Nash Confirm Loop Recorder. Dx; PAF/Aflutter. DOI [facility]/23/2019[facility]. Social History Tobacco Use Types Packs/Day Years Used Date Smoking Tobacco: Never Tobacco Cessation:Counseling Given: Not Answered Sex and Gender Information Value Date Recorded Sex Assigned at Not on file Legal Sex Male 12:29 PM CDT Gender Identity Not on file Sexual Orientation Not on file Last Filed Vital Signs Vital Sign Reading Time Taken Comments Blood Pressure 104/54 09/27/2024 3:11 PM CDT Pulse 61 09/27/2024 2:31 PM CDT Temperature 36.8 C (98.3 F) 12/14/2020 1:19 PM CDT Respiratory Rate 20 12/14/2020 5:37 PM CDT Oxygen Saturation 95% 09/27/2024 2:31 PM CDT Inhaled Oxygen Concentration - - Weight 78.9 kg (174 lb) 09/27/2024 2:31 PM CDT Height 175.3 cm (5' 9) 09/27/2024 2:31 PM CDT Body Mass Index 25.7 09/27/2024 2:31 PM CDT Plan of Treatment Not on [...] Final Result from Last 3 Months Insurance [facility] FEDERAL MEDICARE [facility] [employer] Care Teams Chemical Strength Tester Relationship Specialty Start Date End Date Dave Ayala DO PCP - General Internal Medicine 03/06/21
--- OUTSIDE RECORDS SUMMARY | 2024-09-28 15:32 | XMS_ITS | Encounter Summary ---
Author Organization [facility] Healthcare Address [address] [place] [address] Care Team Providers Care Hypoid Gear Generator Name Role Phone Dave Ayala DO Primary Care Provider [phone]- [phone] Encounter Details Date Type Department Care Team (Late st Contact Info) Description 09/19/2024 Telephone [facility] Medical Group Cardiology [address] [place] [address] Pato Kong MD [address] [facility] [address] [place] [address] Social History Tobacco Use Types Packs/Day Years Used Date Smoking Tobacco: Never Sex and Gender Information Value Date Recorded Sex Assigned at Not on file Legal Sex Male 12:29 PM CDT Gender Identity Not on file Sexual Orientation Not on file documented as of this encounter Miscellaneous Notes * Telephone Encounter - Gretel Velázquez RN - 09/27/2024 10:22 AM CDT Spoke with pts spouse, reviewed response below from CK. Pt has appt today with CT to discuss further. * Telephone Encounter - Gretel Velázquez RN - 09/19/2024 12:47 PM CDT Spoke with pts spouse, spouse states that since pts diltiazem was stopped while in the hospital andMetoprolol was started pt has been tired all the time. She states pt is scheduled for a stress testearly next month and pt is so tired that she does not think she will be able to get pt to the office. Spouse wondering if there is an alternative to to the metoprolol. Will forward to CK who saw pt in the hospital. Please advise. records are scanned under media. * Telephone Encounter - Gracie Velasco - 09/19/2024 12:12 PM CDT Pt spouse states pt was at and discharged on 09/12. States DK had prescribed Metoprolol in the past but discontinued it due to it causing pt to be very tired. DK replaced Metoprolol with Diltiazem.States the personal property assessor in the hospital discontinued Diltiazem and prescribed Metoprolol 25 BID. Spouse states pt is like a zombie and can hardly stay awake. Requesting call back to discuss. Contact: documented in this encounter Plan of Treatment Not on file documented as of this encounter Visit Diagnoses Not on filedocumented in this encounter Care Teams Hypoid Gear Generator Relationship Specialty Start Date End Date Dave Ayala DO PCP - General Internal Medicine 03/06/21 documented as of this encounter
--- OUTSIDE RECORDS SUMMARY | 2024-09-28 15:32 | XMS_ITS | Clinical Summary ---
Author Organization [facility] Address [address] [facility] Attn: Epic Prelude ADT [place] [address] Care Team Providers Care Floor Coverer Name Role Phone Dave Ayala DO Primary [...] BID, # 60 tab, Refill(s) 11, Pharmacy: [facility], [id number], 1 tab By mouth BID, 82.91, 11/28/20 14:57:00 CDT, kg, Weight 11/28/2020 Active aspirin (ECOTRIN EC) 81 mg Tablet, Delayed Release (E.C.) 81 mg. 09/12/2019 Active Cholecalciferol , Vitamin D3, 50 mcg (2,000 unit) Capsule 50 mcg. 09/05/2020 Activ e memantine (NAMENDA) 10 mg Tablet = 1 tab, By mouth, BID, # 180 tab, Refill(s) 1, Pharmacy: [facility], [id number], 1 tab By mouth BID, 69, 08/03/20 [...] Take by mouth nightly as needed. Active toctrrp-wkko-jp vqv-vcqv-kxpwpz 100 mg-150 mg- 50 mg-150 mg Capsule Take by mouth. 500 mg gummy Active tamsulosin (FLOMAX) 0.4 mg capsule Take 0.4 mg by mouth daily. 07/15/2023 Active alendronate sodium (ALENDRONATE ORAL) Take by mouth every 7 days. Active omega-3/dha/epa /algal oil (EEONE-2I-PZQ-E PA-ALGAL OIL ORAL) Take 250 mg by [...] STL ABSTRACTION Provider, Abstract 07/12/2024 Orders Only [facility] Oncology and Hematology - [address] [place] [phone] Carlos Castelan MD 07/11/2024 Orders Only [facility] Oncology and Hematology - [address] [place] [phone] Carlos Castelan MD 07/04/2024 11:30 AM CDT Office Visit [facility] Oncology and Hematology - [address] [place] [address] Carlos Castelan MD Other secondary [...] on file 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 Gender Identity Not on file Sexual Orientation [...] Description 07/05/2025 10:15 AM CDT Office Visit [facility] Oncology and Hematology - [address] [place] [address] Carlos Castelan MD [address] [facility] [address] [place] [address] Health Maintenance Due Date Last [...] Res ult from Last 3 Months Insurance [facility] [employer] Care Teams Floor Coverer Relationship Specialty Start Date End Date Dave Ayala DO [address] [address] PCP - General Internal Medicine 06/02/22
--- OUTSIDE RECORDS SUMMARY | 2024-09-28 15:32 | XMS_ITS | Clinical Summary ---
Author Organization [facility] Address [address] [facility] [place] [address] Care Team Providers Care Stucco Worker Name Role Phone Unavailable Primary Care Provider Unavailabl e Source Comments [facility],non-owned Affiliates and Associated Physician Practices is amultiple site organization consisting of ambulatory clinics and hospital sitesin [place], [place] and [place]. This disclosure is being madepursuant to the Care Everywhere program and may not contain all information available regarding this patient. Last updated 17.[facility] Encounters Date Type Department Care Team Description 09/16/2024 Telephone [facility] - ENT [address] [place] [address] Chi Amaya MD Appointment from [...] Visit [facility] [address] [place] [phone] [place] [address] [facility] [address] [place] [address] Health Maintenance Due Date Last Done Comments [...] patient's age to complete this topic Insurance [facility] MED[facility]ARE [facility]
--- OUTSIDE RECORDS SUMMARY | 2024-09-28 15:32 | XMS_ITS | Clinical Summary ---
Author Organization [facility] Address [address] [place] [address] Care Team Providers Care Professor Of Forestry Name Role Phone Dave Ayala DO Primary Care Provider +1- [phone] Allergies Active Allergy Reactions Criticality Noted Date [...] - Do not display on AVS) zinc-colostrum- [id number] 15 mg-50 mg- 1 mg-1 mg capsule [...] Nash Confirm Loop Recorder. Dx; PAF/Aflutter. [facility] Encounters Date Type Department Care Team Description 09/27/2024 2:30 PM CDT Office Visit [facility] Cardiology [address] [place] [address] [place] [phone] Fina Weiner NP Heart failure with mildly reduced ejection fraction (HCC) (Primary Dx); Atrial fibrillation, unspecified type (HCC); Coronary artery disease involving northway coronary artery of northway heart without angina pectoris; Dementia without behavioral disturbance, psychotic disturbance, mood disturbance, or anxiety, unspecified dementia severity, unspecified dementia type (HCC); Hospital discharge follow-up 09/19/2024 Telephone [facility] Cardiology [address] [place] [phone] Pato Kong MD 09/15/2024 Orders Only [facility] Cardiology [address] [place] [phone] Alethea Roblero NP 09/13/2024 Orders Only [facility] Cardiology [address] [place] [address] [place] [phone] Hanna Sibley MD from Last 3 [...] 09/27/2024 2:31 PM CDT Plan of Treatment Health Maintenance [...] Result from Last 3 Months Insurance [facility] [employer] MEDICARE [facility] Care Teams Professor Of Forestry Relationship Specialty Start Date End Date Dave Ayala DO PCP - General Internal Medicine 03/06/21
--- OUTSIDE RECORDS SUMMARY | 2024-09-28 15:32 | XMS_ITS | Encounter Summary ---
Author Organization [facility] Healthcare Address [address] [place] [address] Care Team Providers Care Carton Forming Machine Operator Name Role Phone Dave Ayala DO Primary Care Provider +1- [phone] Reason for Visit * Reason Comments Hospital Follow Up Encounter Details Date Type Department Care Team (Late st Contact Info) Description 09/27/2024 2:30 PM CDT Office Visit [facility] Medical Group Cardiology [address] [place] [address] Fina Weiner NP [address] [place] [address] Heart failure with mildly reduced ejection fraction (HCC) (Primary Dx); Atrial fibrillation, unspecified type (HCC); Coronary artery disease involving lac vieux coronary artery of lac vieux heart without angina pectoris; Dementia without behavioral disturbance, psychotic disturbance, mood disturbance, or anxiety, unspecified dementia severity, unspecified dementia type (HCC); Hospital discharge follow-up Social History Tobacco Use Types Packs/Day Years [...] Pulse 61 09/27/2024 2:31 PM CDT Temperature - - Respiratory Rate - - Oxygen Saturation 95% 09/27/2024 2:31 PM CDT Inhaled Oxygen Concentration - - Weight 78.9 kg (174 lb) 09/27/2024 2:31 PM CDT Height 175.3 cm (5' 9) 09/27/2024 2:31 PM CDT Body Mass Index 25.7 09/27/2024 2:31 PM CDT documented in this encounter Ordered Prescriptions Prescription Sig Dispense Quantity Refills Last Filled Start Date End Date metoprolol XL (TOPROL-XL) 25 mg extended release tabletIndications: Heart failure with mildly reduced ejection fraction (HCC) Take 1 tablet (25 mg total) by mouth nightly 90 tablet 3 09/27/2024 documented in this encounter Progress Notes * Fina Weiner NP - 09/27/2024 2:30 PM CDT Images from the original note were not included. [facility] Medical Group Cardiology [address] [place] [address] Date of Visit: 09/27/2024 Patient ID: Bud James 1940 Chief Complaint Patient presents with Hospital Follow Up Bud James is a 84 y.o. male who comes to the office for a hospital follow up after he was treated for CHF. History of Present Illness: Bud James is a 84 y.o. male with a past medical history of CABG x3 (CABG x3-MCKAY to LAD, SVG to ramus, SVG to PDA on 10/06/2018-Dr. Ponce. [place], [place]); ?paroxysmal atrial fibrillation/flutter on anticoagulation with apixaban (status post [employer]jo implantablecardiac monitor on 09/23/2019), cognitive impairment/? Dementia. 03/06/2021 initial evaluation-patient is here to reestablish cardiovascular care. He is accompaniedby his . They moved from [place] to [facility] in December 2020 to live close to their daughter. Patient has known CAD, and had CABG x3 on 10/06/2018 at [place], [place]. Operative report is not available at this time. Patient and his do not recall any PA at the time of surgical revascularization. He states that he had ?stress test, had cardiac catheterization, found to have multivessel disease followed by CABG. Postoperatively, apparently patient had atrial flutter or fibrillation, and has been on anticoagulation with apixaban. He also has [employer] implantable lunchroom monitor. At present, his main complaint is generalized fatigue. He denies any chest pain, shortness of breath, palpitation, dizziness. Reports compliance with current medical regimen. 06/12/2021-patient is here for the follow-up visit. Medical records including CABG report was received and reviewed from outside facility. He is accompanied by his . His main complaint is generalized fatigue. Denies chest pain, shortness of breath, palpitation, dizziness or syncope. Reports compliance with current medical regimen. 12/04/2021-patient is here for the routine follow-up visit accompanied by his . His main complaint is generalized fatigue. He denies any chest pain, shortness of breath, palpitation, dizziness orsyncope. His implantable lunchroom monitor she has shown paroxysms of atrial fibrillation, and therefore, patient has been continued on anticoagulation with apixaban. He denies any bleeding complications. He wishes to have his implantable lunchroom monitor removed. 12/10/2022-patient is here for the follow-up visit accompanied by his . Patient has sedentary lifestyle and somewhat limited mobility due to right knee pain. Main complaint is generalized fatigue. No chest pain or shortness of breath. No palpitation, dizziness or syncope. Patient was recently diagnosed with prostate cancer, and is scheduled to undergo radiation treatment. Reports compliance with current medical regimen. 11/25/2023-patient is here for the follow-up visit accompanied by his . Patient's cognitive impairment/dementia. Limited mobility, uses walker for ambulation due to joint pain. No chest pain, shortness breath, palpitation, dizziness or syncope. History of fall. No overt bleeding. Status post radiation treatment for CA prostate 09/27/2024 Hospital follow-up with [facility]: Bud James comes to the office today for a hospital follow up visit. He was hospitalized at [facility] on 09/04/2024 with complaint of shortness of breath, cough and chest tightness over the past 4 days. ECG showed AFib with controlled rate, chest x-ray bilateral pleural effusions L>R, BNP 2700, troponin negative. Echocardiogram showed LVEF 40%, abnormal LV diastolic function, mild LAE, mild with BHAVNA 1.6 cm2. Due to a decline in LVEF, diltiazem wasstopped and he was put on metoprolol, spironolactone and Jardiance. As well as furosemide and potassium. 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 He had a PEG tube placed. He returns today for follow-up accompanied by his and daughter. His dementia seems to have progressed since he was hospitalized. Family questions if he could be more sedated from the metoprolol since he previously took this and he was switched to diltiazem because of the sedating effect. The is giving him PEG tube feedings and medications. He has home health care. He seems to be more alert in the afternoons. He can use his walker to the bathroom. He finished the potassium chloride prescribed at discharge on September 18. Medical History: Past Medical History: Diagnosis Date Arthritis Enlarged prostate Past Surgical History: Procedure Laterality Date CORONARY ARTERY BYPASS GRAFT LAPAROSCOPIC COLON RESECTION Social History Tobacco Use Smoking Status Never Smokeless Tobacco Not on file Social History Tobacco Use Smoking status: Never Smokeless tobacco: None Substance and Sexual Activity Drug use: None Sexual activity: None Alcohol Use: Not on file Family History Problem Relation Age of Onset Alzheimer's disease Mother Stroke Father Heart disease Sister Review of Systems Constitutional: Positive for malaise/fatigue and weight loss. Negative for weight gain. Cardiovascular: Negative for chest pain, leg swelling, near-syncope, orthopnea, palpitations, paroxysmal nocturnal dyspnea and syncope. Respiratory: Negative for shortness of breath. Hematologic/Lymphatic: Negative for bleeding problem. Gastrointestinal: Positive for dysphagia. Psychiatric/Behavioral: Positive for memory loss. Vital Signs: BP 104/54 (BP Location: Left arm, Patient Position: Sitting) Pulse 61 Ht 175.3 cm (5' 9) Wt 78.9 kg (174 lb) SpO2 95% BMI 25.70 kg/m?? Physical Exam Constitutional: General: He is not in acute distress. Appearance: He is well-developed. HENT: Head: Normocephalic and atraumatic. Eyes: General: No scleral icterus. Conjunctiva/sclera: Conjunctivae normal. Neck: Vascular: No JVD. Trachea: No tracheal deviation. Cardiovascular: Rate and Rhythm: Normal rate. Rhythm irregular. Heart sounds: Normal heart sounds. No murmur heard. Pulmonary: Effort: Pulmonary effort is normal. No respiratory distress. Breath sounds: Normal breath sounds. Comments: Diminished but clear Abdominal: Comments: G-tube not examined Musculoskeletal: Right lower leg: No edema. Left lower leg: No edema. Skin: General: Skin is warm and dry. Neurological: Mental Status: He is oriented to person, place, and time and easily aroused. Psychiatric: Behavior: Behavior is cooperative. Cognition and Memory: Memory is impaired. Allergies Allergen Reactions Morphine Hallucinations Penicillins Hives and Swelling Shaun Inhibitors Cough Versed [Midazolam] Agitation Current Outpatient Medications: acetaminophen (TYLENOL) 500 mg tablet, Take 1 tablet (500 mg total) by mouth every 6 (six) hours asneeded for pain, Disp: , Rfl: apixaban (Eliquis) 5 mg tablet, Take 1 tablet by mouth twice daily, Disp: 180 tablet, Rfl: 3 aspirin 81 mg enteric coated tablet, 1 tablet (81 mg total), Disp: , Rfl: furosemide (LASIX) 40 mg tablet, TAKE 1 TABLET BY FEEDING TUBE ONCE DAILY, Disp: , Rfl: galantamine (RAZADYNE) 4 mg tablet, Take 2 tablets (8 mg total) by mouth 2 (two) times a day, Disp:, Rfl: memantine (NAMENDA) 10 mg tablet, 1 tablet (10 mg total), Disp: , Rfl: potassium chloride ER (KLOR-CON) 10 mEq CR tablet, Take 10 mEq by mouth daily, Disp: , Rfl: pravastatin (PRAVACHOL) 20 mg tablet, Take 1 tablet (20 mg total) by mouth daily, Disp: , Rfl: spironolactone (ALDACTONE) 25 mg tablet, Take 0.5 tablets (12.5 mg total) by mouth daily, Disp: , Rfl: metoprolol XL (TOPROL-XL) 25 mg extended release tablet, Take 1 tablet (25 mg total) by mouth nightly, Disp: 90 tablet, Rfl: 3 Lab Results Component Value Date POTASSIUM 3.8 12/14/2020 BUNSER 12 12/14/2020 CREATININE 0.70 (L) 12/14/2020 Lab Results Component Value Date WBC 7.5 12/14/2020 HGB 15.5 12/14/2020 HCT 45.9 12/14/2020 MCV 95.0 12/14/2020 No results found for this or any previous visit (from the past 4 hours). Lab Results Component Value Date POCCHOL 127 12/10/2022 POCHDL 35 12/10/2022 POCTRIG 221 12/10/2022 POCLDL 48 12/10/2022 POCNONHDL 92 12/10/2022 POCCHLPL 127 12/10/2022 Assessment: Diagnoses and all orders for this visit: Heart failure with mildly reduced ejection fraction (HCC) (Primary) - metoprolol XL (TOPROL-XL) 25 mg extended release tablet; Take 1 tablet (25 mg total) by mouth nightly - Basic metabolic panel; Future Atrial fibrillation, unspecified type (HCC) Coronary artery disease involving lac vieux coronary artery of lac vieux heart without angina pectoris Dementia without behavioral disturbance, psychotic disturbance, mood disturbance, or anxiety, unspecified dementia severity, unspecified dementia type (HCC) Hospital discharge follow-up Plan/Recommendations: He was hospitalized recently for CHF and found to have a new LV systolic dysfunction, etiology unclear, possibly ischemic. Therefore he is scheduled for a stress test next week. Blood pressure is soft today in the office but he has normal blood pressure readings by home health care and PCP office. Continue to monitor blood pressure. Due to his history of feeling sedated on metoprolol, discontinuemetoprolol tartrate and changed to metoprolol succinate 25 mg once daily at bedtime. Continue Jardiance, spironolactone and furosemide the same. Check a BMP by home health care in the next couple of days to see if potassium supplementation is still needed. For atrial fibrillation continue metoprolol and apixaban. For CAD continue aspirin and pravastatin. Keep the previously scheduled appointment with Dr. Kong in November. We will adjust this if indicated based on the patient's clinical course. I reminded the family that if the patient continues to be quite sedated towards the end of the week, call our office and we can reschedule the stress test foranother week or two. 09/27/2024 ANN Aponte- Nurse Practitioner with [facility] This note is dictated and transcribed using [employer] Software. Management Assistant variancesmay occur. Despite proofreading, typographical errors may occur. documented in this encounter Plan of Treatment Scheduled Orders Name Type Priority Associated Diagnoses Orde r Schedule Basic metabolic panel Lab Routine Heart failure with mildly reduced ejection fraction (HCC) Expected: 09/28/2024, Expires: 09/27/2025 documented as of this encounter Visit Diagnoses Diagnosis Heart failure with mildly reduced ejection fraction (HCC)- Primary Atrial fibrillation, unspecified type (HCC) Coronary artery disease involving lac vieux coronary artery of lac vieux heart without angina pectoris Dementia without behavioral disturbance, psychotic disturbance, mood disturbance, or anxiety, unspecified dementia severity, unspecified dementia type (HCC) Hospital discharge follow-up Other follow-up examination documented in this encounter Discontinued Medications Medication Sig Discontinue Reason Start Date End Da te metoprolol tartrate (LOPRESSOR) 25 mg immediate release tablet TAKE 1 TABLET BY FEEDING TUBE EVERY 12 HOURS Alternate therapy 09/12/2024 09/27/2024 diltiazem (TIAZAC) 120 mg 24 hr capsule Take 1 capsule (120 mg total) by mouth daily Alternate therapy 03/08/2024 09/27/2024 cyanocobalamin (Vitamin B-12) 250 mcg tablet 10 tablets (2,500 mcg total) No longer taking - Do not display on AVS 12/04/2015 09/27/2024 coenzyme Q10 (Co Q-10) 10 mg capsule 20 capsules (200 mg total) No longer taking - Do not display on AVS 12/04/2015 09/27/2024 magnesium oxide (MAG-OX) 250 mg (150.8 mg elemental) tablet 1 tablet (250 mg total) No longer taking - Do not display on AVS 09/30/2019 09/27/2024 famotidine (PEPCID) 20 mg tablet 1 tablet (20 mg total) No longer taking - Do not display on AVS 08/03/2020 09/27/2024 tamsulosin (FLOMAX) 0.4 mg extended release capsule Take 1 capsule (0.4 mg total) by mouth nightly No longer taking - Do not display on AVS 09/27/2024 xpkm-ldbxpynuh-qkb-hrb 232-acem 15 mg-50 mg- 1 mg-1 mg capsule Take by mouth No longer taking - Do not display on AVS 09/27/2024 vit C/E/cuperic/zinc/lutei n (PRESERVISION LUTEIN ORAL) Take by mouth No longer taking - Do not display on AVS 09/27/2024 TURMERIC ORAL Take by mouth No longer taking - Do not display on AVS 09/27/2024 multivitamin-minerals- lutein (Multivitamin 50 Plus) tablet 2 gummies, By mouth, Daily, to stop 07/04/20, Refill(s) 0 No longer taking - Do not display on AVS 06/11/2015 09/27/2024 cholecalciferol (VITAMIN D-3) 2000 unit capsule 2000 IU, By mouth, Daily, to stop 07/05/11, Refill(s) 0 No longer taking - Do not display on AVS 08/31/2019 09/27/2024 documented as of this encounter Historical Medications * This list may reflect changes made after this encounter. furosemide (LASIX) 40 mg tablet TAKE 1 TABLET BY FEEDING TUBE ONCE DAILY 09/12/2024 spironolactone (ALDACTONE) 25 mg tablet Take 0.5 tablets (12.5 mg total) by mouth daily 09/12/2024 metoprolol tartrate (LOPRESSOR) 25 mg immediate release tablet TAKE 1 TABLET BY FEEDING TUBE EVERY 12 HOURS 09/12/2024 09/27/2024 added in this encounter Care Teams Carton Forming Machine Operator Relationship Specialty Start Date End Date Dave Ayala DO PCP - General Internal Medicine 03/06/21 documented as of this encounter
[2024-09-28 16:40] LABS: Anion Gap 5 mmol/L (4-12); Blood Urea Nitrogen 26 mg/dL (9-20); Calcium 9.6 mg/dL (8.4-10.2); Carbon Dioxide 32 mmol/L (22-30); Chloride 93 mmol/L (98-107); Estimated Glomerular Filt Rate > 60; Glucose 119 mg/dL (65-110); Potassium 4.4 mmol/L (3.4-5.0); Sodium 130 mmol/L (137-145)
== END 2024-09-28 15:25 | disposition home or self-care (01) ==
LOC: HOMEHLTHV 15:29
PROVIDERS: PCP Internal Medicine; Visit Provider Nurse Practitioner Adult Health
DX: I50.22 Chronic systolic (congestive) heart failure (principal)
CPT/HCPCS: 36415; 80048

== ENCOUNTER 2024-10-06 10:41 | Outpatient (NON) | payer BC, SELFPAY ==
--- OUTSIDE RECORDS SUMMARY | 2024-10-06 10:47 | XMS_ITS | Clinical Summary ---
Author Organization [facility] Address [address] [place] [address] Care Team Providers Care Manager Trainee Name Role Phone Unavailable Primary Care Provider Unavailabl e Source Comments [facility],non-owned Affiliates and Associated Physician Practices is amultiple site organization consisting of ambulatory clinics and hospital sitesin [place], [place], [place] and [place]. This disclosure is being madepursuant to the Care Everywhere program and may not contain all information available regarding this patient. Last updated 17.[facility] Encounters Date Type Department Care Team Description 09/16/2024 Telephone [facility] [address], [address] [place] [address] Chi Amaya MD Appointment from [...] Visit [facility] [address] [place] [phone] [place] [address] [address] [facility] [address] [place] [address] Health Maintenance Due Date Last Done Comments [...] patient's age to complete this topic Insurance [facility]
--- OUTSIDE RECORDS SUMMARY | 2024-10-06 10:47 | XMS_ITS | Clinical Summary ---
Author Organization [facility] Address [address] [place] [address] Care Team Providers Care Shipping Supervisor Name Role Phone Dave Ayala DO Primary Care Provider [phone]- [phone] Allergies Active Allergy Reactions Criticality Noted Date [...] FEEDING TUBE ONCE DAILY 5 Active metoprolol succinate (KAPSPARGO) 25 mg capsule,sprinkl e,ER 24hr extended release capsule Take 25 capsules by mouth nightly 30 capsule 11 5 Active cholecalciferol (VITAMIN D-3) 2000 unit [...] - Do not display on AVS) zinc-colostrum- eon-[id number]-[id number] 15 mg-50 mg- 1 mg-1 mg capsule [...] HOURS 5 09/28/19 25 Discontinue d(Alternate therapy) metoprolol XL (TOPROL-XL) 25 mg extended release tabletIndicatio ns:Heart failure with mildly reduced ejection fraction Take 1 tablet (25 mg total) by mouth nightly 90 tablet 3 5 10/04/19 25 Discontinue d(Alternate therapy) Active Problems Problem Noted Date Diagnosed Date Visit for wound check 01/09/2022 Status post placement of implantable loop record er 03/14/2021 Overview (03/14/2021): [facility]jo/[facility] Confirm Loop Recorder. Dx; PAF/Aflutter. [facility]. Encounters Date Type Department Care Team Description 10/03/2024 Telephone [facility] [address] [place] [address] [place] [phone] Fina Weiner NP 09/27/2024 2:30 PM CDT Office Visit [facility] [address] [place] [address] [place] [phone] Fina Weiner NP Heart failure with mildly reduced ejection fraction (HCC) (Primary Dx); Atrial fibrillation, unspecified type (HCC); Coronary artery disease involving yuhaaviatam coronary artery of yuhaaviatam heart without angina pectoris; Dementia without behavioral disturbance, psychotic disturbance, mood disturbance, or anxiety, unspecified dementia severity, unspecified dementia type (HCC); Hospital discharge follow-up 09/19/2024 Telephone [facility] [address] [place] [address] [place] [phone] Pato Kong MD 09/15/2024 Orders Only [facility] [address] [place] [address] [place] [phone] Alethea Roblero NP 09/13/2024 Orders Only [facility] [address] [place] [address] Hanna Sibley MD from Last [...] Result from Last 3 Months Insurance [facility] FEDERAL MEDICARE [facility] FEDERAL Care Teams Shipping Supervisor Relationship Specialty Start Date End Date Dave Ayala DO PCP - General Internal Medicine 03/06/21
--- OUTSIDE RECORDS SUMMARY | 2024-10-06 10:47 | XMS_ITS | Encounter Summary ---
Author Organization [facility] Address [address] [place] [address] Care Team Providers Care Documentation Engineer Name Role Phone Dave Ayala DO Primary Care Provider [phone]- [phone] Encounter Details Date Type Department Care Team (Late st Contact Info) Description 09/19/2024 Telephone [facility] Cardiology [address] [place] [address] Pato Kong MD [address] [facility] [address] [place], [place] [id number] Social History Tobacco Use Types Packs/Day Years [...] tired. DK replaced Metoprolol with Diltiazem.States the manager of business operations in the hospital discontinued Diltiazem and prescribed Metoprolol 25 BID. Spouse states pt is like a zombie and can hardly stay awake. Requesting call back to discuss. Contact: documented in this encounter Plan of Treatment Not on file documented as of this encounter Visit Diagnoses Not on filedocumented in this encounter Care Teams Documentation Engineer Relationship Specialty Start Date End Date Dave Ayala DO PCP - General Internal Medicine 03/06/21 documented as of this encounter
--- OUTSIDE RECORDS SUMMARY | 2024-10-06 10:47 | XMS_ITS | Clinical Summary ---
Author Organization [facility] Address [address] [facility] Attn: Epic Prelude ADT [place] [address] Care Team Providers Care Manager Produce Name Role Phone Dave Ayala DO Primary [...] BID, # 60 tab, Refill(s) 11, Pharmacy: [facility], [id number], 1 tab By mouth BID, 82.91, 11/28/20 14:57:00 CDT, kg, Weight 11/28/2020 Active aspirin (ECOTRIN EC) 81 mg Tablet, Delayed Release (E.C.) 81 mg. 09/12/2019 Active Cholecalciferol , Vitamin D3, 50 mcg (2,000 unit) Capsule 50 mcg. 09/05/2020 Activ e memantine (NAMENDA) 10 mg Tablet = 1 tab, By mouth, BID, # 180 tab, Refill(s) 1, Pharmacy: [facility], [id number], 1 tab By mouth BID, 69, 08/03/20 [...] Take by mouth nightly as needed. Active htpzqcj-tusf-ko pyo-guxe-kduzdd 100 mg-150 mg- 50 mg-150 mg Capsule Take by mouth. 500 mg gummy Active tamsulosin (FLOMAX) 0.4 mg capsule Take 0.4 mg by mouth daily. 07/15/2023 Active alendronate sodium (ALENDRONATE ORAL) Take by mouth every 7 days. Active omega-3/dha/epa /algal oil (GDVRT-7D-RPD-E PA-ALGAL OIL ORAL) Take 250 mg by [...] STL ABSTRACTION Provider, Abstract 07/12/[address] [facility] and Hematology - [address] [place] [phone] Carlos Castelan MD 07/11/[address] 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 and [facility]ematology - Ang [address] [facility] [address] [place] [address] Carlos Castelan MD [address] [facility] [address] [place] [address] Health Maintenance Due Date Last [...] history exists Insurance FEDERAL FEDERAL Care Teams Manager Produce Relationship Specialty Start Date End Date Dave Ayala DO [address] [address] PCP - General Internal Medicine 06/02/22
[2024-10-06 11:21] LABS: Hematocrit 43.8 % (42.0-52.0); Hemoglobin 14.2 g/dL (14.0-18.0); Immature Granulocyte Percent A 0.4 % (0-0.5); Lymphocytes Absolute Auto 0.57 K/mm3 (0.9-3.2); Mean Corpuscular HGB Conc 32.4 g/dl (32-36); Mean Corpuscular Hemoglobin 33.0 pg (26-34); Mean Corpuscular Volume 101.9 fl (80-100); Nucleated Red Blood Cells Absolute Auto 0.000 K/mm3 (0.0-0.012); Nucleated Red Blood Cells Perc 0.0 % (0.0-0.2); Platelet Count Result 152 k/mm3 (150-375); Red Blood Count 4.30 M/mm3 (4.6-6.20); White Blood Count 8.0 K/mm3 (4.5-10.0)
[2024-10-06 11:47] LABS: Alanine Aminotransferase 17 U/L (6-50); Albumin Level 3.6 g/dL (3.5-5.1); Alkaline Phosphatase 77 U/L (38-126); Anion Gap 7 mmol/L (4-12); Aspartate Amino Transferase 26 U/L (17-59); Bilirubin,Total 1.4 mg/dL (0.2-1.3); Blood Urea Nitrogen 28 mg/dL (9-20); Calcium 9.5 mg/dL (8.4-10.2); Carbon Dioxide 30 mmol/L (22-30); Chloride 97 mmol/L (98-107); Estimated Glomerular Filt Rate > 60; Glucose 165 mg/dL (65-110); Potassium 4.0 mmol/L (3.4-5.0); Sodium 134 mmol/L (137-145); Total Protein 6.6 g/dL (6.3-8.2)
== END 2024-10-06 10:42 | disposition home or self-care (01) ==
PROVIDERS: PCP Internal Medicine; Visit Provider Nurse Practitioner
DX: K92.1 Melena (principal)
CPT/HCPCS: 80053; 85025

== ENCOUNTER 2025-02-03 12:49 | Emergency (ER) | payer BC, SELFPAY ==
[2025-02-03 13:02] VITALS: BP 131/66; PULSE 65; RESP 16; TEMP 36.4; O2SAT 99
--- NOTE | 2025-02-03 13:28 | ED_ITS ---
HPI - Neck Pain/Injury General Chief Complaint: Neck Pain/Injury Stated Complaint: FALL/NECK & SHOULDER INJURY Time Seen by Provider: 02/03/25 13:10 Source: patient, family and RN notes reviewed Mode of arrival: ambulatory Limitations: no limitations History of Present Illness HPI Narrative: 84-year-old male patient presents to the [facility] with spouse complaining of fall yesterday. Patient's spouse says patient has history of dementia, is alert and oriented to self. Patient said she when outside to get the garbage he was inside when she returned she found him on the ground in the garage. EMS was contacted and did not go to the hospital yesterday because he was not complaining of anything yesterday. Today the patient has been complaining of left shoulder pain that radiates up into the left neck. Patient's spouse is also a hematoma to the back of the head. Patient is on Eliquis. Related Data Home Medications ?Medication ?Instructions ?Recorded ?Confirmed ?Last Taken ?Type apixaban 5 mg tablet (Eliquis) 5 mg PO BID 01/01/2109/04/24 08:00 History 5 mg aspirin 81 mg chewable tablet 81 mg PO 1200 01/01/21 1 04/06/24 12/17/22 History metoprolol succinate 25 mg capsule 25 mg PO DAILY 11/0202/03/25 Unknown History sprinkle, ext. release 24 hr (Kapspargo Sprinkle) Allergies Allergy/AdvReac Type Severity Reaction Status Date / Time Penicillins Allergy Severe Swelling Verified 02/03/25 13:07 morphine AdvReac Intermediate Hallucinati Verified 02/03/25 13:07 ng RICARDO Inhibitors AdvReac Mild Cough Verified 02/03/25 13:07 midazolam (From Versed) AdvReac Mild Agitated Verified 02/03/25 13:07 Review of Systems Review of Systems: Positive for fall ROS unobtainable: Yes unobtainable due to mental status PMFSH Past Medical History Medical History Prostate cancer Colon cancer (~11/01/10) BPH (benign prostatic hyperplasia) CAD (coronary artery disease) GERD (gastroesophageal reflux disease) Osteoarthritis of right knee Arthritis Dementia of the Alzheimer's type Hyperlipidemia Cognitive impairment Paroxysmal atrial fibrillation Overweight (BMI 25.0-29.9) Elevated PSA Thrombocytopenia Pulmonary emboli (~2008) Hypertension Surgical History Surgical History History of cataract extraction Fracture of hip, right, closed Right hip pinning December 19, 2022 History of colon surgery Hx of cholecystectomy 2000 S/P CABG x 3 (~10/06/18) History of left knee replacement (~2000) Family History Family History Father Heart disease Hypertension Mother Diabetes mellitus Hypertension Alzheimer disease Sibling Cancer of kidney Carcinoma of colon Cancer Daughter Cancer of kidney Cancer Grandparent Heart disease Cerebrovascular accident Social History Social History Social History: Currently lives at home with his . Surrogate decision maker: Erica Ruth, daughter. Full Code. Caffeine-None Smoking status: Never smoker Second hand tobacco smoke exposure: No Alcohol intake: never Substance use: never Substance use type: does not use Lack of Transportation: No Lack of Food: Never True Current Housing: I Have Housing Concerned About Future Housing: No Difficulty Paying Gas/Electric Bills: No Difficulty Paying for Meds: No Currently Unemployed: YES Education: Bachelor's Degree Difficulty w/ Childcare or Family Care: No Living arrangements: with family Additional living arrangements comments: lives with in a house Occupation/Education: retired Gender identity (if verbalized by the patient): Male Sexual Orientation (if Verbalized by the Patient): Straight or Heterosexual Spiritual care concerns: No Agree to blood products: Yes Comments At the time of my signature, I reviewed and agree with the nursing past medical, surgical, social, and family history. There is no relevant family history pertinent to the patient complaint. Exam Narrative: GENERAL: This is a well-nourished, well-developed adult, in no apparent distress. They are non ill-appearing, nontoxic appearing. HEAD: normocephalic, atraumatic. Small hematoma to the left occipital region. No raccoon eyes or White signs. EYES: Sclera clear/white. Conjunctiva normal. Vision is grossly intact. Extraocular movements intact. Pupils PERRLA EARS: External ears normal, Hearing grossly intact. NOSE: External nose normal no rhinorrhea. THROAT: Mucous membranes moist, NECK: Neck supple, non-tender without lymphadenopathy, masses or thyromegaly. No cervical point tenderness, crepitus, or step-offs. CARDIOVASCULAR: Regular rate and rhythm without murmurs, gallops, or rubs. RESPIRATORY: Clear to auscultation. Breath sounds equal bilaterally. No wheezes, rales, or rhonchi. SKIN: warm, Dry, intact with no suspicious lesions or rash, good texture and turgor. NEURO: awake, alert, and oriented to person, place and time. There were no obvious focal neurologic abnormalities. EXTREMITIES: No joint tenderness, effusion, or edema noted. BACK: Nontender without deformity. No CVA tenderness. Course Course Level of Care: Express Care Visit Vital Signs Vital signs: Vital Signs Temperature 97.5 F L 02/03/25 13:02 Pulse Rate 65 02/03/25 13:02 Respiratory Rate 16 02/03/25 13:02 Blood Pressure 131/66 02/03/25 13:02 Pulse Oximetry 99 02/03/25 13:02 Temperature 97.5 F L 02/03/25 13:02 Pulse Rate 65 02/03/25 13:02 Respiratory Rate 16 02/03/25 13:02 Blood Pressure 131/66 02/03/25 13:02 Pulse Oximetry 99 02/03/25 13:02 Transfer Transfered to: [facility] Transportation: Other (Private vehicle) Transfer rationale: Fall, on , patient requires higher level care, requires advanced imaging. Accepting physician: Solange GUTIERREZ [facility] MDM Narrative Medical decision making narrative: Patient had a ground level fall yesterday, on , history of dementia u nable to communicate well. Patient benefit from having CT imaging. Informed patient's spouse we are unable to perform at imaging here. Given patient's symptoms, it is recommend the patient seek a higher level care and proceed immediately to the emergency department. They are agreeable to go to [facility]. Called over to [facility] spoke to Solange GUTIERREZ who is aware this patient accepted the patient for transfer. Advised spouse to keep patient NPO proceed immediately to the ER. So drive him to the hospital via private vehicle. Patient nontoxic appearing, no apparent distress, vital signs hemodynamically stable. Patient is stable to go by private vehicle to the hospital. Differential Diagnosis Differential Diagnosis: Head injury, closed head injury, concussion, intracranial hemorrhage, neck fracture, cervical strain, shoulder fracture, shoulder sprain Critical Care Time Critical Care Time Critical Care Time: No Discharge Plan Discharge Clinical Impression: Fall Qualifiers: Encounter type: initial encounter Qualified Code(s): W19.XXXA - Unspecified fall, initial encounter Left shoulder pain Qualifiers: Chronicity: acute Qualified Code(s): M25.512 - Pain in left shoulder Head injury Qualifiers: Encounter type: initial encounter Qualified Code(s): S09.90XA - Unspecified injury of head, initial encounter Patient Disposition: Acute Care Hospital Condition: Stable Patient Language: Upper Sorbian Prescriptions: No Action Eliquis 5 mg tablet 5 mg PO BID aspirin 81 mg tablet,chewable 81 mg PO 1200 Kapspargo Sprinkle 25 mg capsule,sprinkle,ER 24hr 25 mg PO DAILY galantamine 4 mg tablet See Rx Instructions .ROUTE .COMPLEX Qty: 240 6RF Dose Instruction: TAKE 3 TABLETS BY MOUTH TWICE DAILY Rx Instructions: TAKE 3 TABLETS BY MOUTH TWICE DAILY memantine 10 mg tablet 10 mg PO BID Qty: 180 6RF spironolactone 25 mg tablet 12.5 mg PO DAILY 30 Days Qty: 15 1RF pravastatin 20 mg tablet 20 mg PO QHS Qty: 90 1RF furosemide [Lasix] 40 mg tablet 40 mg PO QAM Qty: 90 0RF Follow-up/Referrals: Dave Ayala DO [Primary Care Provider, Internal Medicine] Time of Disposition: 13:23
== END 2025-02-03 13:19 | disposition short-term general hospital (02) ==
PROVIDERS: PCP Internal Medicine
DX: S00.93XA Contusion of unspecified part of head, initial encounter (principal); M25.512 Pain in left shoulder; I25.10 Atherosclerotic heart disease of native coronary artery without angina pectoris; E78.5 Hyperlipidemia, unspecified; I10 Essential (primary) hypertension; I48.0 Paroxysmal atrial fibrillation; Z79.01 Long term (current) use of anticoagulants; Z79.82 Long term (current) use of aspirin; W19.XXXA Unspecified fall, initial encounter; Y92.008 Other place in unspecified non-institutional (private) residence as the place of occurrence of the external cause
CPT/HCPCS: 99212; G0463

== ENCOUNTER 2025-02-03 13:47 | Emergency (ER) | payer BC, SELFPAY ==
--- NOTE | ~2025-02-03 | CT_ITS ---
CT HEAD NON-CONTRAST Clinical History: fall Comparison: Brain MRI 12/07/2023 Technique: Unenhanced axial images skull base to vertex Coronal, sagittal reformats CT images acquired with automatic exposure control for dose reduction DLP: 605 mGy-cm Findings: Age-related atrophy. Chronic white matter microvascular ischemic changes. Sulci, ventricles: Unremarkable. No intracerebral hemorrhage. No evidence acute territorial infarct. No mass effect, midline shift. Bony calvarium intact. Visualized paranasal sinuses: Clear. Mastoid air cells: Clear. IMPRESSION: 1. No acute intracranial findings. Reviewed, dictated and finalized at location R. ING TRACTOR OPERATOR
--- NOTE | ~2025-02-03 | CT_ITS ---
EXAMINATION: CT cervical spine wo con COMPARISON: None HISTORY: fall TECHNIQUE: Axial images were obtained through the spine without IV contrast. Coronal, sagittal reconstruction images were obtained from the axial views. CT scan performed using dose optimization techniques including the following automated exposure control; adjustment of mA and/or kV; use of iterative reconstruction technique. Automatic exposure control was used to reduce radiation dose. Permanent radiation dose record is archived to PACS. FINDINGS: Moderate loss of vertebral height throughout, no fracture or subluxation. Moderate to severe loss of disc height throughout with anterior osteophyte formation throughout the cervical spine with multilevel mild to moderate canal and foraminal stenosis most marked at C4-5, MRI suggested to further evaluate. Soft tissues unremarkable. Impression: No acute abnormality. Reviewed, dictated and finalized at location P. CTICIDE SPRAYER Impression: No acute abnormality.
--- NOTE | ~2025-02-03 | XR_ITS ---
EXAMINATION: XR shoulder LT min 2V, 02/03/2025 14:40 CERTIFIED MAINTENANCE WELDER HISTORY: fall IN [place] TODAY COMPARISON: No comparisons available. Findings: No acute fracture or malalignment. Severe degenerative changes Soft tissues unremarkable. Impression: No acute fracture or malalignment. Reviewed, dictated and finalized at location P. IFIED MAINTENANCE WELDER Impression: No acute fracture or malalignment.
[2025-02-03 14:03] VITALS: BP 128/75; PULSE 63; RESP 16; TEMP 36.4; O2SAT 98
--- NOTE | 2025-02-03 16:02 | ED.HEATRA ---
HPI - Head Injury General Chief complaint: Head Injury Stated complaint: fall, needs MRI Time Seen by Provider: 02/03/25 15:02 Source: patient and family Mode of arrival: ambulatory Limitations: dementia History of Present Illness HPI Narrative: Patient is an 84-year-old male with past medical history of dementia, AFib on Eliquis, who presents the ED with report of a fall. Family at bedside hearing and speech assistant providing information. reports patient was out in the garage himself yesterday without his walker and tripped and fell. did witness the fall. He hit his posterior head on the ground. Denied LOC. EMS was called to help patient up off the ground and evaluated patient on scene. They declined transportation to hospital at that time. reports patient began complaining of some left-sided neck and shoulder pain today. called PCP and was referred to ED for eval. Patient denies any other areas of pain. Related Data Home Medications ?Medication ?Instructions ?Recorded ?Confirmed ?Last Taken ?Type apixaban 5 mg tablet (Eliquis) 5 mg PO BID 01/01/21 02/03/25 09/04/24 08:00 History 5 mg aspirin 81 mg chewable tablet 81 mg PO 1200 01/01/21 02/03/25 12/17/22 History metoprolol succinate 25 mg capsule 25 mg PO DAILY 11/29/24 02/03/25 Unknown History sprinkle, ext. release 24 hr (Kapspargo Sprinkle) Allergies Allergy/AdvReac Type Severity Reaction Status Date / Time Penicillins Allergy Severe Swelling Verified 02/03/25 14:06 morphine AdvReac Intermediate Hallucinati Verified 02/03/25 14:06 ng RICARDO Inhibitors AdvReac Mild Cough Verified 02/03/25 14:06 midazolam (From Versed) AdvReac Mild Agitated Verified 02/03/25 14:06 Review of Systems Review of Systems: All systems reviewed & are unremarkable except as noted in HPI. All systems reviewed & are unremarkable except as noted in HPI and below PMFSH Past Medical History Medical History Prostate cancer Colon cancer (~11/01/10) BPH (benign prostatic hyperplasia) CAD (coronary artery disease) GERD (gastroesophageal reflux disease) Osteoarthritis of right knee Arthritis Dementia of the Alzheimer's type Hyperlipidemia Cognitive impairment Paroxysmal atrial fibrillation Overweight (BMI 25.0-29.9) Elevated PSA Thrombocytopenia Pulmonary emboli (~2008) Hypertension Surgical History Surgical History History of cataract extraction Fracture of hip, right, closed Right hip pinning December 19, 2022 History of colon surgery Hx of cholecystectomy 1999 S/P CABG x 3 (~10/06/18) History of left knee replacement (~2000) Family History Family History Father Heart disease Hypertension Mother Diabetes mellitus Hypertension Alzheimer disease Sibling Cancer of kidney Carcinoma of colon Cancer Daughter Cancer of kidney Cancer Grandparent Heart disease Cerebrovascular accident Social History Social History Social History: Currently lives at home with his . Surrogate decision maker: Erica Ruth, daughter. Full Code. Caffeine-None Smoking status: Never smoker Second hand tobacco smoke exposure: No Alcohol intake: never Substance use: never Substance use type: does not use Lack of Transportation: No Lack of Food: Never True Current Housing: I Have Housing Concerned About Future Housing: No Difficulty Paying Gas/Electric Bills: No Difficulty Paying for Meds: No Currently Unemployed: YES Education: Bachelor's Degree Difficulty w/ Childcare or Family Care: No Living arrangements: with family Additional living arrangements comments: lives with in a house Occupation/Education: retired Gender identity (if verbalized by the patient): Male Sexual Orientation (if Verbalized by the Patient): Straight or Heterosexual Spiritual care concerns: No Agree to blood products: Yes Exam Narrative: GENERAL: Elderly but well appearing, well-nourished, non-toxic, in no acute distress. HEAD: Normocephalic. Small contusion to posterior scalp. Minimal tenderness, no wounds or lacerations. NECK: Minimal tenderness throughout lower midline cervical spine into L sided paraspinal cervical musculature. No palpable bony deformities or step-offs. Sensation intact. RESPIRATORY: Airway patent, respirations nonlabored. Clear to auscultation bilaterally, no rales, rhonchi, wheezing. CARDIOVASCULAR: Regular rate and rhythm without murmurs, rubs, or gallops. MUSCULOSKELETAL: Moves all extremities. No gross deformities. No significant T/L midline spinal tenderness. Minimal tenderness over left anterior shoulder. SKIN: Warm, dry, normal color. NEURO: Alert, intermittently confused but pleasant. Speech clear. Cranial nerves II-XII grossly intact. Steady gait. No ataxic movements. PSYCHIATRIC: Appropriate mood and affect. Normal interaction. Course Vital Signs Vital signs: Vital Signs Temperature 97.6 F 02/03/25 14:03 Pulse Rate 63 02/03/25 14:03 Respiratory Rate 16 02/03/25 14:03 Blood Pressure 128/75 02/03/25 14:03 Pulse Oximetry 98 02/03/25 14:03 Temperature 97.6 F 02/03/25 14:03 Pulse Rate 63 02/03/25 14:03 Respiratory Rate 16 02/03/25 14:03 Blood Pressure 128/75 02/03/25 14:03 Pulse Oximetry 98 02/03/25 14:03 [facility] Narrative Medical decision making narrative: Patient presented to ED status post ground level mechanical fall yesterday with head injury. On Eliquis. No LOC. Also reporting pain to neck and left shoulder. Patient neurologically intact to baseline. History of dementia. Moving all extremities equally. CT brain and cervical spine without acute traumatic findings. X-ray of left shoulder negative for fracture. Discussed likelihood of shoulder strain, contusion to scalp, cervical strain. Patient otherwise safe for discharge home at this time. Family in agreement with plan. Recommended follow-up with PCP. Given strict return precautions. Discharged in stable condition. Differential Diagnosis Differential Diagnosis: Intracranial hemorrhage, skull fracture, scalp contusion, cervical fracture, cervical strain, left shoulder fracture Medical Records I have reviewed the following patient records and this information was taken into consideration when formulating the assessment and plan.: previous labs, previous ER visits, previous hospitalizations and previous clinic visits Lab Data [facility] Lab Attestation statement: I personally reviewed the patient's lab results. Imaging Data Attestation: I personally reviewed and interpreted this imaging study as follows: Radiologist's impression: ITS Impressions Head CT 02/03/25 14:41 IMPRESSION: 1. No acute intracranial findings. Cervical Spine CT 02/03/25 14:46 Impression: No acute abnormality. Shoulder X-Ray 02/03/25 14:51 Impression: No acute fracture or malalignment. Discharge Plan Discharge Clinical Impression: Fall from ground level Closed head injury Qualifiers: Encounter type: initial encounter Qualified Code(s): S09.90XA - Unspecified injury of head, initial encounter Cervical strain Qualifiers: Encounter type: initial encounter Qualified Code(s): S16.1XXA - Strain of muscle, fascia and tendon at neck level, initial encounter Patient Disposition: Home Condition: Stable Instructions: Antibiotic Form, Head Injury (ED), Cervical Sprain (ED) Additional Instructions: Patient's imaging did not show any evidence of trauma. Recommend Tylenol as needed for pain, ice to areas of pain. Follow-up with primary care doctor for further evaluation as needed. Return for new or worsening concerns, recurrent fall or injury, severe dizziness, passing out, unable to keep down food or drink, or any other symptoms of concern. Patient Language: Uzbek Prescriptions: No Action Eliquis 5 mg tablet 5 mg PO BID aspirin 81 mg tablet,chewable 81 mg PO 1200 Kapspargo Sprinkle 25 mg capsule,sprinkle,ER 24hr 25 mg PO DAILY galantamine 4 mg tablet See Rx Instructions .ROUTE .COMPLEX Qty: 240 6RF Dose Instruction: TAKE 3 TABLETS BY MOUTH TWICE DAILY Rx Instructions: TAKE 3 TABLETS BY MOUTH TWICE DAILY memantine 10 mg tablet 10 mg PO BID Qty: 180 6RF spironolactone 25 mg tablet 12.5 mg PO DAILY 30 Days Qty: 15 1RF pravastatin 20 mg tablet 20 mg PO QHS Qty: 90 1RF furosemide [Lasix] 40 mg tablet 40 mg PO QAM Qty: 90 0RF Follow-up/Referrals: Dave Ayala DO [Primary Care Provider, Internal Medicine] Time of Disposition: 16:04
== END 2025-02-03 16:14 | disposition home or self-care (01) ==
PROVIDERS: Emergency Provider Physician Assistant; PCP Internal Medicine
DX: S09.90XA Unspecified injury of head, initial encounter (principal); S16.1XXA Strain of muscle, fascia and tendon at neck level, initial encounter; W18.30XA Fall on same level, unspecified, initial encounter; G30.9 Alzheimer's disease, unspecified; F02.80 Dementia in other diseases classified elsewhere, unspecified severity, without behavioral disturbance, psychotic disturbance, mood disturbance, and anxiety; I48.91 Unspecified atrial fibrillation; Z79.01 Long term (current) use of anticoagulants; Z85.46 Personal history of malignant neoplasm of prostate; Z85.038 Personal history of other malignant neoplasm of large intestine; I25.10 Atherosclerotic heart disease of native coronary artery without angina pectoris; K21.9 Gastro-esophageal reflux disease without esophagitis; E78.5 Hyperlipidemia, unspecified; I10 Essential (primary) hypertension; Z86.711 Personal history of pulmonary embolism; Z95.1 Presence of aortocoronary bypass graft; Z96.652 Presence of left artificial knee joint
CPT/HCPCS: 70450; 72125; 73030; 99284

== ENCOUNTER 2025-02-07 15:38 | Outpatient (NON) | payer BC, SELFPAY ==
--- OUTSIDE RECORDS SUMMARY | 2025-02-07 18:01 | XMS_ITS | Clinical Summary ---
Author Organization [facility] Address [address] [place] [address] Care Team Providers Care Tinner Helper Name Role Phone Dave Ayala DO Primary Care Provider [phone] Allergies Active Allergy Reactions Criticality Noted Date [...] 1 tablet (10 mg total) 1 Active furosemide (LASIX) 40 mg tablet TAKE 1 TABLET BY FEEDING TUBE ONCE DAILY 5 Active metoprolol succinate (KAPSPARGO) 25 mg capsule,sprink le,ER 24hr extended release capsule Take 25 capsules by mouth nightly 30 capsule 11 5 Active spironolactone (ALDACTONE) 25 mg tablet Take 0.5 tablets (12.5 mg total) by mouth daily 45 tablet 2 5 Active apixaban (Eliquis) 5 mg tablet Take 1 tablet by mouth twice daily 180 tablet 2 5 Active apixaban (Eliquis) 5 mg tablet Take 1 tablet by mouth twice daily 180 tablet 3 4 025 Discontinued Active Problems Problem Noted Date Diagnosed Date Visit for wound check 01/09/2022 Status post placement of implantable loop record er 03/14/2021 Overview (03/14/2021): Trejo/[facility] Nash Confirm Loop Recorder. Dx; PAF/Aflutter. DOI 09/23/2019-Dangelo Elmer Mojica. Robles stokes. Encounters Date Type Department Care Team Description 12/06/2024 1:30 PM CDT Office Visit 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 Cardiology at [address] [place] [address] Heart failure with mildly reduced ejection fraction from Last 3 Months Surgical History Surgery [...] Sign Reading Time Taken Comments Blood Pressure 106/54 12/06/2024 1:29 PM CDT Pulse 62 12/06/2024 1:29 PM CDT Temperature 36.8 C (98.3 F) 12/14/2020 1:19 PM CDT Respiratory Rate 20 12/14/2020 5:37 PM CDT Oxygen Saturation 96% 12/06/2024 1:29 PM CDT Inhaled Oxygen Concentration - - Weight 80.8 kg (178 lb 3.2 oz) 12/06/2024 1:29 P M CDT Height 175.3 cm (5' 9) 12/06/2024 1:29 PM CDT Body Mass Index 26.32 12/06/2024 1:29 PM CDT Plan of Treatment Health Maintenance Due Date Last Done Comments Depression Screening 1940 Fall Risk Assessment 1940 Hepatitis B Screening 1958 Well Visit 65+ 2005 Zoster Vaccine (2 of 3) 10/06/2012 08/11/2012 Covid-19 Vaccine (5 - 2024-2 6 season) 2024 02/08/2024, 01/22/2021, 05/22/2020, Additional history exists Influenza Vaccine (#1) 2024 , 03/12/2023, 01/08/2022, Additional history exists DTaP/Tdap/Td Vaccine (2 - Td or Tdap) 01/09/2032 01/08/2022, 09/05/2016, 07/27/2007 Pneumococcal vaccine 65+ Completed 016, 08/11/2012, 01/29/2011, Additional history exists Procedures Procedure Name Priority Date/Time Associated Diagnosis Comments TRANSTHORACIC ECHO (TTE) LIMITED/FOLLOW UP WO DOPPLER/CF W CONTRAST Routine 11/25/2024 2:16 PM CDT Heart failure with mildly reduced ejection fraction from Last 3 Months Results * TRANSTHORACIC ECHO (TTE) LIMITED/FOLLOW UP WO DOPPLER/CF W CONTRAST (11/25/2024 2:16 PM CDT) Estimated EF 60 % CONS SCIMAGE EF Mod BP 67 % CONS SCIMAGE Anatomical Region Laterality Modality Ultrasound 11/25/2024 1:49 PM CDT Narrative 11/25/2024 3:[address] [facility] [address], [address], [place] [address] [phone] P:[phone] Echocardiographic Report Patient Name: BUD JAMES W : 1940 Study Date: 11/25/2024 1:49:59 PM Sex: M Mobility Developer: HAKEEM Location: [facility] Ref Provider: FINA BALBUENA Height(Cm): 175 BSA: 1.96 Weight(Kg): 78.9 Heart Rate: 90 BP: 104 / 54 Quality: Good Order Provider: FINA BALBUENA PROCEDURES: Echocardiographic Report: Transthoracic echocardiogram with complete 2D, M-Mode imaging and Definity contrast. INDICATIONS: I50.20 Unspecified systolic (congestive) heart failure. MEASUREMENTS: 2D/MM Value Range EF Mod BP 67 % [ 52 - 72 ] EF Teich MM 53 % [ 52 - 72 ] Estimated EF 60 % LVIDd 2D 4.81 cm [ 4.20 - 5.80 ] LVIDd MM 5.58 cm [ 4.20 - 5.80 ] LVIDs 2D 3.03 cm [ 2.50 - 4.00 ] LVIDs MM 4.02 cm [ 2.50 - 4.00 ] LVPWd 2D 0.75 cm [ 0.60 - 1.00 ] LVPWd MM 0.65 cm [ 0.60 - 1.00 ] IVSd 2D 1.10 cm [ 0.60 - 1.00 ] IVSd MM 0.81 cm [ 0.60 - 1.00 ] LA Dimension MM 4.28 cm [ 3.00 - 4.00 ] AoR Diam MM 3.83 cm [ 3.10 - 3.70 ] LA Volume 45.91 ml [ 18.00 - 58.00 ] LA Volume Index 23 cc/m2 [ 16 - 28 ] ACS MM 1.52 cm [ 1.50 - 2.60 ] RA Volume 51.61 ml 2D/MM Value Range - FINDINGS: Interpretation Site: Exam was interpreted at [facility]. Left Ventricle: Definity contrast agent used to visually enhance endocardial wall motion and contractility. Lot Number: [id number]. Mild concentric left ventricular hypertrophy. Left ventricle cavity is upper limits of normal in size. Normal global left ventricular systolic function. Ejection Fraction is visually estimated to be 60 %. These segments of the LV are hypokinetic: anteroseptum segment. Right Ventricle: Normal right ventricular systolic function. Mild enlargement of right ventricle. Left Atrium: There is moderate enlargement of left atrium. Right Atrium: There is severe enlargement of right atrium. Atrial Septum: Normal atrial septum. Mitral Valve: Mild mitral annular calcification. Mild mitral valve prolapse involving the anterior mitral leaflet. Aortic Valve: Aortic cusps appear severely calcified. Trileaflet aortic valve. Tricuspid Valve: Normal appearance of the tricuspid valve. Pulmonic Valve: Normal appearance of the pulmonic valve. Pericardium: Normal pericardium with no significant pericardial effusion. Aorta: Sinus of Valsalva is dilated. IVC: The IVC is not well visualized. CONCLUSIONS: Definity contrast agent used to visually enhance endocardial wall motion and contractility. Lot Number: [id number]. Mild concentric left ventricular hypertrophy. Left ventricle cavity is upper limits of normal in size. Normal global left ventricular systolic function. Ejection Fraction is visually estimated to be 60 %. These segments of the LV are hypokinetic: anteroseptum segment. There is moderate enlargement of left atrium. There is severe enlargement of right atrium. Mild mitral annular calcification. Mild mitral valve prolapse involving the anterior mitral leaflet. Aortic cusps appear severely calcified. Trileaflet aortic valve. Sinus of Valsalva is dilated. Atrial fibrillation. Electronically Signed By: Don Kapoor MD 11/25/2024 3:24:59 PM CDT Procedure Note Don Kapoor MD - 11/25/2024 [facility] [address], [address], [place] [address] [phone] P:[phone] Echocardiographic Report Patient Name: BUD JAMES W : 1940 Study Date: 11/25/2024 1:49:59 PM Sex: M Mobility Developer: HAKEEM Location: [facility] Ref Provider: FINA BALBUENA Height(Cm): 175 BSA: 1.96 Weight(Kg): 78.9 Heart Rate: 90 BP: 104 / 54 Quality: Good Order Provider: FINA BALBUENA PROCEDURES: Echocardiographic Report: Transthoracic echocardiogram with complete 2D, M-Mode imaging and Definitycontrast. INDICATIONS: I50.20 Unspecified systolic (congestive) heart failure. MEASUREMENTS: 2D/MM Value Range EF Mod BP 67 % [ 52 - 72 ] EF Teich MM 53 % [ 52 - 72 ] Estimated EF 60 % LVIDd 2D 4.81 cm [ 4.20 - 5.80 ] LVIDd MM 5.58 cm [ 4.20 - 5.80 ] LVIDs 2D 3.03 cm [ 2.50 - 4.00 ] LVIDs MM 4.02 cm [ 2.50 - 4.00 ] LVPWd 2D 0.75 cm [ 0.60 - 1.00 ] LVPWd MM 0.65 cm [ 0.60 - 1.00 ] IVSd 2D 1.10 cm [ 0.60 - 1.00 ] IVSd MM 0.81 cm [ 0.60 - 1.00 ] LA Dimension MM 4.28 cm [ 3.00 - 4.00 ] AoR Diam MM 3.83 cm [ 3.10 - 3.70 ] LA Volume 45.91 ml [ 18.00 - 58.00 ] LA Volume Index 23 cc/m2 [ 16 - 28 ] ACS MM 1.52 cm [ 1.50 - 2.60 ] RA Volume 51.61 ml 2D/MM Value Range - FINDINGS: Interpretation Site: Exam was interpreted at [facility]. Left Ventricle: Definity contrast agent used to visually enhance endocardial wall motionand contractility. Lot Number: [id number]. Mild concentric left ventricularhypertrophy. Left ventricle cavity is upper limits of normal in size. Normal global leftventricular systolic function. Ejection Fraction is visually estimated to be 60 %.These segments of the LV are hypokinetic: anteroseptum segment. Right Ventricle: Normal right ventricular systolic function. Mild enlargement of rightventricle. Left Atrium: There is moderate enlargement of left atrium. Right Atrium: There is severe enlargement of right atrium. Atrial Septum: Normal atrial septum. Mitral Valve: Mild mitral annular calcification. Mild mitral valve prolapse involvingthe anterior mitral leaflet. Aortic Valve: Aortic cusps appear severely calcified. Trileaflet aortic valve. Tricuspid Valve: Normal appearance of the tricuspid valve. Pulmonic Valve: Normal appearance of the pulmonic valve. Pericardium: Normal pericardium with no significant pericardial effusion. Aorta: Sinus of Valsalva is dilated. IVC: The IVC is not well visualized. CONCLUSIONS: Definity contrast agent used to visually enhance endocardial wall motionand contractility. Lot Number: [id number]. Mild concentric left ventricularhypertrophy. Left ventricle cavity is upper limits of normal in size. Normal global leftventricular systolic function. Ejection Fraction is visually estimated to be 60 %.These segments of the LV are hypokinetic: anteroseptum segment. There is moderate enlargement of left atrium. There is severe enlargement of right atrium. Mild mitral annular calcification. Mild mitral valve prolapse involvingthe anterior mitral leaflet. Aortic cusps appear severely calcified. Trileaflet aortic valve. Sinus of Valsalva is dilated. Atrial fibrillation. Electronically Signed By: Don Kapoor MD 11/25/2024 3:24:59 PM CDT Fina Balbuena NP CV ECHO PROCEDURES Final Result from Last 3 Months Insurance [facility] FEDERAL MEDICARE [facility] Care Teams Tinner Helper Relationship Specialty Start Date End Date Dave Ayala DO PCP - General Internal Medicine 03/06/21
--- OUTSIDE RECORDS SUMMARY | 2025-02-07 18:01 | XMS_ITS | Clinical Summary ---
Author Organization [facility] Address [address] [place] [address] Care Team Providers Care Gluer And Slicer Hand Name Role Phone Unavailable Primary Care Provider Unavailabl e Allergies Active Allergy Reactions Criticality Noted Date Comments Shaun Inhibitors Cough Low 05/29/2008 Penicillins Shortness of Breath/Wheezing,Swelling High 11/10/2007 Medications hydrochlorothiazide 25 mg Oral tabletIndications:HT N (hypertension) Take 1 Tab by mouth daily. For blood pressure 30 Tab 11 2 Active GLUC HCL/CSA/LIBAN HY/HYALUR AC (YGFZLNFG-WOPG-LYUAB G-HYALUR AC ORAL) Take 1 Cap by mouth. Active Tadalafil (CIALIS) 10 mg Oral tabletIndications:ED (erectile dysfunction) Take 10 mg by mouth 1 time daily as needed for Other (See Comment). 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 30 Tab 1 3 Active potassium chloride SR (MICRO-K) 10 mEq Oral capsule Take 10 mEq by mouth daily. Active fenofibrate nanocrystallized (TRICOR) 145 mg tablet Take 1 Tab by mouth daily. 30 Tab 11 4 Active amLODIPine (NORVASC) 5 mg tabletIndications:HT N (hypertension) Take 1 Tab by mouth daily. 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 Difficulty swallowing liquids 10/03/2010 Difficulty swallowing solids 10/03/2010 Rectal pain 10/03/2010 Rectal leakage 10/03/2010 Pulmonary embolism and infarction 04/24/2008 GERD (gastroesophageal reflux disease) Hyperlipidemia HTN (hypertension) Diverticulosis Erectile dysfunction Immunizations Immunization Administration Dates Next Due (PNEUMOVAX 23)(50 YRS UP) PN EUMOCOCCAL POLYSACCHARIDE (PPV23) 0.5 ML, IM 01/29/2011,12/08/2005 Influenza Seasonal Unspecifi ed Formulation IM 01/14/2006 Influenza Vaccine Split 3+ Yrs IM 11/16/2009,01/2009,02/16/2008 Social History Tobacco Use Types Packs/Day Years Used Date Smoking Tobacco: Never Smokeless Tobacco: Never Alcohol Use Standard Drinks/Week Comments No 0 (1 standard drink = 0.6 oz pur e alcohol) Sex and Gender Information Value Date Recorded Sex Assigned at Not on file 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 Gender Identity Not on file Sexual Orientation Not on file Last Filed Vital Signs Vital Sign Reading Time Taken Comments Blood Pressure 118/68 07/07/2012 11:13 AM CDT Pulse 97 07/07/2012 11:13 AM CDT Temperature 37 C (98.6 F) 07/07/2012 11:13 AM CDT Respiratory Rate 18 07/07/2012 11:13 AM CDT Oxygen Saturation 97% 07/07/2012 11:13 AM CDT Inhaled Oxygen Concentration - - Weight 96.7 kg (213 lb 3.2 oz) 07/07/2012 11:13 AM CDT Height 177.8 cm (5' 10) 07/07/2012 11:13 AM CDT Body Mass Index 30.59 07/07/2012 11:13 AM CDT Plan of Treatment Health Maintenance Due Date Last Done Comments DTAP/TDAP/TD VACCINES (1 - Tdap) 07/31/1959 ZOSTER VACCINE (1 of 2) 1990 PNEUMOCOCCAL VACCINE 50+ YEA RS (2 of 2 - PCV) 01/30/2012 01/29/2011, 12/08/2005 COLORECTAL SCREENING 12/29/2012 12/30/2011 RSV VACCINE (60+ or ) (1 - 1-dose 75+ series) 07/31/2015 INFLUENZA VACCINE (#1) 2024 0, 01/11/2009, 02/16/2008, Additional history exists Insurance [place] [address] Member Subscriber Plan / Payer (Ef fective 2009-Present) Name:Bud James Relation to Subscriber:Self Name:Bud James Payer ID:Not on file Type:[employer] Address: [facility] [id number] [address] INSURANCE MEDICARE PART A HOSPITAL ONLY
--- OUTSIDE RECORDS SUMMARY | 2025-02-07 18:03 | XMS_ITS | Encounter Summary ---
Author Organization [facility] Address [address] [place] [address] Care Team Providers Care Drawing In Hand Name Role Phone Dipak Woodard DO Primary Care Provider Unavail able Encounter Details Date Type Department Care Team (Latest Contact Info) Description 11/17/2005 Outpatient [facility] Family Medicine- [address] [phone] Fuad Julian DO NO ADDRESS ON FILE Unspecified Essential Hypertension (Primary Dx); Other and Unspecified Hyperlipidemia; Unspecified Hypertrophic and Atrophic Condition of Skin Social History Tobacco Use Types Packs/Day Years Used Date Smoking Tobacco: Never Assessed Sex and Gender Information Value Date Recorded Sex Assigned at Not on file 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
--- OUTSIDE RECORDS SUMMARY | 2025-02-07 18:03 | XMS_ITS | Clinical Summary ---
Author Organization [facility] Address [address] [facility] Attn: Epic Prelude ADT [place] [address] Care Team Providers Care Strategy Director Name Role Phone Dave Ayala DO [...] BID, # 60 tab, Refill(s) 11, Pharmacy: [facility], [id number], 1 tab By mouth BID, 82.91, 11/28/20 14:57:00 CDT, kg, Weight 11/28/2020 Active aspirin (ECOTRIN EC) 81 mg Tablet, Delayed Release (E.C.) 81 mg. 09/12/2019 Active Cholecalciferol , Vitamin D3, 50 mcg (2,000 unit) Capsule 50 mcg. 09/05/2020 Activ e memantine (NAMENDA) 10 mg Tablet = 1 tab, By mouth, BID, # 180 tab, Refill(s) 1, Pharmacy: [facility], [id number], 1 tab By mouth BID, 69, 08/03/20 [...] Take by mouth nightly as needed. Active uvtulei-alve-ry meu-zyjk-qcfunx 100 mg-150 mg- 50 mg-150 mg Capsule Take by mouth. 500 mg gummy Active tamsulosin (FLOMAX) 0.4 mg capsule Take 0.4 mg by mouth daily. 07/15/2023 Active alendronate sodium (ALENDRONATE ORAL) Take by mouth every 7 days. Active omega-3/dha/epa /algal oil (VGVEP-1S-HZO-E PA-ALGAL OIL ORAL) Take 250 mg by [...] Encounters Date Type Department Care Team Description 01/17/2025 External Device Data [facility] ABSTRACTION Provider, Abstract 12/21/2024 External Device Data [facility] ABSTRACTION Provider, Abstract 12/13/2024 External Device Data [facility]CTION Provider, Abstract 11/15/2024 External Device Data [facility]STRACTION Provider, Abstract [...] on file Legal Sex Male 1:39 AM TOURIST AGENT Gender Identity Not on file Sexual Orientation [...] Description 07/05/2025 10:15 AM CDT Office Visit [facility] Oncology and Hematology - [place] [address] [facility] [address] [place] [address] Carlos Castelan MD [address] [facility] [address] [place] [address] Health Maintenance Due Date Last Done Comments COLORECTAL SCREENING 1958 ZOSTER VACCINE (2 of 3) 10/06/2012 08/11/2012 RSV VACCINE (60+ or ) (1 - 1-dose 75+ series) 07/31/2015 DTAP/TDAP/TD VACCINES (1 - Tdap) 09/06/2016 09/06/19 17, 07/27/2007 INFLUENZA VACCINE (#1) 2024 0, 12/29/2018, 12/17/2017, Additional history exists COVID-19 Vaccine (2024-2 6 season) 2024 05/22/2020, 04/23/2020 PNEUMOCOCCAL VACCINE 50+ YEARS Completed 0 04/17/2015, 08/11/2012, 01/29/2011, Additional history exists Insurance [employer]ERAL FEDERAL Care Teams Strategy Director Relationship Specialty Start Date End Date Dave Ayala DO [address] [facility] [address] [place] [address] PCP - General Internal Medicine 06/02/22
--- OUTSIDE RECORDS SUMMARY | 2025-02-07 18:04 | XMS_ITS | Encounter Summary ---
Author Organization [facility] Address [address] [place] [address] Care Team Providers Care Automatic Teller Machine Servicer Name Role Phone Dipak Woodard DO Primary Care Provider Unavail able Encounter Details Date Type Department Care Team (Latest Contact Info) Description 01/14/2006 Outpatient Historical [facility] Family Medicine- [address] [phone] Fuad Julian DO NO ADDRESS ON FILE Vaccine for influenza (Primary Dx) Social History Tobacco Use Types Packs/Day Years Used Date Smoking Tobacco: Never Assessed Sex and Gender Information Value Date Recorded Sex Assigned at Not on file 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
--- OUTSIDE RECORDS SUMMARY | 2025-02-07 18:04 | XMS_ITS | Encounter Summary ---
Author Organization [facility] Address [address] [place] [address] Care Team Providers Care Forestry Worker Name Role Phone Dipak Woodard DO Primary Care Provider Unavail able Encounter Details Date Type Department Care Team (Latest Contact Info) Description 03/19/2006 Outpatient Historical [facility] Family Medicine- [address] [phone] Fuad Julian DO NO ADDRESS ON FILE Contact Dermatitis and Other Eczema, due to Unspecified Cause (Primary Dx) Social History Tobacco Use Types Packs/Day Years Used Date Smoking Tobacco: Never Assessed Sex and Gender Information Value Date Recorded Sex Assigned at Not on file 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
--- OUTSIDE RECORDS SUMMARY | 2025-02-07 18:04 | XMS_ITS | Encounter Summary ---
Author Organization [facility] Address [address] [place] [address] Care Team Providers Care Ferry Pilot Name Role Phone Dipak Woodard DO Primary Care Provider Unavail able Encounter Details Date Type Department Care Team (Late st Contact Info) Description 10/16/2005 Outpatient Historical [facility] Medicine- [place] [id number] [place] [phone] Social History Tobacco Use Types Packs/Day Years Used Date Smoking Tobacco: Never Assessed Sex and Gender Information Value Date Recorded Sex Assigned at Not on file Legal Sex Male 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
--- OUTSIDE RECORDS SUMMARY | 2025-02-07 18:04 | XMS_ITS | Encounter Summary ---
Author Organization [facility] Address [address] [place] [address] Care Team Providers Care Licensed Social Worker Name Role Phone Dipak Woodard DO Primary Care Provider Unavail able Encounter Details Date Type Department Care Team (Latest Contact Info) Description 12/08/2005 Outpatient Historical [facility] Family Medicine- [address] [phone] Fuad Julian DO NO ADDRESS ON FILE Vaccin Strep Pneumoniae (Primary Dx) Social History Tobacco Use Types Packs/Day Years Used Date Smoking Tobacco: Never Assessed Sex and Gender Information Value Date Recorded Sex Assigned at Not on file 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
--- OUTSIDE RECORDS SUMMARY | 2025-02-07 18:04 | XMS_ITS | Encounter Summary ---
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
--- OUTSIDE RECORDS SUMMARY | 2025-02-07 18:04 | XMS_ITS | Encounter Summary ---
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
--- OUTSIDE RECORDS SUMMARY | 2025-02-07 18:05 | XMS_ITS | Encounter Summary ---
Author Organization [facility] Address [address] [place] [address] Care Team Providers Care Hemodialysis Lab Technician Name Role Phone Dipak Woodard DO Primary Care Provider Unavail able Encounter Details Date Type Department Care Team (Latest Contact Info) Description 11/17/2006 Outpatient Historical [facility] Family Medicine- [facility] [address] [facility] [place] [phone] Fuad Julian DO NO ADDRESS ON FILE Elevated PSA (Primary Dx); Flatulence, Eructation, and Gas Pain; Reflux Esophagitis Social History Tobacco Use Types Packs/Day Years Used Date Smoking Tobacco: Never Assessed Sex and Gender Information Value Date Recorded Sex Assigned at Not on file 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
--- OUTSIDE RECORDS SUMMARY | 2025-02-07 18:05 | XMS_ITS | Encounter Summary ---
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
--- OUTSIDE RECORDS SUMMARY | 2025-02-07 18:05 | XMS_ITS | Encounter Summary ---
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
--- OUTSIDE RECORDS SUMMARY | 2025-02-07 18:05 | XMS_ITS | Encounter Summary ---
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
--- OUTSIDE RECORDS SUMMARY | 2025-02-07 18:05 | XMS_ITS | Encounter Summary ---
Author Organization [facility] Address [address] [place] [address] Care Team Providers Care Russian Teacher Name Role Phone Dipak Woodard DO Primary Care Provider Unavail able Encounter Details Date Type Department Care Team (Latest Contact Info) Description 07/31/2006 Outpatient Historical [facility] Family Medicine- [address] [phone] Fuad Julian DO NO ADDRESS ON FILE Pain in Joint, Lower Leg (Primary Dx) Social History Tobacco Use Types Packs/Day Years Used Date Smoking Tobacco: Never Assessed Sex and Gender Information Value Date Recorded Sex Assigned at Not on file 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
--- OUTSIDE RECORDS SUMMARY | 2025-02-07 18:05 | XMS_ITS | Encounter Summary ---
Author Organization [facility] Address [address] [place] [address] Care Team Providers Care [address] Man Name Role Phone Dipak Woodard DO Primary Care Provider Unavail able Encounter Details Date Type Department Care Team (Late st Contact Info) Description 04/09/2007 Outpatient Historical [facility] Other, Sgf NO ADDRESS ON FILE Social History Tobacco Use Types Packs/Day Years Used Date Smoking Tobacco: Never Assessed Sex and Gender Information Value Date Recorded Sex Assigned at Not on file Legal Sex Male 4:44 AM RIPSAWYER Gender Identity Not on file Sexual Orientation Not on file documented as of this encounter Plan of Treatment Not on file documented as of this encounter Visit Diagnoses Not on filedocumented in this encounter Care Teams Drive Man Relationship Specialty Start Date End Date Dipak Woodard DO PCP - General Family Practice 05/09/13 10/16/15 documented as of this encounter
--- OUTSIDE RECORDS SUMMARY | 2025-02-07 18:05 | XMS_ITS | Encounter Summary ---
Author Organization [facility] Address [address] [place] [address] Care Team Providers Care Miner Helper Name Role Phone Dipak Woodard DO Primary Care Provider Unavail able Encounter Details Date Type Department Care Team (Latest Contact Info) Description 07/09/2006 Outpatient Historical [facility] Family Medicine- [address] [phone] Fuad Julian DO NO ADDRESS ON FILE Other Drug Allergy (Primary Dx) Social History Tobacco Use Types Packs/Day Years Used Date Smoking Tobacco: Never Assessed Sex and Gender Information Value Date Recorded Sex Assigned at Not on file 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
--- OUTSIDE RECORDS SUMMARY | 2025-02-07 18:05 | XMS_ITS | Encounter Summary ---
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 LUMBAR SPINE: HISTORY: Back pain. FINDINGS: No significant vertebral body height loss or subluxation. Extensive multilevel disk, end plate and facet degenerative changes, including bulky anterolateral marginal osteophyte formation. The sacroiliac joint spaces are well maintained. Postcholecystectomy clips. IMPRESSION: Significant multilevel degenerative changes. Maddie Moody M.D. [facility] Electronically Signed by Maddie Moody M.D. 03/30/2007 07:22 , 11:07 A A 525 Document #: [id number] cc: Fuad Julian D.O. RITY PROFESSIONAL documented in this encounter Plan of Treatment Not on file documented as of this encounter Procedures Procedure Name Priority Date/Time Associated Diagnosis Comments IMAGING REPORT 03/30/2007 7:22 AM SECURITY PROFESSIONAL documented in this encounter Results * IMAGING REPORT (03/30/2007 7:22 AM SECURITY PROFESSIONAL) Narrative Transcriptions Mesfin Moody - 03/26/2007 12:00 AM CST Date: 03/26/2007 Patient Name: Bud James : 1940 Visit #: Requesting Physician: Fuad Julian D.O. LUMBAR SPINE: HISTORY: Back pain. FINDINGS: No significant vertebral body height loss or subluxation.Extensive multilevel disk, end plate and facet degenerative changes,including bulky anterolateral marginal osteophyte formation. Thesacroiliac joint spaces are well maintained. Postcholecystectomy clips. IMPRESSION: Significant multilevel degenerative changes. Maddie Moody M.D. [facility] Electronically Signed by Maddie Moody M.D. 03/30/2007 07:22 , 11:07 A A 525 Document #: [id number] cc: Fuad Julian D.O. Mesfin Moody MD DIAGNOSTIC IMAGING ORDERABLE S Final Result documented in this encounter Visit Diagnoses Not on filedocumented in this encounter Care Teams Overlay Plastician Relationship Specialty Start Date End Date Dipak Woodard DO PCP - General Family Practice 05/09/13 10/16/15 documented as of this encounter
--- OUTSIDE RECORDS SUMMARY | 2025-02-07 18:05 | XMS_ITS | Encounter Summary ---
Author Organization [facility] Address [address] [place] [address] Care Team Providers Care Communications Advisor Name Role Phone Dipak Woodard DO Primary Care Provider Unavail able Encounter Details Date Type Department Care Team (Late st Contact Info) Description 04/14/2007 Outpatient Historical [facility] Other, Sgf NO ADDRESS ON FILE Social History Tobacco Use Types Packs/Day Years Used Date Smoking Tobacco: Never Assessed Sex and Gender Information Value Date Recorded Sex Assigned at Not on file Legal Sex Male 4:44 AM KETTLE COOK Gender Identity Not on file Sexual Orientation Not on file documented as of this encounter Plan of Treatment Not on file documented as of this encounter Visit Diagnoses Not on filedocumented in this encounter Care Teams Communications Advisor Relationship Specialty Start Date End Date Dipak Woodard DO PCP - General Family Practice 05/09/13 10/16/15 documented as of this encounter
--- OUTSIDE RECORDS SUMMARY | 2025-02-07 18:06 | XMS_ITS | Encounter Summary ---
Author Organization 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
--- OUTSIDE RECORDS SUMMARY | 2025-02-07 18:06 | XMS_ITS | Encounter Summary ---
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
--- OUTSIDE RECORDS SUMMARY | 2025-02-07 18:06 | XMS_ITS | Encounter Summary ---
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
[2025-02-07 19:26] LABS: Add Urine Microscopic? YES; Appearance Urine Cloudy (Clear); Glucose Urine UA Negative (Negative); Leukocyte Esterase Ur 3+ LEU/UL (Negative); Nitrate Urine Negative (Negative); Non Pathogenic Casts 0-2; Specific Grav Ur 1.010 (1.001-1.035)
== END 2025-02-07 15:39 | disposition home or self-care (01) ==
LOC: ANHGOSHLAB 15:39
PROVIDERS: PCP Internal Medicine; Visit Provider Nurse Practitioner
DX: R30.0 Dysuria (principal)
CPT/HCPCS: 81001; 87086

== ENCOUNTER 2025-02-10 16:16 | Emergency (ER) | payer BC, SELFPAY ==
--- NOTE | 2025-02-10 16:20 | ED.WOUNDLAC ---
HPI - Wound/Laceration General Chief Complaint: Skin/Abscess/Foreign Body Stated Complaint: Stomach Pain Time Seen by Provider: 02/10/25 16:20 Source: patient Mode of arrival: ambulatory Limitations: no limitations History of Present Illness HPI narrative: patient is an 84-year-old male who presents with due to concerns. Patient had a placed in August it for the past month he has been stating it is painful when moving it to clean. last night after cleaning area had some bleeding. is concerned that over a 24 hour. There is purulence drainage on dressing. Area the size of quarter. patient has not had any fever, chills, nausea, vomiting-diarrhea. Denies any redness surrounding the G-tube site. Related Data Home Medications ?Medication ?Instructions ?Recorded ?Confirmed ?Last Taken ?Type apixaban 5 mg tablet (Eliquis) 5 mg PO BID 01/01/21 02/10/25 09/04/24 08:00 History 5 mg aspirin 81 mg chewable tablet 81 mg PO 1200 01/01/21 02/10/25 12/17/22 History metoprolol succinate 25 mg capsule 25 mg PO DAILY 11/29/24 02/10/25 Unknown History sprinkle, ext. release 24 hr (Kapspargo Sprinkle) Allergies Allergy/AdvReac Type Severity Reaction Status Date / Time Penicillins Allergy Severe Swelling Verified 02/10/25 16:35 morphine AdvReac Intermediate Hallucinati Verified 02/10/25 16:35 ng RICARDO Inhibitors AdvReac Mild Cough Verified 02/10/25 16:35 midazolam (From Versed) AdvReac Mild Agitated Verified 02/10/25 16:35 Review of Systems Review of Systems: All systems reviewed & are unremarkable except as noted in HPI and below Constitutional: Constitutional: Denies body ache(s), Denies chills, Denies fatigue, Denies fever(s), Denies headache(s), Denies malaise and Denies weakness Eyes: Eyes: Denies blurry vision, Denies irritation and Denies loss of vision ENT: Denies otalgia, Denies headache(s), Denies nasal discharge, Denies sinus pain and Denies sore throat Cardiovascular: Cardiovascular: Denies chest pain, Denies irregular heart rhythm and Denies dyspnea Respiratory: Respiratory: Denies dyspnea Gastrointestinal: Gastrointestinal: Reports abdominal pain, Denies melena, Denies hematochezia, Denies diarrhea, Denies nausea and Denies vomiting Musculoskeletal: Musculoskeletal: Denies back pain, Denies myalgias and Denies arthralgias Integumentary/Breasts: Skin/Breast: Denies pruritus and Denies rash Neurologic: Denies headache(s), Denies loss of vision and Denies weakness Psychiatric: Psychiatric: Reports no additional psychiatric complaints Endocrine: Endocrine: Denies fatigue [facility] Past Medical History Medical History Prostate cancer Colon cancer (~11/01/10) BPH (benign prostatic hyperplasia) CAD (coronary artery disease) GERD (gastroesophageal reflux disease) Osteoarthritis of right knee Arthritis Dementia of the Alzheimer's type Hyperlipidemia Cognitive impairment Paroxysmal atrial fibrillation Overweight (BMI 25.0-29.9) Elevated PSA Thrombocytopenia Pulmonary emboli (~2008) Hypertension Surgical History Surgical History History of cataract extraction Fracture of hip, right, closed Right hip pinning December 19, 2022 History of colon surgery Hx of cholecystectomy 1999 S/P CABG x 3 (~10/06/18) History of left knee replacement (~2000) Family History Family History Father Heart disease Hypertension Mother Diabetes mellitus Hypertension Alzheimer disease Sibling Cancer of kidney Carcinoma of colon Cancer Daughter Cancer of kidney Cancer Grandparent Heart disease Cerebrovascular accident Social History Social History Social History: Currently lives at home with his . Surrogate decision maker: Erica Ruth, daughter. Full Code. Caffeine-None Smoking status: Never smoker Second hand tobacco smoke exposure: No Alcohol intake: never Substance use: never Substance use type: does not use Lack of Transportation: No Lack of Food: Never True Current Housing: I Have Housing Concerned About Future Housing: No Difficulty Paying Gas/Electric Bills: No Difficulty Paying for Meds: No Currently Unemployed: YES Education: Bachelor's Degree Difficulty w/ Childcare or Family Care: No Living arrangements: with family Additional living arrangements comments: lives with in a house Occupation/Education: retired Gender identity (if verbalized by the patient): Male Sexual Orientation (if Verbalized by the Patient): Straight or Heterosexual Spiritual care concerns: No Agree to blood products: Yes Comments At time of signature, agree with nursing past medical, surgical, social and family history. There is no relevant family history pertinent to the presenting complaint. Exam Const: General: cooperative, healthy appearing, comfortable, no acute distress and well nourished Nutritional Appearance: well nourished Orientation/consciousness: patient oriented x3 Limitations: no limitations HENMT: Head: normal to inspection, normocephalic and atraumatic Ears: hearing grossly normal bilaterally and external ears normal Face/Nose/Sinus: Normal external nose present, normal facial exam and face symmetric Face and sinus: normal facial exam and face symmetric Mouth: Yes lip normal Eyes: General: appearance normal, both eyes and all related structures Alignment and Position: alignment normal and position normal Periorbital: periorbital findings normal Eyelids: eyelids normal Pupils: Equal, round and reactive pupils present EOM: EOMs intact bilaterally Neck: Neck: normal visual inspection, full ROM and supple Chest: Chest palpation & inspection: normal inspection of the chest Resp: Effort & Inspection: normal respiratory effort and able to speak in complete sentences Auscultation: clear to auscultation bilaterally Cardio: Rate: regular rate Rhythm: regular rhythm Heart sounds: S1 normal heart sound present and S2 normal heart sound present GI: Inspection: normal to inspection and other ( G-tube present with no surrounding erythema or active drainage.) GI Palp: No abdominal tenderness, Yes Soft to palpation, No Firmness to palpation present (GI), No Tenderness to palpation present (GI) and No Guarding due to palpation present (GI) Skin: General skin exam: normal color and no rashes or lesions noted Neuro: General: patient oriented x3 and moves all extremities Cranial nerves: Yes Equal, round and reactive pupils present Speech: normal speech Gait exam (Neuro): Normal gait present Extrem: General: normal to inspection, full ROM and no edema Psych: Appearance: grossly normal and well kempt Mental Status: mental status grossly normal Speech and movement: Normal speech and movement present Affect: normal affect Attitude: cooperative Thought process: Normal thought process present Course Course Emergency Course: Patient is aware of diagnosis, understands and agrees to treatment plan. Anticipatory guidance given. Patient agrees to follow-up as directed and is aware of reasons to seek care at the emergency department. Portions of this record may have been created with voice recognition software Level of Care: Express Care Visit Vital Signs Vital signs: Vital Signs Temperature 36.6 C 02/10/25 16:22 Pulse Rate 85 02/10/25 16:22 Respiratory Rate 18 02/10/25 16:22 Blood Pressure 120/77 02/10/25 16:22 Pulse Oximetry 96 02/10/25 16:22 Oxygen Delivery Room Air 02/10/25 16:22 Temperature 36.6 C 02/10/25 16:22 Pulse Rate 85 02/10/25 16:22 Respiratory Rate 18 02/10/25 16:22 Blood Pressure 120/77 02/10/25 16:22 Pulse Oximetry 96 02/10/25 16:22 Oxygen Delivery Room Air 02/10/25 16:22 MDM MDM Narrative Medical decision making narrative: reassured that the area does not appear infected at this moment. There is no active drainage, erythema surrounding G-tube insertion site. Patient did say ouch upon inspection of G-tube while moving it. patient is on Eliquis so I am not surprised at the scant amount of blood on dressing. Instructed patient to call PCP on Thursday for further workup. If symptoms worsen including increased pain, surrounding redness or larger amounts of drainage appear patient is to go to the emergency department Pt well hydrated appearing, in no respiratory distress, hemodynamically stable. Recommend supportive care. The patient is stable at time of discharge the clinical impression was discussed and the patient was given the opportunity to ask questions, which were addressed as completely as possible given the information available at present. Anticipatory guidance and return to care precautions were discussed and the importance of primary care follow-up was stressed and encouraged. The patient voiced understanding of the plan, indications to return, and the need for follow-up. Exam findings show no acute concerns or changes Patient is appropriate for outpatient treatment and follow-up. Differential Diagnosis Differential Diagnosis: Differential diagnostic considerations for acute abdominal pain?include surgical abdominal etiology, ischemic bowel, surgical site infection. Medical Records I have reviewed the following patient records and this information was taken into consideration when formulating the assessment and plan.: previous clinic visits Discharge Plan Discharge Clinical Impression: Gastrostomy tube present, Visit for wound check Patient Disposition: Home Condition: Stable Instructions: How to Use and Care for Your PEG Tube (DC) Additional Instructions: 1) Please follow-up with your primary care doctor in the next 1-2 days. 2) If you have any worsening of symptoms or any other urgent concerns please go to the ER. 3) Please take medications as prescribed and continue taking your home medications as usual. 4) Please read and follow information included in discharge instructions. Patient Language: Nepali Prescriptions: New mupirocin 2 % ointment 1 applic topical BID Qty: 15 0RF No Action Eliquis 5 mg tablet 5 mg PO BID aspirin 81 mg tablet,chewable 81 mg PO 1200 Kapspargo Sprinkle 25 mg capsule,sprinkle,ER 24hr 25 mg PO DAILY galantamine 4 mg tablet See Rx Instructions .ROUTE .COMPLEX Qty: 240 6RF Dose Instruction: TAKE 3 TABLETS BY MOUTH TWICE DAILY Rx Instructions: TAKE 3 TABLETS BY MOUTH TWICE DAILY memantine 10 mg tablet 10 mg PO BID Qty: 180 6RF spironolactone 25 mg tablet 12.5 mg PO DAILY 30 Days Qty: 15 1RF pravastatin 20 mg tablet 20 mg PO QHS Qty: 90 1RF furosemide [Lasix] 40 mg tablet 40 mg PO QAM Qty: 90 0RF Follow-up/Referrals: Dave Ayala DO [Primary Care Provider, Internal Medicine] - 3 Days Time of Disposition: 17:04
[2025-02-10 16:22] VITALS: BP 120/77; PULSE 85; RESP 18; TEMP 36.6; O2SAT 96
== END 2025-02-10 17:10 | disposition home or self-care (01) ==
PROVIDERS: Emergency Provider Nurse Practitioner Family; PCP Internal Medicine
DX: Z43.1 Encounter for attention to gastrostomy (principal); I25.10 Atherosclerotic heart disease of native coronary artery without angina pectoris; G30.9 Alzheimer's disease, unspecified; F02.80 Dementia in other diseases classified elsewhere, unspecified severity, without behavioral disturbance, psychotic disturbance, mood disturbance, and anxiety; I48.0 Paroxysmal atrial fibrillation; I10 Essential (primary) hypertension; E78.5 Hyperlipidemia, unspecified; M19.90 Unspecified osteoarthritis, unspecified site; M17.11 Unilateral primary osteoarthritis, right knee; K21.9 Gastro-esophageal reflux disease without esophagitis; N40.0 Benign prostatic hyperplasia without lower urinary tract symptoms; Z86.711 Personal history of pulmonary embolism; Z85.038 Personal history of other malignant neoplasm of large intestine; Z85.46 Personal history of malignant neoplasm of prostate; Z95.1 Presence of aortocoronary bypass graft; Z96.651 Presence of right artificial knee joint; Z79.01 Long term (current) use of anticoagulants; Z79.82 Long term (current) use of aspirin
CPT/HCPCS: 99213; G0463

== ENCOUNTER 2025-02-13 15:12 | Outpatient (CLI) | payer BC, SELFPAY ==
--- NOTE | ~2025-02-13 | US_ITS ---
EXAMINATION: US soft tissue abdomen, 02/13/2025 15:13 BOX TOE BUFFER HISTORY: K94.23 - Gastrostomy malfunction Comparison: None Technique: Roger-scale and color Doppler images were obtained. Findings: Correlating with the palpable area there is no abnormal fluid or abscess identified, no increased flow IMPRESSION: Unremarkable exam Reviewed, dictated and finalized at location P. TOE BUFFER IMPRESSION: Unremarkable exam
== END 2025-02-13 15:13 | disposition home or self-care (01) ==
LOC: GOSHIMG 15:12
PROVIDERS: Visit Provider Nurse Practitioner
DX: K94.23 Gastrostomy malfunction (principal)
CPT/HCPCS: 76705